=== PATIENT | female | born 1935 | race Caucasian/White ===

== ENCOUNTER 2017-12-29 15:41 | Inpatient (IN) | payer MEDICARE, OTHER ==
[~2017-12-29] VITALS: Ht 157.5 cm; Wt 105.5 kg
[2017-12-29] MEDS ORDERED: SODIUM CHLORID 0.9% 500 ML INJ 500 ML IV ONE ×2 (15:45→17:30)
[2017-12-29] MEDS ORDERED: SODIUM CHLORIDE 0.9% FLUSH 10 ML FLUSH IVF PRN (15:45)
[2017-12-29 15:47] VITALS: BP 154/71; PULSE 105; RESP 18; TEMP 100.1; O2SAT 98
--- NOTE | 2017-12-29 15:52 | PD ---
HPI Chief Complaint: Syncope Time Seen by Provider: 15:44 Travel History International Travel<30 days: No Contact w/Intl Traveler<30days: No Traveled to known affect area: No History of Present Illness HPI The patient is a 82-year-old female who presents to the emergency department via EMS after 2 syncopal episodes earlier today. The patient apparently had a colonoscopy performed this morning and while she was leaving the colonoscopy center she apparently had a syncopal episode. Per EMS there was no evidence of trauma that time and the family took the patient to her next appointment. The patient was going to see the eye physician when she got out of the car and felt lightheaded. The patient apparently sat down and then passed out for several seconds according to family. EMS states when they arrived fire rescue noted the patient's initial blood pressure was a systolic in the 80s palpable, however, when they placed the patient in the back of the ambulance her blood pressure had a systolic greater than 110. She was noted to be mildly tachycardic with a heart rate between the 90s and 110. They also noted the patient's EKG revealed PACs at that time but no other evidence of arrhythmia. The patient's blood sugar upon arrival was 114. The patient is a somewhat limited historian but denies any headache, neck pain, chest pain, shortness breath, nausea, vomiting, or abdominal pain. Symptoms are moderate. PFSH Past Medical History Narrative Medical Diabetes, hypertension, hyperlipidemia Past Surgical History Narrative Surgical Hysterectomy, multiple eye surgeries Social History Tobacco Use: No Allergies-Medications (Allergen,Severity, Reaction): Coded Allergies: Penicillins (Verified Allergy, Intermediate, 12/29/17) Reported Meds & Prescriptions Reported Meds & Active Scripts Active Reported Victoza Inj (Liraglutide Inj) 18 Mg/3 Ml Pen 0.6 Mg SQ DAILY Levemir Inj (Insulin Detemir) 1,000 unit/ 10 ML Vial 26 Units SQ HS Do not mix with any other Insulin. Levemir Inj (Insulin Detemir) 1,000 unit/ 10 ML Vial 30 Units SQ DAILY Do not mix with any other Insulin. Lisinopril 40 Mg Tab 40 Mg PO DAILY Atorvastatin (Atorvastatin Calcium) 20 Mg Tab 20 Mg PO HS Travatan Z Opth Drops (Travoprost) 0.004 % Soln 1 Drop EACH EYE HS Aricept (Donepezil) 23 Mg Tab 10 Mg PO HS Do not split, crushed or chewed. Namenda Xr (Memantine) 28 Mg Caper 28 Mg PO DAILY Brimonidine Opth Drops (Brimonidine Tartrate) 0.2% Soln 1 Drop EACH EYE TID Levothyroxine (Levothyroxine Sodium) 25 Mcg Tab 25 Mcg PO DAILY Review of Systems ROS Limitations: Poor Historian Except as stated in HPI: all other systems reviewed are Neg HENT: No: Headaches, Neck Pain Cardiovascular: Positive: Tachycardia (Heart rate between 90 and 110 per EMS), Syncope, No: Chest Pain or Discomfort, Diaphoresis Respiratory: No: Shortness of Breath Gastrointestinal: No: Nausea, Vomiting, Abdominal Pain Musculoskeletal: No: Weakness Neurologic: Positive: Syncope, No: Change in Mentation, Paresthesia, Sensory Disturbance Physical Exam Narrative GENERAL: Awake, alert, very pleasant 82-year-old female who appears her stated age and is in no acute respiratory distress. SKIN: Focused skin assessment warm/dry. HEAD: Atraumatic. Normocephalic. Thinning hair on the scalp noted. EYES: No injection or drainage. Cataracts bilaterally. ENT: No nasal bleeding or discharge. Slightly dry mucous membranes. NECK: Trachea midline. No JVD. No tenderness of the cervical vertebrae. CARDIOVASCULAR: Regular, tachycardic with a heart rate of 105. RESPIRATORY: No accessory muscle use. Clear to auscultation. Breath sounds equal bilaterally. GASTROINTESTINAL: Abdomen soft, non-tender, nondistended. No rebound tenderness. MUSCULOSKELETAL: No obvious deformities. No clubbing. No cyanosis. No edema. Well-healed scar medial aspect right ankle. Moves all 4 extremities without difficulty. NEUROLOGICAL: Awake and alert. No obvious cranial nerve deficits. Motor grossly within normal limits. Normal speech. 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 Back: No tenderness over the thoracic or lumbar vertebrae. PSYCHIATRIC: Appropriate mood and affect; insight and judgment normal. Data Data Last Documented VS Vital Signs Date Time Temp Pulse Resp B/P (MAP) Pulse Ox O2 Delivery O2 Flow Rate FiO2 12/29/17 17:22 98.4 12/29/17 16:31 91 18 93 18 100 18 12/29/17 15:47 98 Orders Orders Electrocardiogram (12/29/17 15:45) Complete Blood Count With Diff (12/29/17 15:45) Comprehensive Metabolic Panel (12/29/17 15:45) Magnesium (Mg) (12/29/17 15:45) Ckmb (Isoenzyme) Profile (12/29/17 15:45) Troponin I (12/29/17 15:45) Urinalysis - C+S If Indicated (12/29/17 15:45) Ecg Monitoring (12/29/17 15:45) Iv Access Insert/Monitor (12/29/17 15:45) Oximetry (12/29/17 15:45) Sodium Chloride 0.9% Flush (Ns Flush) (12/29/17 15:45) Orthostatic Vital Signs (12/29/17 15:45) Sodium Chlorid 0.9% 500 Ml Inj (Ns 500 M (12/29/17 15:45) Chest, Single Ap (12/29/17 ) Urine Culture (12/29/17 16:50) Ciprofloxacin 400 Mg Premix (Cipro 400 M (12/29/17 17:15) Sodium Chlorid 0.9% 500 Ml Inj (Ns 500 M (12/29/17 17:30) CKMB (12/29/17 16:30) CKMB% (12/29/17 16:30) Admit Order (Ed Use Only) (12/29/17 17:29) Labs Laboratory Tests Test 12/29/17 16:30 12/29/17 16:50 White Blood Count 17.8 TH/MM3 Red Blood Count 3.41 MIL/MM3 Hemoglobin 10.5 GM/DL Hematocrit 31.7 % Mean Corpuscular Volume 93.1 FL Mean Corpuscular Hemoglobin 30.9 PG Mean Corpuscular Hemoglobin Concent 33.2 % Red Cell Distribution Width 14.5 % Platelet Count 311 TH/MM3 Mean Platelet Volume 8.8 FL Neutrophils (%) (Auto) 85.2 % Lymphocytes (%) (Auto) 9.9 % Monocytes (%) (Auto) 2.7 % Eosinophils (%) (Auto) 0.2 % Basophils (%) (Auto) 2.0 % Neutrophils # (Auto) 15.1 TH/MM3 Lymphocytes # (Auto) 1.8 TH/MM3 Monocytes # (Auto) 0.5 TH/MM3 Eosinophils # (Auto) 0.0 TH/MM3 Basophils # (Auto) 0.4 TH/MM3 CBC Comment DIFF FINAL Differential Comment Blood Urea Nitrogen 29 MG/DL Creatinine 1.70 MG/DL Random Glucose 190 MG/DL Total Protein 7.8 GM/DL Albumin 2.3 GM/DL Calcium Level 8.9 MG/DL Magnesium Level 1.5 MG/DL Alkaline Phosphatase 84 U/L Aspartate Amino Transf (AST/SGOT) 24 U/L Alanine Aminotransferase (ALT/SGPT) 20 U/L Total Bilirubin 0.5 MG/DL Sodium Level 139 MEQ/L Potassium Level 4.4 MEQ/L Chloride Level 102 MEQ/L Carbon Dioxide Level 25.4 MEQ/L Anion Gap 12 MEQ/L Estimat Glomerular Filtration Rate 29 ML/MIN Total Creatine Kinase 125 U/L Troponin I LESS THAN 0.02 NG/ML Urine Color BROWN Urine Turbidity CLOUDY Urine pH 7.0 Urine Specific [place] 1.025 Urine Protein 100 mg/dL Urine Glucose (UA) NEG mg/dL Urine Ketones NEG mg/dL Urine Occult Blood LARGE Urine Nitrite NEG Urine Bilirubin NEG Urine Urobilinogen 0.2 MG/DL Urine Leukocyte Esterase MOD Urine RBC 100-200 /hpf Urine WBC 100-200 /hpf Urine Bacteria MANY /hpf Microscopic Urinalysis Comment CULTURE INDICATED MDM Medical Decision Making Medical Screen Exam Complete: Yes Emergency Medical Condition: Yes Medical Record Reviewed: Yes Interpretation(s) EKG reveals normal sinus rhythm with a rate of 97. Nonspecific T-wave changes. Last Impressions Chest X-Ray 12/29/17 0000 Signed Impressions: CONCLUSION: No acute cardiothoracic process. Laboratory Tests Test 12/29/17 16:30 12/29/17 16:50 White Blood Count 17.8 TH/MM3 Red Blood Count 3.41 MIL/MM3 Hemoglobin 10.5 GM/DL Hematocrit 31.7 % Mean Corpuscular Volume 93.1 FL Mean Corpuscular Hemoglobin 30.9 PG Mean Corpuscular Hemoglobin Concent 33.2 % Red Cell Distribution Width 14.5 % Platelet Count 311 TH/MM3 Mean Platelet Volume 8.8 FL Neutrophils (%) (Auto) 85.2 % Lymphocytes (%) (Auto) 9.9 % Monocytes (%) (Auto) 2.7 % Eosinophils (%) (Auto) 0.2 % Basophils (%) (Auto) 2.0 % Neutrophils # (Auto) 15.1 TH/MM3 Lymphocytes # (Auto) 1.8 TH/MM3 Monocytes # (Auto) 0.5 TH/MM3 Eosinophils # (Auto) 0.0 TH/MM3 Basophils # (Auto) 0.4 TH/MM3 CBC Comment DIFF FINAL Differential Comment Blood Urea Nitrogen 29 MG/DL Creatinine 1.70 MG/DL Random Glucose 190 MG/DL Total Protein 7.8 GM/DL Albumin 2.3 GM/DL Calcium Level 8.9 MG/DL Magnesium Level 1.5 MG/DL Alkaline Phosphatase 84 U/L Aspartate Amino Transf (AST/SGOT) 24 U/L Alanine Aminotransferase (ALT/SGPT) 20 U/L Total Bilirubin 0.5 MG/DL Sodium Level 139 MEQ/L Potassium Level 4.4 MEQ/L Chloride Level 102 MEQ/L Carbon Dioxide Level 25.4 MEQ/L Anion Gap 12 MEQ/L Estimat Glomerular Filtration Rate 29 ML/MIN Total Creatine Kinase 125 U/L Troponin I LESS THAN 0.02 NG/ML Urine Color BROWN Urine Turbidity CLOUDY Urine pH 7.0 Urine Specific [place] 1.025 Urine Protein 100 mg/dL Urine Glucose (UA) NEG mg/dL Urine Ketones NEG mg/dL Urine Occult Blood LARGE Urine Nitrite NEG Urine Bilirubin NEG Urine Urobilinogen 0.2 MG/DL Urine Leukocyte Esterase MOD Urine RBC 100-200 /hpf Urine WBC 100-200 /hpf Urine Bacteria MANY /hpf Microscopic Urinalysis Comment CULTURE INDICATED Differential Diagnosis Differential diagnosis includes orthostatic hypotension, dehydration, arrhythmia , aortic stenosis, electrolyte abnormality, cardiogenic syncope, neurogenic syncope, deconditioning. Narrative Course IV was established, labs are drawn and sent, and the patient was placed on cardiac telemetry monitoring and continuous pulse oximetry monitoring. EKG was ordered and interpreted. Orthostatic vital signs were obtained. The patient was administered 500 cc of normal saline. The patient's UA is positive for UTI , temperature was 100.1, patient was treated with Cipro as she has an allergy to penicillins. Patient's BUN was elevated at 29, white count was elevated at 17.3. Patient most likely has dehydration with secondary UTI and secondary syncope, may benefit from telemetry monitoring and/or echocardiogram. The on- call medical service was paged for 23 hour observation. I discussed the findings with the family and patient at bedside. Orthostatics were positive, patient's systolic pressure dropped 65 points from supine to standing with symptoms. The patient was administered a second IV fluid bolus. BUN and creatinine are slightly elevated, I do not have a baseline with no previous visits. Patient may have underlying CKD versus dehydration. Sepsis Criteria SIRS Criteria (2 or more): Heart rate over 90, WBC > 23483, < 4000 or > 10% bands Sepsis Criteria (SIRS+source): Infect source susp/known Criteria Outcome: Meets sepsis criteria Physician Communication [facility]. I discussed the patient with Dr. Chowdhury who agrees with 23 hour observation. Diagnosis Primary Impression: Syncope Qualified Codes: R55 - Syncope and collapse Additional Impression: UTI (urinary tract infection) Qualified Codes: N30.01 - Acute cystitis with hematuria Condition: Stable Gael Dubois MD Dec 29, 2017 15:52
[2017-12-29] MEDS ORDERED: LEVO25TA4 PO (16:08)
[2017-12-29] MEDS ORDERED: MEMA28CA PO (16:08)
[2017-12-29] MEDS ORDERED: VICT18IN SQ (16:08)
[2017-12-29] MEDS ORDERED: ATOR20TA15 PO (16:08)
[2017-12-29] MEDS ORDERED: LEVEMIR SQ ×2 (16:08)
[2017-12-29] MEDS ORDERED: ARIC23TA PO (16:08)
[2017-12-29] MEDS ORDERED: BRIM0.2S4 EACH EYE (16:08)
[2017-12-29] MEDS ORDERED: LISI40TA PO (16:08)
[2017-12-29] MEDS ORDERED: TRAV0.00 EACH EYE (16:08)
[2017-12-29 16:31] VITALS: BP_SYST 130; BP_SYST 163; BP_SYST 165; BP_DIAS 59; BP_DIAS 65; BP_DIAS 69; RESP 18
[2017-12-29 16:42] LABS: AUTOMATED NEUTROPHIL # 15.1 TH/MM3 (1.8-7.7); BASOPHIL # 0.4 TH/MM3 (0-0.2); EOSINOPHIL % 0.2 % (0.0-4.0); HEMATOCRIT 31.7 % (35.0-46.0); HEMOGLOBIN 10.5 GM/DL (11.6-15.3); LYMPH % 9.9 % (9.0-44.0); LYMPHOCYTE # 1.8 TH/MM3 (1.0-4.8); MEAN CELL VOLUME 93.1 FL (80.0-100.0); MEAN CORPUSCULAR HEMOGLOBIN 30.9 PG (27.0-34.0); MEAN CORPUSCULAR HGB CONC 33.2 % (32.0-36.0); MEAN PLATELET VOLUME 8.8 FL (7.0-11.0); MONO % 2.7 % (0.0-8.0); MONOCYTE # 0.5 TH/MM3 (0-0.9); NEUT % 85.2 % (16.0-70.0); PLATELET COUNT 311 TH/MM3 (150-450); RED BLOOD COUNT 3.41 MIL/MM3 (4.00-5.30); RED CELL DISTRIBUTION WIDTH 14.5 % (11.6-17.2); WHITE BLOOD COUNT 17.8 TH/MM3 (4.0-11.0)
[2017-12-29 17:00] LABS: BILIRUBIN, URINE NEG (NEG); BLOOD, URINE LARGE (NEG); GLUCOSE,URINE NEG (NEG); KETONE, URINE NEG (NEG); NITRITE,URINE NEG (NEG); URINE LEUKOCYTE ESTERASE MOD (NEG)
[2017-12-29 17:01] LABS: URINE COLOR BROWN (YELLW/STRAW)
[2017-12-29 17:08] LABS: BACTERIA, URINE MANY /hpf; RBC, URINE 100-200 /hpf (0-3); WBC, URINE 100-200 /hpf (0-5)
[2017-12-29 17:09] LABS: CHLORIDE 102 MEQ/L (98-107); SODIUM (NA) 139 MEQ/L (136-145)
[2017-12-29 17:12] LABS: ALBUMIN 2.3 GM/DL (3.4-5.0); BICARBONATE 25.4 MEQ/L (21.0-32.0); CALCIUM 8.9 MG/DL (8.5-10.1)
[2017-12-29 17:13] LABS: BLOOD UREA NITROGEN 29 MG/DL (7-18); GLUCOSE,RANDOM 190 MG/DL (74-106); MAGNESIUM 1.5 MG/DL (1.5-2.5)
[2017-12-29] MEDS ORDERED: CIPROFLOXACIN 400 MG PREMIX 200 ML IV ONE (17:15)
[2017-12-29 17:16] LABS: ALT (GPT) 20 U/L (10-53); AST (GOT) 24 U/L (15-37); GLOMERULAR FILTRATION RATE 29 ML/MIN (>89)
[2017-12-29 17:17] LABS: TOTAL BILIRUBIN ADULT 0.5 MG/DL (0.2-1.0); TOTAL PROTEIN 7.8 GM/DL (6.4-8.2)
[2017-12-29 17:19] LABS: ALKALINE PHOSPHATASE 84 U/L (45-117)
--- NOTE | 2017-12-29 17:20 | RADRPT ---
EXAM DATE: 12/29/2017 5:15 PM EDT AGE/SEX: 82 years / Female INDICATIONS: Leukocytosis with fever starting today CLINICAL DATA: This is the patient's initial encounter. Patient reports that signs and symptoms have been present for 1 day and indicates a pain score of 0/10. MEDICAL/SURGICAL HISTORY: Hypercholesterolemia. Hypertension. None. COMPARISON: No prior exams available for comparison. FINDINGS: A single AP view of the chest demonstrates the lungs to be symmetrically aerated without evidence of mass, infiltrate or effusion. The cardiomediastinal contours are unremarkable. Osseous structures a re intact. CONCLUSION: No acute cardiothoracic process. Electronically signed by: Ryan Barrera MD 12/29/2017 5:19 PM EDT
[2017-12-29 17:21] LABS: TROPONIN I LESS THAN 0.02 NG/ML (0.02-0.05)
[2017-12-29 17:22] VITALS: TEMP 98.4
[2017-12-29] MEDS ORDERED: SENNOSIDES 8.6 MG TAB PO PRN (17:45)
[2017-12-29] MEDS ORDERED: MAGNESIUM HYDROXIDE SUSP 30 ML CUP PO PRN (17:45)
[2017-12-29] MEDS ORDERED: NALOXONE HCL 0.4 MG/ML AMP IV PUSH PRN (17:45)
[2017-12-29] MEDS ORDERED: SODIUM CHLORIDE 0.9% FLUSH 10 ML FLUSH IV FLUSH PRN (17:45)
[2017-12-29] MEDS ORDERED: LACTULOSE SYRUP 20 GM/30 ML CUP PO PRN (17:45)
[2017-12-29] MEDS ORDERED: BISACODYL 10 MG SUPP RECTAL PRN (17:45)
[2017-12-29] MEDS: BRIMONIDINE TARTRATE 0.2% OPHT SOLN 5 ML BTL EACH EYE SCH (18:00)
[2017-12-29] MEDS ORDERED: GLUCAGON 1 MG/ML VIAL OTHER PRN (18:15)
[2017-12-29] MEDS ORDERED: DEXTROSE 50% IN WATER 50 ML VIAL(D50) IV PUSH PRN (18:15)
[2017-12-29] MEDS: HEPARIN SODIUM - SQ 10,000 UNITS/ML VIAL SQ SCH (18:16)
[2017-12-29] MEDS: SODIUM CHLOR 0.9% 1000 ML INJ 1,000 ML IV SCH (18:16)
[2017-12-29 20:16] VITALS: BP 162/81; PULSE 88; RESP 20; TEMP 98.4; O2SAT 95
[2017-12-29 20:27] VITALS: BP 156/71; PULSE 92; RESP 18; O2SAT 98
[2017-12-29] MEDS: LATANOPROST 0.005% OPHT SOLN 2.5 ML BTL EACH EYE SCH (21:00)
[2017-12-29] MEDS: ATORVASTATIN 20 MG TAB PO SCH (21:45)
[2017-12-29] MEDS: SODIUM CHLORIDE 0.9% FLUSH 10 ML FLUSH IV FLUSH SCH (21:46)
[2017-12-29] MEDS: INSULIN DETEMIR 100 UNITS/ML VIAL SQ SCH (21:48)
[2017-12-29] MEDS: INSULIN ASPART SUPPLEMENTAL SCALE SQ SCH (21:49)
[2017-12-29 22:45] VITALS: O2SAT 96
[2017-12-30] VITALS (7 sets, daily range): BP systolic 67–184; BP diastolic 55–87; PULSE 85–113; RESP 16–20; TEMP 97.8–99.5; O2SAT 95–100
[2017-12-30] MEDS: SODIUM CHLOR 0.9% 1000 ML INJ 1,000 ML IV SCH ×2 (04:28→14:01)
[2017-12-30] MEDS: LEVOTHYROXINE SODIUM 25 MCG TAB PO SCH (06:03)
[2017-12-30] MEDS: HEPARIN SODIUM - SQ 10,000 UNITS/ML VIAL SQ SCH ×2 (06:07→17:30)
[2017-12-30 06:26] LABS: AUTOMATED NEUTROPHIL # 14.7 TH/MM3 (1.8-7.7); BASOPHIL # 0.1 TH/MM3 (0-0.2); BASOPHIL % 0.6 % (0.0-2.0); EOSINOPHIL # 0.1 TH/MM3 (0-0.4); EOSINOPHIL % 0.4 % (0.0-4.0); HEMOGLOBIN 9.9 GM/DL (11.6-15.3); LYMPH % 12.8 % (9.0-44.0); LYMPHOCYTE # 2.3 TH/MM3 (1.0-4.8); MEAN CELL VOLUME 94.1 FL (80.0-100.0); MEAN CORPUSCULAR HEMOGLOBIN 30.2 PG (27.0-34.0); MEAN PLATELET VOLUME 8.6 FL (7.0-11.0); MONO % 4.7 % (0.0-8.0); MONOCYTE # 0.9 TH/MM3 (0-0.9); NEUT % 81.5 % (16.0-70.0); PLATELET COUNT 272 TH/MM3 (150-450); RED BLOOD COUNT 3.29 MIL/MM3 (4.00-5.30); RED CELL DISTRIBUTION WIDTH 14.3 % (11.6-17.2); WHITE BLOOD COUNT 18.1 TH/MM3 (4.0-11.0)
[2017-12-30 06:48] LABS: BICARBONATE 24.1 MEQ/L (21.0-32.0); CALCIUM 8.4 MG/DL (8.5-10.1); CREATININE 1.2 MG/DL (0.50-1.00)
[2017-12-30] MEDS ORDERED: POTASSIUM CHLORIDE 20 MEQ CONTROLLED RELEASE TAB PO ONE (07:30)
[2017-12-30] MEDS ORDERED: INSULIN ASPART 1,000 UNITS/10 ML VIAL SQ SCH (08:00)
[2017-12-30] MEDS: INSULIN ASPART SUPPLEMENTAL SCALE SQ SCH ×4 (08:05→19:49)
[2017-12-30] MEDS: BRIMONIDINE TARTRATE 0.2% OPHT SOLN 5 ML BTL EACH EYE SCH ×3 (09:04→17:30)
[2017-12-30] MEDS: SODIUM CHLORIDE 0.9% FLUSH 10 ML FLUSH IV FLUSH SCH ×2 (09:04→19:50)
[2017-12-30] MEDS: MEMANTINE 28 MG PO SCH (09:10)
[2017-12-30] MEDS ORDERED: SODIUM CHLOR 0.9% 1000 ML INJ 1,000 ML IV ONE (11:45)
--- NOTE | 2017-12-30 12:05 | HHI.HP ---
[facility] Service [facility] Primary Care Physician Non-Staff Admission Diagnosis Syncope, orthostatic changes, UTI, dehydration Diagnoses: (1) Sepsis Diagnosis: Principal (2) Leucocytosis Diagnosis: Principal (3) Syncope Diagnosis: Principal (4) UTI (urinary tract infection) Diagnosis: Principal Chief Complaint: Patient passed out Travel History International Travel<30 Days: No Contact w/Intl Traveler <30 Da: No Traveled to Known Affected Are: No History of Present Illness 82-year-old female with known history of hypertension, hyperlipidemia, diabetes , chronic kidney disease stage III, dementia who presented to hospital because of syncopal episode. Patient does have dementia and information was taken from daughter at bedside. Apparently the patient has been plagued with lightheadedness, dizziness when standing for the last few months. The daughter indicates that has been progressively getting worse over the last month. Patient did undergo hers screening colonoscopy yesterday in which she did do the prep the night before. After the colonoscopy they went to see her announcer. When the patient went to get out of the car she got significantly lightheaded and the daughter was able to grab her mother's coat and she went backwards into the car without any injury. The daughter indicated that her mother's eyes rolled back into her head, there was no tonic-clonic movements or loss of bowel or bladder control. Daughter states that she was unconscious for at least 5 minutes. When she came to she did know that it was her daughter and great grandkids that were with her. Because of that reason they brought her to the emergency department for evaluation. Upon workup patient was found to have sepsis by criteria with tachycardia, leukocytosis, urinary tract infection. Patient was given fluids in emergency department and had orthostatic vitals performed which were significantly positive. Renal functions did indicate signs of volume depletion with worsening of her chronic kidney disease. Is recommended by the ER physician the patient be admitted for further evaluation and management. At the time evaluating the patient today she states that she is feeling much better. She still has lightheadedness and dizziness upon standing. Orthostatic vital signs still are significant positive. As previously stated the patient has had at least 2-3 months of worsening orthostasis, lightheadedness, dizziness upon standing. They deny any outpatient workup. They have not notified her primary medical doctor of these symptoms. Review of Systems Constitutional: COMPLAINS OF: Dizziness Cardiovascular: COMPLAINS OF: Syncope Except as stated in HPI: all other systems reviewed are Neg Past Family Social History Past Medical History Hypertension Hyperlipidemia Chronic kidney disease stage III Diabetes Dementia Past Surgical History Right ankle surgery Cataract surgery Hysterectomy Reported Medications Reported Meds & Active Scripts Active Reported Victoza Inj (Liraglutide Inj) 18 Mg/3 Ml Pen 0.6 Mg SQ DAILY Levemir Inj (Insulin Detemir) 1,000 unit/ 10 ML Vial 26 Units SQ HS Do not mix with any other Insulin. Levemir Inj (Insulin Detemir) 1,000 unit/ 10 ML Vial 30 Units SQ DAILY Do not mix with any other Insulin. Lisinopril 40 Mg Tab 40 Mg PO DAILY Atorvastatin (Atorvastatin Calcium) 20 Mg Tab 20 Mg PO HS Travatan Z Opth Drops (Travoprost) 0.004 % Soln 1 Drop EACH EYE HS Aricept (Donepezil) 23 Mg Tab 10 Mg PO HS Do not split, crushed or chewed. Namenda Xr (Memantine) 28 Mg Caper 28 Mg PO DAILY Brimonidine Opth Drops (Brimonidine Tartrate) 0.2% Soln 1 Drop EACH EYE TID Levothyroxine (Levothyroxine Sodium) 25 Mcg Tab 25 Mcg PO DAILY Allergies: Coded Allergies: Penicillins (Verified Allergy, Intermediate, 12/29/17) Family History Family history is reviewed and mother with possible pancreatic cancer Social History Patient did not use any tobacco, alcohol or illicit drugs Physical Exam Vital Signs Vital Signs Date Time Temp Pulse Resp B/P (MAP) Pulse Ox O2 Delivery O2 Flow Rate FiO2 12/30/17 09:11 110/63 (79) 123/69 (87) 67/55 (59) 12/30/17 08:00 98.6 113 18 140/78 (98) 96 12/30/17 00:00 98.0 89 20 165/84 (111) 100 12/29/17 22:45 96 21 12/29/17 20:28 92 18 98 12/29/17 20:27 92 18 156/71 (99) 98 Room Air 12/29/17 20:16 98.4 88 20 162/81 (108) 95 12/29/17 17:22 98.4 12/29/17 16:31 91 18 165/65 (98) 93 18 163/69 (100) 100 18 130/59 (82) 12/29/17 15:47 100.1 105 18 154/71 (98) 98 Physical Exam GENERAL: Well-developed, well-nourished, in no acute distress. alert and orientated HEENT: Head is normocephalic without any lesions or masses noted. Facial features are symmetric. Eyes: Pupils equal round reactive to light. Extraocular muscles are intact. Conjunctivae were clear. Oropharyngeal: Pharynx without any erythema edema. Tongue is midline without deviation. Buccal mucosa is moist without any masses or lesions NECK: Supple without any masses. Trachea midline no deviation. No JVD, no bruits are appreciated CARDIAC: Regular rhythm, regular rate. S1/S2 are heard. 2/6 ejection murmur, no gallops or rubs. LUNGS: Clear to auscultation bilaterally. No wheeze, rhonchi or rales. No use of accessory muscles on inspiration or expiration. ABDOMEN: Soft, nontender. Nondistended. Bowel sounds heard in all 4 quadrants. No organomegaly or masses. Negative rebound, negative guarding EXTREMITIES: No edema, pulses are equal bilaterally. No cyanosis or clubbing NEUROLOGY: Mood and affect appear appropriate. Cranial nerves II through XII grossly intact. Muscle strength 5/5 in upper and lower extremities bilaterally. Deep tendon reflexes are 2+ in upper and lower extremities bilaterally. Laboratory Laboratory Tests Test 12/29/17 16:30 12/29/17 16:50 12/30/17 06:10 White Blood Count 17.8 18.1 Red Blood Count 3.41 3.29 Hemoglobin 10.5 9.9 Hematocrit 31.7 31.0 Mean Corpuscular Volume 93.1 94.1 Mean Corpuscular Hemoglobin 30.9 30.2 Mean Corpuscular Hemoglobin Concent 33.2 32.0 Red Cell Distribution Width 14.5 14.3 Platelet Count 311 272 Mean Platelet Volume 8.8 8.6 Neutrophils (%) (Auto) 85.2 81.5 Lymphocytes (%) (Auto) 9.9 12.8 Monocytes (%) (Auto) 2.7 4.7 Eosinophils (%) (Auto) 0.2 0.4 Basophils (%) (Auto) 2.0 0.6 Neutrophils # (Auto) 15.1 14.7 Lymphocytes # (Auto) 1.8 2.3 Monocytes # (Auto) 0.5 0.9 Eosinophils # (Auto) 0.0 0.1 Basophils # (Auto) 0.4 0.1 CBC Comment DIFF FINAL AUTO DIFF Differential Comment AUTO DIFF CONFIRMED Blood Urea Nitrogen 29 22 Creatinine 1.70 1.20 Random Glucose 190 51 Total Protein 7.8 Albumin 2.3 Calcium Level 8.9 8.4 Magnesium Level 1.5 Alkaline Phosphatase 84 Aspartate Amino Transf (AST/SGOT) 24 Alanine Aminotransferase (ALT/SGPT) 20 Total Bilirubin 0.5 Sodium Level 139 144 Potassium Level 4.4 3.1 Chloride Level 102 109 Carbon Dioxide Level 25.4 24.1 Anion Gap 12 11 Estimat Glomerular Filtration Rate 29 43 Total Creatine Kinase 125 Creatine Kinase MB 0.9 Troponin I LESS THAN 0.02 Urine Color BROWN Urine Turbidity CLOUDY Urine pH 7.0 Urine Specific [place] 1.025 Urine Protein 100 Urine Glucose (UA) NEG Urine Ketones NEG Urine Occult Blood LARGE Urine Nitrite NEG Urine Bilirubin NEG Urine Urobilinogen 0.2 Urine Leukocyte Esterase MOD Urine RBC 100-200 Urine WBC 100-200 Urine Bacteria MANY Microscopic Urinalysis Comment CULTURE INDICATED Platelet Estimate NORMAL Platelet Morphology Comment NORMAL Date/Time Source Procedure Growth Status 12/29/17 16:50 Urine Clean Catch Urine Culture Pending Received Result Diagram: 12/30/17 0610 12/30/17 0610 Imaging Last Impressions Chest X-Ray 12/29/17 0000 Signed Impressions: CONCLUSION: No acute cardiothoracic process. Caprini VTE Risk Assessment Caprini VTE Risk Assessment: Mod/High Risk (score >= 2) Caprini Risk Assessment Model Point Value = 1 Point Value = 2 Point Value = 3 Point Value = 5 Age 41-60 Minor surgery BMI > 25 kg/m2 Swollen legs Varicose veins or History of unexplained or recurrent spontaneous Oral contraceptives or hormone replacement Sepsis (< 1 month) Serious lung disease, including pneumonia (< 1 month) Abnormal pulmonary function Acute myocardial infarction Congestive heart failure (< 1 month) History of inflammatory bowel disease Medical patient at bed rest Age 61-74 Arthroscopic surgery Major open surgery (> 45 min) Laparoscopic surgery (> 45 min) Malignancy Confined to bed (> 72 hours) Immobilizing plaster cast Central venous access Age >= 75 History of VTE Family history of VTE Factor V Leiden Prothrombin [id number] Lupus anticoagulant Anticardiolipin antibodies Elevated serum homocysteine Heparin-induced thrombocytopenia Other congenital or acquired thrombophilia Stroke (< 1 month) Elective arthroplasty Hip, pelvis, or leg fracture Acute spinal cord injury (< 1 month) Prophylaxis Regimen Total Risk Factor Score Risk Level Prophylaxis Regimen 0-1 Low Early ambulation 2 Moderate Order ONE of the following: *Sequential Compression Device (SCD) *Heparin 5000 units SQ BID 3-4 Higher Order ONE of the following medications: *Heparin 5000 units SQ TID *Enoxaparin/Lovenox 40 mg SQ daily (WT < 150 kg, CrCl > 30 mL/min) *Enoxaparin/Lovenox 30 mg SQ daily (WT < 150 kg, CrCl > 10-29 mL/min) *Enoxaparin/Lovenox 30 mg SQ BID (WT < 150 kg, CrCl > 30 mL/min) AND/OR *Sequential Compression Device (SCD) 5 or more Highest Order ONE of the following medications: *Heparin 5000 units SQ TID (Preferred with Epidurals) *Enoxaparin/Lovenox 40 mg SQ daily (WT < 150 kg, CrCl > 30 mL/min) *Enoxaparin/Lovenox 30 mg SQ daily (WT < 150 kg, CrCl > 10-29 mL/min) *Enoxaparin/Lovenox 30 mg SQ BID (WT < 150 kg, CrCl > 30 mL/min) AND *Sequential Compression Device (SCD) Assessment and Plan Assessment and Plan Sepsis -Patient met criteria with leukocytosis, tachycardia, urinary tract infection -Urine culture is pending -Obtain blood cultures -Continue to monitor CBC -Chest x-ray did not indicate any acute process -Continue patient on Cipro 250 mg twice daily Syncopal episode with orthostasis -Multifactorial with a lasting for over the last few months. Could have been antagonized by volume depletion from undergoing prep for colonoscopy. Could be related to medications, diabetes -Orthostatic vitals continue to remain positive -Patient has received at least 3 L of fluid thus far -We will obtain CT of the brain, carotid ultrasound, TSH, cortisol level -We will place LUCÍA hose and continue orthostatic vitals Acute renal failure superimposed on chronic kidney disease stage III -Likely secondary to volume depletion from colonoscopy prep -Continue monitor renal function -Avoid nephrotoxins Hypokalemia -Continue monitoring place as needed Diabetes -Diabetic diet -Accu-Cheks with sliding scale insulin DVT prevention -Subcutaneous heparin Physician Certification 2 Midnight Certification Type: Admission for Inpatient Services Order for Inpatient Services The services are ordered in accordance with Medicare regulations or non- Medicare payer requirements, as applicable. In the case of services not specified as inpatient-only, they are appropriately provided as inpatient services in accordance with the 2-midnight benchmark. Estimated LOS (days): 2 days is the estimated time the patient will need to remain in the hospital, assuming treatment plan goals are met and no additional complications. Post-Hospital Plan: Not yet determined Problem Qualifiers (1) Syncope: Qualified Codes: R55 - Syncope and collapse (2) UTI (urinary tract infection): Qualified Codes: N30.01 - Acute cystitis with hematuria Edmar Teran Dec 30, 2017 12:05
[2017-12-30] MEDS: CIPROFLOXACIN 250 MG TAB PO SCH ×2 (12:07→19:49)
[2017-12-30] MEDS: ACETAMINOPHEN 325 MG TAB PO PRN (12:29)
--- NOTE | 2017-12-30 13:15 | RADRPT ---
EXAM DATE: 12/30/2017 1:10 PM EDT AGE/SEX: 82 years / Female INDICATIONS: Syncope. CLINICAL DATA: This is the patient's initial encounter. Patient reports that signs and symptoms have been present for 2 days and indicates a pain score of 0/10. MEDICAL/SURGICAL HISTORY: Diabetes. Hypertension. Dementia. Hysterectomy. RADIATION DOSE: 55.54 CTDI (mGy) COMPARISON: No prior exams available for comparison. TECHNIQUE: CT of the head without contrast. Using automated exposure control and adjustment of the mA and/or kV according to patient size, radiation dose was kept as low as reasonably achievable to ob tain optimal diagnostic quality images. DICOM format image data is available electronically for revi ew and comparison. FINDINGS: Cerebrum: There is mild generalized atrophy and ventricles are normal given the degree of atrophy. M ild periventricular white matter change is present. There is basal ganglia calcification bilaterally. No midline shift, mass lesion, hemorrhage or acute infarction. No extraaxial fluid collections are seen. There is dense calcification of the anterior falx. Posterior Fossa: The cerebellum and brainstem demonstrate no acute abnormality. The 4th ventricle is midline. The cerebellopontine angle is within normal limits. Extracranial: The visualized sinuses are clear. Skull: The calvaria is intact. No skull fracture. CONCLUSION: 1. No acute intracranial abnormality is identified. 2. Chronic findings include generalized atrophy and periventricular white matter change characterist ic of chronic microvascular ischemia. Electronically signed by: Ryan Donis MD 12/30/2017 1:14 PM EDT
--- NOTE | 2017-12-30 15:16 | HHI.FF ---
Face to Face Verification Diagnosis: (1) Sepsis (2) Leucocytosis (3) UTI (urinary tract infection) (4) Syncope Physical Therapy Order: Evaluate and Treat, Improve ambulation, Strength and gait training Home Health Nursing Order: Medical education Signs/symptoms of disease process Nursing assessment with vital signs I have seen patient Susan Taylor on 12/30/17. My clinical findings support the need for the requested home health care services because: Deconditioned w/ increased weakness Limited ability to care for self I certify that my clinical findings support that this patient is homebound because: Unsteady gait/balance Unsafe to leave home unassisted Edmar Teran Dec 30, 2017 15:16
--- NOTE | 2017-12-30 15:17 | HHI.DCPOC ---
Discharge Care Plan Diagnosis: (1) Sepsis (2) Syncope (3) Leucocytosis (4) UTI (urinary tract infection) Goals to Promote Your Health * To prevent worsening of your condition and complications * To maintain your health at the optimal level Directions to Meet Your Goals Take your medications as prescribed Follow your dietary instruction Follow activity as directed Keep your appointments as scheduled Take your immunizations and boosters as scheduled If your symptoms worsen call your PCP, if no PCP go to Urgent Care Center or Emergency Room Smoking is Dangerous to Your Health. Avoid second hand smoke Call the 24-hour hour crisis hotline for domestic abuse at Edmar Teran Dec 30, 2017 15:17
--- NOTE | 2017-12-30 17:12 | RADRPT ---
EXAM DATE: 12/30/2017 2:08 PM EDT AGE/SEX: 82 years / Female INDICATIONS: Two episodes of syncope. CLINICAL DATA: This is the patient's initial encounter. Patient reports that signs and symptoms have been present for 2 days and indicates a pain score of 0/10. MEDICAL/SURGICAL HISTORY: Hypercholesterolemia. Diabetes. Dementia. Hysterectomy. Right ankle surgery/pins and screws. Multiple eye surgeries. COMPARISON: No prior exams available for comparison. VELOCITY PARAMETERS: ICA/CCA Ratio: Right 1.1 , Left 0.83 ICA: Right 96 cm/sec, Left 82 cm/sec CCA: Right 90 cm/sec, Left 98 cm/sec ECA: Right 85 cm/sec, Left 88 cm/sec Vertebral: Right 63 cm/sec antegrade, Left 47 cm/sec antegrade FINDINGS: Right Carotid: Minimal plaque in the bulb.The waveforms are within normal limits. Left Carotid: High bifurcation. The waveforms are within normal limits. Other: None. CONCLUSION: 1. Right Internal Carotid Artery: Findings indicate <50% stenosis. 2. Left Internal Carotid Artery: No significant stenosis or atherosclerotic plaque is visualized. Electronically signed by: Mainor Cutler MD 12/30/2017 5:10 PM EDT
--- NOTE | 2017-12-30 17:44 | EKG ---
Date Performed: 12/29/2017 Time Performed: 15:50:49 PTAGE: 82 years EKG: Sinus rhythm NONSPECIFIC T-WAVE ABNORMALITY BORDERLINE ECG NO PREVIOUS TRACING DOCTOR: Anamika Jung Interpretating Date/Time 12/30/2017 17:41:50
[2017-12-30] MEDS: INSULIN DETEMIR 100 UNITS/ML VIAL SQ SCH (19:48)
[2017-12-30] MEDS: ATORVASTATIN 20 MG TAB PO SCH (19:49)
[2017-12-30] MEDS: LATANOPROST 0.005% OPHT SOLN 2.5 ML BTL EACH EYE SCH (19:49)
[2017-12-31] VITALS: BP 180/88; PULSE 92; RESP 20; TEMP 98.2; O2SAT 98
[2017-12-31] MEDS: SODIUM CHLOR 0.9% 1000 ML INJ 1,000 ML IV SCH ×3 (00:12→21:10)
[2017-12-31] MEDS: LEVOTHYROXINE SODIUM 25 MCG TAB PO SCH (05:10)
[2017-12-31] MEDS: HEPARIN SODIUM - SQ 10,000 UNITS/ML VIAL SQ SCH ×2 (05:10→16:50)
[2017-12-31 06:02] LABS: BASOPHIL # 0.5 TH/MM3 (0-0.2); BASOPHIL % 2.5 % (0.0-2.0); EOSINOPHIL # 0.2 TH/MM3 (0-0.4); EOSINOPHIL % 0.9 % (0.0-4.0); HEMATOCRIT 30.1 % (35.0-46.0); HEMOGLOBIN 9.9 GM/DL (11.6-15.3); LYMPHOCYTE # 2.7 TH/MM3 (1.0-4.8); MEAN CELL VOLUME 91.6 FL (80.0-100.0); MEAN CORPUSCULAR HGB CONC 32.8 % (32.0-36.0); MEAN PLATELET VOLUME 9.2 FL (7.0-11.0); MONO % 3.5 % (0.0-8.0); MONOCYTE # 0.7 TH/MM3 (0-0.9); NEUT % 79.1 % (16.0-70.0); PLATELET COUNT 273 TH/MM3 (150-450); RED BLOOD COUNT 3.29 MIL/MM3 (4.00-5.30); RED CELL DISTRIBUTION WIDTH 14.9 % (11.6-17.2); WHITE BLOOD COUNT 19.1 TH/MM3 (4.0-11.0)
[2017-12-31 06:17] LABS: BICARBONATE 25.7 MEQ/L (21.0-32.0); CALCIUM 8.5 MG/DL (8.5-10.1); CREATININE 1.2 MG/DL (0.50-1.00); MAGNESIUM 1.1 MG/DL (1.5-2.5)
[2017-12-31 08:00] VITALS: BP_SYST 125; BP_SYST 144; BP_SYST 152; BP_DIAS 56; BP_DIAS 66; BP_DIAS 67; PULSE 98; RESP 17; TEMP 99.6; O2SAT 94
[2017-12-31] MEDS: INSULIN ASPART SUPPLEMENTAL SCALE SQ SCH ×4 (08:00→21:17)
[2017-12-31] MEDS: MEMANTINE 28 MG PO SCH (09:00)
[2017-12-31] MEDS: MAGNESIUM SULFATE 1 GM PREMIX 100 ML IV SCH ×2 (09:33→10:37)
[2017-12-31] MEDS: BRIMONIDINE TARTRATE 0.2% OPHT SOLN 5 ML BTL EACH EYE SCH ×3 (09:34→16:50)
[2017-12-31] MEDS: SODIUM CHLORIDE 0.9% FLUSH 10 ML FLUSH IV FLUSH SCH ×2 (09:35→19:29)
--- NOTE | 2017-12-31 10:37 | HHI.PR ---
Subjective Remarks Patient seen and examined today for follow-up on syncope, orthostasis, urinary tract infection. Patient lying in bed comfortable. Denies any new complaints. Very eager to go home. Objective Vitals Vital Signs Date Time Temp Pulse Resp B/P (MAP) Pulse Ox O2 Delivery O2 Flow Rate FiO2 12/31/17 08:00 99.6 98 17 152/67 (95) 94 144/66 (92) 125/56 (79) 12/31/17 00:00 98.2 92 20 180/88 (118) 98 12/30/17 20:00 97.8 92 20 176/85 (115) 99 12/30/17 20:00 99 21 12/30/17 18:25 97.9 85 16 179/76 (110) 95 12/30/17 14:05 159/84 (109) 149/87 (107) 134/70 (91) 12/30/17 12:00 99.5 96 20 184/84 (117) 95 I/O 12/30/17 12/30/17 12/30/17 12/31/17 12/31/17 12/31/17 07:00 15:00 23:00 07:00 15:00 23:00 Intake Total 1742 ml 0 ml Output Total 150 ml 350 ml 2200 ml Balance 1592 ml -350 ml -2200 ml Intake Oral 0 ml IV Total 1742 ml Output Urine Total 150 ml 350 ml 2200 ml # Voids 1 2 # Bowel Movements 0 Result Diagram: 12/31/17 0535 12/31/17 0535 Objective Remarks GENERAL: Well-developed, well-nourished, in no acute distress. alert and orientated HEENT: Head is normocephalic without any lesions or masses noted. Facial features are symmetric. Eyes: Extraocular muscles are intact. Conjunctivae were clear. NECK: Supple without any masses. Trachea midline no deviation. No JVD, CARDIAC: Regular rhythm, regular rate. S1/S2 are heard. 2/6 ejection murmur, no gallops or rubs. LUNGS: Clear to auscultation bilaterally. No wheeze, rhonchi or rales. No use of accessory muscles on inspiration or expiration. ABDOMEN: Soft, nontender. Nondistended. Bowel sounds heard in all 4 quadrants. No organomegaly or masses. Negative rebound, negative guarding EXTREMITIES: No edema, pulses are equal bilaterally. No cyanosis or clubbing NEUROLOGY: Mood and affect appear appropriate. Cranial nerves II through XII grossly intact. Moving all extremities, speech is clear Urinary Catheter: No Vascular Central Line Catheter: No A/P Assessment and Plan Sepsis -Patient continues to meet criteria with leukocytosis, tachycardia, urinary tract infection -Urine culture with Proteus, resistant to Bactrim, Cipro -Blood cultures are pending -Patient with persistent leukocytosis without any improvement, continue follow CBC -Chest x-ray did not indicate any acute process -Discontinue Cipro secondary to resistance -Start Azactam 1 g every 8 hours -Discussed with infectious disease for antibiotic recommendations, recommending giving trial of Rocephin to see if patient has any allergic reaction. The patient has reaction would consider desensitization therapy. Syncopal episode with orthostasis -Multifactorial with a lasting for over the last few months. Could have been antagonized by volume depletion from undergoing prep for colonoscopy. Could be related to medications, diabetes -Orthostatic vitals continue to remain positive -Patient has received at least 6 l of fluid thus far -CT of the brain was unremarkable for any acute event -Carotid ultrasound indicated right internal carotid with less than 50% stenosis , left internal carotid no significant stenosis -Continue LUCÍA hose and continue orthostatic vitals Acute renal failure superimposed on chronic kidney disease stage III -Likely secondary to volume depletion from colonoscopy prep -Continue monitor renal function -Avoid nephrotoxins Hypokalemia -Continue monitoring place as needed Hypertension -Resume home medications Diabetes -Diabetic diet -Accu-Cheks with sliding scale insulin DVT prevention -Subcutaneous heparin Edmar Teran Dec 31, 2017 10:37
[2017-12-31] MEDS: AZTREONAM INJ 1,000 MG in SODIUM CHLORIDE 0.9% INJ 100 ML IV SCH ×2 (11:51→21:10)
[2017-12-31] MEDS: LISINOPRIL 20 MG TAB PO SCH (11:52)
[2017-12-31 11:57] VITALS: BP 171/90
[2017-12-31 12:00] VITALS: PULSE 86; RESP 17; TEMP 98.4; O2SAT 97
[2017-12-31 14:17] LABS: FREE T3 1.94 PG/ML (2.18-3.98); FREE T4 1.19 NG/DL (0.76-1.46)
[2017-12-31 16:00] VITALS: BP 131/65; PULSE 89; RESP 18; TEMP 100.2; O2SAT 95
[2017-12-31 20:00] VITALS: BP 158/73; PULSE 96; RESP 18; TEMP 99.8; O2SAT 96
[2017-12-31] MEDS ORDERED: diphenhydrAMINE HCL 50 MG/ML VIAL IV PUSH PRN (20:00)
[2017-12-31] MEDS ORDERED: methylPREDNISolone SOD SUCC 125 MG/2 ML VIAL IV PUSH PRN (20:00)
[2017-12-31] MEDS ORDERED: cefTRIAXone INJ 1,000 MG in SODIUM CHLORIDE 0.9% INJ 100 ML IV ONE (21:00)
[2017-12-31] MEDS: LATANOPROST 0.005% OPHT SOLN 2.5 ML BTL EACH EYE SCH (21:11)
[2017-12-31] MEDS: ATORVASTATIN 20 MG TAB PO SCH (21:11)
[2017-12-31] MEDS: INSULIN DETEMIR 100 UNITS/ML VIAL SQ SCH (21:17)
[2018-01-01] VITALS: BP 166/90; PULSE 96; RESP 18; TEMP 99; O2SAT 98
[2018-01-01] MEDS: AZTREONAM INJ 1,000 MG in SODIUM CHLORIDE 0.9% INJ 100 ML IV SCH (04:29)
[2018-01-01] MEDS: LEVOTHYROXINE SODIUM 25 MCG TAB PO SCH (06:23)
[2018-01-01] MEDS: HEPARIN SODIUM - SQ 10,000 UNITS/ML VIAL SQ SCH ×2 (06:24→17:33)
[2018-01-01 07:07] LABS: AUTOMATED NEUTROPHIL # 13.5 TH/MM3 (1.8-7.7); BASOPHIL # 0.7 TH/MM3 (0-0.2); EOSINOPHIL # 0.1 TH/MM3 (0-0.4); EOSINOPHIL % 0.6 % (0.0-4.0); HEMATOCRIT 33.9 % (35.0-46.0); HEMOGLOBIN 10.9 GM/DL (11.6-15.3); LYMPH % 16.7 % (9.0-44.0); MEAN CELL VOLUME 93.2 FL (80.0-100.0); MEAN CORPUSCULAR HGB CONC 32.2 % (32.0-36.0); MONO % 4.4 % (0.0-8.0); MONOCYTE # 0.8 TH/MM3 (0-0.9); NEUT % 74.3 % (16.0-70.0); PLATELET COUNT 283 TH/MM3 (150-450); RED BLOOD COUNT 3.64 MIL/MM3 (4.00-5.30); RED CELL DISTRIBUTION WIDTH 14.2 % (11.6-17.2); WHITE BLOOD COUNT 18.1 TH/MM3 (4.0-11.0)
[2018-01-01 07:09] LABS: CALCIUM 8.4 MG/DL (8.5-10.1)
[2018-01-01 07:10] LABS: BICARBONATE 24.1 MEQ/L (21.0-32.0); MAGNESIUM 1.5 MG/DL (1.5-2.5)
[2018-01-01 07:13] LABS: CREATININE 1.2 MG/DL (0.50-1.00)
[2018-01-01 07:58] VITALS: BP 177/83; PULSE 97; RESP 20; TEMP 99.8; O2SAT 97
[2018-01-01] MEDS: INSULIN ASPART SUPPLEMENTAL SCALE SQ SCH ×4 (08:30→20:24)
[2018-01-01] MEDS: SODIUM CHLORIDE 0.9% FLUSH 10 ML FLUSH IV FLUSH SCH ×2 (09:00→20:26)
[2018-01-01] MEDS: MEMANTINE 28 MG PO SCH (09:00)
[2018-01-01] MEDS: LISINOPRIL 20 MG TAB PO SCH (09:58)
[2018-01-01] MEDS: amLODIPine BESYLATE 5 MG TAB PO SCH (09:58)
[2018-01-01] MEDS: SODIUM CHLOR 0.9% 1000 ML INJ 1,000 ML IV SCH ×2 (09:59→20:26)
[2018-01-01] MEDS: BRIMONIDINE TARTRATE 0.2% OPHT SOLN 5 ML BTL EACH EYE SCH ×3 (09:59→17:33)
--- NOTE | 2018-01-01 11:12 | HHI.PR ---
Subjective Remarks Patient seen and examined today. Patient denies any new complaints. Patient remains asymptomatic. Patient with mildly elevated blood pressure, he has had low-grade fever 100.2 Objective Vitals Vital Signs Date Time Temp Pulse Resp B/P (MAP) Pulse Ox O2 Delivery O2 Flow Rate FiO2 01/01/18 07:58 99.8 97 20 177/83 (114) 97 01/01/18 00:00 99.0 96 18 166/90 (115) 98 12/31/17 20:00 99.8 96 18 158/73 (101) 96 12/31/17 16:00 100.2 89 18 131/65 (87) 95 12/31/17 12:00 98.4 86 17 97 12/31/17 11:57 171/90 (117) I/O 12/31/17 12/31/17 12/31/17 01/01/18 01/01/18 01/01/18 07:00 15:00 23:00 07:00 15:00 23:00 Intake Total 0 ml 300 ml 1694 ml 1285 ml Output Total 2200 ml 2600 ml 1300 ml Balance -2200 ml 300 ml -906 ml -15 ml Intake Oral 0 ml 720 ml 120 ml IV Total 300 ml 974 ml 1165 ml Output Urine Total 2200 ml 2600 ml 1300 ml # Bowel Movements 0 Result Diagram: 01/01/1836 01/01/18 06 Objective Remarks GENERAL: Well-developed, well-nourished, in no acute distress. alert and orientated HEENT: Head is normocephalic without any lesions or masses noted. Facial features are symmetric. Eyes: Extraocular muscles are intact. Conjunctivae were clear. NECK: Supple without any masses. Trachea midline no deviation. No JVD, CARDIAC: Regular rhythm, regular rate. S1/S2 are heard. 2/6 ejection murmur, no gallops or rubs. LUNGS: Clear to auscultation bilaterally. No wheeze, rhonchi or rales. No use of accessory muscles on inspiration or expiration. ABDOMEN: Soft, nontender. Nondistended. Bowel sounds heard in all 4 quadrants. No organomegaly or masses. Negative rebound, negative guarding EXTREMITIES: No edema, pulses are equal bilaterally. No cyanosis or clubbing NEUROLOGY: Mood and affect appear appropriate. Cranial nerves II through XII grossly intact. Moving all extremities, speech is clear Urinary Catheter: No Vascular Central Line Catheter: No A/P Assessment and Plan Sepsis -Patient continues to meet criteria with leukocytosis, tachycardia, urinary tract infection -Urine culture with Proteus, resistant to Bactrim, Cipro -Blood cultures are negative for 2 days -Patient with persistent leukocytosis without any improvement, continue follow CBC -Chest x-ray did not indicate any acute process -Discontinue Azactam 1 g every 8 hours -Patient tolerated Rocephin well, start Rocephin 1 g IV daily -Continue monitor CBC, WC count does not start to improve may need infectious disease consult Syncopal episode with orthostasis -Multifactorial with a lasting for over the last few months. Could have been antagonized by volume depletion from undergoing prep for colonoscopy. Could be related to medications, diabetes -Orthostatic vitals continue to remain positive -Patient has received at least 7 l of fluid thus far -CT of the brain was unremarkable for any acute event -Carotid ultrasound indicated right internal carotid with less than 50% stenosis , left internal carotid no significant stenosis -Continue LUCÍA hose and continue orthostatic vitals Acute renal failure superimposed on chronic kidney disease stage III, stable -Likely secondary to volume depletion from colonoscopy prep -Continue monitor renal function -Avoid nephrotoxins Hypokalemia -Continue monitoring place as needed Hypertension -Resume home medications Diabetes -Diabetic diet -Accu-Cheks with sliding scale insulin DVT prevention -Subcutaneous heparin Discharge Planning Discharge planning once patient remains afebrile and leukocytosis improved Edmar Teran Jan 01, 2018 11:12
[2018-01-01 11:22] VITALS: BP 122/66; PULSE 94; RESP 20; TEMP 97.4; O2SAT 97
[2018-01-01 15:21] VITALS: BP 128/74; PULSE 76; RESP 20; TEMP 97.6; O2SAT 97
[2018-01-01 20:00] VITALS: BP_SYST 138; BP_SYST 147; BP_DIAS 61; BP_DIAS 67; PULSE 103; PULSE 104; RESP 18; TEMP 101.3; O2SAT 96; O2SAT 97
[2018-01-01] MEDS: INSULIN DETEMIR 100 UNITS/ML VIAL SQ SCH (20:22)
[2018-01-01] MEDS: ACETAMINOPHEN 325 MG TAB PO PRN (20:25)
[2018-01-01] MEDS: ATORVASTATIN 20 MG TAB PO SCH (20:26)
[2018-01-01] MEDS: LATANOPROST 0.005% OPHT SOLN 2.5 ML BTL EACH EYE SCH (20:26)
[2018-01-01] MEDS ORDERED: cefTRIAXone INJ 1,000 MG in SODIUM CHLORIDE 0.9% INJ 100 ML IV SCH (21:00)
[2018-01-02] VITALS: BP 105/53; PULSE 83; RESP 18; TEMP 99.1; O2SAT 96
[2018-01-02] MEDS: HEPARIN SODIUM - SQ 10,000 UNITS/ML VIAL SQ SCH ×2 (05:31→18:01)
[2018-01-02] MEDS: LEVOTHYROXINE SODIUM 25 MCG TAB PO SCH (05:31)
[2018-01-02 06:21] LABS: AUTOMATED NEUTROPHIL # 15.2 TH/MM3 (1.8-7.7); BASOPHIL # 0.1 TH/MM3 (0-0.2); BASOPHIL % 0.6 % (0.0-2.0); EOSINOPHIL # 0.1 TH/MM3 (0-0.4); EOSINOPHIL % 0.6 % (0.0-4.0); HEMATOCRIT 32.8 % (35.0-46.0); HEMOGLOBIN 10.8 GM/DL (11.6-15.3); LYMPHOCYTE # 3.1 TH/MM3 (1.0-4.8); MEAN CELL VOLUME 93.8 FL (80.0-100.0); MEAN CORPUSCULAR HEMOGLOBIN 30.9 PG (27.0-34.0); MEAN CORPUSCULAR HGB CONC 32.9 % (32.0-36.0); MEAN PLATELET VOLUME 8.2 FL (7.0-11.0); MONO % 4.1 % (0.0-8.0); MONOCYTE # 0.8 TH/MM3 (0-0.9); NEUT % 78.7 % (16.0-70.0); PLATELET COUNT 285 TH/MM3 (150-450); RED CELL DISTRIBUTION WIDTH 14.3 % (11.6-17.2); WHITE BLOOD COUNT 19.3 TH/MM3 (4.0-11.0)
[2018-01-02 07:31] VITALS: BP 145/65; PULSE 96; RESP 20; TEMP 99.7; O2SAT 96
--- NOTE | 2018-01-02 08:51 | RADRPT ---
EXAM DATE: 01/02/2018 8:43 AM EDT AGE/SEX: 82 years / Female INDICATIONS: Fever. CLINICAL DATA: This is the patient's initial encounter. Patient reports that signs and symptoms have been present for 1 day and indicates a pain score of 0/10. MEDICAL/SURGICAL HISTORY: Hypertension. Diabetes. Hysterectomy. Orthopedic surgery. RADIATION DOSE: 24.89 CTDI (mGy) COMPARISON: No prior exams available for comparison. TECHNIQUE: Multiple contiguous axial images were obtained through the abdomen. Images were obtained using multiple row detector helical technique. Using automated exposure control and adjustment of the mA and/or kV according to patient size, radiation dose was kept as low as reasonably achievable to o btain optimal diagnostic quality images. DICOM format image data is available electronically for rev iew and comparison. FINDINGS: Lower Lungs: Bibasilar densities. Liver: The liver has a homogeneous density without space-occupying lesion. There is no dilation of th e biliary tree. Spleen: Homogeneous density without enlargement. Pancreas: Unremarkable without mass or calcification. Kidneys: Normal in size and shape. No evidence of hydronephrosis. There is a mass along the left mid kidney measuring 4.4 x 5.3 x 4.3 cm. Lack of intravenous contrast limits evaluation there is also a 1.2 cm hyperdense lesion along the upper pole left kidney. Adrenal Glands: Unremarkable. Aorta: The aorta and proximal iliac vessels are grossly unremarkable without aneurysmal dilation. Bowel/Mesentery: Copious amount of stool the rectum. Circumferential wall thickening within the rectu m. Scattered diverticulosis. Abdominal Wall: Intact. Retroperitoneum: No evidence of adenopathy in the retrocrural, para-aortic, or deep pelvic regions. Bladder: Contours are smooth. Small bladder diverticulum. Reproductive Organs: No abnormal masses or calcifications seen. Inguinal: The inguinal region is unremarkable without evidence of adenopathy. Bony Structures: Diffuse degenerative changes. CONCLUSION: 1. Solid-appearing left renal mass not completely evaluated due to lack of intravenous contrast. Thi s is concerning for renal cell carcinoma. MRI recommended for further characterization. 2. Bibasilar densities likely atelectasis. 3. Circumferential wall thickening involving the rectum. Digital rectal exam and clinical correlatio n. Neoplastic etiology should be excluded. 4. Constipation and diverticulosis. 5. Small bladder diverticulum. Electronically signed by: Godfrey Pradhan MD 01/02/2018 8:50 AM EDT
[2018-01-02] MEDS: MEMANTINE 28 MG PO SCH (09:00)
[2018-01-02] MEDS: INSULIN ASPART SUPPLEMENTAL SCALE SQ SCH ×4 (09:15→20:47)
[2018-01-02] MEDS: SODIUM CHLORIDE 0.9% FLUSH 10 ML FLUSH IV FLUSH SCH ×2 (09:15→20:52)
[2018-01-02] MEDS: BRIMONIDINE TARTRATE 0.2% OPHT SOLN 5 ML BTL EACH EYE SCH ×3 (09:15→18:01)
[2018-01-02] MEDS: LISINOPRIL 20 MG TAB PO SCH (09:16)
[2018-01-02] MEDS: amLODIPine BESYLATE 5 MG TAB PO SCH (09:16)
--- NOTE | 2018-01-02 09:17 | RADRPT ---
EXAM DATE: 01/02/2018 9:11 AM EDT AGE/SEX: 82 years / Female INDICATIONS: Fever. CLINICAL DATA: This is the patient's initial encounter. Patient reports that signs and symptoms have been present for 1 day and indicates a pain score of 0/10. MEDICAL/SURGICAL HISTORY: Hypertension. Diabetes. Hysterectomy. Orthopedic surgery. COMPARISON: No prior exams available for comparison. FINDINGS: PA and lateral views of the chest demonstrate the bibasilar consolidation. Heart normal in size. The cardiomediastinal contours are unremarkable. Osseous structures are intact. Degenerative changes thor acic spine. CONCLUSION: Bibasilar densities likely pneumonia. Electronically signed by: Godfrey Pradhan MD 01/02/2018 9:16 AM EDT
[2018-01-02] MEDS: CEFEPIME INJ 2,000 MG in SODIUM CHLORIDE 0.9% INJ 100 ML IV SCH ×2 (11:17→22:56)
--- NOTE | 2018-01-02 11:18 | HHI.PR ---
Subjective Remarks Patient seen and examined today for follow-up on syncope, urinary tract infection. Patient resting comfortably. Denies any new complaints. Patient with intermittent fever, T-max 101.3 Objective Vitals Vital Signs Date Time Temp Pulse Resp B/P (MAP) Pulse Ox O2 Delivery O2 Flow Rate FiO2 01/02/18 07:31 99.7 96 20 145/65 (91) 96 01/02/18 00:00 99.1 83 18 105/53 (70) 96 01/01/18 20:00 103 18 147/67 (93) 97 01/01/18 20:00 101.3 104 18 138/61 (86) 96 01/01/18 15:21 97.6 76 20 128/74 (92) 97 01/01/18 11:22 97.4 94 20 122/66 (84) 97 I/O 01/01/18 01/01/18 01/01/18 01/02/18 01/02/18 01/02/18 07:00 15:00 23:00 07:00 15:00 23:00 Intake Total 1285 ml 1300 ml 2040 ml 485 ml Output Total 1300 ml 800 ml 800 ml Balance -15 ml 1300 ml 1240 ml -315 ml Intake Oral 120 ml 300 ml 1140 ml 0 ml IV Total 1165 ml 1000 ml 900 ml 485 ml Output Urine Total 1300 ml 800 ml 800 ml # Voids 1 Result Diagram: 01/02/18 0611 01/01/18 0636 Objective Remarks GENERAL: Well-developed, well-nourished, in no acute distress. alert and orientated HEENT: Head is normocephalic without any lesions or masses noted. Facial features are symmetric. Eyes: Extraocular muscles are intact. Conjunctivae were clear. NECK: Supple without any masses. Trachea midline no deviation. No JVD, CARDIAC: Regular rhythm, regular rate. S1/S2 are heard. 2/6 ejection murmur, no gallops or rubs. LUNGS: Clear to auscultation bilaterally. No wheeze, rhonchi or rales. No use of accessory muscles on inspiration or expiration. ABDOMEN: Soft, nontender. Nondistended. Bowel sounds heard in all 4 quadrants. No organomegaly or masses. Negative rebound, negative guarding EXTREMITIES: No edema, pulses are equal bilaterally. No cyanosis or clubbing NEUROLOGY: Mood and affect appear appropriate. Cranial nerves II through XII grossly intact. Moving all extremities, speech is clear Urinary Catheter: No Vascular Central Line Catheter: No A/P Assessment and Plan Sepsis -Patient continues to meet criteria with leukocytosis, tachycardia, urinary tract infection, fever -Urine culture with Proteus, resistant to Bactrim, Cipro -Blood cultures are negative for 3 days -Patient with persistent leukocytosis without any improvement, despite antibiotic treatment continue follow CBC -Chest x-ray did not indicate any acute process -Discontinue Rocephin -Consulted infectious disease, I spoke with Dr. Kimball, who recommended changing antibiotics to cefepime, Flagyl -Repeat urinalysis, obtain chest x-ray, CT of the abdomen and pelvis -Chest x-ray showed bibasilar densities likely pneumonia, however CT of the abdomen indicated bibasilar density representing atelectasis Abnormal CT of the abdomen with left renal mass, circumferential wall thickening of the rectum -Patient just underwent colonoscopy by accounting reconciliation clerk in [place]. Family does not know the name. They indicate that she had a polyp removed. Will need to obtain the physician's name and contact him concerning the circumferential wall thickening of the rectum. Possibly a CT finding could be caused by local inflammation from recent procedures/polypectomy -Obtain tumor markers -Consult oncology for further recommendations. Will defer further imaging studies to oncology -Anticipate colorectal surgery consultation Syncopal episode with orthostasis -Multifactorial with a lasting for over the last few months. Could have been antagonized by volume depletion from undergoing prep for colonoscopy. Could be related to medications, diabetes -Orthostatic vitals continue to remain positive -Patient has received at least 7 l of fluid thus far -CT of the brain was unremarkable for any acute event -Carotid ultrasound indicated right internal carotid with less than 50% stenosis , left internal carotid no significant stenosis -Continue LUCÍA hose and continue orthostatic vitals Acute renal failure superimposed on chronic kidney disease stage III, stable -Likely secondary to volume depletion from colonoscopy prep -Continue monitor renal function -Avoid nephrotoxins Hypokalemia -Continue monitoring place as needed Hypertension -Resume home medications Diabetes -Diabetic diet -Accu-Cheks with sliding scale insulin DVT prevention -Subcutaneous heparin Edmar Teran Jan 02, 2018 11:18
[2018-01-02 11:41] VITALS: BP 143/66; PULSE 95; RESP 20; TEMP 98.8; O2SAT 95
[2018-01-02] MEDS: metroNIDAZOLE 500 MG INJ 100 ML IV SCH ×2 (12:14→20:50)
[2018-01-02 15:26] VITALS: BP 114/53; PULSE 94; RESP 20; TEMP 99.7; O2SAT 95
[2018-01-02 15:35] LABS: CARCINOEMBRYONIC ANTIGEN 1.9 NG/ML (0.2-5.0)
[2018-01-02 15:48] LABS: BILIRUBIN, URINE NEG (NEG); BLOOD, URINE LARGE (NEG); GLUCOSE,URINE 1000 OR GREATER mg/dL (NEG); KETONE, URINE TRACE mg/dL (NEG); NITRITE,URINE NEG (NEG); URINE COLOR YELLOW (YELLW/STRAW); URINE LEUKOCYTE ESTERASE MOD (NEG)
[2018-01-02 16:03] LABS: AMORPHOUS SEDIMENT, URINE FEW; BACTERIA, URINE FEW /hpf; SQUAMOUS EPITHELIAL CELL URINE 0-5 /hpf (0-5); WBC, URINE 100-200 /hpf (0-5)
[2018-01-02 16:04] LABS: WHITE BLOOD CELL CLUMPS MOD
[2018-01-02 16:11] LABS: CA 19-9 29.6 U/ML (0.0-35.0)
[2018-01-02 16:21] LABS: CA 15-3 21.2 U/ML (0.0-32.4)
[2018-01-02 20:00] VITALS: BP 102/54; PULSE 96; RESP 20; TEMP 98.9; O2SAT 96
[2018-01-02] MEDS: INSULIN DETEMIR 100 UNITS/ML VIAL SQ SCH (20:47)
[2018-01-02] MEDS: ATORVASTATIN 20 MG TAB PO SCH (20:51)
[2018-01-02] MEDS: LATANOPROST 0.005% OPHT SOLN 2.5 ML BTL EACH EYE SCH (20:52)
[2018-01-02] MEDS: SODIUM CHLOR 0.9% 1000 ML INJ 1,000 ML IV SCH (20:52)
[2018-01-03] VITALS: BP 111/56; PULSE 90; RESP 20; TEMP 98.8; O2SAT 96
[2018-01-03] MEDS: metroNIDAZOLE 500 MG INJ 100 ML IV SCH ×3 (03:42→21:25)
[2018-01-03] MEDS: LEVOTHYROXINE SODIUM 25 MCG TAB PO SCH (05:39)
[2018-01-03] MEDS: HEPARIN SODIUM - SQ 10,000 UNITS/ML VIAL SQ SCH ×2 (05:39→17:16)
[2018-01-03 06:27] LABS: AUTOMATED NEUTROPHIL # 12.1 TH/MM3 (1.8-7.7); BASOPHIL # 0.1 TH/MM3 (0-0.2); BASOPHIL % 0.5 % (0.0-2.0); EOSINOPHIL # 0.1 TH/MM3 (0-0.4); EOSINOPHIL % 0.9 % (0.0-4.0); HEMATOCRIT 27.8 % (35.0-46.0); HEMOGLOBIN 9.6 GM/DL (11.6-15.3); LYMPH % 17.1 % (9.0-44.0); LYMPHOCYTE # 2.7 TH/MM3 (1.0-4.8); MEAN CELL VOLUME 90.8 FL (80.0-100.0); MEAN CORPUSCULAR HEMOGLOBIN 31.3 PG (27.0-34.0); MEAN CORPUSCULAR HGB CONC 34.5 % (32.0-36.0); MEAN PLATELET VOLUME 9.6 FL (7.0-11.0); MONO % 5.6 % (0.0-8.0); MONOCYTE # 0.9 TH/MM3 (0-0.9); NEUT % 75.9 % (16.0-70.0); PLATELET COUNT 274 TH/MM3 (150-450); RED BLOOD COUNT 3.07 MIL/MM3 (4.00-5.30); RED CELL DISTRIBUTION WIDTH 14.8 % (11.6-17.2); WHITE BLOOD COUNT 15.9 TH/MM3 (4.0-11.0)
[2018-01-03 06:35] LABS: CALCIUM 8.6 MG/DL (8.5-10.1)
[2018-01-03 06:36] LABS: BICARBONATE 24.4 MEQ/L (21.0-32.0); MAGNESIUM 1.4 MG/DL (1.5-2.5)
[2018-01-03 06:49] LABS: CREATININE 1.5 MG/DL (0.50-1.00)
[2018-01-03 08:00] VITALS: BP 123/57; PULSE 95; RESP 20; TEMP 99.2; O2SAT 94
[2018-01-03] MEDS: amLODIPine BESYLATE 5 MG TAB PO SCH (09:00)
[2018-01-03] MEDS: BRIMONIDINE TARTRATE 0.2% OPHT SOLN 5 ML BTL EACH EYE SCH ×3 (09:00→17:17)
[2018-01-03] MEDS: LISINOPRIL 20 MG TAB PO SCH (09:00)
[2018-01-03] MEDS: SODIUM CHLORIDE 0.9% FLUSH 10 ML FLUSH IV FLUSH SCH ×2 (09:02→21:27)
[2018-01-03] MEDS: MEMANTINE 28 MG PO SCH (09:02)
--- NOTE | 2018-01-03 09:14 | HHI.PR ---
Subjective Remarks Patient seen and examined today for follow-up on orthostasis, urinary tract infection, leukocytosis. Patient is just as pleasant as always sitting in bed. Denies any new complaints. Discussed with daughter and patient at bedside. Vital signs are stable, patient with low-grade temperature. Objective Vitals Vital Signs Date Time Temp Pulse Resp B/P (MAP) Pulse Ox O2 Delivery O2 Flow Rate FiO2 01/03/18 00:00 98.8 90 20 111/56 (74) 96 01/02/18 20:00 98.9 96 20 102/54 (70) 96 01/02/18 15:26 99.7 94 20 114/53 (73) 95 01/02/18 11:41 98.8 95 20 143/66 (91) 95 I/O 01/02/18 01/02/18 01/02/18 01/03/18 01/03/18 01/03/18 07:00 15:00 23:00 07:00 15:00 23:00 Intake Total 485 ml 1340 ml 1114 ml Output Total 800 ml 800 ml 500 ml Balance -315 ml 540 ml 614 ml Intake Oral 0 ml 1240 ml 200 ml IV Total 485 ml 100 ml 914 ml Output Urine Total 800 ml 800 ml 500 ml # Bowel Movements 0 Result Diagram: 01/03/18 0550 01/03/18 0550 Objective Remarks GENERAL: Well-developed, well-nourished, in no acute distress. alert and orientated HEENT: Head is normocephalic without any lesions or masses noted. Facial features are symmetric. Eyes: Extraocular muscles are intact. Conjunctivae were clear. NECK: Supple without any masses. Trachea midline no deviation. No JVD, CARDIAC: Regular rhythm, regular rate. S1/S2 are heard. 2/6 ejection murmur, no gallops or rubs. LUNGS: Clear to auscultation bilaterally. No wheeze, rhonchi or rales. No use of accessory muscles on inspiration or expiration. ABDOMEN: Soft, nontender. Nondistended. Bowel sounds heard in all 4 quadrants. No organomegaly or masses. Negative rebound, negative guarding EXTREMITIES: No edema, pulses are equal bilaterally. No cyanosis or clubbing NEUROLOGY: Mood and affect appear appropriate. Cranial nerves II through XII grossly intact. Moving all extremities, speech is clear Urinary Catheter: No Vascular Central Line Catheter: No A/P Assessment and Plan Sepsis -Patient continues to meet criteria with leukocytosis, tachycardia, urinary tract infection, fever -Urine culture with Proteus, resistant to Bactrim, Cipro -Blood cultures are negative for 3 days -Patient with persistent leukocytosis without any improvement, despite antibiotic treatment continue follow CBC -Chest x-ray did not indicate any acute process -Consulted infectious disease, I spoke with Dr. Kimball, who recommended changing antibiotics to cefepime, Flagyl -Chest x-ray showed bibasilar densities likely pneumonia, however CT of the abdomen indicated bibasilar density representing atelectasis -Repeat urinalysis still indicating significant infection await repeat culture Abnormal CT of the abdomen with left renal mass, circumferential wall thickening of the rectum -Patient just underwent colonoscopy by plater printed circuit board panels in [place]. Family does not know the name. They indicate that she had a polyp removed. Will need to obtain the physician's name and contact him concerning the circumferential wall thickening of the rectum. Possibly a CT finding could be caused by local inflammation from recent procedures/polypectomy -Tumor markers are unremarkable at this time. -Consult oncology for further recommendations. Will defer further imaging studies to oncology -Patient just had a colonoscopy done the day of admission by Dr. Ellis, in [place] Syncopal episode with orthostasis -Multifactorial with a lasting for over the last few months. Could have been antagonized by volume depletion from undergoing prep for colonoscopy. Could be related to medications, diabetes -Orthostatic vitals continue to remain positive -Patient has received at least 9 l of fluid thus far -CT of the brain was unremarkable for any acute event -Carotid ultrasound indicated right internal carotid with less than 50% stenosis , left internal carotid no significant stenosis -Continue LUCÍA hose and continue orthostatic vitals Acute renal failure superimposed on chronic kidney disease stage III, -Likely secondary to volume depletion from colonoscopy prep -Continue monitor renal function -Avoid nephrotoxins Hypokalemia, hypomagnesemia -Continue monitoring place as needed Hypertension -Resume home medications Diabetes -Diabetic diet -Accu-Cheks with sliding scale insulin DVT prevention -Subcutaneous heparin Edmar Teran Jan 03, 2018 09:14
[2018-01-03] MEDS: INSULIN ASPART SUPPLEMENTAL SCALE SQ SCH ×4 (09:33→21:31)
[2018-01-03 11:50] VITALS: BP 112/53; PULSE 93; RESP 20; TEMP 99.5; O2SAT 97
--- NOTE | 2018-01-03 12:55 | PD.ID.CON ---
History of Present Illness Service Infectious disease Consult Requested By Ryan WARREN Reason for Consult Evaluation and management of persistent leukocytosis in a patient with UTI possible proctitis Primary Care Physician Non-Staff Diagnoses: History of Present Illness is a 82 y/o CM with PMHx of Dementia, CKD stage III, HTN, Hyperlipidemia, DM who presented to the hospital because of syncopal episode. Patients daughter is at the bedside and provided some history. Patients daughter reports the syncope has been going on for several months prior to admission and have progressively gotten worse over the last month. Patient had screening colonoscopy a day prior to admission and it involved a prep that was exhausting for the patient. After colonoscopy patient went to see her grain handler for some retinal issues. When the patient tried to get out of the car she felt light headed but did not sustain injuries as daughter was close by and held her. The daughter indicated that her mother's eyes rolled back into her head, there was no tonic-clonic movements or loss of bowel or bladder control. Daughter states that she was "not herself" for at least 5 minutes. She regained consciousness but was not totally back to normal. Due to the above incidents patient was brought into the ED. Upon workup patient was found to have sepsis by criteria with tachycardia, leukocytosis, urinary tract infection. Patient was given fluids in emergency department and had orthostatic vitals performed which were significant. Renal functions did indicate signs of volume depletion with worsening of her chronic kidney disease. Despite Ceftriaxone patient continued to have leucocytosis and ID was consulted aubrey given her abnormal CT with rectal findings. Review of Systems ROS Limitations: Poor Historian Past Family Social History Allergies: Coded Allergies: Penicillins (Verified Allergy, Intermediate, 12/29/17) Past Medical History Hypertension Hyperlipidemia Chronic kidney disease stage III Diabetes Dementia Past Surgical History Right ankle surgery Cataract surgery Hysterectomy Reported Medications Reported Meds & Active Scripts Active Reported Victoza Inj (Liraglutide Inj) 18 Mg/3 Ml Pen 0.6 Mg SQ DAILY Levemir Inj (Insulin Detemir) 1,000 unit/ 10 ML Vial 26 Units SQ HS Do not mix with any other Insulin. Levemir Inj (Insulin Detemir) 1,000 unit/ 10 ML Vial 30 Units SQ DAILY Do not mix with any other Insulin. Lisinopril 40 Mg Tab 40 Mg PO DAILY Atorvastatin (Atorvastatin Calcium) 20 Mg Tab 20 Mg PO HS Travatan Z Opth Drops (Travoprost) 0.004 % Soln 1 Drop EACH EYE HS Aricept (Donepezil) 23 Mg Tab 10 Mg PO HS Do not split, crushed or chewed. Namenda Xr (Memantine) 28 Mg Caper 28 Mg PO DAILY Brimonidine Opth Drops (Brimonidine Tartrate) 0.2% Soln 1 Drop EACH EYE TID Levothyroxine (Levothyroxine Sodium) 25 Mcg Tab 25 Mcg PO DAILY Active Ordered Medications Current Medications Medications (Trade) Dose Ordered Sig/Marianne Route Start Time Stop Time Status Last Admin (Lipitor) 20 mg HS PO 12/29/17 21:00 01/02/18 20:51 (Alphagan 0.2% Opth Soln) 1 drop TID EACH EYE 12/29/17 18:00 01/03/18 12:36 (Synthroid) 25 mcg DAILY@0600 PO 12/30/17 06:00 01/03/18 05:39 Patient Own Medication PT OWN MED: Memant... DAILY PO 12/30/17 09:00 (Xalatan 0.005% Opth Soln) 1 drop HS EACH EYE 12/29/17 21:00 01/02/18 20:52 Sodium Chloride 1,000 ml @ 42 mls/hr [id number] IV 12/29/17 18:00 01/02/18 20:52 (NS Flush) 2 ml UNSCH PRN IV FLUSH 12/29/17 17:45 01/03/18 03:42 (NS Flush) 2 ml BID IV FLUSH 12/29/17 21:00 01/02/18 20:52 (Tylenol) 650 mg Q4H PRN PO 12/29/17 17:45 01/01/18 20:25 (Heparin Inj) 5,000 units Q12H SQ 12/29/17 18:00 01/03/18 05:39 (Narcan Inj) 0.4 mg UNSCH PRN IV PUSH 12/29/17 17:45 (Milk Of Magnesia Liq) 30 ml Q12H PRN PO 12/29/17 17:45 (Senokot) 17.2 mg Q12H PRN PO 12/29/17 17:45 01/01/18 06:24 (Dulcolax Supp) 10 mg DAILY PRN RECTAL 12/29/17 17:45 (Lactulose Liq) 30 ml DAILY PRN PO 12/29/17 17:45 (Levemir Inj) 10 units HS SQ 12/29/17 21:00 01/02/18 20:47 (D50w (Vial) Inj) 50 ml UNSCH PRN IV PUSH 12/29/17 18:15 (Glucagon Inj) 1 mg UNSCH PRN OTHER 12/29/17 18:15 (NovoLOG SUPPLEMENTAL SCALE) 1 ACHS SLIDING SCALE SQ 12/29/17 21:00 01/03/18 12:33 (Prinivil) 40 mg DAILY PO 12/31/17 10:45 01/03/18 09:00 (Benadryl Inj) 25 mg Q6H PRN IV PUSH 12/31/17 20:00 (Norvasc) 5 mg DAILY PO 01/01/18 09:00 01/03/18 09:00 Metronidazole 100 ml @ 100 mls/hr Q8H IV 01/02/18 12:00 01/03/18 12:34 Cefepime HCl 1000 mg/Sodium Chloride 100 ml @ 200 mls/hr Q24H IV 01/03/18 23:00 Family History Family history is reviewed and mother with possible pancreatic cancer. Social History Patient did not use any tobacco, alcohol or illicit drugs. Physical Exam Vital Signs Vital Signs Date Time Temp Pulse Resp B/P (MAP) Pulse Ox O2 Delivery O2 Flow Rate FiO2 01/03/18 00:00 98.8 90 20 111/56 (74) 96 01/02/18 20:00 98.9 96 20 102/54 (70) 96 01/02/18 15:26 99.7 94 20 114/53 (73) 95 Physical Exam GENERAL: Obese, well-developed patient, in no apparent distress. SKIN: No rashes, ecchymoses or lesions. Cool and dry. HEAD: Atraumatic. Normocephalic. No temporal or scalp tenderness. EYES: Pupils equal round and reactive. Extraocular motions intact. No scleral icterus. No injection or drainage. ENT: Nose without bleeding, purulent drainage or septal hematoma. Throat without erythema, tonsillar hypertrophy or exudate. Uvula midline. Airway patent. NECK: Trachea midline. Supple, nontender, no meningeal signs. CARDIOVASCULAR: HS audible. RESPIRATORY: Clear to auscultation. Breath sounds equal bilaterally. No wheezes , rales, or rhonchi. GASTROINTESTINAL: Abdomen soft, non-tender, nondistended. Obese. MUSCULOSKELETAL: Extremities without clubbing, cyanosis, or edema. NEUROLOGICAL: Awake and alert. No obvious focal deficit. Rectal exam deferred. Psych cooperative IV line sites with no e.o infection. Laboratory Laboratory Tests Test 01/02/18 15:30 01/03/18 05:50 Urine Collection Type CLEAN CATCH Urine Color YELLOW Urine Turbidity CLOUDY Urine pH 6.0 Urine Specific [place] 1.015 Urine Protein 30 Urine Glucose (UA) 1000 OR GREATER Urine Ketones TRACE Urine Occult Blood LARGE Urine Nitrite NEG Urine Bilirubin NEG Urine Urobilinogen 0.2 Urine Leukocyte Esterase MOD Urine RBC 50-99 Urine WBC 100-200 Urine WBC Clumps MOD Urine Squamous Epithelial Cells 0-5 Urine Amorphous Sediment FEW Urine Bacteria FEW Microscopic Urinalysis Comment CULTURE INDICATED Urine Collection Time 1530 White Blood Count 15.9 Red Blood Count 3.07 Hemoglobin 9.6 Hematocrit 27.8 Mean Corpuscular Volume 90.8 Mean Corpuscular Hemoglobin 31.3 Mean Corpuscular Hemoglobin Concent 34.5 Red Cell Distribution Width 14.8 Platelet Count 274 Mean Platelet Volume 9.6 Neutrophils (%) (Auto) 75.9 Lymphocytes (%) (Auto) 17.1 Monocytes (%) (Auto) 5.6 Eosinophils (%) (Auto) 0.9 Basophils (%) (Auto) 0.5 Neutrophils # (Auto) 12.1 Lymphocytes # (Auto) 2.7 Monocytes # (Auto) 0.9 Eosinophils # (Auto) 0.1 Basophils # (Auto) 0.1 CBC Comment DIFF FINAL Differential Comment Blood Urea Nitrogen 29 Creatinine 1.50 Random Glucose 210 Calcium Level 8.6 Magnesium Level 1.4 Sodium Level 139 Potassium Level 4.1 Chloride Level 105 Carbon Dioxide Level 24.4 Anion Gap 10 Estimat Glomerular Filtration Rate 33 Date/Time Source Procedure Growth Status 12/30/17 15:55 Blood Peripheral Aerobic Blood Culture - Preliminary NO GROWTH IN 4 DAYS Resulted 12/30/17 15:55 Blood Peripheral Anaerobic Blood Culture - Preliminary NO GROWTH IN 4 DAYS Resulted 01/02/18 11:15 Nasal Aspirate Influenza Types A,B Antigen (DENISE) - Final NEGATIVE FOR FLU A AND B ANTIGEN.... Complete 01/02/18 15:30 Urine Clean Catch Urine Culture Pending Received Result Diagram: 01/03/18 0550 01/03/18 0550 Imaging Last Impressions Chest X-Ray 01/02/18 0000 Signed Impressions: CONCLUSION: Bibasilar densities likely pneumonia. Abdomen/Pelvis CT 01/02/18 0000 Signed Impressions: CONCLUSION: 1. Solid-appearing left renal mass not completely evaluated due to lack of int ravenous contrast. This is concerning for renal cell carcinoma. MRI recommended for further characterization. 2. Bibasilar densities likely atelectasis. 3. Circumferential wall thickening involving the rectum. Digital rectal exam a nd clinical correlation. Neoplastic etiology should be excluded. 4. Constipation and diverticulosis. 5. Small bladder diverticulum. Head CT 12/30/17 0000 Signed Impressions: CONCLUSION: 1. No acute intracranial abnormality is identified. 2. Chronic findings include generalized atrophy and periventricular white quoc er change characteristic of chronic microvascular ischemia. Carotid Artery Ultrasound 12/30/17 Signed Impressions: CONCLUSION: 1. Right Internal Carotid Artery: Findings indicate <50% stenosis. 2. Left Internal Carotid Artery: No significant stenosis or atherosclerotic pl aque is visualized. Assessment and Plan Assessment and Plan Possible sepsis on admission. Hypotension on admission, leucopenia. Proctitis possible. h/o constipation. Persistent leucocytosis Penicillin allergy Recs: Continue cefepime IV Continue Flagyl Colorectal surgery consult: patient deferred exam to CR Surgery to avoid rectal exam twice. Case dw she agrees the syncope is long standing and has possibly other underlying case (CAD, Carotid stenosis, , Autonomic etc): Cardiology consulted. Renal mass appears like an incidental finding. Workup being pursued. consulted. Rectal inflammation/Proctitis,colitis does not appear to be CR cancer but GI reports needs to be obtained and CR surgery opinion. In my opinion based on current available information the leucocytosis, h/o constipation, recent colonoscopy could be reasons for mucosal inflammation in the rectal area. Patient denies any rectal symptoms other than occ pain when defecating and hemorrhoids. Follow cultures Follow clinically. 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 Coretta Kimball MD Jan 03, 2018 12:55
[2018-01-03] MEDS: ACETAMINOPHEN 325 MG TAB PO PRN ×2 (15:31→23:26)
[2018-01-03 15:56] VITALS: BP 133/59; PULSE 97; RESP 20; TEMP 100.7; O2SAT 97
[2018-01-03 18:30] VITALS: TEMP 98.9
[2018-01-03 20:17] VITALS: BP 103/48; PULSE 86; RESP 19; TEMP 99.7; O2SAT 98
--- NOTE | 2018-01-03 21:23 | MB ---
cc: Nichelle Hunter MD, Matthew J PA DATE: 01/03/2018 REFERRING PHYSICIAN: Edmar Teran CHIEF COMPLAINT: Edmar Teran requests a consultation for Ms. Taylor regarding syncope associated with a solid left renal mass. HISTORY OF PRESENT ILLNESS: Ms. Taylor is an 82-year-old woman with a history of dementia, diabetes, hypertension, hyperlipidemia. She gets around with a walker. She is unable to give a lot of history as she does not recall the events leading up to her admission. 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 She does not remember passing out. Her history is supplemented by daughter who is at bedside. Apparently, Ms. Taylor has had a syncopal episode prior to the 2 that brought her into the hospital. She was witnessed by family members. She was safely maneuvered to lie down and eventually she recovered. She had no loss of bowel or bladder function. Her dementia has been chronic and her decline continues. She is unable to give much history. Her appetite is good. She has refused mammograms in the past. She was scheduled for a screening colonoscopy, which she had precipitating the syncopal event. Apparently, the colonoscopy was for screening rather than a diagnostic process. Daughter is not aware of how long she has had anemia. She has had no urinary symptoms or overt hematuria or bright red blood per rectum. The colonoscopy apparently was negative. No rectal mass was identified by verbal report from the family. The actual report from the machine design engineer is not available during the consultation. The photos from the colonoscopy shows a polyp, internal hemorrhoids and diverticular disease. PAST MEDICAL HISTORY: Recurrent syncopal episode, diabetes, hypertension, hyperlipidemia, anemia, left renal mass. She was admitted after 2 syncopal episodes, brought in by EMS. Evaluation for fever during emergency room stay included a CT scan of the abdomen that showed a solid-appearing left renal mass, not completely evaluated due to lack of contrast. She has bibasilar densities like atelectasis. There is circumferential wall thickening involving the rectum. There is constipation, diverticulosis and small bladder diverticulum. Because of the renal mass, hematology/oncology is consulted. PAST MEDICAL HISTORY: Dementia, diabetes, hypertension, hyperlipidemia, syncopal episodes, anemia, left renal mass, colonic polyps, diverticular disease. PAST SURGICAL HISTORY: Hysterectomy, multiple eye surgeries, colonoscopy. SOCIAL HISTORY: Denies any tobacco, alcohol or illicit drug use. ALLERGIES: PENICILLIN. FAMILY HISTORY: Significant of coronary artery disease and arrhythmia. A younger sister apparently is having a defibrillator placed. Mother at age 77 of coronary artery disease. She had a history of gastric cancer. ALLERGIES: PENICILLIN. CURRENT MEDICATIONS: Cefepime, metronidazole, Lodipine, lisinopril, Synthroid, Lipitor, Xalatan, Levemir, NovoLog. PHYSICAL EXAMINATION: VITAL SIGNS: T-max 100.7, heart rate 97, respiratory rate 20, blood pressure 133/59, saturation 97%. GENERAL: Ms. Taylor is a well-developed, heavy set, elderly woman who is sleepy, but arousable. HEENT: Her pupils are round, reactive to light and accommodation. Oropharynx is clear. NECK: Supple, with no adenopathy. No axillary adenopathy. LUNGS: Clear anteriorly. CARDIOVASCULAR: Reveals mild tachycardia. ABDOMEN: Large and benign. EXTREMITIES: No edema. BREASTS: No supraclavicular, infraclavicular or axillary adenopathy. No breast masses noted on both sides. LABORATORY DATA: Hemoglobin 9.6, white blood cell count 15.9. Chemistry: BUN of 29, creatinine 1.5. IMPRESSION AND PLAN: Ms. Taylor is an 82-year-old woman with multiple medical problems including dementia, diabetes, hypertension, hypercholesterolemia, hypothyroidism, chronic anemia, presenting with syncopal episode. She is found to have rectal fullness, but had a recent colonoscopy. It shows no mass. She has a left renal mass for which hematology/oncology is consulted. I discussed with Ms. Taylor and her daughter present at the consultation concern for the syncopal episode. I will consult Cardiology to assist in management and workup of syncope. In the meantime, she has had no syncopal episode during the hospitalization. Infectious diseases has been consulted for the fevers. Proctitis is considered in the differential. The biopsy and colonoscopy report will be requested to [facility]. I recommend no specific therapy for the kidney cancer at this point. On discussion with the patient and daughter, they are less inclined to proceed with surgical workup. With surgical option given, her dementia and multiple medical problems, I would agree to this. We discussed the option of a biopsy and ablation at the same time. This is more up to their liking. We discussed the rationale for palliative therapy given her comorbidities. We will consult with urology to see if she is a candidate or if suspect it may be at significantly increased risk for definitive surgery for the suspected urologic cancer. CT scan of the chest will be performed to rule out site of metastatic disease. MRI of the kidney will be requested without contrast in light of her renal insufficiency to delineate and evaluate the mass further. Pending workup described above, we will recommend a referral to interventional radiology for biopsy and definitive local therapy for kidney cancer in a frail, elderly patient. MD LINETTE Wei/FENG , 06:41 PM , 09:23 PM
[2018-01-03] MEDS: INSULIN DETEMIR 100 UNITS/ML VIAL SQ SCH (21:28)
[2018-01-03] MEDS: ATORVASTATIN 20 MG TAB PO SCH (21:33)
[2018-01-03] MEDS: LATANOPROST 0.005% OPHT SOLN 2.5 ML BTL EACH EYE SCH (21:33)
[2018-01-03] MEDS: SODIUM CHLOR 0.9% 1000 ML INJ 1,000 ML IV SCH (21:35)
[2018-01-03] MEDS: CEFEPIME INJ 1,000 MG in SODIUM CHLORIDE 0.9% INJ 100 ML IV SCH (23:10)
[2018-01-04] VITALS (8 sets, daily range): BP systolic 102–145; BP diastolic 51–76; PULSE 79–98; RESP 17–20; TEMP 97.6–100.4; O2SAT 93–98
[2018-01-04] MEDS: metroNIDAZOLE 500 MG INJ 100 ML IV SCH ×2 (04:06→12:48)
[2018-01-04 06:19] LABS: CHLORIDE 108 MEQ/L (98-107); SODIUM (NA) 141 MEQ/L (136-145)
[2018-01-04] MEDS: HEPARIN SODIUM - SQ 10,000 UNITS/ML VIAL SQ SCH ×2 (06:20→17:14)
[2018-01-04] MEDS: LEVOTHYROXINE SODIUM 25 MCG TAB PO SCH (06:20)
[2018-01-04 06:24] LABS: BICARBONATE 22.8 MEQ/L (21.0-32.0); BLOOD UREA NITROGEN 27 MG/DL (7-18); GLUCOSE,RANDOM 234 MG/DL (74-106)
[2018-01-04 06:28] LABS: GLOMERULAR FILTRATION RATE 36 ML/MIN (>89)
--- NOTE | 2018-01-04 08:25 | HHI.PR ---
Subjective Remarks Follow-up orthostasis, UTI and leukocytosis. Patient seen and examined, sitting up in bed pleasant in no apparent distress. Denies any new acute complaints. No acute events overnight. Vital signs are stable. TMAX 100.4 temp overnight. Eating well with no nausea, vomiting or abdominal pain. Cardiology in to see patient, awaiting ECHO. Continue cardiac telemetry. Does admit to positive BM. No complaints of pain in rectal area or with defecation. Awaiting urology consult. Objective Vitals Vital Signs Date Time Temp Pulse Resp B/P (MAP) Pulse Ox O2 Delivery O2 Flow Rate FiO2 01/04/18 04:33 98.8 80 18 113/53 (73) 98 01/04/18 00:07 100.4 95 19 132/60 (84) 94 01/03/18 20:17 99.7 86 19 103/48 (66) 98 01/03/18 18:30 98.9 01/03/18 15:56 100.7 97 20 133/59 (83) 97 01/03/18 11:50 99.5 93 20 112/53 (72) 97 I/O 01/03/18 01/03/18 01/03/18 01/04/18 01/04/18 01/04/18 07:00 15:00 23:00 07:00 15:00 23:00 Intake Total 1114 ml 220 ml 777 ml Output Total 500 ml 500 ml 600 ml Balance 614 ml -280 ml 177 ml Intake Oral 200 ml 120 ml IV Total 914 ml 100 ml 777 ml Output Urine Total 500 ml 500 ml 600 ml # Voids 2 # Bowel Movements 0 0 1 Result Diagram: 01/03/18 0550 01/04/18 0535 Imaging Last Impressions Chest CT 01/04/18 0000 Signed Impressions: CONCLUSION: 1. Very trace bilateral pleural effusions with minimal groundglass opacities a t the lung bases likely reflecting atelectasis. 2. 4 mm nodule in the left lower lobe superior segment. Generally, sub-6 mm no dules do not require follow-up per 2017 Fleischner criteria. If patient's left renal mass is determined to be malignant, consider follow-up examination in 3 [facility]. 3. Otherwise, no significant focal pleural or parenchymal abnormality to expla in patient's fever. 4. Coronary artery calcifications. Chest X-Ray 01/02/18 Signed Impressions: CONCLUSION: Bibasilar densities likely pneumonia. Abdomen/Pelvis CT 01/02/18 Signed Impressions: CONCLUSION: 1. Solid-appearing left renal mass not completely evaluated due to lack of int ravenous contrast. This is concerning for renal cell carcinoma. MRI recommended for further characterization. 2. Bibasilar densities likely atelectasis. 3. Circumferential wall thickening involving the rectum. Digital rectal exam a nd clinical correlation. Neoplastic etiology should be excluded. 4. Constipation and diverticulosis. 5. Small bladder diverticulum. Head CT 12/30/17 Signed Impressions: CONCLUSION: 1. No acute intracranial abnormality is identified. 2. Chronic findings include generalized atrophy and periventricular white quoc er change characteristic of chronic microvascular ischemia. Carotid Artery Ultrasound 12/30/17 Signed Impressions: CONCLUSION: 1. Right Internal Carotid Artery: Findings indicate <50% stenosis. 2. Left Internal Carotid Artery: No significant stenosis or atherosclerotic pl aque is visualized. Objective Remarks GENERAL: Well-developed, well-nourished, in no acute distress. alert and orientated. Pleasantly confused to time. HEENT: Head is normocephalic without any lesions or masses noted. Facial features are symmetric. Eyes: Extraocular muscles are intact. Conjunctivae were clear. NECK: Supple without any masses. Trachea midline no deviation. No JVD, CARDIAC: Regular rhythm, regular rate. S1/S2 are heard. 2/6 ejection murmur, no gallops or rubs. LUNGS: Clear to auscultation bilaterally. No wheeze, rhonchi or rales. No use of accessory muscles on inspiration or expiration. ABDOMEN: Soft, nontender. Nondistended. Bowel sounds heard in all 4 quadrants. No organomegaly or masses. Negative rebound, negative guarding EXTREMITIES: No edema, pulses are equal bilaterally. No cyanosis or clubbing NEUROLOGY: Mood and affect appear appropriate. Cranial nerves II through XII grossly intact. Moving all extremities, speech is clear A/P Problem List: (1) Sepsis ICD Code: A41.9 - Sepsis, unspecified organism (2) Leucocytosis ICD Code: D72.829 - Elevated white blood cell count, unspecified (3) Syncope ICD Code: R55 - Syncope and collapse Status: Acute (4) UTI (urinary tract infection) ICD Code: N39.0 - Urinary tract infection, site not specified Status: Acute Assessment and Plan Sepsis -Patient continues to meet criteria with leukocytosis, tachycardia, urinary tract infection, fever -Urine culture with Proteus, resistant to Bactrim, Cipro -Blood cultures are negative for 3 days -Patient with persistent leukocytosis without any improvement, despite antibiotic treatment continue follow CBC -Chest x-ray did not indicate any acute process. -Consulted infectious disease, Dr. Kimball recommended changing antibiotics to cefepime, Flagyl -Chest x-ray showed bibasilar densities likely pneumonia, however CT of the abdomen indicated bibasilar density representing atelectasis -Repeat urinalysis still indicating significant infection, although urine culture negative x 2 days. -Chest CT this am showing very trace bilateral pleural effusions with minimal groundglass opacities likely atelectasis. 4 mm nodule in left lower lobe, recommend f/u scan in [address] of the abdomen with left renal mass, circumferential wall thickening of the rectum -Patient just underwent colonoscopy by roof bolter operator in [place]. Family does not know the name. They indicate that she had a polyp removed. Will need to obtain the physician's name and contact him concerning the circumferential wall thickening of the rectum. Possibly a CT finding could be caused by local inflammation from recent procedures/polypectomy -Tumor markers are unremarkable at this time. -Consulted oncology, appreciate input and recommendations. Awaiting urology input. Will likely undergo a biopsy with IR pending workup. -Patient just had a colonoscopy done the day of admission by Dr. Ellis, in [place] -MRI of the abdomen pending for today. Follow. Syncopal episode with orthostasis -Multifactorial with a lasting for over the last few months. Could have been antagonized by volume depletion from undergoing prep for colonoscopy. Could be related to medications, diabetes -Orthostatic vitals continue to remain positive -Patient has received at least 9 L of fluid thus far -CT of the brain was unremarkable for any acute event -Carotid ultrasound indicated right internal carotid with less than 50% stenosis , left internal carotid no significant stenosis -Continue LUCÍA hose and continue orthostatic vitals -Cardiology consulted, apprecite input and recommendations. Will obtain ECHO. Continue cardiac telemetry. Recs to continue PT. Acute renal failure superimposed on chronic kidney disease stage III -Likely secondary to volume depletion from colonoscopy prep -Continue monitor renal function -Avoid nephrotoxins Hypokalemia, hypomagnesemia -Continue monitoring place as needed Hypertension -Resume home medications Diabetes -Diabetic diet -Accu-Cheks with sliding scale insulin DVT prevention -Subcutaneous heparin Problem Qualifiers (1) Syncope: Qualified Codes: R55 - Syncope and collapse (2) UTI (urinary tract infection): Qualified Codes: N30.01 - Acute cystitis with hematuria Evelia Amaro Jan 04, 2018 08:25
[2018-01-04] MEDS: amLODIPine BESYLATE 5 MG TAB PO SCH (08:45)
[2018-01-04] MEDS: LISINOPRIL 20 MG TAB PO SCH (08:45)
[2018-01-04] MEDS: SODIUM CHLORIDE 0.9% FLUSH 10 ML FLUSH IV FLUSH SCH ×2 (08:46→20:30)
[2018-01-04] MEDS: MEMANTINE 28 MG PO SCH (08:46)
[2018-01-04] MEDS: BRIMONIDINE TARTRATE 0.2% OPHT SOLN 5 ML BTL EACH EYE SCH ×3 (08:48→17:14)
[2018-01-04] MEDS: INSULIN ASPART SUPPLEMENTAL SCALE SQ SCH ×4 (08:48→20:46)
--- NOTE | 2018-01-04 09:22 | RADRPT ---
EXAM DATE: 01/04/2018 9:12 AM EDT AGE/SEX: 82 years / Female INDICATIONS: Fever. No other complaints. CLINICAL DATA: This is the patient's subsequent encounter. Patient reports that signs and symptoms h ave been present for 3 days and indicates a pain score of 0/10. MEDICAL/SURGICAL HISTORY: . Hypertension. Diabetes. . Hysterectomy. Orthopedic surgery. RADIATION DOSE: 24.56 CTDI (mGy) COMPARISON: [facility], CT ABDOMEN & PELVIS W/O CONTRAST, 01/02/2018. . TECHNIQUE: Multiple contiguous axial images were obtained through the chest without contrast. Image s were obtained in suspended respiration using multiple row detector helical technique. Using automa pau exposure control and adjustment of the mA and/or kV according to patient size, radiation dose was kept as low as reasonably achievable to obtain optimal diagnostic quality images. DICOM format imag e data is available electronically for review and comparison. FINDINGS: Lung: Minimal groundglass opacities at the lung bases. Minimal interstitial thickening in the lower lobes. There is a 4 mm nodule in the left lower lobe. Pleura: Very trace bilateral pleural effusions, right greater than left. Mediastinum: Coronary artery calcifications. Heart is otherwise unremarkable without significant per icardial effusion. Subcentimeter mediastinal nodes do not meet CT size criteria. Osseous Structures: Multilevel degenerative spondylosis of the thoracic spine. No definite focal lyti c or blastic bony lesions. Soft Tissues: Soft tissues are unremarkable. No significant axillary adenopathy. Other: Visulaized upper abdomen is unremarkable. CONCLUSION: 1. Very trace bilateral pleural effusions with minimal groundglass opacities at the lung bases likel y reflecting atelectasis. 2. 4 mm nodule in the left lower lobe superior segment. Generally, sub-6 mm nodules do not require f ollow-up per 2017 Fleischner criteria. If patient's left renal mass is determined to be malignant, co nsider follow-up examination in 3 months. 3. Otherwise, no significant focal pleural or parenchymal abnormality to explain patient's fever. 4. Coronary artery calcifications. Electronically signed by: Mainor Cutler MD 01/04/2018 9:21 AM EDT
--- NOTE | 2018-01-04 09:26 | MB ---
cc: Abdirahman Wolfe MD DATE: 01/04/2018 HISTORY OF PRESENT ILLNESS: Ms. Taylor is an 82-year-old black female, who presented after 2 syncopal episodes after she had a colonoscopy on the same day in the morning. She was going to see her eye physician. She got lightheaded, sat down and passed out for several seconds. Her blood pressure was in the 80s by EMS and she had mild tachycardia. EKG showed sinus rhythm and PACs. She has not had any chest pain. She denies any shortness of breath. She does not remember the circumstances of her syncope, which happened on 12/29/2017. The patient has been diagnosed with left renal mass. She has not had any recurrent syncope in the hospital. She is currently comfortable. PAST MEDICAL HISTORY: Positive for diabetes mellitus, hypertension, dyslipidemia, anemia, left renal mass, dementia, colonic polyps, diverticulosis, history of hysterectomy, eye surgeries, colonoscopy. MEDICATIONS: Include: 1. Cefepime. 2. Metronidazole. 3. Amlodipine. 4. Benadryl p.r.n. 5. Lisinopril. 6. Levothyroxine. 7. Atorvastatin. 8. Latanoprost eyedrops. 9. Insulin. 10. Alphagan eyedrops. 11. Heparin subcutaneous. ALLERGIES: PENICILLIN. SOCIAL HISTORY: She does not smoke. She does not drink alcohol. FAMILY HISTORY: Positive for heart disease. REVIEW OF SYSTEMS: Otherwise negative. PHYSICAL EXAMINATION: VITAL SIGNS: Blood pressure 125/56, pulse 87 and regular. HEENT: Negative. NECK: 2+ carotid upstrokes, no bruits. LUNGS: Clear. HEART: Regular with no murmur or gallop. ABDOMEN: Soft. No bruits. EXTREMITIES: Without edema. 2+ distal pulses. NEUROLOGIC: Grossly nonfocal. LABORATORY DATA: EKG was reviewed and showed a normal sinus rhythm with normal axis and intervals, nonspecific T-wave changes. Hemoglobin 9.6. Potassium 4.3, creatinine 1.4. Troponin less than 0.02. DIAGNOSES: 1. Syncope. 2. Left renal mass. 3. Diabetes mellitus. 4. Hypertension. 5. Dyslipidemia. 6. Dementia. PLAN: Ms. Taylor will be monitored on telemetry to evaluate for arrhythmias. We will obtain echocardiogram to evaluate her left ventricular function. She has not had any recurrent syncope during her hospitalization. I recommend to increase her activity. I recommend physical therapy. At this time, she is being evaluated by oncology for her left renal mass. Given her comorbidities, palliative therapy is being considered. Abdirahman Wolfe MD OQ/TL , 09:02 AM , 09:24 AM VERONICA
[2018-01-04 09:36] LABS: AUTOMATED NEUTROPHIL # 14.4 TH/MM3 (1.8-7.7); BASOPHIL % 0.1 % (0.0-2.0); EOSINOPHIL # 0.2 TH/MM3 (0-0.4); EOSINOPHIL % 0.9 % (0.0-4.0); HEMATOCRIT 28.9 % (35.0-46.0); HEMOGLOBIN 9.7 GM/DL (11.6-15.3); LYMPH % 12.6 % (9.0-44.0); LYMPHOCYTE # 2.3 TH/MM3 (1.0-4.8); MEAN CELL VOLUME 91.8 FL (80.0-100.0); MEAN CORPUSCULAR HEMOGLOBIN 30.6 PG (27.0-34.0); MEAN CORPUSCULAR HGB CONC 33.4 % (32.0-36.0); MEAN PLATELET VOLUME 8.5 FL (7.0-11.0); MONO % 5.7 % (0.0-8.0); NEUT % 80.7 % (16.0-70.0); PLATELET COUNT 357 TH/MM3 (150-450); RED BLOOD COUNT 3.15 MIL/MM3 (4.00-5.30); RED CELL DISTRIBUTION WIDTH 14.1 % (11.6-17.2); WHITE BLOOD COUNT 17.9 TH/MM3 (4.0-11.0)
[2018-01-04 11:49] LABS: RETIC # 48.8 MIL/L (20.0-150.0); RETIC % 1.5 % (0.4-3.0)
[2018-01-04 12:00] LABS: % SATURATION IRON PROFILE 21.6 % (20-50); IRON (FE) 26 MCG/DL (50-170); TOTAL IRON BINDING CAPACITY 120 MCG/DL (250-450)
[2018-01-04 12:15] LABS: FERRITIN 2523 NG/ML (8-252)
--- NOTE | 2018-01-04 14:10 | HHI.IDPN ---
Subjective Subjective Remarks is a 82 y/o CM with PMHx of Dementia, CKD stage III, HTN, Hyperlipidemia, DM who presented to the hospital because of syncopal episode. Patients daughter is at the bedside and provided some history. Patients daughter reports the syncope has been going on for several months prior to admission and have progressively gotten worse over the last month. Patient had screening colonoscopy a day prior to admission and it involved a prep that was exhausting for the patient. After colonoscopy patient went to see her buffer copper for some retinal issues. When the patient tried to get out of the car she felt light headed but did not sustain injuries as daughter was close by and held her. The daughter indicated that her mother's eyes rolled back into her head, there was no tonic-clonic movements or loss of bowel or bladder control. Daughter states that she was "not herself" for at least 5 minutes. She regained consciousness but was not totally back to normal. Due to the above incidents patient was brought into the ED. Upon workup patient was found to have sepsis by criteria with tachycardia, leukocytosis, urinary tract infection. Patient was given fluids in emergency department and had orthostatic vitals performed which were significant. Renal functions did indicate signs of volume depletion with worsening of her chronic kidney disease. Despite Ceftriaxone patient continued to have leucocytosis and ID was consulted aubrey given her abnormal CT with rectal findings. Notes reviewed Low grade temps Daughter at bedside, patient with known dementia Radiology studies reviewed UC with Proteus BC negative Repeat UC negative, though UA still with significant pyuria Creatinine elevated, but decreasing Oncology notes reviewed WBC elevated Antibiotics Cefepime Current Medications Medications (Trade) Dose Ordered Sig/Marianne Route Start Time Stop Time Status Last Admin (Lipitor) 20 mg HS PO 12/29/17 21:00 01/03/18 21:33 (Alphagan 0.2% Opth Soln) 1 drop TID EACH EYE 12/29/17 18:00 01/04/18 12:49 (Synthroid) 25 mcg DAILY@0600 PO 12/30/17 06:00 01/04/18 06:20 Patient Own Medication PT OWN MED: Memant... DAILY PO 12/30/17 09:00 (Xalatan 0.005% Opth Soln) 1 drop HS EACH EYE 12/29/17 21:00 01/03/18 21:33 Sodium Chloride 1,000 ml @ 42 mls/hr [id number] IV 12/29/17 18:00 01/03/18 21:35 (NS Flush) 2 ml UNSCH PRN IV FLUSH 12/29/17 17:45 01/03/18 03:42 (NS Flush) 2 ml BID IV FLUSH 12/29/17 21:00 01/03/18 21:27 (Tylenol) 650 mg Q4H PRN PO 12/29/17 17:45 01/03/18 23:26 (Heparin Inj) 5,000 units Q12H SQ 12/29/17 18:00 01/04/18 06:20 (Narcan Inj) 0.4 mg UNSCH PRN IV PUSH 12/29/17 17:45 (Milk Of Magnesia Liq) 30 ml Q12H PRN PO 12/29/17 17:45 (Senokot) 17.2 mg Q12H PRN PO 12/29/17 17:45 01/01/18 06:24 (Dulcolax Supp) 10 mg DAILY PRN RECTAL 12/29/17 17:45 (Lactulose Liq) 30 ml DAILY PRN PO 12/29/17 17:45 (Levemir Inj) 10 units HS SQ 12/29/17 21:00 01/03/18 21:28 (D50w (Vial) Inj) 50 ml UNSCH PRN IV PUSH 12/29/17 18:15 (Glucagon Inj) 1 mg UNSCH PRN OTHER 12/29/17 18:15 (NovoLOG SUPPLEMENTAL SCALE) 1 ACHS SLIDING SCALE SQ 12/29/17 21:00 01/04/18 12:49 (Prinivil) 40 mg DAILY PO 12/31/17 10:45 01/04/18 08:45 (Benadryl Inj) 25 mg Q6H PRN IV PUSH 12/31/17 20:00 (Norvasc) 5 mg DAILY PO 01/01/18 09:00 01/04/18 08:45 Metronidazole 100 ml @ 100 mls/hr Q8H IV 01/02/18 12:00 01/04/18 12:48 Cefepime HCl 1000 mg/Sodium Chloride 100 ml @ 200 mls/hr Q24H IV 01/03/18 23:00 01/03/18 23:10 Lines PIV no evidence of infection Past Medical History Hypertension Hyperlipidemia Chronic kidney disease stage III Diabetes Dementia Past Surgical History Right ankle surgery Cataract surgery Hysterectomy Allergies: Coded Allergies: Penicillins (Verified Allergy, Intermediate, 12/29/17) Objective . Vital Signs Date Time Temp Pulse Resp B/P (MAP) Pulse Ox O2 Delivery O2 Flow Rate FiO2 01/04/18 13:15 127/59 (81) 129/60 (83) 125/58 (80) 01/04/18 13:11 98.9 98 20 127/59 (81) 94 01/04/18 11:49 85 01/04/18 08:43 98.6 87 17 125/56 (79) 93 01/04/18 04:33 98.8 80 18 113/53 (73) 98 01/04/18 00:07 100.4 95 19 132/60 (84) 94 01/03/18 20:17 99.7 86 19 103/48 (66) 98 01/03/18 18:30 98.9 01/03/18 15:56 100.7 97 20 133/59 (83) 97 . Laboratory Tests Test 01/03/18 05:50 01/04/18 09:25 White Blood Count 15.9 TH/MM3 17.9 TH/MM3 Red Blood Count 3.07 MIL/MM3 3.15 MIL/MM3 Hemoglobin 9.6 GM/DL 9.7 GM/DL Hematocrit 27.8 % 28.9 % Mean Corpuscular Volume 90.8 FL 91.8 FL Mean Corpuscular Hemoglobin 31.3 PG 30.6 PG Mean Corpuscular Hemoglobin Concent 34.5 % 33.4 % Red Cell Distribution Width 14.8 % 14.1 % Platelet Count 274 TH/MM3 357 TH/MM3 Mean Platelet Volume 9.6 FL 8.5 FL Neutrophils (%) (Auto) 75.9 % 80.7 % Lymphocytes (%) (Auto) 17.1 % 12.6 % Monocytes (%) (Auto) 5.6 % 5.7 % Eosinophils (%) (Auto) 0.9 % 0.9 % Basophils (%) (Auto) 0.5 % 0.1 % Neutrophils # (Auto) 12.1 TH/MM3 14.4 TH/MM3 Lymphocytes # (Auto) 2.7 TH/MM3 2.3 TH/MM3 Monocytes # (Auto) 0.9 TH/MM3 1.0 TH/MM3 Eosinophils # (Auto) 0.1 TH/MM3 0.2 TH/MM3 Basophils # (Auto) 0.1 TH/MM3 0.0 TH/MM3 CBC Comment DIFF FINAL DIFF FINAL Differential Comment Reticulocyte Count 1.5 % Absolute Reticulocyte Count 48.8 MIL/L Laboratory Tests Test 01/03/18 05:50 01/04/18 05:35 Blood Urea Nitrogen 29 MG/DL 27 MG/DL Creatinine 1.50 MG/DL 1.40 MG/DL Random Glucose 210 MG/DL 234 MG/DL Calcium Level 8.6 MG/DL 9.0 MG/DL Magnesium Level 1.4 MG/DL Sodium Level 139 MEQ/L 141 MEQ/L Potassium Level 4.1 MEQ/L 4.3 MEQ/L Chloride Level 105 MEQ/L 108 MEQ/L Carbon Dioxide Level 24.4 MEQ/L 22.8 MEQ/L Anion Gap 10 MEQ/L 10 MEQ/L Estimat Glomerular Filtration Rate 33 ML/MIN 36 ML/MIN Lactate Dehydrogenase 243 U/L Iron Level 26 MCG/DL Total Iron Binding Capacity 120 MCG/DL Percent Iron Saturation 21.6 % Ferritin 2523 NG/ML Microbiology Date/Time Source Procedure Growth Status 01/02/18 11:15 Nasal Aspirate Influenza Types A,B Antigen (DENISE) - Final NEGATIVE FOR FLU A AND B ANTIGEN.... Complete 01/02/18 15:30 Urine Clean Catch Urine Culture - Final NO GROWTH IN 48 HOURS. Complete Imaging Last Impressions Chest CT 01/04/18 0000 Signed Impressions: CONCLUSION: 1. Very trace bilateral pleural effusions with minimal groundglass opacities a t the lung bases likely reflecting atelectasis. 2. 4 mm nodule in the left lower lobe superior segment. Generally, sub-6 mm no dules do not require follow-up per 2017 Fleischner criteria. If patient's left renal mass is determined to be malignant, consider follow-up examination in [address] [place]. 3. Otherwise, no significant focal pleural or parenchymal abnormality to expla in patient's fever. 4. Coronary artery calcifications. Chest X-Ray 01/02/18 0000 Signed Impressions: CONCLUSION: Bibasilar densities likely pneumonia. Abdomen/Pelvis CT 01/02/18 0000 Signed Impressions: CONCLUSION: 1. Solid-appearing left renal mass not completely evaluated due to lack of int ravenous contrast. This is concerning for renal cell carcinoma. MRI recommended for further characterization. 2. Bibasilar densities likely atelectasis. 3. Circumferential wall thickening involving the rectum. Digital rectal exam a nd clinical correlation. Neoplastic etiology should be excluded. 4. Constipation and diverticulosis. 5. Small bladder diverticulum. Head CT 12/30/17 Signed Impressions: CONCLUSION: 1. No acute intracranial abnormality is identified. 2. Chronic findings include generalized atrophy and periventricular white quoc er change characteristic of chronic microvascular ischemia. Carotid Artery Ultrasound 12/30/17 Signed Impressions: CONCLUSION: 1. Right Internal Carotid Artery: Findings indicate <50% stenosis. 2. Left Internal Carotid Artery: No significant stenosis or atherosclerotic pl aque is visualized. Physical Exam GENERAL: Obese, well-developed patient, in no apparent distress. Up in the chair SKIN: No rashes, ecchymoses or lesions. Cool and dry. HEAD: Atraumatic. Normocephalic. No temporal or scalp tenderness. EYES: Pupils equal round and reactive. Extraocular motions intact. No scleral icterus. No injection or drainage. ENT: Nose without bleeding, purulent drainage or septal hematoma. Throat without erythema, tonsillar hypertrophy or exudate. NECK: Trachea midline. Supple, nontender, no meningeal signs. CARDIOVASCULAR: HS audible. RESPIRATORY: Clear to auscultation. Breath sounds equal bilaterally. No wheezes , rales, or rhonchi. GASTROINTESTINAL: Abdomen soft, non-tender, nondistended. Obese. MUSCULOSKELETAL: Extremities without clubbing, cyanosis, or edema. NEUROLOGICAL: Awake and alert. No obvious focal deficit. Psych cooperative IV line sites with no e.o infection. Assessment & Plan Remarks Possible sepsis on admission. UTI, Proteus Hypotension on admission Proctitis possible. h/o constipation. Persistent leucocytosis Penicillin allergy Recs: Continue cefepime IV Continue Flagyl, change to po Awaiting urology evaluation Follow temps Monitor progress Spoke with daughter Ivelisse Santos MD Jan 04, 2018 14:10
--- NOTE | 2018-01-04 15:14 | PD.ONC.PN ---
Subjective Subjective Remarks History supplemented by daughter. Pt moving about, had a big BM Appreciate cardiology consult. Objective Data Date Time Temp Pulse Resp B/P (MAP) Pulse Ox O2 Delivery O2 Flow Rate FiO2 01/04/18 13:15 127/59 (81) 129/60 (83) 125/58 (80) 01/04/18 13:11 98.9 98 20 127/59 (81) 94 01/04/18 11:49 85 01/04/18 08:43 98.6 87 17 125/56 (79) 93 01/04/18 04:33 98.8 80 18 113/53 (73) 98 01/04/18 00:07 100.4 95 19 132/60 (84) 94 01/03/18 20:17 99.7 86 19 103/48 (66) 98 01/03/18 18:30 98.9 01/03/18 15:56 100.7 97 20 133/59 (83) 97 01/04/18 01/04/18 01/04/18 07:00 15:00 23:00 Intake Total 777 ml Output Total 600 ml Balance 177 ml Result Diagram: 01/04/18 0925 01/04/18 0535 Laboratory Results Laboratory Tests Test 01/04/18 05:35 01/04/18 09:25 Blood Urea Nitrogen 27 MG/DL Creatinine 1.40 MG/DL Random Glucose 234 MG/DL Calcium Level 9.0 MG/DL Lactate Dehydrogenase 243 U/L Sodium Level 141 MEQ/L Potassium Level 4.3 MEQ/L Chloride Level 108 MEQ/L Carbon Dioxide Level 22.8 MEQ/L Anion Gap 10 MEQ/L Estimat Glomerular Filtration Rate 36 ML/MIN Iron Level 26 MCG/DL Total Iron Binding Capacity 120 MCG/DL Percent Iron Saturation 21.6 % Ferritin 2523 NG/ML White Blood Count 17.9 TH/MM3 Red Blood Count 3.15 MIL/MM3 Hemoglobin 9.7 GM/DL Hematocrit 28.9 % Mean Corpuscular Volume 91.8 FL Mean Corpuscular Hemoglobin 30.6 PG Mean Corpuscular Hemoglobin Concent 33.4 % Red Cell Distribution Width 14.1 % Platelet Count 357 TH/MM3 Mean Platelet Volume 8.5 FL Neutrophils (%) (Auto) 80.7 % Lymphocytes (%) (Auto) 12.6 % Monocytes (%) (Auto) 5.7 % Eosinophils (%) (Auto) 0.9 % Basophils (%) (Auto) 0.1 % Neutrophils # (Auto) 14.4 TH/MM3 Lymphocytes # (Auto) 2.3 TH/MM3 Monocytes # (Auto) 1.0 TH/MM3 Eosinophils # (Auto) 0.2 TH/MM3 Basophils # (Auto) 0.0 TH/MM3 CBC Comment DIFF FINAL Differential Comment Reticulocyte Count 1.5 % Absolute Reticulocyte Count 48.8 MIL/L Culture Results Microbiology Date/Time Source Procedure Growth Status 01/02/18 11:15 Nasal Aspirate Influenza Types A,B Antigen (DENISE) - Final NEGATIVE FOR FLU A AND B ANTIGEN.... Complete 01/02/18 15:30 Urine Clean Catch Urine Culture - Final NO GROWTH IN 48 HOURS. Complete Imaging Studies Last [address] 01/04/18 0000 Signed Impressions: CONCLUSION: 1. Very trace bilateral pleural effusions with minimal groundglass opacities a t the lung bases likely reflecting atelectasis. 2. 4 mm nodule in the left lower lobe superior segment. Generally, sub-6 mm no dules do not require follow-up per 2017 Fleischner criteria. If patient's left renal mass is determined to be malignant, consider follow-up examination in [address] [facility]. 3. Otherwise, no significant focal pleural or parenchymal abnormality to expla in patient's fever. 4. Coronary artery calcifications. Administered Medications Medications (Trade) Dose Ordered Sig/Marianne Route PRN Reason Start Time Stop Time Status Last Admin Dose Admin Atorvastatin Calcium (Lipitor) 20 mg HS PO 12/29/17 21:00 01/03/18 21:33 Brimonidine Tartrate (Alphagan 0.2% Opth Soln) 1 drop TID EACH EYE 12/29/17 18:00 01/04/18 12:49 Levothyroxine Sodium (Synthroid) 25 mcg DAILY@0600 PO 12/30/17 06:00 01/04/18 06:20 Latanoprost (Xalatan 0.005% Opth Soln) 1 drop HS EACH EYE 12/29/17 21:00 01/03/18 21:33 Sodium Chloride 1,000 ml @ 42 mls/hr [id number] IV 12/29/17 18:00 01/03/18 21:35 Sodium Chloride (NS Flush) 2 ml UNSCH PRN IV FLUSH FLUSH AFTER USING IV ACCESS 12/29/17 17:45 01/03/18 03:42 Sodium Chloride (NS Flush) 2 ml BID IV FLUSH 12/29/17 21:00 01/03/18 21:27 Acetaminophen (Tylenol) 650 mg Q4H PRN PO Fever, headache, pain 1-4 12/29/17 17:45 01/03/18 23:26 Heparin Sodium (Porcine) (Heparin Inj) 5,000 units Q12H SQ 12/29/17 18:00 01/04/18 06:20 Sennosides (Senokot) 17.2 mg Q12H PRN PO Moderate constipation 12/29/17 17:45 01/01/18 06:24 Insulin Detemir (Levemir Inj) 10 units HS SQ 12/29/17 21:00 01/03/18 21:28 Insulin Aspart (NovoLOG SUPPLEMENTAL SCALE) 1 ACHS SLIDING SCALE SQ 12/29/17 21:00 01/04/18 12:49 Lisinopril (Prinivil) 40 mg DAILY PO 12/31/17 10:45 01/04/18 08:45 Amlodipine Besylate (Norvasc) 5 mg DAILY PO 01/01/18 09:00 01/04/18 08:45 Cefepime HCl 1000 mg/Sodium Chloride 100 ml @ 200 mls/hr Q24H IV 01/03/18 23:00 01/03/18 23:10 Objective Remarks GENERAL: Elderly obese woman, well-developed patient. SKIN: Warm and dry. HEAD: Normocephalic. EYES: No scleral icterus. No injection or drainage. NECK: Supple, trachea midline. No JVD or lymphadenopathy. LYMPHATIC: No adenopathy. CARDIOVASCULAR: Regular rate and rhythm without murmurs. RESPIRATORY: Breath sounds equal bilaterally. No accessory muscle use. GASTROINTESTINAL: Abdomen large, nondistended. EXTREMITIES: No cyanosis, or edema. MUSCULOSKELETAL: Adequate muscle tone. PSYCHIATRIC: Smiling. Assessment/Plan Problem List: (1) Left renal mass ICD Codes: N28.89 - Other specified disorders of kidney and ureter Plan: L renal mass incidentally found for evaluation of fever. Denies pain, no hematuria. Pt and family desirous of palliative maneuver do not want surgery. Discussed with IR for bx and radiofrequency ablation (too big for cryoablation) , need MRI to confirm solid mass. Discussed with ID plan for tx presumed colitis/infection, culture pending. Assessment 82 y/o woman with dementia and history of syncopal episode, admitted with fever and noted to have L renal mass. Plan 1. Pending MRI 2. Cardiology evaluation on going 3. OK to be DC from heme/onc standpoint to follow up ablation as out pt 4. Treatment for fever continue. Nichelle Hunter MD Jan 04, 2018 15:14
[2018-01-04] MEDS: INSULIN ASPART 1,000 UNITS/10 ML VIAL SQ SCH (17:13)
--- NOTE | 2018-01-04 17:26 | RADRPT ---
EXAM DATE: 01/04/2018 5:20 PM EDT AGE/SEX: 82 years / Female INDICATIONS: . Renal cell ca. CLINICAL DATA: This is the patient's initial encounter. Patient reports that signs and symptoms have been present for 4 - 6 days and indicates a pain score of 4/10. MEDICAL/SURGICAL HISTORY: Diabetes mellitus type II. Hypertension. section. COMPARISON: [facility], CT ABDOMEN & PELVIS W/O CONTRAST, 01/02/2018. . TECHNIQUE: Multiplanar, multisequence images of the abdomen was performed without contrast. FINDINGS: Examination quality is degraded by motion artifact. There is a mildly T2 hypointense area in the left mid kidney measuring approximately 4.8 x 4.0 cm. Is not well evaluated without intravenous contrast. There is a 1.7 cm T2 hyperintense lesion at the lower pole of the left kidney and there are smaller T2 hyperintense kidney lesions bilaterally. No hydronephrosis is present. Liver demonstrates no acute finding. Gallbladder is filled with stones. There is no bile duct dilatat ion. Spleen and pancreas demonstrate no definite abnormality. There is levoscoliosis the lumbar spine with degenerative change. CONCLUSION: 1. Examination quality is significantly degraded by motion artifact. The left renal abnormality desc ribed on recent CT appears not well evaluated given the motion artifact and lack of intravenous contr ast administration. However, it does appear different in signal than the renal parenchyma on T2-weigh pau imaging and measures approximately 4.8 x 4.0 cm. This area is suspicious for a mass but I cannot confidently diagnose it as a definite renal neoplasm. If the patient is unable to obtain intravenous contrast, could consider percutaneous biopsy depending on the clinical setting. 2. Cholelithiasis. The gallbladder is completely filled with stones. Electronically signed by: Ryan Donis MD 01/04/2018 5:25 PM EDT
--- NOTE | 2018-01-04 18:54 | ECHRPT ---
Indication: SYNCOPE CONCLUSIONS The left ventricular systolic function is normal with an estimated ejection fraction in the range of 55-60%. Normal left ventricular size. Wall thickness is normal. No regional wall motion abnormalities are present. Aortic valve sclerosis is present. BP: / HR: Rhythm: Sinus MEASUREMENTS (Male / Female) Normal Values Technical Quality:Good 2D ECHO LV Diastolic Diameter PLAX 4.3 cm 4.2 - 5.9 / 3.9 - 5.3 cm LV Systolic Diameter PLAX 3.2 cm IVS Diastolic Thickness 1.0 cm 0.6 - 1.0 / 0.6 - 0.9 cm LVPW Diastolic Thickness 1.0 cm 0.6 - 1.0 / 0.6 - 0.9 cm LV Relative Wall Thickness 0.5 RV Internal Dim ED PLAX 2.3 cm LVOT Diameter 1.9 cm LA Systolic Diameter LX 3.0 cm 3.0 - 4.0 / 2.7 - 3.8 cm LV Ejection Fraction MOD 4C 50.6 % LV Ejection Fraction 4C AL 51.9 % M-MODE Aortic Root Diameter MM 1.9 cm LA Systolic Diameter MM 3.9 cm LA Ao Ratio MM 2.1 AV Cusp Separation MM 1.7 cm DOPPLER AV Peak Velocity 178.0 cm/s AV Peak Gradient 12.7 mmHg LVOT Peak Velocity 120.0 cm/s LVOT Peak Gradient 5.8 mmHg AV Area Cont Eq pk 1.9 cm MV Area PHT 7.1 cm Mitral E Point Velocity 99.2 cm/s Mitral A Point Velocity 126.0 cm/s Mitral E to A Ratio 0.8 LV E' Lateral Velocity 6.8 cm/s Mitral E to LV E' Lateral Ratio 14.5 LV E' Septal Velocity 6.6 cm/s Mitral E to LV E' Septal Ratio 15.0 PV Peak Velocity 97.7 cm/s PV Peak Gradient 3.8 mmHg FINDINGS LEFT VENTRICLE The left ventricular systolic function is normal with an estimated ejection fraction in the range of 55-60%. Normal left ventricular size. Wall thickness is normal. No regional wall motion abnormalities are present. RIGHT VENTRICLE Normal right ventricular size and systolic function. LEFT ATRIUM The left atrial size is normal. RIGHT ATRIUM The right atrial size is normal. ATRIAL SEPTUM Normal atrial septal thickness without atrial level shunting by limited color doppler interrogation. AORTA The aortic root and proximal ascending aorta are normal in size on limited imaging. MITRAL VALVE Structurally normal mitral valve. No mitral valve stenosis or regurgitation. AORTIC VALVE Trileaflet aortic valve. No aortic valve stenosis or regurgitation. Aortic valve sclerosis is present. TRICUSPID VALVE Structurally normal tricuspid valve. No tricuspid valve stenosis or regurgitation. PULMONARY VALVE The pulmonary valve is not well visualized. VESSELS The inferior vena cava is normal in size. PERICARDIUM No pericardial effusion. Abdirahman Wolfe MD, FACC (Electronically Signed) Final Date:04 January 2018 18:53
[2018-01-04] MEDS: metroNIDAZOLE 500 MG TAB PO SCH (20:29)
[2018-01-04] MEDS: MEMANTINE HCL 10 MG TAB PO SCH (20:30)
[2018-01-04] MEDS: LATANOPROST 0.005% OPHT SOLN 2.5 ML BTL EACH EYE SCH (20:30)
[2018-01-04] MEDS: ATORVASTATIN 20 MG TAB PO SCH (20:30)
[2018-01-04] MEDS: SODIUM CHLOR 0.9% 1000 ML INJ 1,000 ML IV SCH (20:31)
[2018-01-04] MEDS: INSULIN DETEMIR 100 UNITS/ML VIAL SQ SCH (20:46)
[2018-01-05] VITALS: BP 124/63; PULSE 90; RESP 21; TEMP 98.3; O2SAT 97
[2018-01-05] MEDS: CEFEPIME INJ 1,000 MG in SODIUM CHLORIDE 0.9% INJ 100 ML IV SCH (00:58)
[2018-01-05 04:00] VITALS: BP 136/62; PULSE 85; RESP 19; TEMP 98.6; O2SAT 99
[2018-01-05] MEDS: LEVOTHYROXINE SODIUM 25 MCG TAB PO SCH (05:22)
[2018-01-05] MEDS: HEPARIN SODIUM - SQ 10,000 UNITS/ML VIAL SQ SCH (05:22)
[2018-01-05] MEDS: metroNIDAZOLE 500 MG TAB PO SCH ×2 (05:22→12:40)
[2018-01-05 07:05] VITALS: PULSE 86
--- NOTE | 2018-01-05 07:45 | HHI.PR ---
Objective Vitals Vital Signs Date Time Temp Pulse Resp B/P (MAP) Pulse Ox O2 Delivery O2 Flow Rate FiO2 01/05/18 04:00 98.6 85 19 136/62 (86) 99 01/05/18 00:00 98.3 90 21 124/63 (83) 97 01/04/18 20:00 97.6 79 19 145/76 (99) 95 01/04/18 20:00 85 01/04/18 19:02 99.6 90 18 102/51 (68) 98 01/04/18 13:15 127/59 (81) 129/60 (83) 125/58 (80) 01/04/18 13:11 98.9 98 20 127/59 (81) 94 01/04/18 11:49 85 01/04/18 08:43 98.6 87 17 125/56 (79) 93 I/O 01/04/18 01/04/18 01/04/18 01/05/18 01/05/18 01/05/18 07:00 15:00 23:00 07:00 15:00 23:00 Intake Total 777 ml 920 ml 760 ml Output Total 600 ml 1200 ml 1000 ml Balance 177 ml -280 ml -240 ml Intake Oral 920 ml 240 ml IV Total 777 ml 520 ml Output Urine Total 600 ml 1200 ml 1000 ml # Bowel Movements 1 Result Diagram: 01/04/18 0925 01/04/18 0535 Objective Remarks GENERAL: Well-developed, well-nourished, in no acute distress. alert and orientated. Pleasantly confused to time. HEENT: Head is normocephalic without any lesions or masses noted. Facial features are symmetric. Eyes: Extraocular muscles are intact. Conjunctivae were clear. NECK: Supple without any masses. Trachea midline no deviation. No JVD, CARDIAC: Regular rhythm, regular rate. S1/S2 are heard. 2/6 ejection murmur, no gallops or rubs. LUNGS: Clear to auscultation bilaterally. No wheeze, rhonchi or rales. No use of accessory muscles on inspiration or expiration. ABDOMEN: Soft, nontender. Nondistended. Bowel sounds heard in all 4 quadrants. No organomegaly or masses. Negative rebound, negative guarding EXTREMITIES: No edema, pulses are equal bilaterally. No cyanosis or clubbing NEUROLOGY: Mood and affect appear appropriate. Cranial nerves II through XII grossly intact. Moving all extremities, speech is clear A/P Problem List: (1) Sepsis ICD Code: A41.9 - Sepsis, unspecified organism (2) Leucocytosis ICD Code: D72.829 - Elevated white blood cell count, unspecified (3) Syncope ICD Code: R55 - Syncope and collapse Status: Acute (4) UTI (urinary tract infection) ICD Code: N39.0 - Urinary tract infection, site not specified Status: Acute Assessment and Plan Sepsis -Patient continues to meet criteria with leukocytosis, tachycardia, urinary tract infection, fever -Urine culture with Proteus, resistant to Bactrim, Cipro -Blood cultures are negative for 3 days -Patient with persistent leukocytosis without any improvement, despite antibiotic treatment continue follow CBC -Chest x-ray did not indicate any acute process. -Consulted infectious disease, Dr. Kimball recommended changing antibiotics to cefepime, Flagyl -Chest x-ray showed bibasilar densities likely pneumonia, however CT of the abdomen indicated bibasilar density representing atelectasis -Repeat urinalysis still indicating significant infection, although urine culture negative x 2 days. -Chest CT this am showing very trace bilateral pleural effusions with minimal groundglass opacities likely atelectasis. 4 mm nodule in left lower lobe, recommend f/u scan in [address] of the abdomen with left renal mass, circumferential wall thickening of the rectum -Patient just underwent colonoscopy by air conditioning unit tester in [place]. Family does not know the name. They indicate that she had a polyp removed. Will need to obtain the physician's name and contact him concerning the circumferential wall thickening of the rectum. Possibly a CT finding could be caused by local inflammation from recent procedures/polypectomy -Tumor markers are unremarkable at this time. -Consulted oncology, appreciate input and recommendations. Awaiting urology input. Will likely undergo a biopsy with IR pending workup. -Patient just had a colonoscopy done the day of admission by Dr. Ellis, in [place] -MRI of the abdomen pending for today. Follow. Syncopal episode with orthostasis -Multifactorial with a lasting for over the last few months. Could have been antagonized by volume depletion from undergoing prep for colonoscopy. Could be related to medications, diabetes -Orthostatic vitals continue to remain positive -Patient has received at least 9 L of fluid thus far -CT of the brain was unremarkable for any acute event -Carotid ultrasound indicated right internal carotid with less than 50% stenosis , left internal carotid no significant stenosis -Continue LUCÍA hose and continue orthostatic vitals -Cardiology consulted, apprecite input and recommendations. Will obtain ECHO. Continue cardiac telemetry. Recs to continue PT. Acute renal failure superimposed on chronic kidney disease stage III -Likely secondary to volume depletion from colonoscopy prep -Continue monitor renal function -Avoid nephrotoxins Hypokalemia, hypomagnesemia -Continue monitoring place as needed Hypertension -Resume home medications Diabetes -Diabetic diet -Accu-Cheks with sliding scale insulin DVT prevention -Subcutaneous heparin Problem Qualifiers (1) Syncope: Qualified Codes: R55 - Syncope and collapse (2) UTI (urinary tract infection): Qualified Codes: N30.01 - Acute cystitis with hematuria Evelia Amaro Jan 05, 2018 07:45
[2018-01-05 07:50] VITALS: BP 130/62; PULSE 93; RESP 20; TEMP 98.8; O2SAT 95
[2018-01-05] MEDS: BRIMONIDINE TARTRATE 0.2% OPHT SOLN 5 ML BTL EACH EYE SCH ×2 (08:27→12:40)
[2018-01-05] MEDS: amLODIPine BESYLATE 5 MG TAB PO SCH (08:28)
[2018-01-05] MEDS: MEMANTINE HCL 10 MG TAB PO SCH (08:28)
[2018-01-05] MEDS: LISINOPRIL 20 MG TAB PO SCH (08:28)
[2018-01-05] MEDS: SODIUM CHLORIDE 0.9% FLUSH 10 ML FLUSH IV FLUSH SCH (08:28)
[2018-01-05] MEDS: INSULIN ASPART 1,000 UNITS/10 ML VIAL SQ SCH ×2 (08:29→12:42)
[2018-01-05] MEDS: INSULIN ASPART SUPPLEMENTAL SCALE SQ SCH ×2 (08:29→12:40)
--- NOTE | 2018-01-05 09:07 | HHI.IDPN ---
Subjective Subjective Remarks is a 82 y/o CM with PMHx of Dementia, CKD stage III, HTN, Hyperlipidemia, DM who presented to the hospital because of syncopal episode. Patients daughter is at the bedside and provided some history. Patients daughter reports the syncope has been going on for several months prior to admission and have progressively gotten worse over the last month. Patient had screening colonoscopy a day prior to admission and it involved a prep that was exhausting for the patient. After colonoscopy patient went to see her media planner / buyer for some retinal issues. When the patient tried to get out of the car she felt light headed but did not sustain injuries as daughter was close by and held her. The daughter indicated that her mother's eyes rolled back into her head, there was no tonic-clonic movements or loss of bowel or bladder control. Daughter states that she was "not herself" for at least 5 minutes. She regained consciousness but was not totally back to normal. Due to the above incidents patient was brought into the ED. Upon workup patient was found to have sepsis by criteria with tachycardia, leukocytosis, urinary tract infection. Patient was given fluids in emergency department and had orthostatic vitals performed which were significant. Renal functions did indicate signs of volume depletion with worsening of her chronic kidney disease. Despite Ceftriaxone patient continued to have leucocytosis and ID was consulted aubrey given her abnormal CT with rectal findings. Notes reviewed Temps better Awakens easily Patient with dementia Does not complain much Repeat UC negative First UC with Proteus BC negative Repeat UC negative, though UA still with significant pyuria Creatinine elevated, but decreasing Oncology notes reviewed WBC elevated Antibiotics Cefepime Current Medications Medications (Trade) Dose Ordered Sig/Marianne Route Start Time Stop Time Status Last Admin (Lipitor) 20 mg HS PO 12/29/17 21:00 01/04/18 20:30 (Alphagan 0.2% Opth Soln) 1 drop TID EACH EYE 12/29/17 18:00 01/05/18 08:27 (Synthroid) 25 mcg DAILY@0600 PO 12/30/17 06:00 01/05/18 05:22 (Xalatan 0.005% Opth Soln) 1 drop HS EACH EYE 12/29/17 21:00 01/04/18 20:30 Sodium Chloride 1,000 ml @ 42 mls/hr [id number] IV 12/29/17 18:00 01/04/18 20:31 (NS Flush) 2 ml UNSCH PRN IV FLUSH 12/29/17 17:45 01/03/18 03:42 (NS Flush) 2 ml BID IV FLUSH 12/29/17 21:00 01/04/18 20:30 (Tylenol) 650 mg Q4H PRN PO 12/29/17 17:45 01/03/18 23:26 (Heparin Inj) 5,000 units Q12H SQ 12/29/17 18:00 01/05/18 05:22 (Narcan Inj) 0.4 mg UNSCH PRN IV PUSH 12/29/17 17:45 (Milk Of Magnesia Liq) 30 ml Q12H PRN PO 12/29/17 17:45 (Senokot) 17.2 mg Q12H PRN PO 12/29/17 17:45 01/01/18 06:24 (Dulcolax Supp) 10 mg DAILY PRN RECTAL 12/29/17 17:45 (Lactulose Liq) 30 ml DAILY PRN PO 12/29/17 17:45 (Levemir Inj) 10 units HS SQ 12/29/17 21:00 01/04/18 20:46 (D50w (Vial) Inj) 50 ml UNSCH PRN IV PUSH 12/29/17 18:15 (Glucagon Inj) 1 mg UNSCH PRN OTHER 12/29/17 18:15 (NovoLOG SUPPLEMENTAL SCALE) 1 ACHS SLIDING SCALE SQ 12/29/17 21:00 01/05/18 08:29 (Prinivil) 40 mg DAILY PO 12/31/17 10:45 01/05/18 08:28 (Benadryl Inj) 25 mg Q6H PRN IV PUSH 12/31/17 20:00 (Norvasc) 5 mg DAILY PO 01/01/18 09:00 01/05/18 08:28 Cefepime HCl 1000 mg/Sodium Chloride 100 ml @ 200 mls/hr Q24H IV 01/03/18 23:00 01/05/18 00:58 (Flagyl) 500 mg Q8HR PO 01/04/18 22:00 01/05/18 05:22 (NovoLOG INJ) 9 units TIDPC SQ 01/04/18 18:30 01/05/18 08:29 (Namenda) 10 mg BID PO 01/04/18 21:00 01/05/18 08:28 Lines PIV no evidence of infection Past Medical History Hypertension Hyperlipidemia Chronic kidney disease stage III Diabetes Dementia Past Surgical History Right ankle surgery Cataract surgery Hysterectomy Allergies: Coded Allergies: Penicillins (Verified Allergy, Intermediate, 12/29/17) Objective . Vital Signs Date Time Temp Pulse Resp B/P (MAP) Pulse Ox O2 Delivery O2 Flow Rate FiO2 01/05/18 04:00 98.6 85 19 136/62 (86) 99 01/05/18 00:00 98.3 90 21 124/63 (83) 97 01/04/18 20:00 97.6 79 19 145/76 (99) 95 01/04/18 20:00 85 01/04/18 19:02 99.6 90 18 102/51 (68) 98 01/04/18 13:15 127/59 (81) 129/60 (83) 125/58 (80) 01/04/18 13:11 98.9 98 20 127/59 (81) 94 01/04/18 11:49 85 . Laboratory Tests Test 01/04/18 09:25 White Blood Count 17.9 TH/MM3 Red Blood Count 3.15 MIL/MM3 Hemoglobin 9.7 GM/DL Hematocrit 28.9 % Mean Corpuscular Volume 91.8 FL Mean Corpuscular Hemoglobin 30.6 PG Mean Corpuscular Hemoglobin Concent 33.4 % Red Cell Distribution Width 14.1 % Platelet Count 357 TH/MM3 Mean Platelet Volume 8.5 FL Neutrophils (%) (Auto) 80.7 % Lymphocytes (%) (Auto) 12.6 % Monocytes (%) (Auto) 5.7 % Eosinophils (%) (Auto) 0.9 % Basophils (%) (Auto) 0.1 % Neutrophils # (Auto) 14.4 TH/MM3 Lymphocytes # (Auto) 2.3 TH/MM3 Monocytes # (Auto) 1.0 TH/MM3 Eosinophils # (Auto) 0.2 TH/MM3 Basophils # (Auto) 0.0 TH/MM3 CBC Comment DIFF FINAL Differential Comment Reticulocyte Count 1.5 % Absolute Reticulocyte Count 48.8 MIL/L Laboratory Tests Test 01/04/18 05:35 Blood Urea Nitrogen 27 MG/DL Creatinine 1.40 MG/DL Random Glucose 234 MG/DL Calcium Level 9.0 MG/DL Lactate Dehydrogenase 243 U/L Sodium Level 141 MEQ/L Potassium Level 4.3 MEQ/L Chloride Level 108 MEQ/L Carbon Dioxide Level 22.8 MEQ/L Anion Gap 10 MEQ/L Estimat Glomerular Filtration Rate 36 ML/MIN Iron Level 26 MCG/DL Total Iron Binding Capacity 120 MCG/DL Percent Iron Saturation 21.6 % Ferritin 2523 NG/ML Microbiology Date/Time Source Procedure Growth Status 01/02/18 11:15 Nasal Aspirate Influenza Types A,B Antigen (DENISE) - Final NEGATIVE FOR FLU A AND B ANTIGEN.... Complete 01/02/18 15:30 Urine Clean Catch Urine Culture - Final NO GROWTH IN 48 HOURS. Complete Imaging Last Impressions Chest CT 01/04/18 0000 Signed Impressions: CONCLUSION: 1. Very trace bilateral pleural effusions with minimal groundglass opacities a t the lung bases likely reflecting atelectasis. 2. 4 mm nodule in the left lower lobe superior segment. Generally, sub-6 mm no dules do not require follow-up per 2017 Fleischner criteria. If patient's left renal mass is determined to be malignant, consider follow-up examination in 3 [facility]. 3. Otherwise, no significant focal pleural or parenchymal abnormality to expla in patient's fever. 4. Coronary artery calcifications. Chest X-Ray 01/02/18 0000 Signed Impressions: CONCLUSION: Bibasilar densities likely pneumonia. Abdomen/Pelvis CT 01/02/18 0000 Signed Impressions: CONCLUSION: 1. Solid-appearing left renal mass not completely evaluated due to lack of int ravenous contrast. This is concerning for renal cell carcinoma. MRI recommended for further characterization. 2. Bibasilar densities likely atelectasis. 3. Circumferential wall thickening involving the rectum. Digital rectal exam a nd clinical correlation. Neoplastic etiology should be excluded. 4. Constipation and diverticulosis. 5. Small bladder diverticulum. Head CT 12/30/17 0000 Signed Impressions: CONCLUSION: 1. No acute intracranial abnormality is identified. 2. Chronic findings include generalized atrophy and periventricular white qu[place] er change characteristic of chronic microvascular ischemia. Carotid Artery Ultrasound 12/30/17 0000 Signed Impressions: CONCLUSION: 1. Right Internal Carotid Artery: Findings indicate <50% stenosis. 2. Left Internal Carotid Artery: No significant stenosis or atherosclerotic pl aque is visualized. Physical Exam GENERAL: Obese, well-developed patient, in no apparent distress. Awakens easily. SKIN: No rashes, ecchymoses or lesions. Cool and dry. HEAD: Atraumatic. Normocephalic. No temporal or scalp tenderness. EYES: Pupils equal round and reactive. Extraocular motions intact. No scleral icterus. No injection or drainage. ENT: Nose without bleeding, purulent drainage or septal hematoma. Throat without erythema, tonsillar hypertrophy or exudate. NECK: Trachea midline. Supple, nontender, no meningeal signs. CARDIOVASCULAR: HS audible. RESPIRATORY: Clear to auscultation. Breath sounds equal bilaterally. No wheezes , rales, or rhonchi. GASTROINTESTINAL: Abdomen soft, non-tender, nondistended. Obese. MUSCULOSKELETAL: Extremities without clubbing, cyanosis, or edema. NEUROLOGICAL: Awakens easily. Psych cooperative IV line sites with no e.o infection. Assessment & Plan Remarks Possible sepsis on admission. UTI, Proteus Hypotension on admission, better Proctitis possible. h/o constipation. Persistent leucocytosis Penicillin allergy Recs: Continue cefepime IV Continue Flagyl, change to po Awaiting urology evaluation - still pending Follow temps Monitor progress Ivelisse Santos MD Jan 05, 2018 09:07
[2018-01-05 11:50] VITALS: BP 152/66; PULSE 85; RESP 20; TEMP 97.3; O2SAT 95
[2018-01-05] MEDS ORDERED: NOVOLOGP2 SQ (12:43)
[2018-01-05] MEDS ORDERED: AMLO5 PO (12:43)
[2018-01-05] MEDS ORDERED: NOVOLOGSS SQ (12:43)
[2018-01-05] MEDS ORDERED: SENN187 PO (12:43)
[2018-01-05] MEDS ORDERED: LEVEMIR SQ (12:43)
[2018-01-05] MEDS ORDERED: METR-1 PO (13:02)
[2018-01-05] MEDS ORDERED: CEFU1TAB18 PO (13:02)
[2018-01-05] MEDS ORDERED: GETGO ROLLING W1 MI1 (13:04)
--- NOTE | 2018-01-05 13:07 | HHI.DS ---
Discharge Summary Admission Date Dec 29, 2017 at 17:34 Discharge Date: Jan 05, 2018 Admitting Diagnosis Syncope, orthostatic changes, UTI, dehydration (1) Sepsis ICD Code: A41.9 - Sepsis, unspecified organism (2) Leucocytosis ICD Code: D72.829 - Elevated white blood cell count, unspecified (3) Syncope ICD Code: R55 - Syncope and collapse Status: Acute (4) UTI (urinary tract infection) ICD Code: N39.0 - Urinary tract infection, site not specified Status: Acute Procedures See below. Brief History - From Admission 82-year-old female with known history of hypertension, hyperlipidemia, diabetes , chronic kidney disease stage III, dementia who presented to hospital because of syncopal episode. Patient does have dementia and information was taken from daughter at bedside. Apparently the patient has been plagued with lightheadedness, dizziness when standing for the last few months. The daughter indicates that has been progressively getting worse over the last month. Patient did undergo hers screening colonoscopy yesterday in which she did do the prep the night before. 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 When the patient went to get out of the car she got significantly lightheaded and the daughter was able to grab her mother's coat and she went backwards into the car without any injury. The daughter indicated that her mother's eyes rolled back into her head, there was no tonic-clonic movements or loss of bowel or bladder control. Daughter states that she was unconscious for at least 5 minutes. When she came to she did know that it was her daughter and great grandkids that were with her. Because of that reason they brought her to the emergency department for evaluation. Upon workup patient was found to have sepsis by criteria with tachycardia, leukocytosis, urinary tract infection. Patient was given fluids in emergency department and had orthostatic vitals performed which were significantly positive. Renal functions did indicate signs of volume depletion with worsening of her chronic kidney disease. Is recommended by the ER physician the patient be admitted for further evaluation and management. At the time evaluating the patient today she states that she is feeling much better. She still has lightheadedness and dizziness upon standing. Orthostatic vital signs still are significant positive. As previously stated the patient has had at least 2-3 months of worsening orthostasis, lightheadedness, dizziness upon standing. They deny any outpatient workup. They have not notified her primary medical doctor of these symptoms. CBC/BMP: 01/04/18 0925 01/04/18 0535 Significant Findings Laboratory Tests Test 01/02/18 15:30 01/03/18 05:50 01/04/18 05:35 01/04/18 09:25 Urine Turbidity CLOUDY (CLEAR) Urine Protein 30 mg/dL (NEG-TRACE) Urine Glucose (UA) 1000 OR GREATER mg/dL Urine Ketones TRACE mg/dL (NEG) Urine Occult Blood LARGE (NEG) Urine Leukocyte Esterase MOD (NEG) Urine RBC 50-99 /hpf (0-3) Urine WBC 100-200 /hpf (0-5) Urine WBC Clumps MOD (NONE) Urine Bacteria FEW /hpf (NONE) White Blood Count 15.9 TH/MM3 (4.0-11.0) 17.9 TH/MM3 (4.0-11.0) Red Blood Count 3.07 MIL/MM3 (4.00-5.30) 3.15 MIL/MM3 (4.00-5.30) Hemoglobin 9.6 GM/DL (11.6-15.3) 9.7 GM/DL (11.6-15.3) Hematocrit 27.8 % (35.0-46.0) 28.9 % (35.0-46.0) Neutrophils (%) (Auto) 75.9 % (16.0-70.0) 80.7 % (16.0-70.0) Neutrophils # (Auto) 12.1 TH/MM3 (1.8-7.7) 14.4 TH/MM3 (1.8-7.7) Blood Urea Nitrogen 29 MG/DL (7-18) 27 MG/DL (7-18) Creatinine 1.50 MG/DL (0.50-1.00) 1.40 MG/DL (0.50-1.00) Random Glucose 210 MG/DL (74-106) 234 MG/DL (74-106) Magnesium Level 1.4 MG/DL (1.5-2.5) Estimat Glomerular Filtration Rate 33 ML/MIN (>89) 36 ML/MIN (>89) Chloride Level 108 MEQ/L (98-107) Iron Level 26 MCG/DL (50-170) Total Iron Binding Capacity 120 MCG/DL (250-450) Ferritin 2523 NG/ML (8-252) Monocytes # (Auto) 1.0 TH/MM3 (0-0.9) Imaging Last Impressions Chest CT 01/04/18 Signed Impressions: CONCLUSION: 1. Very trace bilateral pleural effusions with minimal groundglass opacities a t the lung bases likely reflecting atelectasis. 2. 4 mm nodule in the left lower lobe superior segment. Generally, sub-6 mm no dules do not require follow-up per 2017 Fleischner criteria. If patient's left renal mass is determined to be malignant, consider follow-up examination in 3 [facility]. 3. Otherwise, no significant focal pleural or parenchymal abnormality to expla in patient's fever. 4. Coronary artery calcifications. Abdomen MRI 01/04/18 Signed Impressions: CONCLUSION: 1. Examination quality is significantly degraded by motion artifact. The left renal abnormality described on recent CT appears not well evaluated given the m otion artifact and lack of intravenous contrast administration. However, it wong s appear different in signal than the renal parenchyma on T2-weighted imaging a nd measures approximately 4.8 x 4.0 cm. This area is suspicious for a mass but I cannot confidently diagnose it as a definite renal neoplasm. If the patient i s unable to obtain intravenous contrast, could consider percutaneous biopsy dep ending on the clinical setting. 2. Cholelithiasis. The gallbladder is completely filled with stones. Chest X-Ray 01/02/18 Signed Impressions: CONCLUSION: Bibasilar densities likely pneumonia. Abdomen/Pelvis CT 01/02/18 Signed Impressions: CONCLUSION: 1. Solid-appearing left renal mass not completely evaluated due to lack of int ravenous contrast. This is concerning for renal cell carcinoma. MRI recommended for further characterization. 2. Bibasilar densities likely atelectasis. 3. Circumferential wall thickening involving the rectum. Digital rectal exam a nd clinical correlation. Neoplastic etiology should be excluded. 4. Constipation and diverticulosis. 5. Small bladder diverticulum. Head CT 12/30/17 Signed Impressions: CONCLUSION: 1. No acute intracranial abnormality is identified. 2. Chronic findings include generalized atrophy and periventricular white quoc er change characteristic of chronic microvascular ischemia. Carotid Artery Ultrasound 12/30/17 0000 Signed Impressions: CONCLUSION: 1. Right Internal Carotid Artery: Findings indicate <50% stenosis. 2. Left Internal Carotid Artery: No significant stenosis or atherosclerotic pl aque is visualized. PE at Discharge GENERAL: Well-developed, well-nourished, in no acute distress. alert and orientated. Pleasantly confused to time. HEENT: Head is normocephalic without any lesions or masses noted. Facial features are symmetric. Eyes: Extraocular muscles are intact. Conjunctivae were clear. NECK: Supple without any masses. Trachea midline no deviation. No JVD, CARDIAC: Regular rhythm, regular rate. S1/S2 are heard. 2/6 ejection murmur, no gallops or rubs. LUNGS: Clear to auscultation bilaterally. No wheeze, rhonchi or rales. No use of accessory muscles on inspiration or expiration. ABDOMEN: Soft, nontender. Nondistended. Bowel sounds heard in all 4 quadrants. No organomegaly or masses. Negative rebound, negative guarding EXTREMITIES: No edema, pulses are equal bilaterally. No cyanosis or clubbing NEUROLOGY: Mood and affect appear appropriate. Cranial nerves II through XII grossly intact. Moving all extremities, speech is clear Pt update on day of discharge Patient seen and examined today. Doing much improved. States she feels a lot better. Tolerating PO intake. Denies any chest pain, shortness of breath, abd pain, n/v/d or dysuria. Spoke to urology who will see her outpatient. Spoke to daughter at length regarding specialists input and recommendations for follow up. All questions answered. Will arrange for medical transport home. Walker will be delivered to patient tomorrow. Hospital Course 82-year-old female with known history of hypertension, hyperlipidemia, diabetes , chronic kidney disease stage III, dementia who presented to hospital because of syncopal episode. Patient presented with sepsis. Met criteria with leukocytosis, tachycardia, urinary tract infection, fever. Urine culture with Proteus, resistant to Bactrim, Cipro. Blood cultures are negative to date. Patient with persistent leukocytosis without any improvement, despite antibiotic treatment infectious disease followed throughout hospitalization. Will follow up outpatient. Chest x-ray did not indicate any acute process. Patient placed on cefepime and Flagyl during hospitalization. Chest x-ray showed bibasilar densities likely pneumonia, however CT of the abdomen indicated bibasilar density representing atelectasis. Repeat urinalysis still indicating significant infection, although urine culture negative to date. Chest CT this am showing very trace bilateral pleural effusions with minimal groundglass opacities likely atelectasis. 4 mm nodule in left lower lobe, recommend f/u scan in [address] of the abdomen with left renal mass , circumferential wall thickening of the rectum. Patient just underwent colonoscopy by [employer] in Dr. Ellis in [place]. They indicate that she had a polyp removed. Tumor markers are unremarkable at this mika will follow up outpatient as well as urology will follow patient outpatient. MRI of the abdomen showing renal parenchymal mass. Urology updated. Also cholelithiasis. Patient also presented with syncopal episode with orthostasis. Patient did not have continued syncope during hospitalization. This could be multifactorial with a lasting for over the last few months. Could have been antagonized by volume depletion from undergoing prep for colonoscopy. Could be related to medications, diabetes. Patient was hydrated with IV fluid. CT of the brain was unremarkable for any acute event Carotid ultrasound indicated right internal carotid with less than 50% stenosis , left internal carotid no significant stenosis. Patient continued with LUCÍA tim. Cardiology consulted, signed off. Echocardiogram ordered, adequate EF. No arrhythmias on telemetry. Physical therapy followed patient during hospitalization, recommendations for home health care and rehab. Patient also presented with acute renal failure superimposed on chronic kidney disease stage III likely secondary to volume depletion from colonoscopy prep. BMP improving 1.4 on discharge. Will have patient follow-up with PCP. Patient with hypokalemia and hypomagnesia status post supplementation. History of hypertension, and diabetes, diabetic medications have been adjusted. See discharge orders. Pt Condition on Discharge: Stable Discharge Disposition: Disch w/ Home Health Serv Discharge Time: > 30 minutes Discharge Instructions DIET: Follow Instructions for: Diabetic Diet Speech Therapy-Diet Recommends: Regular Activities you can perform: Regular-No Restrictions Follow up Referrals: Oncology/Hematology - 1 Week with Nichelle Hunter MD PCP Follow-up - 1 Week Urology - 1 Week with Carlito Cano MD New Medications: Cefuroxime (Ceftin) 250 Mg Tab 500 MG PO BID for uti for 14 Days, #56 TAB Walker Rolling/GetGo (Walker Rolling/GetGo) 1 Mis Mis EA .XX DIRECTED, #1 Amlodipine (Norvasc) 5 Mg Tab 5 MG PO DAILY for hypertension for 30 Days, #30 TAB Insulin Aspart Inj (Novolog Inj) 1,000 Unit/10 Ml Vial 9 UNITS SQ TIDPC for diabetes for 30 Days, #1 VIAL Insulin Aspart Inj (Novolog Inj) 100 Unit/Ml Inj 1 UNITS SQ ACHS SLIDING SCALE for diabetes for 30 Days, #1 VIAL 1 Refill Insulin Detemir Inj (Levemir Inj) 1,000 unit/ 10 ML Vial 10 UNITS SQ HS for diabetes for 30 Days, #1 VIAL Do not mix with any other Insulin. Metronidazole (Flagyl) 500 Mg Tab 500 MG PO Q8HR for infection for 14 Days, #42 TAB Sennosides (Senna-Lax) 8.6 Mg Tab 17.2 MG PO Q12H PRN for Moderate constipation for 15 Days, #60 TAB Continued Medications: Atorvastatin (Atorvastatin) 20 Mg Tab 20 MG PO HS for Cholesterol Management, #30 TAB 0 Refills Brimonidine Opth Drops (Brimonidine Opth Drops) 0.2% Soln 1 DROP EACH EYE TID for Intraocular pressure, #1 BOTTLE 0 Refills Donepezil (Aricept) 23 Mg Tab 10 MG PO HS, TAB Do not split, crushed or chewed. Levothyroxine (Levothyroxine) 25 Mcg Tab 25 MCG PO DAILY for Thyroid, #30 TAB 0 Refills Liraglutide Inj (Victoza Inj) 18 Mg/3 Ml Pen 0.6 MG SQ DAILY, #1 PEN 0 Refills Lisinopril (Lisinopril) 40 Mg Tab 40 MG PO DAILY for Blood Pressure Management, #30 TAB 0 Refills Memantine Er (Namenda Xr) 28 Mg Caper 28 MG PO DAILY for Alzheimer Disease, #30 CAP 0 Refills Travoprost Opth Drops (Travatan Z Opth Drops) 0.004 % Soln 1 DROP EACH EYE HS for Glaucoma, #1 BOTTLE 0 Refills Discontinued Medications: Insulin Detemir Inj (Levemir Inj) 1,000 unit/ 10 ML Vial 30 UNITS SQ DAILY for Blood Sugar Management, VIAL 0 Refills Do not mix with any other Insulin. Insulin Detemir Inj (Levemir Inj) 1,000 unit/ 10 ML Vial 26 UNITS SQ HS for Blood Sugar Management, VIAL 0 Refills Do not mix with any other Insulin. Evelia Amaro Jan 05, 2018 13:07
[2018-01-05 15:00] VITALS: BP 141/67; PULSE 84; RESP 20; TEMP 97; O2SAT 96
--- NOTE | 2018-01-05 15:25 | HHI.FF ---
Face to Face Verification Diagnosis: (1) UTI (urinary tract infection) (2) Sepsis (3) Leucocytosis (4) Left renal mass (5) Syncope Physical Therapy Order: Evaluate and Treat, Improve ambulation, Strength and gait training Home Health Nursing Order: Medical education Signs/symptoms of disease process Medication education-adverse effect Nursing assessment with vital signs I have seen patient Susan Taylor on 01/05/18. My clinical findings support the need for the requested home health care services because: Ltd mobility - disease progression Limited ability to care for self I certify that my clinical findings support that this patient is homebound because: Unsteady gait/balance Evelia Amaro Jan 05, 2018 15:25
--- NOTE | 2018-01-05 15:36 | HHI.PR ---
Subjective Patient symptoms today Left renal mass on imaging studies, approx 4cm in size. Will discuss in detail with patient and family regarding options, no immediate intervention indicated at this time. Objective Vital Signs Vital Signs Date Time Temp Pulse Resp B/P (MAP) Pulse Ox O2 Delivery O2 Flow Rate FiO2 01/05/18 11:50 97.3 85 20 152/66 (94) 95 01/05/18 07:50 98.8 93 20 130/62 (84) 95 01/05/18 07:05 86 01/05/18 04:00 98.6 85 19 136/62 (86) 99 01/05/18 00:00 98.3 90 21 124/63 (83) 97 01/04/18 20:00 97.6 79 19 145/76 (99) 95 01/04/18 20:00 85 01/04/18 19:02 99.6 90 18 102/51 (68) 98 Intake & Output 01/05/18 01/05/18 07:00 19:00 Intake Total 1680 ml Output Total 2200 ml Balance -520 ml Intake Oral 1160 ml IV Total 520 ml Output Urine Total 2200 ml Result Diagram: 01/04/18 0925 01/04/18 0535 Medications and IVs Current Medications Medications (Trade) Dose Ordered Sig/Marianne Route Start Time Stop Time Status Last Admin (Lipitor) 20 mg HS PO 12/29/17 21:00 01/04/18 20:30 (Alphagan 0.2% Opth Soln) 1 drop TID EACH EYE 12/29/17 18:00 01/05/18 12:40 (Synthroid) 25 mcg DAILY@0600 PO 12/30/17 06:00 01/05/18 05:22 (Xalatan 0.005% Opth Soln) 1 drop HS EACH EYE 12/29/17 21:00 01/04/18 20:30 Sodium Chloride 1,000 ml @ 42 mls/hr [id number] IV 12/29/17 18:00 01/04/18 20:31 (NS Flush) 2 ml UNSCH PRN IV FLUSH 12/29/17 17:45 01/03/18 03:42 (NS Flush) 2 ml BID IV FLUSH 12/29/17 21:00 01/04/18 20:30 (Tylenol) 650 mg Q4H PRN PO 12/29/17 17:45 01/03/18 23:26 (Heparin Inj) 5,000 units Q12H SQ 12/29/17 18:00 01/05/18 05:22 (Narcan Inj) 0.4 mg UNSCH PRN IV PUSH 12/29/17 17:45 (Milk Of Magnesia Liq) 30 ml Q12H PRN PO 12/29/17 17:45 (Senokot) 17.2 mg Q12H PRN PO 12/29/17 17:45 01/01/18 06:24 (Dulcolax Supp) 10 mg DAILY PRN RECTAL 12/29/17 17:45 (Lactulose Liq) 30 ml DAILY PRN PO 12/29/17 17:45 (Levemir Inj) 10 units HS SQ 12/29/17 21:00 01/04/18 20:46 (D50w (Vial) Inj) 50 ml UNSCH PRN IV PUSH 12/29/17 18:15 (Glucagon Inj) 1 mg UNSCH PRN OTHER 12/29/17 18:15 (NovoLOG SUPPLEMENTAL SCALE) 1 ACHS SLIDING SCALE SQ 12/29/17 21:00 01/05/18 12:40 (Prinivil) 40 mg DAILY PO 12/31/17 10:45 01/05/18 08:28 (Benadryl Inj) 25 mg Q6H PRN IV PUSH 12/31/17 20:00 (Norvasc) 5 mg DAILY PO 01/01/18 09:00 01/05/18 08:28 Cefepime HCl 1000 mg/Sodium Chloride 100 ml @ 200 mls/hr Q24H IV 01/03/18 23:00 01/05/18 00:58 (Flagyl) 500 mg Q8HR PO 01/04/18 22:00 01/05/18 12:40 (NovoLOG INJ) 9 units TIDPC SQ 01/04/18 18:30 01/05/18 12:42 (Namenda) 10 mg BID PO 01/04/18 21:00 01/05/18 08:28 Carlito Cano MD Jan 05, 2018 15:36
== END 2018-01-05 17:41 | disposition home health service (06) | DRG 872 ==
LOC: PHED 15:41 → PHEDA 17:30 → OBSVTOIN 17:34 → PH3A 20:16
PROVIDERS: ADMIT Hospitalist; ATTEND Hospitalist
DX: A41.4 Sepsis due to anaerobes (principal); N17.9 Acute kidney failure, unspecified; E11.22 Type 2 diabetes mellitus with diabetic chronic kidney disease; F03.90 Unspecified dementia, unspecified severity, without behavioral disturbance, psychotic disturbance, mood disturbance, and anxiety; Z68.41 Body mass index [BMI] 40.0-44.9, adult; N39.0 Urinary tract infection, site not specified; J98.11 Atelectasis; E86.0 Dehydration; R55 Syncope and collapse; I12.9 Hypertensive chronic kidney disease with stage 1 through stage 4 chronic kidney disease, or unspecified chronic kidney disease; N28.89 Other specified disorders of kidney and ureter; E78.5 Hyperlipidemia, unspecified; N18.3 Chronic kidney disease, stage 3 (moderate); E87.6 Hypokalemia; K62.89 Other specified diseases of anus and rectum; K64.8 Other hemorrhoids; K57.90 Diverticulosis of intestine, part unspecified, without perforation or abscess without bleeding; D63.1 Anemia in chronic kidney disease; N32.3 Diverticulum of bladder; K59.00 Constipation, unspecified; E66.9 Obesity, unspecified; E03.9 Hypothyroidism, unspecified; E78.00 Pure hypercholesterolemia, unspecified; E83.42 Hypomagnesemia; Z88.0 Allergy status to penicillin; Z79.4 Long term (current) use of insulin; Z82.49 Family history of ischemic heart disease and other diseases of the circulatory system
CPT/HCPCS: 70450; 71045; 71046; 71250; 74176; 74181; 76937; 80048; 80053; 81001; 82105; 82378; 82533; 82550; 82552; 82728; 82948; 83540; 83550; 83615; 83735; 84439; 84443; 84481; 84484; 85025; 85044; 86300; 86301; 86304; 86316; 87040; 87077; 87086; 87186; 87804; 93005; 93306; 93880; 96361; 96374; J0692; J0696; J0744; J1644; J1815; J3475; J7030; J7040

== ENCOUNTER 2018-02-19 09:40 | Inpatient (IN) ==
[2018-02-19] MEDS ORDERED: Sod Chloride 0.9% Inj 1,000 ML IV.SIG ONE ×2 (11:12→14:09)
[2018-02-19] MEDS ORDERED: Acetaminophen 325 MG Tablet PO ONE (11:12)
--- NOTE | 2018-02-19 11:34 | ED ---
HPI General Chief Complaint: Fever Stated Complaint: fever Time Seen by Provider: 02/19/18 10:54 Source: patient and family Mode of arrival: ambulatory Limitations: no limitations History of Present Illness HPI Narrative: 82-year-old female presents the ED for evaluation of fever. Onset this morning. The patient's daughter, who is her primary caregiver, is at bedside and helps to provide the history. She states that her mother's been complaining of being cold and has had a poor appetite for last few days. She states that she noted that her mom felt hot today and took her temp with a temperature of 100.4. The patient denies chest pain, cough, abdominal pain, nausea or vomiting, back pain. She states that she has 1 or 2 nonbloody, well formed bowel movements every day. The daughter states that the patient has a history of chronic UTI. She states that her mom has been having increased episodes of urination with small volumes of urine. She notes that the urine has a foul smell. She states that her mom was last treated for a UTI and then subsequently C. difficile with Cipro and Flagyl. Associated symptoms: denies other symptoms Exacerbating factors: nothing Related Data Home Medications Medication Instructions Recorded Confirmed amlodipine 5 mg PO DAILY 02/19/18 02/19/18 aspirin [Aspirin Childrens] 81 mg PO DAILY 02/19/18 02/19/18 atorvastatin 20 mg PO DAILY 02/19/18 02/19/18 cholecalciferol (vitamin D3) 400 unit PO DAILY 02/19/18 02/19/18 [Vitamin D3] donepezil 10 mg PO HS 02/19/18 02/19/18 gabapentin 100 mg PO TID 02/19/18 02/19/18 insulin detemir U-100 [Levemir 30 unit SUB-Q BID 02/19/18 02/19/18 FlexTouch U-100 Insuln] levothyroxine 25 mcg PO DAILY 02/19/18 02/19/18 liraglutide [Victoza 2-Giovanni] 0.6 mg SUB-Q DAILY 02/19/18 02/19/18 lisinopril 40 mg PO DAILY 02/19/18 02/19/18 memantine 21 mg PO DAILY 02/19/18 02/19/18 ondansetron 4 mg PO Q6-8H PRN 02/19/18 02/19/18 Allergies Allergy/AdvReac Type Severity Reaction Status Date / Time Penicillins Allergy Intermediate Swelling Verified 01/20/18 17:43 Review of Systems ROS: all other systems reviewed are negative [facility] Social History Social History Substance History: No History of Abuse Second Hand Smoke Exposure: No Smoking Status: Never smoker How Often Do You Have a Drink Containing Alcohol: Never Recent Travel in [facility] within the Last 8 Weeks: No Recent Out of Country Travel within the Last 8 Weeks: No Immunization History Tetanus Immunization: Unsure Hx Influenza Vaccine This Season: No Exam Narrative Exam Narrative: GENERAL: Pleasant, demented, obese -[place] female in no acute distress. SKIN: Focused skin assessment warm/dry. 1 cm area of skin breakdown on the left buttock without signs of infection. 1-2cm ulcer on the left heel, small amount of serosanguineous drainage. No cellulitic changes. HEAD: Atraumatic. Normocephalic. EYES: Pupils equal and round. No scleral icterus. No injection or drainage. ENT: No nasal bleeding or discharge. Mucous membranes pink and moist. NECK: Trachea midline. No JVD. CARDIOVASCULAR: Regular rate and rhythm. No murmur appreciated. RESPIRATORY: No accessory muscle use. Clear to auscultation. Breath sounds equal bilaterally. GASTROINTESTINAL: Abdomen soft, nondistended. Tender in the suprapubic region. Hepatic and splenic margins not palpable. No palpable masses. No CVA tenderness. MUSCULOSKELETAL: No obvious deformities. No clubbing. No cyanosis. No edema. NEUROLOGICAL: Awake and alert. No obvious cranial nerve deficits. Motor grossly within normal limits. Normal speech. PSYCHIATRIC: Appropriate mood and affect; oriented to self, place, situation. Procedures Hemaprompt Stool Procedural Steps Taken: specimen placed in appropriate test area and controls appropriately positive and negative Hemaprompt Stool Result: negative Course Initial Documented Vital Signs Temperature 99.8 F H 02/19/18 09:46 Pulse Rate 109 H 02/19/18 09:46 Respiratory Rate 18 02/19/18 09:46 Blood Pressure 94/55 L 02/19/18 09:46 Pulse Oximetry 89 L 02/19/18 09:46 Last Documented Vital Signs Temperature 98.8 F 02/19/18 12:44 Pulse Rate 85 02/19/18 10:33 Respiratory Rate 20 02/19/18 10:33 Blood Pressure 91/54 L 02/19/18 12:45 Pulse Oximetry 99 02/19/18 10:33 Medical Decision Making MDM Narrative Medical decision making narrative: 82-year-old female patients the ED for evaluation of fever. Daughter at bedside states the patient has a history of chronic UTIs. She notes that the patient's urine has had a foul smell and been hazy for the last few days. Vitals reviewed. On physical exam the patient has some suprapubic tenderness and bilateral lower extremity edema. IV was established. Patient was administered a liter of normal saline. UA with evidence of UTI. I reviewed the patient's record, last urine micro grew Proteus , susceptible to Rocephin. I reviewed the patient's record and she has received cephalosporins in the past despite her stated penicillin allergy. Discussed the patient with Dr. Pena he recommended a gram of Rocephin as well as Zosyn. This was administered. Patient's lab work reveals blood glucose in the 30s. She was administered D5, recheck blood glucose 115. There is an elevated leukocytosis, even above the patient's baseline and there is concern for sepsis. Plan to admit the patient. Family is agreeable. Dr. Allen spoke with Dr. derik mckenzie who agrees to accept the patient to the medicine service. Please see medicine notes for disposition. Differential Diagnosis Differential Diagnosis: UTI versus PNA versus metabolic derangement versus other Medical Records Medical records reviewed: Yes I reviewed the patient's medical records. Previous urine micro grew Proteus, susceptible to Rocephin. Lab Data Result diagrams: 02/19/18 09:54 02/19/18 09:54 Lab Results 02/19/18 02/19/18 02/19/18 Range/Units 09:54 09:54 10:20 WBC 26.6 H (4.0-11.0) th/mm3 RBC 2.70 L (4.00-5.30) mil/mm3 Hgb 7.8 L (11.6-15.3) gm/dL Hct 25.2 L (35.0-46.0) % MCV 93.1 (80.0-100.0) fL MCH 28.9 (27.0-34.0) pg MCHC 31.1 L (32.0-36.0) % RDW 16.9 (11.6-17.2) % Plt Count 362 (150-450) th/mm3 MPV 8.4 (7.0-11.0) fL Neut % (Auto) 90.1 H (16.0-70.0) % Lymph % (Auto) 5.8 L (9.0-44.0) % [place] % (Auto) 3.6 (0.0-8.0) % Eos % (Auto) 0.2 (0.0-4.0) % Baso % (Auto) 0.3 (0.0-2.0) % Neut # (Auto) 23.9 H (1.8-7.7) th/mm3 Lymph # (Auto) 1.5 (1.0-4.8) th/mm3 [place] # (Auto) 1.0 H (0.0-0.9) th/mm3 Eos # (Auto) 0.1 (0.0-0.4) th/mm3 Baso # (Auto) 0.1 (0.0-0.2) th/mm3 WBC Differential . Differential Comment Auto diff final Sodium 144 (136-145) meq/L Potassium 3.9 (3.5-5.1) meq/L Chloride 107 (98-107) meq/L Carbon Dioxide 27.8 (21.0-32.0) meq/L Anion Gap 9 (5-15) meq/L BUN 25 H (7-18) mg/dL Creatinine 1.97 H (0.50-1.00) mg/dL Estimated GFR 24 L (>89) mL/min POC Glucose (68-110) mg/dl Random Glucose 33 L* (74-106) mg/dL Lactic Acid (0.4-2.0) mmol/L Calcium 8.2 L (8.5-10.1) mg/dL Total Bilirubin 0.6 (0.2-1.0) mg/dL AST 26 (15-37) U/L ALT 14 (10-53) U/L Alkaline Phosphatase 122 H (45-117) U/L Total Protein 6.7 (6.4-8.2) g/dL Albumin 1.9 L (3.4-5.0) g/dL Urine Color Yellow (Yellw/Straw) Urine Clarity Turbid H (Clear) Urine pH 5.0 (5.0-8.5) Ur Specific [place] 1.012 (1.002-1.035) Urine Protein 100 H (Neg-Trace) mg/dL Urine Glucose (UA) Negative (Negative) mg/dL Urine Ketones Negative (Negative) mg/dL Urine Occult Blood Moderate H (Negative) Urine Nitrate Negative (Negative) Urine Bilirubin Negative (Negative) Urine Urobilinogen Less than 2 (Less than 2) mg/dL Ur Leukocyte Esterase Moderate H (Negative) Urine RBC 9 H (0-3) /hpf Urine WBC (0-5) /hpf Urine WBC Clumps Many H (None) Urine Bacteria Many H (None) /hpf Micro UA Comment Cath-culture ind Urine Culture Comments Cath-cult indicated 02/19/18 02/19/18 02/19/18 Range/Units 11:33 13:06 14:26 WBC (4.0-11.0) th/mm3 RBC (4.00-5.30) mil/mm3 Hgb (11.6-15.3) gm/dL Hct (35.0-46.0) % MCV (80.0-100.0) fL MCH (27.0-34.0) pg MCHC (32.0-36.0) % RDW (11.6-17.2) % Plt Count (150-450) th/mm3 MPV (7.0-11.0) fL Neut % (Auto) (16.0-70.0) % Lymph % (Auto) (9.0-44.0) % [place] % (Auto) (0.0-8.0) % Eos % (Auto) (0.0-4.0) % Baso % (Auto) (0.0-2.0) % Neut # (Auto) (1.8-7.7) th/mm3 Lymph # (Auto) (1.0-4.8) th/mm3 [place] # (Auto) (0.0-0.9) th/mm3 Eos # (Auto) (0.0-0.4) th/mm3 Baso # (Auto) (0.0-0.2) th/mm3 WBC Differential Differential Comment Sodium (136-145) meq/L Potassium (3.5-5.1) meq/L Chloride (98-107) meq/L Carbon Dioxide (21.0-32.0) meq/L Anion Gap (5-15) meq/L BUN (7-18) mg/dL Creatinine (0.50-1.00) mg/dL Estimated GFR (>89) mL/min POC Glucose 58 L 115 H (68-110) mg/dl Random Glucose (74-106) mg/dL Lactic Acid 1.2 (0.4-2.0) mmol/L Calcium (8.5-10.1) mg/dL Total Bilirubin (0.2-1.0) mg/dL AST (15-37) U/L ALT (10-53) U/L Alkaline Phosphatase (45-117) U/L Total Protein (6.4-8.2) g/dL Albumin (3.4-5.0) g/dL Urine Color (Yellw/Straw) Urine Clarity (Clear) Urine pH (5.0-8.5) Ur Specific Simon (1.002-1.035) Urine Protein (Neg-Trace) mg/dL Urine Glucose (UA) (Negative) mg/dL Urine Ketones (Negative) mg/dL Urine Occult Blood (Negative) Urine Nitrate (Negative) Urine Bilirubin (Negative) Urine Urobilinogen (Less than 2) mg/dL Ur Leukocyte Esterase (Negative) Urine RBC (0-3) /hpf Urine WBC (0-5) /hpf Urine WBC Clumps (None) Urine Bacteria (None) /hpf Micro UA Comment Urine Culture Comments Imaging Data Radiologist's impression: Chest X-Ray 02/19/18 11:12 CONCLUSION: Cardiomegaly with increase in pulmonary vascularity. Discharge Plan Discharge Disposition Patient Disposition: 30 Still Patient Discharge Details Diagnosis: Sepsis, Acute UTI Physicians Team ED Provider: Marquis Allen ED Midlevel Provider: Hollie Rose Primary Care Provider: UNKNOWN, Attending Provider: Alhaji Raman Discharge Interventions Interventions: Vital Signs Last Done: 02/19/18 10:33 Status ED Status: Admitted Patient
[2018-02-19 12:03] LABS: Bacteria,Urine Many /hpf; Bilirubin,Urine Negative (Negative); Clarity,Urine Turbid (Clear); Color,Urine Yellow (Yellw/Straw); Glucose,Urine (UA) Negative (Negative); Leukocyte Esterase,Urine Moderate (Negative); Nitrite,Urine Negative (Negative); Specific Gravity,Urine 1.012 (1.002-1.035)
--- NOTE | 2018-02-19 12:03 | XR ---
EXAM DATE: 02/19/2018 12:01 PM EDT AGE/SEX: 82 years / Female INDICATIONS: Fever CLINICAL DATA: This is the patient's initial encounter. Patient reports that signs and symptoms have been present for 1 day and indicates a pain score of 0/10. MEDICAL/SURGICAL HISTORY: . Diabetes. Hypertension. Dementia, renal mass on left side. Lower G I bleed. section. COMPARISON: [facility], CHEST PA & LAT, 01/02/2018. . FINDINGS: A single AP view of the chest demonstrates cardiomegaly. Increase in pulmonary vascularity. Lungs are otherwise clear. The cardiomediastinal contours are unremarkable. Osseous structures are intact. CONCLUSION: Cardiomegaly with increase in pulmonary vascularity. Electronically signed by: Godfrey Pradhan MD 02/19/2018 12:02 PM EDT
[2018-02-19 12:26] LABS: Baso # (Auto) 0.1 th/mm3 (0.0-0.2); Baso % (Auto) 0.3 % (0.0-2.0); Eos # (Auto) 0.1 th/mm3 (0.0-0.4); Eos % (Auto) 0.2 % (0.0-4.0); Hematocrit 25.2 % (35.0-46.0); Hemoglobin 7.8 gm/dL (11.6-15.3); Lymph # (Auto) 1.5 th/mm3 (1.0-4.8); Lymph % (Auto) 5.8 % (9.0-44.0); Mean Corpuscular HGB Conc 31.1 % (32.0-36.0); Mean Corpuscular Hemoglobin 28.9 pg (27.0-34.0); Mean Corpuscular Volume 93.1 fL (80.0-100.0); Mean Platelet Volume 8.4 fL (7.0-11.0); Mono % (Auto) 3.6 % (0.0-8.0); Neut # (Auto) 23.9 th/mm3 (1.8-7.7); Neut % (Auto) 90.1 % (16.0-70.0); Platelet Count 362 th/mm3 (150-450); Red Cell Distribution Width 16.9 % (11.6-17.2); White Blood Count 26.6 th/mm3 (4.0-11.0)
[2018-02-19 13:00] LABS: Alanine Aminotransferase 14 U/L (10-53); Albumin 1.9 g/dL (3.4-5.0); Alkaline Phosphatase 122 U/L (45-117); Anion Gap 9 meq/L (5-15); Aspartate Aminotransferase 26 U/L (15-37); Blood Urea Nitrogen 25 mg/dL (7-18); Calcium 8.2 mg/dL (8.5-10.1); Carbon Dioxide 27.8 meq/L (21.0-32.0); Chloride 107 meq/L (98-107); Glomerular Filtration Rate 24 mL/min (>89); Potassium 3.9 meq/L (3.5-5.1); Sodium 144 meq/L (136-145); Total Protein 6.7 g/dL (6.4-8.2)
[2018-02-19 13:05] LABS: Glucose,Random 33 mg/dL (74-106)
[2018-02-19] MEDS ORDERED: Dextrose 50% in Water 50 ML Vial IV.PUSH ONE (13:08)
[2018-02-19] MEDS ORDERED: Dextrose 50% in Water 50 ML Vial IV.PUSH PRN (15:36)
--- NOTE | 2018-02-19 15:45 | P.HPIM ---
History of Present Illness Primary Care Physician: UNKNOWN Chief Complaint: fever History of Present Illness: patient is a 82 y/o female with history of dementia, diabetes, hypothyroidism, hypertension, CKD, who was brought to ER with fever. patient is not a good historian and most of the information was obtained from the ER record. per the daughter she had a fever of 100.4 earlier and started to have urinary frequency although she denies any dysuria. reportedly she has a history of UTI in the past. she denies any chest pain, sob, abdominal pain, nausea or vomiting. Estimated Total Length of Stay (Days): 2 Plans for Post Hospital Care: Not yet determined Review of Systems All other systems reviewed negative except as stated in HPI [facility] - History History Provided By: Patient - Medical History Medical History: Medical History (Last Reviewed 02/19/18 @ 09:51 by Nini Teixeira) History of hysterectomy (Acute) Fracture, ankle (Acute) Hypothyroid (Acute) Dementia (Acute) Renal mass (Acute) Hypercholesteremia (Acute) Diabetes (Acute) Hypertension (Acute) - Surgical History Surgical History: Surgical History (Last Reviewed 02/19/18 @ 09:51 by Nini Teixeira) H/O section (Acute) - Tobacco History Second Hand Smoke Exposure: No Tobacco Use In Past 30 Days: No Smoking Status: Never smoker - Alcohol History How Often Do You Have a Drink Containing Alcohol: Never - Substance Use History Substance History: No History of Abuse - Travel History Recent Travel in the [place] Within the Last 8 Weeks: No Recent Travel Out of the Country Within the Last 8 Weeks: No - Immunization History Tetanus Immunization: Unsure Hx Influenza Vaccine This Season: No Medications and Allergies Active Medications: Active Medications Metronidazole/Sodium Chloride (Flagyl 500 Mg Inj) 100 mls @ 100 mls/hr IV.SIG ONCE ONE Stop: 02/19/18 15:36 Last Admin: 02/19/18 15:25 Dose: 100 mls/hr Sodium Chloride (Ns Flush) 2 ml IV.FLUSH PRN PRN PRN Reason: FLUSH AFTER USING IV ACCESS Last Admin: 02/19/18 15:25 Dose: 2 ml Allergies Allergy/AdvReac Type Severity Reaction Status Date / Time Penicillins Allergy Intermediate Swelling Verified 01/20/18 17:43 Home Medications Medication Instructions Recorded Confirmed Type amlodipine 5 mg PO DAILY 02/19/18 02/19/18 History aspirin [Aspirin Childrens] 81 mg PO DAILY 02/19/18 02/19/18 History atorvastatin 20 mg PO DAILY 02/19/18 02/19/18 History cholecalciferol (vitamin D3) 400 unit PO DAILY 02/19/18 02/19/18 History [Vitamin D3] donepezil 10 mg PO HS 02/19/18 02/19/18 History gabapentin 100 mg PO TID 02/19/18 02/19/18 History insulin detemir U-100 [Levemir 30 unit SUB-Q BID 02/19/18 02/19/18 History FlexTouch U-100 Insuln] levothyroxine 25 mcg PO DAILY 02/19/18 02/19/18 History liraglutide [Victoza 2-Giovanni] 0.6 mg SUB-Q DAILY 02/19/18 02/19/18 History lisinopril 40 mg PO DAILY 02/19/18 02/19/18 History memantine 21 mg PO DAILY 02/19/18 02/19/18 History ondansetron 4 mg PO Q6-8H PRN 02/19/18 02/19/18 History Exam Vital signs: Vital Signs 02/19/18 09:46 02/19/18 10:06 02/19/18 10:33 Temperature 99.8 F H Pulse Rate 109 H 85 Respiratory Rate 18 20 Blood Pressure 94/55 L 122/59 L Pulse Oximetry 89 L 99 99 02/19/18 12:44 02/19/18 12:45 Temperature 98.8 F Pulse Rate Respiratory Rate Blood Pressure 91/54 L Pulse Oximetry Intake & Output 02/18/18 02/19/18 02/19/18 18:59 06:59 18:59 Weight 99.79 kg - Constitutional no acute distress - Routine HEENT Exam Head: Present: normocephalic - Routine Neck Exam Present: supple, full ROM - Routine Respiratory Exam Present: CTA bilaterally - Routine Cardiovascular Exam Present: RRR - Routine Abdominal Exam Present: soft - Routine Extremities Exam Comments: no pedal edema. - Routine Neurological Exam Present: alert Results - Labs CBC & Chem 7: 02/19/18 09:54 02/19/18 09:54 Labs: Short CBC 02/19/18 Range/Units 09:54 WBC 26.6 H (4.0-11.0) th/mm3 Hgb 7.8 L (11.6-15.3) gm/dL Hct 25.2 L (35.0-46.0) % Plt Count 362 (150-450) th/mm3 BMP 02/19/18 09:54 Sodium 144 Potassium 3.9 Chloride 107 Carbon Dioxide 27.8 BUN 25 H Creatinine 1.97 H Calcium 8.2 L Liver Function 02/19/18 Range/Units 09:54 Total Bilirubin 0.6 (0.2-1.0) mg/dL AST 26 (15-37) U/L ALT 14 (10-53) U/L Alkaline Phosphatase 122 H (45-117) U/L Albumin 1.9 L (3.4-5.0) g/dL Urine 02/19/18 Range/Units 10:20 Urine Color Yellow (Yellw/Straw) Urine Clarity Turbid H (Clear) Urine pH 5.0 (5.0-8.5) Ur Specific [place] 1.012 (1.002-1.035) Urine Protein 100 H (Neg-Trace) mg/dL Urine Glucose (UA) Negative (Negative) mg/dL - Imaging Impressions Chest X-Ray 02/19/18 11:12 CONCLUSION: Cardiomegaly with increase in pulmonary vascularity. Caprini VTE Risk Assessment Caprini VTE Risk Assessment: Moderate/High Risk (score >= 2) VTE Pharmacological Exception Reason: High risk for bleeding Caprini Risk Assessment Model: Point Value = 1 Point Value = 2 Point Value = 3 Point Value = 5 Age 41-60 Minor surgery BMI > 25 kg/m2 Swollen legs Varicose veins or History of unexplained or recurrent spontaneous Oral contraceptives or hormone replacement Sepsis (< 1 month) Serious lung disease, including pneumonia (< 1 month) Abnormal pulmonary function Acute myocardial infarction Congestive heart failure (< 1 month) History of inflammatory bowel disease Medical patient at bed rest Age 61-74 Arthroscopic surgery Major open surgery (> 45 min) Laparoscopic surgery (> 45 min) Malignancy Confined to bed (> 72 hours) Immobilizing plaster cast Central venous access Age >= 75 History of VTE Family history of VTE Factor V Leiden Prothrombin [id number] Lupus anticoagulant Anticardiolipin antibodies Elevated serum homocysteine Heparin-induced thrombocytopenia Other congenital or acquired thrombophilia Stroke (< 1 month) Elective arthroplasty Hip, pelvis, or leg fracture Acute spinal cord injury (< 1 month) Prophylaxis Regimen: Total Risk Factor Score Risk Level Prophylaxis Regimen 0-1 Low Early ambulation 2 Moderate Order ONE of the following: *Sequential Compression Device (SCD) *Heparin 5000 units SQ BID 3-4 Higher Order ONE of the following medications: *Heparin 5000 units SQ TID *Enoxaparin/Lovenox 40 mg SQ daily (WT < 150 kg, CrCl > 30 mL/min) *Enoxaparin/Lovenox 30 mg SQ daily (WT < 150 kg, CrCl > 10-29 mL/min) *Enoxaparin/Lovenox 30 mg SQ BID (WT < 150 kg, CrCl > 30 mL/min) AND/OR *Sequential Compression Device (SCD) 5 or more Highest Order ONE of the following medications: *Heparin 5000 units SQ TID (Preferred with Epidurals) *Enoxaparin/Lovenox 40 mg SQ daily (WT < 150 kg, CrCl > 30 mL/min) *Enoxaparin/Lovenox 30 mg SQ daily (WT < 150 kg, CrCl > 10-29 mL/min) *Enoxaparin/Lovenox 30 mg SQ BID (WT < 150 kg, CrCl > 30 mL/min) AND *Sequential Compression Device (SCD) Assessment and Plan - Plan A/P - sepsis ( tachycardia, leukocytosis) due to UTI continue with IV antibiotics- follow the cultures and adjust the antibiotic regimen accordingly. -acute on chronic anemia- suspect due to chronic disease- negative occult blood in ER- H/H in am and transfuse as needed. -hypertension- now BP on low side- will hold BP meds- start on gentle IV hydration with close monitoring of BP. -CKD- will monitor. -renal mass- recently evaluated by IR for biopsy and ablation. -diabetes mellitus with hypoglycemic episode; blood sugar now has improved. hold home insulin regimen for now- accu-check with SSI -hypothyroidism/ dyslipidemia/ dementia; resume home meds. -DVT prophylaxis; SCD's -consult PT. Discussed Condition With: ER physician and the patient.
[2018-02-19] MEDS: Insulin NovoLOG Aspart Correctional Sugar Inj SQ SCH ×2 (17:13→21:05)
[2018-02-19] MEDS: Gabapentin 100 MG Capsule PO SCH (17:25)
[2018-02-19] MEDS ORDERED: Insulin Detemir Inj 1,000 UNIT/10 ML Vial SQ SCH (21:00)
[2018-02-19] MEDS ORDERED: Insulin Glargine Inj 1,000 UNITS/10 ML Vial SQ SCH (21:00)
[2018-02-19] MEDS: Sod Chloride 0.9% Inj 1,000 ML IV.CONT SCH (21:46)
[2018-02-20] MEDS ORDERED: Acetaminophen 325 MG Tablet PO PRN (00:53)
[2018-02-20] MEDS: Insulin NovoLOG Aspart Correctional Sugar Inj SQ SCH ×4 (07:43→22:07)
[2018-02-20] MEDS: Sod Chloride 0.9% Inj 1,000 ML IV.CONT SCH (07:44)
[2018-02-20] MEDS: Gabapentin 100 MG Capsule PO SCH ×3 (08:13→18:27)
[2018-02-20] MEDS ORDERED: MEMANTINE 21 MG PO SCH (09:00)
--- NOTE | 2018-02-20 11:40 | P.PNIM ---
Subjective Interval history: f/u; UTI in no acute distress. looks comfortable with no reported pain. Tmax 101. Physical Exam Vital signs: Vital Signs 02/19/18 12:44 02/19/18 12:45 02/19/18 17:39 Temperature 98.8 F 98.5 F Pulse Rate 95 H Respiratory Rate 18 Blood Pressure 91/54 L 107/69 Pulse Oximetry 95 02/19/18 20:00 02/20/18 00:00 02/20/18 01:30 Temperature 100.4 F H 101.0 F H Pulse Rate 113 H 106 H Respiratory Rate 18 18 17 Blood Pressure 112/52 L 147/62 H Pulse Oximetry 94 L 96 02/20/18 04:00 02/20/18 07:52 02/20/18 08:00 Temperature 99.6 F 98.5 F Pulse Rate 90 90 Respiratory Rate 18 18 14 Blood Pressure 115/54 L 133/55 L Pulse Oximetry 96 96 94 L 02/20/18 09:00 Temperature Pulse Rate 91 H Respiratory Rate Blood Pressure Pulse Oximetry Intake & Output 02/19/18 02/20/18 02/20/18 18:59 06:59 18:59 Output Total 350 / 350 Balance -350 / -350 Weight 99.79 kg 99.7 kg Output: Urine 350 / 350 Other: # Voids 2 Date of Last Bowel Movement 02/19/18 02/19/18 02/20/18 # Bowel Movements 1 - Constitutional no acute distress - Routine Respiratory Exam Present: CTA bilaterally - Routine Cardiovascular Exam Present: RRR - Routine Abdominal Exam Present: soft - Routine Extremities Exam Comments: mild bilateral pedal edema. - Routine Neurological Exam Present: alert - Urinary Catheter Management Straight Cath placed during this visit: yes Reason for continuing: Not indwelling catheter Insertion date: 02/19/18 Insertion time: 11:30 Results - Labs CBC & Chem 7: 02/19/18 09:54 02/19/18 09:54 Laboratory Results - last 24 hr 02/19/18 02/19/18 02/19/18 09:54 09:54 10:20 WBC 26.6 H RBC 2.70 L Hgb 7.8 L Hct 25.2 L MCV 93.1 MCH 28.9 MCHC 31.1 L RDW 16.9 Plt Count 362 MPV 8.4 Neut % (Auto) 90.1 H Lymph % (Auto) 5.8 L [place] % (Auto) 3.6 Eos % (Auto) 0.2 Baso % (Auto) 0.3 Neut # (Auto) 23.9 H Lymph # (Auto) 1.5 Sharkey # (Auto) 1.0 H Eos # (Auto) 0.1 Baso # (Auto) 0.1 WBC Differential . Differential Comment Auto diff final Sodium 144 Potassium 3.9 Chloride 107 Carbon Dioxide 27.8 Anion Gap 9 BUN 25 H Creatinine 1.97 H Estimated GFR 24 L POC Glucose Random Glucose 33 L* Lactic Acid Calcium 8.2 L Total Bilirubin 0.6 AST 26 ALT 14 Alkaline Phosphatase 122 H Total Protein 6.7 Albumin 1.9 L Urine Color Yellow Urine Clarity Turbid H Urine pH 5.0 Ur Specific [place] 1.012 Urine Protein 100 H Urine Glucose (UA) Negative Urine Ketones Negative Urine Occult Blood Moderate H Urine Nitrate Negative Urine Bilirubin Negative Urine Urobilinogen Less than 2 Ur Leukocyte Esterase Moderate H Urine RBC 9 H Urine WBC Urine WBC Clumps Many H Urine Bacteria Many H Micro UA Comment Cath-culture ind Urine Culture Comments Cath-cult indicated 02/19/18 02/19/18 02/19/18 11:33 13:06 14:26 WBC RBC Hgb Hct MCV MCH MCHC RDW Plt Count MPV Neut % (Auto) Lymph % (Auto) [place] % (Auto) Eos % (Auto) Baso % (Auto) Neut # (Auto) Lymph # (Auto) [place] # (Auto) Eos # (Auto) Baso # (Auto) WBC Differential Differential Comment Sodium Potassium Chloride Carbon Dioxide Anion Gap BUN Creatinine Estimated GFR POC Glucose 58 L 115 H Random Glucose Lactic Acid 1.2 Calcium Total Bilirubin AST ALT Alkaline Phosphatase Total Protein Albumin Urine Color Urine Clarity Urine pH Ur Specific [place] Urine Protein Urine Glucose (UA) Urine Ketones Urine Occult Blood Urine Nitrate Urine Bilirubin Urine Urobilinogen Ur Leukocyte Esterase Urine RBC Urine WBC Urine WBC Clumps Urine Bacteria Micro UA Comment Urine Culture Comments 02/19/18 02/19/18 02/20/18 17:02 20:04 07:42 WBC RBC Hgb Hct MCV MCH MCHC RDW Plt Count MPV Neut % (Auto) Lymph % (Auto) [place] % (Auto) Eos % (Auto) Baso % (Auto) Neut # (Auto) Lymph # (Auto) [place] # (Auto) Eos # (Auto) Baso # (Auto) WBC Differential Differential Comment Sodium Potassium Chloride Carbon Dioxide Anion Gap BUN Creatinine Estimated GFR POC Glucose 83 123 H 122 H Random Glucose Lactic Acid Calcium Total Bilirubin AST ALT Alkaline Phosphatase Total Protein Albumin Urine Color Urine Clarity Urine pH Ur Specific [place] Urine Protein Urine Glucose (UA) Urine Ketones Urine Occult Blood Urine Nitrate Urine Bilirubin Urine Urobilinogen Ur Leukocyte Esterase Urine RBC Urine WBC Urine WBC Clumps Urine Bacteria Micro UA Comment Urine Culture Comments 02/20/18 11:15 WBC RBC Hgb Hct MCV MCH MCHC RDW Plt Count MPV Neut % (Auto) Lymph % (Auto) [place] % (Auto) Eos % (Auto) Baso % (Auto) Neut # (Auto) Lymph # (Auto) [place] # (Auto) Eos # (Auto) Baso # (Auto) WBC Differential Differential Comment Sodium Potassium Chloride Carbon Dioxide Anion Gap BUN Creatinine Estimated GFR POC Glucose 167 H Random Glucose Lactic Acid Calcium Total Bilirubin AST ALT Alkaline Phosphatase Total Protein Albumin Urine Color Urine Clarity Urine pH Ur Specific [place] Urine Protein Urine Glucose (UA) Urine Ketones Urine Occult Blood Urine Nitrate Urine Bilirubin Urine Urobilinogen Ur Leukocyte Esterase Urine RBC Urine WBC Urine WBC Clumps Urine Bacteria Micro UA Comment Urine Culture Comments Microbiology 02/19/18 09:55 Blood - Peripheral Aerobic Blood Culture - Preliminary No growth in 1 day 02/19/18 09:55 Blood - Peripheral Anaerobic Blood Culture - Preliminary No growth in 1 day 02/19/18 10:15 Blood - Peripheral Aerobic Blood Culture - Preliminary No growth in 1 day 02/19/18 10:15 Blood - Peripheral Anaerobic Blood Culture - Preliminary No growth in 1 day - Imaging Impressions Chest X-Ray 02/19/18 11:12 CONCLUSION: Cardiomegaly with increase in pulmonary vascularity. Assessment and Plan - Plan A/P - sepsis ( tachycardia, leukocytosis) due to UTI continue with IV antibiotics- follow the cultures and adjust the antibiotic regimen accordingly. -acute on chronic anemia- suspect due to chronic disease- negative occult blood in ER- H/H today pending. -hypertension- now BP on low side- will hold BP meds- started on gentle IV hydration with close monitoring of BP. -CKD- will monitor. -renal mass- recently evaluated by IR for biopsy and ablation. -diabetes mellitus with hypoglycemic episode; blood sugar now has improved. hold home insulin regimen for now- accu-check with SSI -hypothyroidism/ dyslipidemia/ dementia; resumed home meds. -left foot wound; consulted wound care. -DVT prophylaxis; SCD's -consult PT. Discharge Planning: dc planning within the next 24-48 hrs if remains afebrile- pending the cultures and PT evaluation.
[2018-02-20 18:51] LABS: Baso # (Auto) 0.1 th/mm3 (0.0-0.2); Baso % (Auto) 0.3 % (0.0-2.0); Eos % (Auto) 0.1 % (0.0-4.0); Hematocrit 24.4 % (35.0-46.0); Hemoglobin 8.1 gm/dL (11.6-15.3); Lymph # (Auto) 1.8 th/mm3 (1.0-4.8); Mean Corpuscular HGB Conc 33.1 % (32.0-36.0); Mean Corpuscular Hemoglobin 30.2 pg (27.0-34.0); Mean Corpuscular Volume 91.3 fL (80.0-100.0); Mean Platelet Volume 9.3 fL (7.0-11.0); Neut # (Auto) 22.8 th/mm3 (1.8-7.7); Neut % (Auto) 88.6 % (16.0-70.0); Platelet Count 339 th/mm3 (150-450); Red Blood Count 2.67 mil/mm3 (4.00-5.30); Red Cell Distribution Width 16.7 % (11.6-17.2); White Blood Count 25.8 th/mm3 (4.0-11.0)
[2018-02-20 19:17] LABS: Calcium 7.8 mg/dL (8.5-10.1); Carbon Dioxide 22.4 meq/L (21.0-32.0); Potassium 3.5 meq/L (3.5-5.1)
[2018-02-21 07:50] LABS: Baso # (Auto) 0.1 th/mm3 (0.0-0.2); Baso % (Auto) 0.5 % (0.0-2.0); Eos # (Auto) 0.1 th/mm3 (0.0-0.4); Eos % (Auto) 0.4 % (0.0-4.0); Hemoglobin 7.2 gm/dL (11.6-15.3); Lymph # (Auto) 2.7 th/mm3 (1.0-4.8); Lymph % (Auto) 13.2 % (9.0-44.0); Mean Corpuscular HGB Conc 32.5 % (32.0-36.0); Mean Corpuscular Hemoglobin 29.4 pg (27.0-34.0); Mean Corpuscular Volume 90.4 fL (80.0-100.0); Mean Platelet Volume 8.6 fL (7.0-11.0); Mono % (Auto) 4.6 % (0.0-8.0); Neut # (Auto) 16.9 th/mm3 (1.8-7.7); Neut % (Auto) 81.3 % (16.0-70.0); Platelet Count 315 th/mm3 (150-450); Red Blood Count 2.43 mil/mm3 (4.00-5.30); Red Cell Distribution Width 16.4 % (11.6-17.2); White Blood Count 20.8 th/mm3 (4.0-11.0)
--- NOTE | 2018-02-21 08:18 | P.PN ---
Subjective Interval history: patient is a 82 y/o female with history of dementia, diabetes, hypothyroidism, hypertension, CKD, who was brought to ER with fever. patient is not a good historian and most of the information was obtained from the ER record. per the daughter she had a fever of 100.4 earlier and started to have urinary frequency although she denies any dysuria. reportedly she has a history of UTI in the past. she denies any chest pain, sob, abdominal pain, nausea or vomiting. 02/21 patient denies any BM since yesterday. She reports previous episode of C. difficile several months ago treated with Flagyl. Patient reports recurrent urinary tract infections states she was to have biopsy of mass on her kidney scheduled for tomorrow. She complains of bilateral knee pain worse on the left and instability in the right knee. She denies any fever or chills. She denies any chest pain or shortness of breath. She denies any nausea vomiting or abdominal pain. She denies any dysuria. She has been under the care of aircraft engine technician for left heel decubitus. Patient states she feels well today. Physical Exam Vital signs: Vital Signs 02/20/18 09:00 02/20/18 12:00 02/20/18 16:00 Temperature 98.6 F 99.1 F Pulse Rate 91 H 96 H 92 H Respiratory Rate 14 20 Blood Pressure 111/57 L 122/80 Pulse Oximetry 94 L 93 L 02/20/18 20:00 02/20/18 23:56 02/21/18 00:00 Temperature 99.3 F 98.7 F Pulse Rate 91 H 88 72 Respiratory Rate 18 18 Blood Pressure 99/58 L 137/64 Pulse Oximetry 97 95 02/21/18 05:46 Temperature Pulse Rate 89 Respiratory Rate Blood Pressure Pulse Oximetry Intake & Output 02/20/18 02/21/18 02/21/18 18:59 06:59 18:59 Intake Total 340 / 340 1200 / 1200 Balance 340 / 340 1200 / 1200 Intake: IV 100 / 100 1000 / 1000 Rocephin Inj 1,000 MG In NS Inj 100 / 100 100 ML @ 200 mls/hr IV.SIG Q24H JOHN Rx#:[id number] Oral 240 / 240 200 / 200 Other: # Voids 0 Date of Last Bowel Movement 02/20/18 # Bowel Movements 0 Narrative: GENERAL: WDWN obese female, INAD. Awake and alert. Daughters at the bedside. Appears comfortable. SKIN: Warm and dry. + Unstageable left heel ulcer HEAD: Atraumatic. Normocephalic. EYES: Pupils equal and round. No scleral icterus. No injection or drainage. ENT: No nasal bleeding or discharge. Mucous membranes pink and moist. NECK: Trachea midline. CARDIOVASCULAR: Regular rate and rhythm. RESPIRATORY: No accessory muscle use. Clear to auscultation. Breath sounds equal bilaterally. GASTROINTESTINAL: Abdomen soft, non-tender, nondistended. +BS. MUSCULOSKELETAL: Extremities without clubbing, cyanosis, or edema. No obvious deformities. +tenderness to palpation bilateral knees with decreased range of motion. NEUROLOGICAL: Awake and alert. CN II-XII grossly intact. Able to move all extremities continuously normal speech. PSYCHIATRIC: Appropriate mood and affect; insight and judgment normal. - Urinary Catheter Management Straight Cath placed during this visit: yes Reason for continuing: Not indwelling catheter Insertion date: 02/19/18 Insertion time: 11:30 Results - Labs CBC & Chem 7: 02/21/18 14:42 02/20/18 17:40 Laboratory Results - last 24 hr 02/19/18 02/20/18 02/20/18 10:20 06:55 11:15 WBC RBC Hgb Hct MCV MCH MCHC RDW Plt Count MPV Neut % (Auto) Lymph % (Auto) [place] % (Auto) Eos % (Auto) Baso % (Auto) Neut # (Auto) Lymph # (Auto) [place] # (Auto) Eos # (Auto) Baso # (Auto) WBC Differential Differential Comment Sodium Potassium Chloride Carbon Dioxide Anion Gap BUN Creatinine Estimated GFR POC Glucose 167 H Random Glucose Calcium Urine Color Yellow Urine Clarity Turbid H Urine pH 5.0 Ur Specific [place] 1.012 Urine Protein 100 H Urine Glucose (UA) Negative Urine Ketones Negative Urine Occult Blood Moderate H Urine Nitrate Negative Urine Bilirubin Negative Urine Urobilinogen Less than 2 Ur Leukocyte Esterase Moderate H Urine RBC 9 H Urine WBC Urine WBC Clumps Many H Urine Bacteria Many H Micro UA Comment Cath-culture ind Urine Culture Comments Cath-cult indicated Stl C.difficile Tox PCR Positive H St C. diff Tox Epid 027 Positive H 02/20/18 02/20/18 02/20/18 17:04 17:40 17:40 WBC 25.8 H RBC 2.67 L Hgb 8.1 L Hct 24.4 L MCV 91.3 MCH 30.2 MCHC 33.1 RDW 16.7 Plt Count 339 MPV 9.3 Neut % (Auto) 88.6 H Lymph % (Auto) 7.0 L [place] % (Auto) 4.0 Eos % (Auto) 0.1 Baso % (Auto) 0.3 Neut # (Auto) 22.8 H Lymph # (Auto) 1.8 [place] # (Auto) 1.0 H Eos # (Auto) 0.0 Baso # (Auto) 0.1 WBC Differential . Differential Comment Auto diff final Sodium 141 Potassium 3.5 Chloride 106 Carbon Dioxide 22.4 Anion Gap 13 BUN 25 H Creatinine 1.73 H Estimated GFR 28 L POC Glucose 275 H Random Glucose 250 H D Calcium 7.8 L Urine Color Urine Clarity Urine pH Ur Specific [place] Urine Protein Urine Glucose (UA) Urine Ketones Urine Occult Blood Urine Nitrate Urine Bilirubin Urine Urobilinogen Ur Leukocyte Esterase Urine RBC Urine WBC Urine WBC Clumps Urine Bacteria Micro UA Comment Urine Culture Comments Stl C.difficile Tox PCR St C. diff Tox Epid 027 02/20/18 02/21/18 21:54 07:10 WBC 20.8 H RBC 2.43 L Hgb 7.2 L Hct 22.0 L MCV 90.4 MCH 29.4 MCHC 32.5 RDW 16.4 Plt Count 315 MPV 8.6 Neut % (Auto) 81.3 H Lymph % (Auto) 13.2 [place] % (Auto) 4.6 Eos % (Auto) 0.4 Baso % (Auto) 0.5 Neut # (Auto) 16.9 H Lymph # (Auto) 2.7 [place] # (Auto) 1.0 H Eos # (Auto) 0.1 Baso # (Auto) 0.1 WBC Differential . Differential Comment Auto diff final Sodium Potassium Chloride Carbon Dioxide Anion Gap BUN Creatinine Estimated GFR POC Glucose 292 H Random Glucose Calcium Urine Color Urine Clarity Urine pH Ur Specific [place] Urine Protein Urine Glucose (UA) Urine Ketones Urine Occult Blood Urine Nitrate Urine Bilirubin Urine Urobilinogen Ur Leukocyte Esterase Urine RBC Urine WBC Urine WBC Clumps Urine Bacteria Micro UA Comment Urine Culture Comments Stl C.difficile Tox PCR St C. diff Tox Epid 027 Microbiology 02/19/18 10:20 Catheterized Urine Urine Culture - Preliminary gram negative rods 02/20/18 06:55 Stool Stool Occult Blood (DENISE) - Final Hemoccult negative 02/19/18 09:55 Blood - Peripheral Aerobic Blood Culture - Preliminary No growth in 1 day 02/19/18 09:55 Blood - Peripheral Anaerobic Blood Culture - Preliminary No growth in 1 day 02/19/18 10:15 Blood - Peripheral Aerobic Blood Culture - Preliminary No growth in 1 day 02/19/18 10:15 Blood - Peripheral Anaerobic Blood Culture - Preliminary No growth in 1 day Assessment and Plan - Plan A/P Sepsis ( tachycardia, leukocytosis) due to UTI and C diff related diarrhea C diff positive PCR and tox 027 Patient reports previous episode of C. difficile several months ago treated with Flagyl UCX + GNR -Continue on p.o. vancomycin -Continue on IV Ceftriaxone -monitor white count -Monitor stool -Follow-up on final urine culture results Symptomatic acute on chronic anemia- suspect due to chronic disease Stool negative occult blood Hemoglobin 7.2 -Transfuse one unit of PRBCS. Monitor H/H. -obtain iron studies -Consult Dr. Hunter who patient follows with as outpatient, appreciate assistance Hypertension, hypotensive, suspect 2/2 anemia -Continue to hold patient's home dose of Norvasc and Lisinopril -Clonidine prn with parameters -continue to monitor BP and adjust treatment CKD Renal mass- recently evaluated by IR for biopsy and ablation. -avoid nephrotoxic agents -monitor Diabetes mellitus with hypoglycemic episode; blood sugar now has improved. -Resume home insulin but at lower dose 10 units twice daily -continue accu-check with SSI Bilateral knee pain -xr bilateral knees -PT eval/tx Left ankle ulcer -wound care nurse consulted -xr left ankle Hypothyroidism/ dyslipidemia/ dementia; continue home meds. DVT prophylaxis; SCD's Discussed Condition With: patient, nursing staff, daughter, CM Discharge Planning: Not ready for discharge
[2018-02-21] MEDS: Insulin NovoLOG Aspart Correctional Sugar Inj SQ SCH ×4 (08:38→21:20)
[2018-02-21] MEDS: Gabapentin 100 MG Capsule PO SCH ×3 (08:39→18:04)
[2018-02-21] MEDS ORDERED: Sodium Chlor 0.9% Inj 250 ML IV.SIG SCH ×2 (09:00→21:00)
--- NOTE | 2018-02-21 14:19 | XR ---
EXAM DATE: 02/21/2018 1:58 PM EDT AGE/SEX: 82 years / Female INDICATIONS: Left knee pain, evaluate for osteomyelitis. CLINICAL DATA: This is the patient's initial encounter. Patient reports that signs and symptoms have been present for 3 days and indicates a pain score of 4/10. MEDICAL/SURGICAL HISTORY: Hypertension. Diabetes mellitus type II. Hysterectomy. sec tion. COMPARISON: No prior exams available for comparison. FINDINGS: Extensive degenerative changes are present with bone articulating with bone in the medial compartment . Moderate joint effusion is present. Extensive vascular calcifications are noted. Significant osteop hytes are present patellofemoral compartment. CONCLUSION: There is no evidence for osteomyelitis Extensive degenerative changes. Electronically signed by: Ilir Palaicos MD 02/21/2018 2:18 PM EDT
--- NOTE | 2018-02-21 14:29 | XR ---
EXAM DATE: 02/21/2018 1:56 PM EDT AGE/SEX: 82 years / Female INDICATIONS: Right knee pain, evaluate for osteomyelitis. CLINICAL DATA: This is the patient's initial encounter. Patient reports that signs and symptoms have been present for 3 days and indicates a pain score of 8/10. MEDICAL/SURGICAL HISTORY: Hypertension. Diabetes mellitus type I. Hysterectomy. sect ion. COMPARISON: No prior exams available for comparison. FINDINGS: Extensive degenerative changes are evident. Moderate vascular calcifications are noted. There is no b dandre destruction. CONCLUSION: Extensive degenerative changes. Electronically signed by: Ilir Palacios MD 02/21/2018 2:27 PM EDT
--- NOTE | 2018-02-21 14:32 | XR ---
EXAM DATE: 02/21/2018 2:00 PM EDT AGE/SEX: 82 years / Female INDICATIONS: Left ankle pain, evaluate for osteomyelitis. CLINICAL DATA: This is the patient's initial encounter. Patient reports that signs and symptoms have been present for 3 days and indicates a pain score of 4/10. MEDICAL/SURGICAL HISTORY: Hypertension. Diabetes mellitus type II. section. Hysterec floridalma. COMPARISON: No prior exams available for comparison. FINDINGS: Extensive vascular calcifications are noted. Mild degenerative changes are evident. Bones are osteope jaja. Fracture is not appreciated. CONCLUSION: Extensive vascular calcification otherwise negative Electronically signed by: Ilir Palacios MD 02/21/2018 2:31 PM EDT
[2018-02-21 15:47] LABS: Hematocrit 25.8 % (35.0-46.0); Hemoglobin 8.1 gm/dL (11.6-15.3)
[2018-02-21 16:47] LABS: % Iron Saturation 58.1 % (20-50)
--- NOTE | 2018-02-21 17:02 | P.PNWCN ---
Wound Care Nurse Consult Description: Received consult for wound management of L heel Communicated with: JOHANNA franklin and Chen WARREN for Hepas Recommendation: 1.Please cleanse L heel with normal saline only and pat dry. 2.Apply Santyl ointment gonzalo thickness and to wound bed. 3.Cover with optifoam basic secured with rolled gauze and tape. Change dressing daily. 4. Please order heel raiser boots and apply to patient 5. Please turn patient every 2 hours and PRN if for comfort and offloading of pressure from cheryl prominences. 6. Cleanse buttock with Remedy barrier wipes and pat dry. Apply Calazime skin protectant paste BID and PRN to buttock and leave open to air. 7. Use ultra sorb pad only for incontinence management. Do not use cotton pads. Wound/Pressure Injury - Wound Left Heel Wound Assessment: Ongoing Wound Type: Pressure Injury Is This a Chronic Wound: Yes Requested from Provider a Wound Care Consult: Yes Length: 3 (~3cm) Width: 1.5 (~1.5cm) Depth: 0 (soft, moist, brown eschar) Wound Bed Appearance: Necrotic Wound Bed Appearance: Wound bed to L heel presents with and island of ~60% brown, moist, eschar, ~40% pink tissue surrounds eschar. Surrounding Tissue Appearance: [place] Surrounding Tissue Temperature: Warm Drainage Description: Serosanguinous Drainage Amount: Scant Drainage Odor: No Odor Dressing Status: Changed Cleansing Solution: Saline Cover Dressing: optifoam gentle 6x6 dressing Wound Dressing Change Date: 02/21/18 Wound Margin Description: Wound margins are open and well defined. - Additional Information Patient seen on for evaluation of L heel wound management around 1700. Patient is laying in hospital bed with heels in contact with the mattress. Patient's daughter is at the bedside. Spoke with patient and daughter regarding history of the wound.Per Patient, she is seeing an outpatient regulatory affairs specialist, Doctor Lares in [place] for heel wound. Removed non skid socks from patient' s bilateral feet. R heel is noted with intact skin. Removed L heel foam dressing , rolled gauze and tape dressing to reveal wound. Wound measurements and descriptions noted above. Per patient's daughter, the Doctor ordered Medihoney for debridement. Informed patient's daughter and patient, that Medihoney is not available in the hospital. The hospital has Santyl, an FDA approved enzymatic debridement ointment. Patient and daughter agreed on Santyl for heel wound. Recommendations for dressing change are noted above. Heel wound was cleansed with normal saline and patted dry. Apply Optifoam gentle 6x6 dressing to heel wound. Patient was then turned to L side with the maximum assistance of JOHANNA franklin and short story writer. Patient is noted with denuded scar tissue to R buttock, that is opening and is moisture related due to loose stools, not pressure. Recommended skin protectant paste. Patient was cleansed of loose stool. Stool sample obtained. RN will apply Calazime skin protectant paste.FIELD INSTALLER and RN providing patient care upon leaving room.
[2018-02-21] MEDS: Insulin Detemir Inj 1,000 UNIT/10 ML Vial SQ SCH (22:41)
--- NOTE | 2018-02-21 23:18 | MB ---
cc: Nichelle Hunter MD, Shannon PA DATE: 02/21/2018 REFERRING PHYSICIAN: Dr. Chen Yan. CHIEF COMPLAINT: Dr. Yan requests a consultation for Ms. Taylor regarding symptomatic anemia. HISTORY OF PRESENT ILLNESS: Ms. Taylor is an 82-year-old woman, well known patient with a history of a syncopal episode and was admitted to [facility] on 12/29/2017. She is well known from our consultation then. Workup at that time, CT scan of the abdomen, showed a solid-appearing left renal mass. There was a question of a colon lesion, but she has had a recent colonoscopy by an outside physician. Additional studies included an MRI of the abdomen on 01/04/2018 that showed a renal mass of 4.8 x 4.0 cm, confident the diagnosis of renal neoplasm. She was pending palliative biopsy and ablation by interventional radiology. Ms. Taylor followed up in hematology clinic once since her discharge from the hospital. She developed complications of hematuria. She was seen in the emergency room for the hematuria. A vaginal evaluation was recommended to rule out vaginal bleeding as the etiology of the hematuria. CT scan of the abdomen and pelvis was repeated on 01/20/2018. The findings shows stable examination compared to prior studies. No renal stones were identified. There is an isodense fullness in the left mid kidney representing a mass. She has a small hiatal hernia and moderate atherosclerotic disease. She had a consultation with interventional radiology on 01/27/2018. A CT-guided biopsy, microwave ablation was recommended by Dr. Hayward. It does not appear that the patient has had her procedure. She presented to the emergency room on 02/09/2018 for medical clearance. She was in the outpatient treatment area with low blood pressure. She had decreased p.o. intake. She was given ondansetron and hydration. On 02/19/2018, she came in with fevers and concerns for a urinary tract infection. Review of urine culture from 02/19/2018 shows E. coli. Hemoccult was negative. Laboratory findings were positive for C. difficile on 02/20/2018. Hematology/oncology is consulted for the anemia. Her hemoglobin on 12/29 was 10.5. Her hemoglobin at the time of the consultation was 8.1. MCV is normal. Platelet count is normal. White blood cell count is elevated around 20,000, predominantly neutrophils, consistent with a leukemoid reaction. No history is obtained from the patient. She has dementia. She is pleasant. She has random thoughts. She is able to localize symptoms to her left ankle. She denies any acute pain. She asked me to turn off her TV so she could rest. Her daughter was contacted and a message was left. Much of the information was obtained from review of the electronic medical record and interview of the patient whose history is unreliable. 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 PAST SURGICAL HISTORY: Hysterectomy, multiple eye surgeries, colonoscopy. SOCIAL HISTORY: Denies any tobacco, alcohol or illicit drug use. ALLERGIES: PENICILLIN. CURRENT MEDICATIONS: Include: 1. Acetaminophen. 2. Atorvastatin. 3. Ceftriaxone. 4. Clonidine. 5. Collagenase. 6. Donepezil/Aricept 7. Lasix. 8. Gabapentin. 9. Glucagon. 10. Insulin. 11. Levothyroxine. 12. Vancomycin p.o. q.i.d. PHYSICAL EXAMINATION: VITAL SIGNS: Temperature 98.2, heart rate 91, respiratory rate 20, blood pressure 130/63, saturation 96%. GENERAL: Ms. Taylor is a well-developed, elderly woman, who looks thinner than previous exam. HEENT: Her pupils are round, reactive to light and accommodation. Oropharynx is dry. NECK: Supple. LUNGS: Clear anteriorly. CARDIOVASCULAR: Revealed small tachycardia. ABDOMEN: Large and benign. LOWER EXTREMITY: With osteoarthritic changes of the knees and ankles. The left ankle has a dressing. NEUROLOGIC: Nonfocal. She appears to move all 4 extremities. LABORATORY DATA: Hemoglobin 8.1, platelet count 315 from 7:00 a.m. FAMILY HISTORY: Sister had a defibrillator in place. Mother at age 77 with coronary artery disease. Mother had gastric cancer. ASSESSMENT AND PLAN: Ms. Taylor is an 82-year-old woman with dementia, diabetes, hypertension, hypercholesterolemia, hypothyroidism and chronic anemia. She was admitted to [facility] with syncopal episode and was found to have a left renal mass. Imaging study confirmed the presence of the renal mass, suspicious for renal cell cancer. She has had a radiographic consultation by Dr. Hayward of interventional radiology, who felt her to be a candidate for palliative biopsy and ablation. She has not had her procedure for the presumed renal cell cancer, a lot of complications of dehydration, hypertension, vaginal bleeding and most recently urinary tract infection. She is admitted to the hospital for a urinary tract infection and fever, complicated by Clostridium difficile. I plan to discuss with Ms. Taylor and her daughter coordinating her care. At the moment, she is acutely ill with infections, a urinary tract infection complicated by Clostridium difficile. She has a leukemoid reaction with leukocytosis secondary to the Clostridium difficile infection. I recommend continuing the antibiotic therapy and deferring her radiofrequency ablation given the acute process on hand. Hematology/oncology is consulted for the anemia. I suspect the anemia is due to multiple factors. She has had chronic anemia dating back to her initial presentation. She has known renal insufficiency, which contributes to the anemia. Unable to exclude other sources of iron or blood loss given her renal cell cancer. She has had various urinalysis that shows occult blood. Time in clinic, she had gross hematuria. Iron studies would be difficult to interpret in this setting. Given the palliative nature of her treatment, I recommend transfusing her for symptoms or hemoglobin less than 7.5. We will continue to monitor her CBC. Orders for transfusion will be coordinated if hemoglobin is less than 7.5. We will try to attempt again to talk to her daughter tomorrow. Defer any workup for underlying bone marrow disorder in light of our previous discussion of palliating symptoms. Understandably, Ms. Taylor has dementia and is not making a medical decision independent of her daughter. Her questions were answered to her satisfaction. MD LINETTE Wei/shad , 08:15 PM , 08:32 PM
[2018-02-22 07:47] LABS: Baso # (Auto) 0.1 th/mm3 (0.0-0.2); Baso % (Auto) 0.6 % (0.0-2.0); Eos # (Auto) 0.1 th/mm3 (0.0-0.4); Eos % (Auto) 0.5 % (0.0-4.0); Hematocrit 28.6 % (35.0-46.0); Hemoglobin 9.1 gm/dL (11.6-15.3); Lymph # (Auto) 2.1 th/mm3 (1.0-4.8); Lymph % (Auto) 11.8 % (9.0-44.0); Mean Corpuscular HGB Conc 31.8 % (32.0-36.0); Mean Corpuscular Hemoglobin 29.1 pg (27.0-34.0); Mean Corpuscular Volume 91.5 fL (80.0-100.0); Mean Platelet Volume 9.1 fL (7.0-11.0); Mono # (Auto) 1.1 th/mm3 (0.0-0.9); Neut # (Auto) 14.7 th/mm3 (1.8-7.7); Neut % (Auto) 81.1 % (16.0-70.0); Platelet Count 328 th/mm3 (150-450); Red Blood Count 3.13 mil/mm3 (4.00-5.30); Red Cell Distribution Width 15.8 % (11.6-17.2); White Blood Count 18.2 th/mm3 (4.0-11.0)
[2018-02-22] MEDS: Insulin Detemir Inj 1,000 UNIT/10 ML Vial SQ SCH ×2 (08:42→22:24)
[2018-02-22] MEDS: Collagenase Oint 30 GM Tube TOPICAL SCH (08:42)
[2018-02-22] MEDS: Insulin NovoLOG Aspart Correctional Sugar Inj SQ SCH ×4 (08:43→22:25)
[2018-02-22] MEDS: Gabapentin 100 MG Capsule PO SCH ×3 (08:43→17:13)
[2018-02-22 08:47] LABS: Calcium 7.7 mg/dL (8.5-10.1); Carbon Dioxide 26.3 meq/L (21.0-32.0)
[2018-02-22 08:55] LABS: Potassium 2.9 meq/L (3.5-5.1)
--- NOTE | 2018-02-22 09:51 | P.PNONC ---
Subjective Interval history: Afebrile Patient appears to have had 4 bowel movements overnight She remains pleasantly confused She denies any acute complaints Objective Vital Signs/Intake & Output: Vital Signs 02/21/18 15:26 02/21/18 15:36 02/21/18 15:40 Temperature 98.1 F 98.3 F 98.5 F Pulse Rate 97 H 88 86 Respiratory Rate 18 18 20 Blood Pressure 109/52 L 97/51 L 96/55 L Pulse Oximetry 97 94 L 93 L 02/21/18 15:59 02/21/18 16:28 02/21/18 20:00 Temperature 97.2 F L 98.2 F 98.4 F Pulse Rate 91 H 91 H 89 Respiratory Rate 20 20 18 Blood Pressure 165/92 H 130/63 116/62 Pulse Oximetry 97 96 96 02/22/18 00:00 02/22/18 04:00 02/22/18 08:00 Temperature 99.1 F 99.5 F 98.5 F Pulse Rate 89 90 88 Respiratory Rate 18 18 18 Blood Pressure 113/63 120/66 136/68 Pulse Oximetry 97 96 96 Intake & Output 02/21/18 02/22/18 02/22/18 18:59 06:59 18:59 Intake Total 100 / 100 Output Total 700 / 700 Balance -600 / -600 Intake: IV 100 / 100 Rocephin Inj 1,000 MG In NS Inj 100 / 100 100 ML @ 200 mls/hr IV.SIG Q24H JOHN Rx#:[id number] Intake (Blood Product) Amt 0 / 0 Rbc As-3 Leukoreduced Unit 0 / 0 [id number] Output: Urine 700 / 700 Other: # Incontinent Voids 3 Date of Last Bowel Movement 02/21/18 02/21/18 # Bowel Movements 4 Result Diagrams: 02/22/18 05:43 02/22/18 05:43 Laboratory Results: Laboratory Results - last 24 hr 02/21/18 02/21/18 02/21/18 11:40 12:07 12:33 WBC RBC Hgb Hct MCV MCH MCHC RDW Plt Count MPV Neut % (Auto) Lymph % (Auto) [place] % (Auto) Eos % (Auto) Baso % (Auto) Neut # (Auto) Lymph # (Auto) [place] # (Auto) Eos # (Auto) Baso # (Auto) WBC Differential Differential Comment Sodium Potassium Chloride Carbon Dioxide Anion Gap BUN Creatinine Estimated GFR POC Glucose 227 H Random Glucose Calcium Iron TIBC % Saturation Ferritin Vitamin B12 Blood Type O Positive Cancelled Blood Type Recheck Cancelled Antibody Screen Negative Cancelled MTS Gel Crossmatch See Detail 02/21/18 02/21/18 02/21/18 14:42 14:42 16:45 WBC RBC Hgb 8.1 L Hct 25.8 L MCV MCH MCHC RDW Plt Count MPV Neut % (Auto) Lymph % (Auto) [place] % (Auto) Eos % (Auto) Baso % (Auto) Neut # (Auto) Lymph # (Auto) [place] # (Auto) Eos # (Auto) Baso # (Auto) WBC Differential Differential Comment Sodium Potassium Chloride Carbon Dioxide Anion Gap BUN Creatinine Estimated GFR POC Glucose 247 H Random Glucose Calcium Iron 48 L TIBC 83 L % Saturation 58.1 H Ferritin 1403 H Vitamin B12 626 Blood Type Blood Type Recheck Antibody Screen MTS Gel Crossmatch 02/21/18 02/22/18 02/22/18 20:38 05:43 05:43 WBC 18.2 H RBC 3.13 L Hgb 9.1 L Hct 28.6 L MCV 91.5 MCH 29.1 MCHC 31.8 L RDW 15.8 Plt Count 328 MPV 9.1 Neut % (Auto) 81.1 H Lymph % (Auto) 11.8 [place] % (Auto) 6.0 Eos % (Auto) 0.5 Baso % (Auto) 0.6 Neut # (Auto) 14.7 H Lymph # (Auto) 2.1 [place] # (Auto) 1.1 H Eos # (Auto) 0.1 Baso # (Auto) 0.1 WBC Differential . Differential Comment Auto diff final Sodium 142 Potassium 2.9 L* Chloride 106 Carbon Dioxide 26.3 Anion Gap 10 BUN 20 H Creatinine 1.39 H Estimated GFR 36 L POC Glucose 313 H Random Glucose 151 H Calcium 7.7 L Iron TIBC % Saturation Ferritin Vitamin B12 Blood Type Blood Type Recheck Antibody Screen MTS Gel Crossmatch 02/22/18 02/22/18 05:54 07:42 WBC RBC Hgb Hct MCV MCH MCHC RDW Plt Count MPV Neut % (Auto) Lymph % (Auto) [place] % (Auto) Eos % (Auto) Baso % (Auto) Neut # (Auto) Lymph # (Auto) [place] # (Auto) Eos # (Auto) Baso # (Auto) WBC Differential Differential Comment Sodium Potassium Chloride Carbon Dioxide Anion Gap BUN Creatinine Estimated GFR POC Glucose 189 H 163 H Random Glucose Calcium Iron TIBC % Saturation Ferritin Vitamin B12 Blood Type Blood Type Recheck Antibody Screen MTS Gel Crossmatch Culture Results: Microbiology 02/21/18 17:30 Stool Occult Blood (DENISE) - Final Stool Hemoccult negative 02/19/18 09:55 Aerobic Blood Culture - Preliminary Blood - Peripheral No growth in 2 days Anaerobic Blood Culture - Preliminary No growth in 2 days 02/19/18 10:15 Aerobic Blood Culture - Preliminary Blood - Peripheral No growth in 2 days Anaerobic Blood Culture - Preliminary No growth in 2 days 02/19/18 10:20 Urine Culture - Final Catheterized Urine Escherichia coli 02/20/18 06:55 Stool Occult Blood (DENISE) - Final Stool Hemoccult negative Imaging Studies: Impressions Ankle X-Ray 02/21/18 00:00 CONCLUSION: Extensive vascular calcification otherwise negative Knee X-Ray 02/21/18 00:00 CONCLUSION: There is no evidence for osteomyelitis Extensive degenerative changes. Knee X-Ray 02/21/18 00:00 CONCLUSION: Extensive degenerative changes. Medications: Active Medications Generic Name Dose Route Start Last Admin Trade Name Freq PRN Reason Stop Dose Admin Acetaminophen 650 mg 02/20/18 00:53 02/20/18 01:05 Tylenol PO 650 mg Q4H PRN Administration fever > 100.4 Atorvastatin Calcium 20 mg 02/20/18 09:00 02/22/18 08:43 Lipitor PO 20 mg DAILY JOHN Administration Collagenase 1 applicatio 02/22/18 09:00 02/22/18 08:42 Santyl Oint TOPICAL 1 applicatio DAILY JOHN Administration Donepezil HCl 10 mg 02/19/18 21:00 02/21/18 22:23 Aricept PO 10 mg HS JOHN Administration Gabapentin 100 mg 02/19/18 18:00 02/22/18 08:43 Neurontin PO 100 mg TID JOHN Administration Ceftriaxone Sodium 1,000 mg/ 100 mls @ 200 mls/hr 02/20/18 12:00 02/21/18 11: 41 Sodium Chloride IV.SIG Infused Q24H JOHN Infusion Sodium Chloride 1,000 mls @ 60 mls/hr 02/19/18 16:00 02/21/18 03:47 Ns Inj IV.CONT Infused .[id number] JOHN Infusion Sodium Chloride 250 mls @ 15 mls/hr 02/21/18 21:00 02/22/18 07:08 Ns Inj IV.SIG 02/22/18 13:39 15 mls/hr ONCE JOHN Infusion Insulin Aspart 0 unit 02/19/18 17:00 02/22/18 08:43 Novolog Insulin Correctional Sugar Inj SQ 1 unit ACHS JOHN Administration Protocol Insulin Detemir 10 unit 02/21/18 09:00 02/22/18 08:42 Levemir Inj SQ 10 unit BID JOHN Administration Levothyroxine Sodium 25 mcg 02/20/18 06:00 02/22/18 05:51 Synthroid PO 25 mcg DAILY@0600 JOHN Administration Sodium Chloride 2 ml 02/19/18 11:12 02/19/18 15:25 Ns Flush IV.FLUSH 2 ml PRN PRN Administration FLUSH AFTER USING IV ACCESS Vancomycin HCl 125 mg 02/20/18 14:27 02/22/18 08:43 Vancomycin Po PO 125 mg QID JOHN Administration Objective Remarks: GENERAL: Elderly female seen initially taking a few steps with physical therapy in her room. She is pleasantly confused. SKIN: Warm and dry. HEAD: Normocephalic. EYES: No scleral icterus. No injection or drainage. NECK: Supple, trachea midline. No JVD or lymphadenopathy. CARDIOVASCULAR: Regular rate and rhythm without murmurs. RESPIRATORY: Few scattered rhonchi posteriorly. GASTROINTESTINAL: Abdomen soft, non-tender, nondistended. EXTREMITIES: Generalized edema. SCDs to bilateral lower extremities. MUSCULOSKELETAL: Generalized weakness NEUROLOGICAL: Pleasantly confused. Follows commands. Assessment/Plan (1) Anemia Code(s): D64.9 - Anemia, unspecified Status: Chronic (2) Dementia Code(s): F03.90 - Unspecified dementia without behavioral disturbance Status: Chronic (3) Renal mass Code(s): N28.89 - Other specified disorders of kidney and ureter Status: Acute - Plan 82-year-old female admitted with symptomatic anemia admitted with fevers, C. difficile and urinary tract infection. She also has a renal mass and biopsy was pending for outpatient. 1. Patient continues on oral vancomycin for treatment of her C. difficile infection. She is also currently on Rocephin IV for E. coli in the urine. 2. In light of her current medical ongoing issues we will hold off on renal biopsy for now. 3. I have called and spoken with patient's daughter who is in agreement with the current plan. She is anxious to get biopsy underway. 4. Continue IV fluids, supportive care. Monitor CBC. Transfuse for hemoglobin less than 7.5. - Attending Statement The exam, history, and the medical decision-making described in the above note were completed with the assistance of the mid-level provider. I reviewed and agree with the findings presented. I attest that I had a [id number] encounter with the patient on the same day, and personally performed and documented my assessment and findings in the medical record. Patient seen and examined. No family members at bedside. Noted above discussion with my nurse practitioner and patient's daughter. We will continue to follow peripherally pending resolution of the urinary tract infection and C. difficile infection. Ultimately the goal of biopsy and embolization/ablation is palliative. Procedure during the setting of acute infections would not be advised.
[2018-02-22] MEDS ORDERED: Potassium Chloride 25 MEQ Effervescent Tablet PO ONE ×2 (09:55→17:41)
[2018-02-22] MEDS ORDERED: Insulin Detemir Inj 1,000 UNIT/10 ML Vial SQ SCH (17:33)
--- NOTE | 2018-02-22 17:43 | P.PN ---
Subjective Interval history: patient is a 82 y/o female with history of dementia, diabetes, hypothyroidism, hypertension, CKD, who was brought to ER with fever. patient is not a good historian and most of the information was obtained from the ER record. per the daughter she had a fever of 100.4 earlier and started to have urinary frequency although she denies any dysuria. reportedly she has a history of UTI in the past. she denies any chest pain, sob, abdominal pain, nausea or vomiting. 02/21 patient denies any BM since yesterday. She reports previous episode of C. difficile several months ago treated with Flagyl. Patient reports recurrent urinary tract infections states she was to have biopsy of mass on her kidney scheduled for tomorrow. She complains of bilateral knee pain worse on the left and instability in the right knee. She denies any fever or chills. She denies any chest pain or shortness of breath. She denies any nausea vomiting or abdominal pain. She denies any dysuria. She has been under the care of net trainer for left heel decubitus. Patient states she feels well today. 02/22 patient encountered in her room working with physical therapy. She remains pleasantly confused. Denies any acute medical complaints. Discussed with RN, patient with 4 BMs overnight. Physical Exam Vital signs: Vital Signs 02/21/18 20:00 02/22/18 00:00 02/22/18 04:00 Temperature 98.4 F 99.1 F 99.5 F Pulse Rate 89 89 90 Respiratory Rate 18 18 18 Blood Pressure 116/62 113/63 120/66 Pulse Oximetry 96 97 96 02/22/18 08:00 02/22/18 09:00 02/22/18 12:00 Temperature 98.5 F 97.8 F Pulse Rate 88 92 H 85 Respiratory Rate 18 16 Blood Pressure 136/68 119/55 L Pulse Oximetry 96 97 02/22/18 12:50 02/22/18 16:00 Temperature 98.1 F Pulse Rate 88 88 Respiratory Rate 18 Blood Pressure 143/69 H Pulse Oximetry 96 Intake & Output 02/21/18 02/22/18 02/22/18 18:59 06:59 18:59 Intake Total 100 / 100 300 / 300 Output Total 700 / 700 Balance -600 / -600 300 / 300 Intake: IV 100 / 100 300 / 300 NS Inj 250 ML @ 15 mls/hr IV. 100 / 100 SIG ONCE JOHN Rx#:[id number] Rocephin Inj 1,000 MG In NS Inj 100 / 100 100 / 100 100 ML @ 200 mls/hr IV.SIG Q24H JOHN Rx#:[id number] Intake (Blood Product) Amt 0 / 0 Rbc As-3 Leukoreduced Unit 0 / 0 [id number] Output: Urine 700 / 700 Other: # Voids 2 # Incontinent Voids 3 Date of Last Bowel Movement 02/21/18 02/21/18 # Bowel Movements 4 1 Narrative: GENERAL: WDWN obese female, INAD. Awake and alert. Appears comfortable. Ambulating with the assistance of physical therapy. SKIN: Warm and dry. + Unstageable left heel ulcer HEAD: Atraumatic. Normocephalic. EYES: Pupils equal and round. No scleral icterus. No injection or drainage. ENT: No nasal bleeding or discharge. Mucous membranes pink and moist. NECK: Trachea midline. CARDIOVASCULAR: Regular rate and rhythm. RESPIRATORY: No accessory muscle use. Clear to auscultation. Breath sounds equal bilaterally. GASTROINTESTINAL: Abdomen soft, non-tender, nondistended. +BS. MUSCULOSKELETAL: Extremities without clubbing, cyanosis, or edema. No obvious deformities. +tenderness to palpation bilateral knees with decreased range of motion. NEUROLOGICAL: Awake and alert. Pleasantly confused. CN II-XII grossly intact. Able to move all extremities spontaneously. Nonfocal. Normal speech. PSYCHIATRIC: Appropriate mood and affect - Urinary Catheter Management Straight Cath placed during this visit: yes Reason for continuing: Not indwelling catheter Insertion date: 02/19/18 Insertion time: 11:30 Results - Labs CBC & Chem 7: 02/22/18 05:43 02/22/18 05:43 Laboratory Results - last 24 hr 02/21/18 02/21/18 02/22/18 11:40 20:38 05:43 WBC 18.2 H RBC 3.13 L Hgb 9.1 L Hct 28.6 L MCV 91.5 MCH 29.1 MCHC 31.8 L RDW 15.8 Plt Count 328 MPV 9.1 Neut % (Auto) 81.1 H Lymph % (Auto) 11.8 [place] % (Auto) 6.0 Eos % (Auto) 0.5 Baso % (Auto) 0.6 Neut # (Auto) 14.7 H Lymph # (Auto) 2.1 [place] # (Auto) 1.1 H Eos # (Auto) 0.1 Baso # (Auto) 0.1 WBC Differential . Differential Comment Auto diff final Sodium Potassium Chloride Carbon Dioxide Anion Gap BUN Creatinine Estimated GFR POC Glucose 313 H Random Glucose Calcium Magnesium MTS Gel Crossmatch See Detail 02/22/18 02/22/18 02/22/18 05:43 05:43 05:54 WBC RBC Hgb Hct MCV MCH MCHC RDW Plt Count MPV Neut % (Auto) Lymph % (Auto) [place] % (Auto) Eos % (Auto) Baso % (Auto) Neut # (Auto) Lymph # (Auto) [facility] # (Auto) Eos # (Auto) Baso # (Auto) WBC Differential Differential Comment Sodium 142 Potassium 2.9 L* Chloride 106 Carbon Dioxide 26.3 Anion Gap 10 BUN 20 H Creatinine 1.39 H Estimated GFR 36 L POC Glucose 189 H Random Glucose 151 H Calcium 7.7 L Magnesium 1.1 L MTS Gel Crossmatch 02/22/18 02/22/18 02/22/18 07:42 11:47 16:27 WBC RBC Hgb Hct MCV MCH MCHC RDW Plt Count MPV Neut % (Auto) Lymph % (Auto) [place] % (Auto) Eos % (Auto) Baso % (Auto) Neut # (Auto) Lymph # (Auto) [facility] # (Auto) Eos # (Auto) Baso # (Auto) WBC Differential Differential Comment Sodium Potassium Chloride Carbon Dioxide Anion Gap BUN Creatinine Estimated GFR POC Glucose 163 H 252 H 249 H Random Glucose Calcium Magnesium MTS Gel Crossmatch Microbiology 02/19/18 09:55 Blood - Peripheral Aerobic Blood Culture - Preliminary No growth in 3 days 02/19/18 09:55 Blood - Peripheral Anaerobic Blood Culture - Preliminary No growth in 3 days 02/19/18 10:15 Blood - Peripheral Aerobic Blood Culture - Preliminary No growth in 3 days 02/19/18 10:15 Blood - Peripheral Anaerobic Blood Culture - Preliminary No growth in 3 days 02/21/18 17:30 Stool Stool Occult Blood (DENISE) - Final Hemoccult negative - Imaging ITS Impressions Chest X-Ray 02/19/18 11:12 CONCLUSION: Cardiomegaly with increase in pulmonary vascularity. Ankle X-Ray 02/21/18 00:00 CONCLUSION: Extensive vascular calcification otherwise negative Knee X-Ray 02/21/18 00:00 CONCLUSION: Extensive degenerative changes. Assessment and Plan - Plan A/P Sepsis ( tachycardia, leukocytosis) due to UTI and C diff related diarrhea C diff positive PCR and tox 027 Patient reports previous episode of C. difficile several months ago treated with Flagyl -Continue on p.o. vancomycin - patient will need 10-14 days of po Vancomycin once antibiotic for UTI completed -monitor white count. White count trending down. -Monitor stool E Coli UTI -Continue on IV Ceftriaxone Symptomatic acute on chronic anemia- suspect due to chronic disease Stool negative occult blood Hemoglobin 7.2, s/p transfusion 1u PRBCs. Hgb improved to 9.1 -Dr. Hunter following, appreciate assistance. Recs transfuse for Hgb less than 7.5 Hypokalemia, K 2.9 Hypomagnesemia, Mag 1.1 -P.o. and IV repletion ordered -Repeat lab studies in a.m. Hypertension, hypotensive, suspect 2/2 anemia -Continue to hold patient's home dose of Norvasc and Lisinopril -Clonidine prn with parameters -continue to monitor BP and adjust treatment CKD Renal mass suspicious for renal cell carcinoma- Dr. Hayward of IR following, patient is candidate for palliative bx and ablation. Renal bx on hold for now secondary to current infections. -avoid nephrotoxic agents -monitor Diabetes mellitus with hypoglycemic episode; blood sugar now has improved. -Home insulin resumed at lower dose 10 units twice daily. Blood sugar running in the high 100s to mid 200s. Increase to 15 units twice daily -continue accu-check with SSI Bilateral knee pain XR positive for significant degenerative joint disease bilaterally -Continue participation with PT who is recommending rehab at discharge Left ankle ulcer xr shows extensive vascular calcifications o/w neg -wound care nurse following, continue wound care per their recommendations -Patient is actively following with net trainer as outpatient. Will d/w family possible vascular sx evaluation as outpatient. Hypothyroidism/ dyslipidemia/ dementia; continue home meds. DVT prophylaxis; SCD's Discussed Condition With: patient, R Marshal, RUBIA, RN, CM, nursing staff Discharge Planning: Not ready for discharge. Discharge pending clinical improvement and hematology clearance.
[2018-02-22] MEDS: Mag Sulf 1 gm/100 ml Premix 100 ML IV.SIG SCH ×2 (18:00→18:59)
[2018-02-22] MEDS: Magnesium Oxide 400 MG Tablet PO SCH (20:24)
[2018-02-23 04:44] LABS: Hematocrit 26.8 % (35.0-46.0); Hemoglobin 8.8 gm/dL (11.6-15.3); Mean Corpuscular HGB Conc 32.7 % (32.0-36.0); Mean Corpuscular Hemoglobin 29.4 pg (27.0-34.0); Mean Corpuscular Volume 89.9 fL (80.0-100.0); Mean Platelet Volume 8.6 fL (7.0-11.0); Platelet Count 331 th/mm3 (150-450); Red Blood Count 2.99 mil/mm3 (4.00-5.30); Red Cell Distribution Width 16.2 % (11.6-17.2)
[2018-02-23 05:08] LABS: Calcium 7.8 mg/dL (8.5-10.1); Magnesium 1.5 mg/dL (1.5-2.5); Potassium 5.4 meq/L (3.5-5.1)
[2018-02-23 07:12] LABS: Lymphocytes 13 % (9-44); Monocytes 8 % (0-8); Platelet Estimate Normal (Normal); Platelet Morphology Normal (Normal)
[2018-02-23] MEDS: Insulin Detemir Inj 1,000 UNIT/10 ML Vial SQ SCH ×2 (09:10→21:30)
[2018-02-23] MEDS: Insulin NovoLOG Aspart Correctional Sugar Inj SQ SCH ×4 (09:10→21:30)
[2018-02-23] MEDS: Gabapentin 100 MG Capsule PO SCH ×3 (09:11→18:15)
[2018-02-23] MEDS: Magnesium Oxide 400 MG Tablet PO SCH ×2 (09:11→22:27)
[2018-02-23] MEDS: Collagenase Oint 30 GM Tube TOPICAL SCH (09:13)
--- NOTE | 2018-02-23 17:26 | P.PN ---
Subjective Interval history: patient is a 82 y/o female with history of dementia, diabetes, hypothyroidism, hypertension, CKD, who was brought to ER with fever. patient is not a good historian and most of the information was obtained from the ER record. per the daughter she had a fever of 100.4 earlier and started to have urinary frequency although she denies any dysuria. reportedly she has a history of UTI in the past. she denies any chest pain, sob, abdominal pain, nausea or vomiting. 02/21 patient denies any BM since yesterday. She reports previous episode of C. difficile several months ago treated with Flagyl. Patient reports recurrent urinary tract infections states she was to have biopsy of mass on her kidney scheduled for tomorrow. She complains of bilateral knee pain worse on the left and instability in the right knee. She denies any fever or chills. She denies any chest pain or shortness of breath. She denies any nausea vomiting or abdominal pain. She denies any dysuria. She has been under the care of sampler and test preparer for left heel decubitus. Patient states she feels well today. 02/22 patient encountered in her room working with physical therapy. She remains pleasantly confused. Denies any acute medical complaints. Discussed with RN, patient with 4 BMs overnight. 02/23 patient encountered in her room sitting up in bed eating breakfast. Patient appears to have a very good appetite and has cleaned her plate. She states she feels good. She denies any acute medical complaints. She denies any fever chills. She denies any chest pain or shortness of breath. She denies any nausea, vomiting or abdominal pain. Physical Exam Vital signs: Vital Signs 02/22/18 18:09 02/22/18 20:00 02/23/18 00:00 Temperature 99.1 F 98.3 F Pulse Rate 88 92 H 93 H Respiratory Rate 20 17 Blood Pressure 108/61 124/60 Pulse Oximetry 98 99 02/23/18 04:00 02/23/18 08:00 02/23/18 12:00 Temperature 98.6 F 98.4 F 98.1 F Pulse Rate 83 85 87 Respiratory Rate 16 18 18 Blood Pressure 121/59 L 129/66 125/67 Pulse Oximetry 99 95 98 02/23/18 12:38 Temperature Pulse Rate 87 Respiratory Rate Blood Pressure Pulse Oximetry Intake & Output 02/22/18 02/23/18 02/23/18 18:59 06:59 18:59 Intake Total 400 / 400 240 / 240 Balance 400 / 400 240 / 240 Intake: IV 400 / 400 Magnesium Sulfate 1 gm/D5W 100 100 / 100 ml Premix 100 ML @ 100 mls/hr IV.SIG Q1H JOHN Rx#:[id number] NS Inj 250 ML @ 15 mls/hr IV. 100 / 100 SIG ONCE JOHN Rx#:[id number] Rocephin Inj 1,000 MG In NS Inj 100 / 100 100 ML @ 200 mls/hr IV.SIG Q24H JOHN Rx#:[id number] Oral 240 / 240 Other: # Voids 2 # Incontinent Voids 3 # Bowel Movements 1 # Incontinent Bowel Movements 2 Narrative: GENERAL: WDWN obese female, INAD. Awake and alert. Appears comfortable. Sitting up in bed eating breakfast. SKIN: Warm and dry. + Unstageable left heel ulcer, dressed. HEAD: Atraumatic. Normocephalic. EYES: Pupils equal and round. No scleral icterus. No injection or drainage. ENT: No nasal bleeding or discharge. Mucous membranes pink and moist. NECK: Trachea midline. CARDIOVASCULAR: Regular rate and rhythm. RESPIRATORY: No accessory muscle use. Clear to auscultation. Breath sounds equal bilaterally. GASTROINTESTINAL: Abdomen soft, non-tender, nondistended. +BS. MUSCULOSKELETAL: Extremities without clubbing, cyanosis, or edema. No obvious deformities. +tenderness to palpation bilateral knees with decreased range of motion. NEUROLOGICAL: Awake and alert. Pleasantly confused. CN II-XII grossly intact. Able to move all extremities spontaneously. Nonfocal. Normal speech. PSYCHIATRIC: Appropriate mood and affect - Urinary Catheter Management Straight Cath placed during this visit: yes Reason for continuing: Not indwelling catheter Insertion date: 02/19/18 Insertion time: 11:30 Results - Labs CBC & Chem 7: 02/23/18 04:19 02/23/18 12:44 Laboratory Results - last 24 hr 02/22/18 02/22/18 02/23/18 21:09 22:05 04:19 WBC RBC Hgb Hct MCV MCH MCHC RDW Plt Count MPV Prelim Diff (Auto) WBC Differential Seg Neuts % (Manual) Lymphocytes % (Manual) Monocytes % (Manual) Abs Neuts (Manual) Differential Comment Platelet Estimate Platelet Morphology Sodium 140 Potassium 3.5 5.4 H D Chloride 107 Carbon Dioxide 26.0 Anion Gap 7 BUN 16 Creatinine 1.32 H Estimated GFR 39 L POC Glucose 310 H Random Glucose 141 H Calcium 7.8 L Magnesium 1.5 02/23/18 02/23/18 02/23/18 04:19 05:24 07:51 WBC 18.0 H RBC 2.99 L Hgb 8.8 L Hct 26.8 L MCV 89.9 MCH 29.4 MCHC 32.7 RDW 16.2 Plt Count 331 MPV 8.6 Prelim Diff (Auto) Manual diff required WBC Differential Manual diff final Seg Neuts % (Manual) 79 H Lymphocytes % (Manual) 13 Monocytes % (Manual) 8 Abs Neuts (Manual) 14.2 H Differential Comment . Platelet Estimate Normal Platelet Morphology Normal Sodium Potassium Chloride Carbon Dioxide Anion Gap BUN Creatinine Estimated GFR POC Glucose 153 H 136 H Random Glucose Calcium Magnesium 02/23/18 02/23/18 02/23/18 11:47 12:44 16:45 WBC RBC Hgb Hct MCV MCH MCHC RDW Plt Count MPV Prelim Diff (Auto) WBC Differential Seg Neuts % (Manual) Lymphocytes % (Manual) Monocytes % (Manual) Abs Neuts (Manual) Differential Comment Platelet Estimate Platelet Morphology Sodium Potassium 3.6 D Chloride Carbon Dioxide Anion Gap BUN Creatinine Estimated GFR POC Glucose 155 H 264 H Random Glucose Calcium Magnesium Microbiology 02/19/18 09:55 Blood - Peripheral Aerobic Blood Culture - Preliminary No growth in 4 days 02/19/18 09:55 Blood - Peripheral Anaerobic Blood Culture - Preliminary No growth in 4 days 02/19/18 10:15 Blood - Peripheral Aerobic Blood Culture - Preliminary No growth in 4 days 02/19/18 10:15 Blood - Peripheral Anaerobic Blood Culture - Preliminary No growth in 4 days - Imaging Chest X-Ray 02/19/18 11:12 CONCLUSION: Cardiomegaly with increase in pulmonary vascularity. Ankle X-Ray 02/21/18 00:00 CONCLUSION: Extensive vascular calcification otherwise negative Knee X-Ray 02/21/18 00:00 CONCLUSION: There is no evidence for osteomyelitis Extensive degenerative changes. Knee X-Ray 02/21/18 00:00 CONCLUSION: Extensive degenerative changes. - Procedures None Assessment and Plan - Plan A/P Sepsis ( tachycardia, leukocytosis) due to UTI and C diff related diarrhea C diff positive PCR and tox 027 Patient reports previous episode of C. difficile several months ago treated with Flagyl -Continue on p.o. vancomycin - patient will need 10-14 days of po Vancomycin once antibiotic for UTI completed -monitor white count. White count continues to trend down. -Monitor stool E Coli UTI -Patient has completed 3 days of IV ceftriaxone. Discontinue. Symptomatic acute on chronic anemia- suspect due to chronic disease Stool negative occult blood Hemoglobin 7.2, s/p transfusion 1u PRBCs. Hgb improved to 9.1 -Dr. Hunter following, appreciate assistance. Recs transfuse for Hgb less than 7.5 Hypokalemia, K 2.6 Hypomagnesemia, Mag 1.1 -resolved s/p repletion Hypertension, hypotensive, suspect 2/2 anemia -Continue to hold patient's home dose of Norvasc and Lisinopril -Clonidine prn with parameters -continue to monitor BP and adjust treatment CKD Renal mass suspicious for renal cell carcinoma- Dr. Hayward of IR following, patient is candidate for palliative bx and ablation. Renal bx on hold for now secondary to current infections. Creatinine is stable -avoid nephrotoxic agents -monitor Diabetes mellitus with hypoglycemic episode; blood sugar now has improved. -Home insulin resumed at lower dose 15 units twice daily. Add 3u prandial Novolog. -continue accu-check with SSI Bilateral knee pain XR positive for significant degenerative joint disease bilaterally -Continue participation with PT who is recommending rehab at discharge Left ankle ulcer xr shows extensive vascular calcifications o/w neg -wound care nurse following, continue wound care per their recommendations -Patient is actively following with sampler and test preparer as outpatient. Will d/w family possible vascular sx evaluation as outpatient. Hypothyroidism/ dyslipidemia/ dementia; continue home meds. DVT prophylaxis; SCD's Discussed Condition With: patient, Dr. French, immigration case manager Planning: Not ready for discharge. Discharge pending clinical improvement and hematology clearance.
[2018-02-24 05:28] LABS: Baso # (Auto) 0.1 th/mm3 (0.0-0.2); Baso % (Auto) 0.8 % (0.0-2.0); Eos # (Auto) 0.1 th/mm3 (0.0-0.4); Eos % (Auto) 0.5 % (0.0-4.0); Hematocrit 28.6 % (35.0-46.0); Hemoglobin 9.2 gm/dL (11.6-15.3); Lymph # (Auto) 2.4 th/mm3 (1.0-4.8); Lymph % (Auto) 15.1 % (9.0-44.0); Mean Corpuscular HGB Conc 32.1 % (32.0-36.0); Mean Corpuscular Hemoglobin 29.1 pg (27.0-34.0); Mean Corpuscular Volume 90.8 fL (80.0-100.0); Mean Platelet Volume 8.7 fL (7.0-11.0); Mono # (Auto) 1.1 th/mm3 (0.0-0.9); Mono % (Auto) 6.9 % (0.0-8.0); Neut # (Auto) 12.1 th/mm3 (1.8-7.7); Neut % (Auto) 76.7 % (16.0-70.0); Platelet Count 363 th/mm3 (150-450); Red Blood Count 3.15 mil/mm3 (4.00-5.30); Red Cell Distribution Width 16.1 % (11.6-17.2); White Blood Count 15.8 th/mm3 (4.0-11.0)
[2018-02-24 05:46] LABS: Calcium 7.9 mg/dL (8.5-10.1); Carbon Dioxide 27.3 meq/L (21.0-32.0); Potassium 3.6 meq/L (3.5-5.1)
--- NOTE | 2018-02-24 06:53 | P.PN ---
Subjective Interval history: Patient doing well. No loose stools. No fever or chills. No chest pain or SOB. No N/V or abdominal pain. Good appetite. DW nursing staff, no acute issues noted. Physical Exam Vital signs: Vital Signs 02/23/18 08:00 02/23/18 12:00 02/23/18 12:38 Temperature 98.4 F 98.1 F Pulse Rate 85 87 87 Respiratory Rate 18 18 Blood Pressure 129/66 125/67 Pulse Oximetry 95 98 02/23/18 16:00 02/23/18 20:00 02/24/18 00:00 Temperature 99.3 F 99 F 99.8 F H Pulse Rate 95 H 95 H Respiratory Rate 18 18 18 Blood Pressure 141/64 H 127/57 L 130/58 L Pulse Oximetry 98 98 97 02/24/18 04:00 Temperature 99.3 F Pulse Rate 110 H Respiratory Rate 18 Blood Pressure 126/59 L Pulse Oximetry 100 Intake & Output 02/23/18 02/23/18 02/24/18 06:59 18:59 06:59 Intake Total 240 / 240 570 / 570 Output Total 500 / 500 Balance 240 / 240 570 / 570 -500 / -500 Weight 104.9 kg 104.9 kg Intake: Oral 240 / 240 570 / 570 Output: Urine 500 / 500 Other: # Incontinent Voids 3 3 Date of Last Bowel Movement 02/24/18 # Bowel Movements 1 # Incontinent Bowel Movements 2 1 Narrative: GENERAL: WDWN obese female, INAD. Awake and alert. Appears comfortable. Daughter is at the bedside. SKIN: Warm and dry. + Unstageable left heel ulcer, dressed. HEAD: Atraumatic. Normocephalic. EYES: Pupils equal and round. No scleral icterus. No injection or drainage. ENT: No nasal bleeding or discharge. Mucous membranes pink and moist. NECK: Trachea midline. CARDIOVASCULAR: Regular rate and rhythm. RESPIRATORY: No accessory muscle use. Clear to auscultation. Breath sounds equal bilaterally. GASTROINTESTINAL: Abdomen soft, non-tender, nondistended. +BS. MUSCULOSKELETAL: Extremities without clubbing, cyanosis, or edema. No obvious deformities. +tenderness to palpation bilateral knees with decreased range of motion. NEUROLOGICAL: Awake and alert. Pleasantly confused. CN II-XII grossly intact. Able to move all extremities spontaneously. Nonfocal. Normal speech. PSYCHIATRIC: Appropriate mood and affect - Urinary Catheter Management Straight Cath placed during this visit: yes Reason for continuing: Not indwelling catheter Insertion date: 02/19/18 Insertion time: 11:30 Results - Labs CBC & Chem 7: 02/24/18 04:50 02/24/18 04:50 Laboratory Results - last 24 hr 02/23/18 02/23/18 02/23/18 04:19 07:51 11:47 WBC RBC Hgb Hct MCV MCH MCHC RDW Plt Count MPV Neut % (Auto) Lymph % (Auto) Cecil % (Auto) Eos % (Auto) Baso % (Auto) Neut # (Auto) Lymph # (Auto) Cecil # (Auto) Eos # (Auto) Baso # (Auto) WBC Differential Manual diff final Seg Neuts % (Manual) 79 H Lymphocytes % (Manual) 13 Monocytes % (Manual) 8 Abs Neuts (Manual) 14.2 H Differential Comment Platelet Estimate Normal Platelet Morphology Normal Sodium Potassium Chloride Carbon Dioxide Anion Gap BUN Creatinine Estimated GFR POC Glucose 136 H 155 H Random Glucose Calcium 02/23/18 02/23/18 02/23/18 12:44 16:45 22:14 WBC RBC Hgb Hct MCV MCH MCHC RDW Plt Count MPV Neut % (Auto) Lymph % (Auto) Cecil % (Auto) Eos % (Auto) Baso % (Auto) Neut # (Auto) Lymph # (Auto) Cecil # (Auto) Eos # (Auto) Baso # (Auto) WBC Differential Seg Neuts % (Manual) Lymphocytes % (Manual) Monocytes % (Manual) Abs Neuts (Manual) Differential Comment Platelet Estimate Platelet Morphology Sodium Potassium 3.6 D Chloride Carbon Dioxide Anion Gap BUN Creatinine Estimated GFR POC Glucose 264 H 294 H Random Glucose Calcium 02/24/18 02/24/18 02/24/18 01:50 04:50 04:50 WBC 15.8 H RBC 3.15 L Hgb 9.2 L Hct 28.6 L MCV 90.8 MCH 29.1 MCHC 32.1 RDW 16.1 Plt Count 363 MPV 8.7 Neut % (Auto) 76.7 H Lymph % (Auto) 15.1 Cecil % (Auto) 6.9 Eos % (Auto) 0.5 Baso % (Auto) 0.8 Neut # (Auto) 12.1 H Lymph # (Auto) 2.4 Cecil # (Auto) 1.1 H Eos # (Auto) 0.1 Baso # (Auto) 0.1 WBC Differential . Seg Neuts % (Manual) Lymphocytes % (Manual) Monocytes % (Manual) Abs Neuts (Manual) Differential Comment Auto diff final Platelet Estimate Platelet Morphology Sodium 144 Potassium 3.6 Chloride 108 H Carbon Dioxide 27.3 Anion Gap 9 BUN 12 Creatinine 1.15 H Estimated GFR 45 L POC Glucose 164 H Random Glucose 117 H Calcium 7.9 L Microbiology 02/19/18 09:55 Blood - Peripheral Aerobic Blood Culture - Preliminary No growth in 4 days 02/19/18 09:55 Blood - Peripheral Anaerobic Blood Culture - Preliminary No growth in 4 days 02/19/18 10:15 Blood - Peripheral Aerobic Blood Culture - Preliminary No growth in 4 days 02/19/18 10:15 Blood - Peripheral Anaerobic Blood Culture - Preliminary No growth in 4 days - Procedures None Assessment and Plan - Plan A/P Sepsis ( tachycardia, leukocytosis) due to UTI and C diff related diarrhea C diff positive PCR and tox 027 Patient reports previous episode of C. difficile several months ago treated with Flagyl -Continue on p.o. vancomycin - patient will need 10-14 days of po Vancomycin once antibiotic for UTI completed -monitor white count. White count continues to trend down. -Monitor stool - no reported loose stools today E Coli UTI -Patient has completed 3 days of IV ceftriaxone. Discontinue. Symptomatic acute on chronic anemia- suspect due to chronic disease Stool negative occult blood Hemoglobin 7.2, s/p transfusion 1u PRBCs. Hgb improved to 9.1 -Dr. Hunter following, appreciate assistance. Recs transfuse for Hgb less than 7.5. Cleared for discharge from hematology standpoint. Hypokalemia, K 2.6 Hypomagnesemia, Mag 1.1 -resolved s/p repletion Hypertension, hypotensive, suspect 2/2 anemia -Continue to hold patient's home dose of Norvasc and Lisinopril -Clonidine prn with parameters -continue to monitor BP and adjust treatment CKD Renal mass suspicious for renal cell carcinoma- Dr. Hayward of IR following, patient is candidate for palliative bx and ablation. Renal bx on hold for now secondary to current infections. Creatinine is stable -avoid nephrotoxic agents -monitor Diabetes mellitus with hypoglycemic episode; blood sugar now has improved. -Home insulin resumed at lower dose 15 units twice daily. Add 3u prandial Novolog. -continue accu-check with SSI Bilateral knee pain XR positive for significant degenerative joint disease bilaterally -Continue participation with PT who is recommending rehab at discharge Left ankle ulcer xr shows extensive vascular calcifications o/w neg -wound care nurse following, continue wound care per their recommendations -Patient is actively following with ferry terminal agent as outpatient. Will d/w family possible vascular sx evaluation as outpatient. Hypothyroidism/ dyslipidemia/ dementia; continue home meds. DVT prophylaxis; SCD's Discussed Condition With: patient, daughter, nursing staff, Dr. French
[2018-02-24 09:21] VITALS: O2SAT 99
[2018-02-24] MEDS: Insulin NovoLOG Aspart Correctional Sugar Inj SQ SCH ×2 (10:06→11:20)
[2018-02-24] MEDS: Insulin Detemir Inj 1,000 UNIT/10 ML Vial SQ SCH (10:06)
[2018-02-24] MEDS: Magnesium Oxide 400 MG Tablet PO SCH (10:07)
[2018-02-24] MEDS: Collagenase Oint 30 GM Tube TOPICAL SCH (10:08)
[2018-02-24] MEDS: Gabapentin 100 MG Capsule PO SCH ×2 (11:07→12:42)
--- NOTE | 2018-02-24 11:16 | P.DCO ---
- Physical Therapy Order: Evaluate and treat, Improve ambulation, Strength and gait training Instructions: please resume care - Occupational Therapy Order: Evaluate and treat, Improve ADL, Gross motor coordination, Fine motor coordination Instructions: please resume care - Speech Therapy Order: To improve: Speech and communication skills, Cognitive skills, Swallowing Instructions: please resume care - Home Health Nursing Order: Medical education, Signs/symptoms of disease process, Medication education-adverse effect, Nursing assessment with vital signs Instructions: please resume care - Home Health Aide Order: To assist in: Bathing and personal care, imaging account manager and meal prep Instructions: please resume care - Plain Clothes Police Officer Order: To evaluate: Support services Order: To provide: Long range planning - Certification I have seen patient Susan Taylor on 02/24/18. My clinical findings support the need for the requested home health care services because: Limited mobility due to disease progression, Deconditioned with increased weakness, Limited ability to care for self, Impaired cognition/judgement, High risk of falls I certify that my clinical findings support that this patient is homebound because: Impaired cognitive ability/safety, Unsteady gait/balance, Unsafe to leave home unassisted, Unable to use public transportation
--- NOTE | 2018-02-24 11:25 | P.DS ---
Date of admission: 02/19/18 15:28 Primary care physician: UNKNOWN Attending physician on discharge: Briana French Anticipated date of discharge: 02/24/18 Brief History from admission: patient is a 82 y/o female with history of dementia, diabetes, hypothyroidism, hypertension, CKD, who was brought to ER with fever. patient is not a good historian and most of the information was obtained from the ER record. per the daughter she had a fever of 100.4 earlier and started to have urinary frequency although she denies any dysuria. reportedly she has a history of UTI in the past. she denies any chest pain, sob, abdominal pain, nausea or vomiting. DS: Diagnosis - Discharge Diagnosis (1) Sepsis Status: Acute (2) C. difficile diarrhea Status: Acute (3) E. coli urinary tract infection Status: Acute (4) Anemia Status: Chronic (5) Hypokalemia Status: Acute (6) Hypomagnesemia Status: Acute (7) Peripheral vascular disease of extremity Status: Acute (8) Dementia Status: Chronic (9) Impaired activities of daily living Status: Acute (10) Degenerative joint disease of both lower legs Status: Acute (11) At risk for falling Status: Acute (12) Weakness Status: Acute (13) Gait instability Status: Acute (14) Chronic kidney disease Status: Acute DS: Medications - Discharge Medications Prescriptions: insulin detemir U-100 [Levemir FlexTouch U-100 Insuln] 15 unit SUB-Q BID #1 vial vancomycin 125 mg PO QID 14 Days each DS: Summary Hospital Course: Sepsis ( tachycardia, leukocytosis) due to UTI and C diff related diarrhea C diff positive PCR and tox 027 Patient reports previous episode of C. difficile several months ago treated with Flagyl -white count much improved -Continue on p.o. vancomycin - patient given 14 days of po Vancomycin at discharge -monitor white count. White count continues to trend down. -Monitor stooling, much improved, no loose stools reported today E Coli UTI -completed 3 days of IV Ceftriaxone Symptomatic acute on chronic anemia- suspect due to chronic disease Stool negative occult blood Hemoglobin 7.2, s/p transfusion 1u PRBCs. Hgb improved and remained stable. -Dr. Hunter following, appreciate assistance. Recs transfuse for Hgb less than 7.5. Cleared for discharge from hematology standpoint, f/u as outpatient Hypokalemia, K 2.6 Hypomagnesemia, Mag 1.1 -resolved s/p repletion Hypertension, hypotensive, suspect 2/2 anemia -Continue to hold patient's home dose of Norvasc and Lisinopril. DW daughter. Check BPs at home. If BP begins to trend up, start back on Lisinopril only and follow up with PCP. -Clonidine prn with parameters -continue to monitor BP and adjust treatment CKD Renal mass suspicious for renal cell carcinoma- Dr. Haywadr of IR following, patient is candidate for palliative bx and ablation. Renal bx on hold for now secondary to current infections. Creatinine is stable -avoid nephrotoxic agents -monitor Diabetes mellitus with hypoglycemic episode; blood sugar now has improved. -Home insulin resumed at lower dose 15 units twice daily. BS 96 this am. D/C prandial insulin. -continue accu-check with SSI Bilateral knee pain XR positive for significant degenerative joint disease bilaterally -Continue participation with PT who is recommending rehab at discharge. Discussed with daughter who declines rehab. Patient set up to resume HHC at discharge. Left ankle ulcer xr shows extensive vascular calcifications o/w neg -wound care nurse following, continue wound care per their recommendations -Patient is actively following with fruit harvest machine operator as outpatient. Will d/w family possible vascular sx evaluation as outpatient. Hypothyroidism/ dyslipidemia/ dementia; continue home meds. - Time Spent with Patient Total time spent providing and/or coordinating discharge services: Greater than 30 minutes - Quality: VTE Deep Vein Thrombosis/Pulmonary Embolism Present on Admission: No Exam Vital signs: Vital Signs 02/23/18 12:00 02/23/18 12:38 02/23/18 16:00 Temperature 98.1 F 99.3 F Pulse Rate 87 87 95 H Respiratory Rate 18 18 Blood Pressure 125/67 141/64 H Pulse Oximetry 98 98 02/23/18 20:00 02/24/18 00:00 02/24/18 04:00 Temperature 99 F 99.8 F H 99.3 F Pulse Rate 95 H 110 H Respiratory Rate 18 18 18 Blood Pressure 127/57 L 130/58 L 126/59 L Pulse Oximetry 98 97 100 02/24/18 08:00 02/24/18 10:44 Temperature 98.2 F Pulse Rate 83 87 Respiratory Rate 22 Blood Pressure 127/60 Pulse Oximetry 99 Intake & Output 02/23/18 02/24/18 02/24/18 18:59 06:59 18:59 Intake Total 570 / 570 Output Total 900 / 900 Balance 570 / 570 -900 / -900 Weight 104.9 kg Intake: Oral 570 / 570 Output: Urine 900 / 900 Other: # Incontinent Voids 3 Date of Last Bowel Movement 02/24/18 # Bowel Movements 1 # Incontinent Bowel Movements 1 Narrative: GENERAL: WDWN obese female, INAD. Awake and alert. Appears comfortable. Pleasantly confused. SKIN: Warm and dry. + Unstageable left heel ulcer, dressed. HEAD: Atraumatic. Normocephalic. EYES: Pupils equal and round. No scleral icterus. No injection or drainage. ENT: No nasal bleeding or discharge. Mucous membranes pink and moist. NECK: Trachea midline. CARDIOVASCULAR: Regular rate and rhythm. RESPIRATORY: No accessory muscle use. Clear to auscultation. Breath sounds equal bilaterally. GASTROINTESTINAL: Abdomen soft, non-tender, nondistended. +BS. MUSCULOSKELETAL: Extremities without clubbing, cyanosis, or edema. No obvious deformities. +tenderness to palpation bilateral knees with decreased range of motion. NEUROLOGICAL: Awake and alert. Pleasantly confused. Partially oriented. CN II -XII grossly intact. Able to move all extremities spontaneously. Nonfocal. Normal speech. PSYCHIATRIC: Appropriate mood and affect. Results Procedures completed during hospitalization: None Labs on day of discharge: Labs from last 24 hours 02/24/18 02/24/18 02/24/18 07:17 04:50 04:50 WBC 15.8 H RBC 3.15 L Hgb 9.2 L Hct 28.6 L MCV 90.8 MCH 29.1 MCHC 32.1 RDW 16.1 Plt Count 363 MPV 8.7 Neut % (Auto) 76.7 H Lymph % (Auto) 15.1 [place] % (Auto) 6.9 Eos % (Auto) 0.5 Baso % (Auto) 0.8 Neut # (Auto) 12.1 H Lymph # (Auto) 2.4 [place] # (Auto) 1.1 H Eos # (Auto) 0.1 Baso # (Auto) 0.1 WBC Differential . Differential Comment Auto diff final Sodium 144 Potassium 3.6 Chloride 108 H Carbon Dioxide 27.3 Anion Gap 9 BUN 12 Creatinine 1.15 H Estimated GFR 45 L POC Glucose 96 Random Glucose 117 H Calcium 7.9 L MTS Gel Crossmatch 02/24/18 02/23/18 02/23/18 01:50 22:14 16:45 WBC RBC Hgb Hct MCV MCH MCHC RDW Plt Count MPV Neut % (Auto) Lymph % (Auto) [place] % (Auto) Eos % (Auto) Baso % (Auto) Neut # (Auto) Lymph # (Auto) [place] # (Auto) Eos # (Auto) Baso # (Auto) WBC Differential Differential Comment Sodium Potassium Chloride Carbon Dioxide Anion Gap BUN Creatinine Estimated GFR POC Glucose 164 H 294 H 264 H Random Glucose Calcium MTS Gel Crossmatch 02/23/18 02/23/18 02/21/18 12:44 11:47 11:40 WBC RBC Hgb Hct MCV MCH MCHC RDW Plt Count MPV Neut % (Auto) Lymph % (Auto) [place] % (Auto) Eos % (Auto) Baso % (Auto) Neut # (Auto) Lymph # (Auto) [place] # (Auto) Eos # (Auto) Baso # (Auto) WBC Differential Differential Comment Sodium Potassium 3.6 D Chloride Carbon Dioxide Anion Gap BUN Creatinine Estimated GFR POC Glucose 155 H Random Glucose Calcium MTS Gel Crossmatch See Detail - Impressions ITS Impressions Chest X-Ray 02/19/18 11:12 CONCLUSION: Cardiomegaly with increase in pulmonary vascularity. Ankle X-Ray 02/21/18 00:00 CONCLUSION: Extensive vascular calcification otherwise negative Knee X-Ray 02/21/18 00:00 CONCLUSION: Extensive degenerative changes. Discharge Plan - Discharge Disposition Patient Disposition: /Home Health Service - Discharge Condition Condition: Stable - Discharge Order Discharge Orders: Discharge Order (Routine); Ordered 02/24/18 Ordered By: Chen Gonzalez - Discharge Details Anticipated Discharge Date: 02/24/18 - Physicians Team Primary Care Provider: UNKNOWN, Attending Provider: Briana French Other Providers: Nichelle Hunter MD ; Nurse Oncall,Agency ; Leia Ro,Agency
[2018-02-24 13:54] VITALS: BP 128/62; PULSE 80; RESP 20; TEMP 98
== END 2018-02-24 16:40 | disposition home health service (06) ==
LOC: NEPE 09:40 → NEDA 15:28 → N06 16:59 → N05 02-20 17:11
PROVIDERS: ADMIT Family Medicine; ATTEND Family Medicine

== ENCOUNTER 2018-03-17 20:44 | Inpatient (IN) ==
[2018-03-17] MEDS ORDERED: Sod Chloride 0.9% Inj 2,000 ML IV.SIG ONE (21:00)
[2018-03-17] MEDS ORDERED: Acetaminophen 325 MG Tablet PO ONE (21:00)
--- NOTE | 2018-03-17 21:23 | XR ---
EXAM DATE: 03/17/2018 9:20 PM EDT AGE/SEX: 82 years / Female INDICATIONS: Fever CLINICAL DATA: This is the patient's initial encounter. Patient reports that signs and symptoms have been present for 1 day and indicates a pain score of 0/10. MEDICAL/SURGICAL HISTORY: . Diabetes. Hypertension. Dementia, renal mass on left side. Lower GI bleed. . . section COMPARISON: [facility], CHEST 1V SINGLE AP, 02/19/2018. . FINDINGS: A single AP view of the chest demonstrates the lungs to be symmetrically aerated without evidence of mass, infiltrate or effusion. The cardiomediastinal contours are unremarkable. Degenerative changes and scoliosis of the thoracolumbar spine are noted. CONCLUSION: 1. No acute cardiopulmonary disease. 2. Degenerative changes and scoliosis of the thoracolumbar spine. Electronically signed by: Venkata Dominguez MD 03/17/2018 9:21 PM EDT
--- NOTE | 2018-03-17 22:34 | ED ---
HPI General Chief Complaint: Nausea/Vomiting/Diarrhea Stated Complaint: Fever Time Seen by Provider: 03/17/18 21:00 Source: patient and EMS Mode of arrival: EMS Limitations: other (dementia) History of Present Illness HPI Narrative: 82-year-old female with PMH of dementia, DM, HTN, CKD, anemia, C. difficile presents to the ED via EMS for evaluation of weeks long history of watery diarrhea. Per EMS the patient was recently treated for C. difficile with vancomycin, last treatment 1 week ago. Per EMS the patient had urine cultures that showed a leukocytosis last week. EMS report a oral temp of 104. On arrival the patient is alert to self only. She denies chest pain, cough, shortness of breath, abdominal pain, nausea, vomiting, dysuria. She denies pain. The patient is a poor historian. She is unable to provide any other meaningful history. Per EMS report the daughter/gas plant repairer is in route. Related Data Home Medications Medication Instructions Recorded Confirmed aspirin [Aspirin Childrens] 81 mg PO DAILY 02/19/18 02/19/18 atorvastatin 20 mg PO DAILY 02/19/18 02/19/18 cholecalciferol (vitamin D3) 400 unit PO DAILY 02/19/18 02/19/18 [Vitamin D3] donepezil 10 mg PO HS 02/19/18 02/19/18 gabapentin 100 mg PO TID 02/19/18 02/19/18 levothyroxine 25 mcg PO DAILY 02/19/18 02/19/18 liraglutide [Victoza 2-Giovanni] 0.6 mg SUB-Q DAILY 02/19/18 02/19/18 memantine 21 mg PO DAILY 02/19/18 02/19/18 ondansetron 4 mg PO Q6-8H PRN 02/19/18 02/19/18 Previous Rx's Medication Instructions Recorded insulin detemir U-100 [Levemir 15 unit SUB-Q BID #1 vial 02/24/18 FlexTouch U-100 Insuln] Allergies Allergy/AdvReac Type Severity Reaction Status Date / Time Penicillins Allergy Intermediate Swelling Verified 03/18/18 01:36 Review of Systems ROS: all other systems reviewed are negative [facility] Medical History Medical History History of hysterectomy (Acute) Fracture, ankle (Acute) Hypothyroid (Acute) Dementia (Chronic) Renal mass (Acute) Hypercholesteremia (Acute) Diabetes (Acute) Hypertension (Acute) Social History Social History Substance History: No History of Abuse Second Hand Smoke Exposure: No Smoking Status: Never smoker How Often Do You Have a Drink Containing Alcohol: Never Recent Travel in [facility] within the Last 8 Weeks: No Recent Out of Country Travel within the Last 8 Weeks: No Exam Narrative Exam Narrative: GENERAL: Well-nourished, well-developed, obese -[place] female in no acute distress. SKIN: Focused skin assessment warm/dry. 3-4 cm shallow chronic wound of bilateral ischial areas. Chronic 3-4 cm shallow wound of the left heel. No signs of infection. HEAD: Atraumatic. Normocephalic. EYES: Pupils equal and round. No scleral icterus. No injection or drainage. ENT: No nasal bleeding or discharge. Mucous membranes pink and moist. NECK: Trachea midline. No JVD. CARDIOVASCULAR: Regular rate and rhythm. No murmur appreciated. RESPIRATORY: No accessory muscle use. Clear to auscultation. Breath sounds equal bilaterally. GASTROINTESTINAL: Abdomen soft, non-tender, nondistended. Hepatic and splenic margins not palpable. MUSCULOSKELETAL: No obvious deformities. No clubbing. No cyanosis. No edema. NEUROLOGICAL: Awake and alert. No obvious cranial nerve deficits. Motor grossly within normal limits. Normal speech. PSYCHIATRIC: Demented, alert to self only. Course Initial Documented Vital Signs Temperature 101.8 F H 03/17/18 21:45 Pulse Rate 101 H 03/17/18 21:45 Respiratory Rate 03/17/18 21:45 Blood Pressure 114/56 L 03/17/18 21:45 Pulse Oximetry 98 03/17/18 21:45 Last Documented Vital Signs Temperature 101.8 F H 03/17/18 21:45 Pulse Rate 101 H 03/18/18 01:36 Respiratory Rate 20 03/17/18 21:45 Blood Pressure 114/56 L 03/17/18 21:45 Pulse Oximetry 98 03/17/18 21:45 Medical Decision Making BHARATI Attestation BHARATI supervised visit: Yes Attestation: I, Dr. Whalen, have reviewed the advance practice practitioner's documentation and am in agreement, met with the patient face to face, made the diagnosis, and the medical decision making was done by me. *My assessment and Findings: Patient seen and evaluated with PA, please see PA notes for further details. She is febrile, recent antibiotic use, C. difficile diarrhea treatment. Lab work shows significant white count elevation, concerning for sepsis. IV fluids and antibiotics initiated in the ER. Case is discussed with Dr. Rogel for admission. MDM Narrative Medical decision making narrative: 82-year-old female arrives to the ED via EMS for evaluation of chronic diarrhea. Patient was recently treated for C. difficile according to EMS report. Oral temp 104 in the field. On arrival the patient is alert to self only. She is unable to give much meaningful history. Physical exam reveals no tenderness to palpation of the abdomen. The patient does have several chronic appearing wounds without signs of infection. She has several loose, foul-smelling stools while I am at the bedside. IV was established. Blood cultures obtained. Patient was administered 2 L normal saline, 650 mg Tylenol by mouth. She was administered Vancomycin and Gentamycin. Lab work pending. Patient signed out to Dr. Winslow at end of shift. Medical Screen Exam Complete: Yes Emergency Medical Condition: Yes Differential Diagnosis Differential Diagnosis: UTI versus metabolic derangement versus C. difficile versus sepsis versus dehydration versus PNA versus other Lab Data Result diagrams: 03/18/18 00:30 03/18/18 00:30 Lab Results 03/18/18 03/18/18 03/18/18 Range/Units 00:30 00:30 00:30 WBC 35.9 H (4.0-11.0) th/mm3 RBC 3.16 L (4.00-5.30) mil/mm3 Hgb 9.0 L (11.6-15.3) gm/dL Hct 28.6 L (35.0-46.0) % MCV 90.3 (80.0-100.0) fL MCH 28.4 (27.0-34.0) pg MCHC 31.4 L (32.0-36.0) % RDW 16.2 (11.6-17.2) % Plt Count 377 (150-450) th/mm3 MPV 8.5 (7.0-11.0) fL Prelim Diff (Auto) Slide review pending Neut % (Auto) 94.0 H (16.0-70.0) % Lymph % (Auto) 1.7 L (9.0-44.0) % [place] % (Auto) 4.2 (0.0-8.0) % Eos % (Auto) 0.0 (0.0-4.0) % Baso % (Auto) 0.1 (0.0-2.0) % Neut # (Auto) 33.8 H (1.8-7.7) th/mm3 Lymph # (Auto) 0.6 L (1.0-4.8) th/mm3 [place] # (Auto) 1.5 H (0.0-0.9) th/mm3 Eos # (Auto) 0.0 (0.0-0.4) th/mm3 Baso # (Auto) 0.0 (0.0-0.2) th/mm3 WBC Differential Manual diff final Seg Neuts % (Manual) 88 H (16-70) % Band Neuts % (Manual) 6 (0-6) % Lymphocytes % (Manual) 4 L (9-44) % Monocytes % (Manual) 1 (0-8) % Metamyelocytes % (Man) 1 (0-1) % Abs Neuts (Manual) 34.1 H (1.8-7.7) th/mm3 Differential Comment . Platelet Estimate Normal (Normal) Platelet Morphology Normal (Normal) PT (9.8-11.6) sec INR Ratio APTT (24.3-30.1) sec Sodium 141 (136-145) meq/L Potassium 3.7 (3.5-5.1) meq/L Chloride 101 (98-107) meq/L Carbon Dioxide 23.5 (21.0-32.0) meq/L Anion Gap 17 H (5-15) meq/L BUN 25 H (7-18) mg/dL Creatinine 1.75 H (0.50-1.00) mg/dL Estimated GFR 28 L (>89) mL/min Random Glucose 263 H (74-106) mg/dL Lactic Acid 2.2 H (0.4-2.0) mmol/L Calcium 8.5 (8.5-10.1) mg/dL Total Bilirubin 0.9 (0.2-1.0) mg/dL AST 31 (15-37) U/L ALT 44 (10-53) U/L Alkaline Phosphatase 457 H (45-117) U/L Total Protein 7.4 (6.4-8.2) g/dL Albumin 1.9 L (3.4-5.0) g/dL 03/18/18 Range/Units 01:00 WBC (4.0-11.0) th/mm3 RBC (4.00-5.30) mil/mm3 Hgb (11.6-15.3) gm/dL Hct (35.0-46.0) % MCV (80.0-100.0) fL MCH (27.0-34.0) pg MCHC (32.0-36.0) % RDW (11.6-17.2) % Plt Count (150-450) th/mm3 MPV (7.0-11.0) fL Prelim Diff (Auto) Neut % (Auto) (16.0-70.0) % Lymph % (Auto) (9.0-44.0) % [place] % (Auto) (0.0-8.0) % Eos % (Auto) (0.0-4.0) % Baso % (Auto) (0.0-2.0) % Neut # (Auto) (1.8-7.7) th/mm3 Lymph # (Auto) (1.0-4.8) th/mm3 [place] # (Auto) (0.0-0.9) th/mm3 Eos # (Auto) (0.0-0.4) th/mm3 Baso # (Auto) (0.0-0.2) th/mm3 WBC Differential Seg Neuts % (Manual) (16-70) % Band Neuts % (Manual) (0-6) % Lymphocytes % (Manual) (9-44) % Monocytes % (Manual) (0-8) % Metamyelocytes % (Man) (0-1) % Abs Neuts (Manual) (1.8-7.7) th/mm3 Differential Comment Platelet Estimate (Normal) Platelet Morphology (Normal) PT 12.1 H (9.8-11.6) sec INR 1.2 Ratio APTT 27.8 (24.3-30.1) sec Sodium (136-145) meq/L Potassium (3.5-5.1) meq/L Chloride (98-107) meq/L Carbon Dioxide (21.0-32.0) meq/L Anion Gap (5-15) meq/L BUN (7-18) mg/dL Creatinine (0.50-1.00) mg/dL Estimated GFR (>89) mL/min Random Glucose (74-106) mg/dL Lactic Acid (0.4-2.0) mmol/L Calcium (8.5-10.1) mg/dL Total Bilirubin (0.2-1.0) mg/dL AST (15-37) U/L ALT (10-53) U/L Alkaline Phosphatase (45-117) U/L Total Protein (6.4-8.2) g/dL Albumin (3.4-5.0) g/dL Imaging Data Radiologist's impression: Chest X-Ray 03/17/18 21:00 CONCLUSION: 1. No acute cardiopulmonary disease. 2. Degenerative changes and scoliosis of the thoracolumbar spine. Discharge Plan Discharge Details Anticipated Discharge Date: 03/18/18 Physicians Team ED Provider: Catracho Whalen ED Midlevel Provider: Hollie Rose Primary Care Provider: UNKNOWN, Rxs /Orders / Referrals /Forms Prescriptions: No Action atorvastatin 20 mg Tablet 20 mg PO DAILY RF: 0 donepezil 10 mg Tablet 10 mg PO HS RF: 0 levothyroxine 25 mcg Tablet 25 mcg PO DAILY RF: 0 aspirin [Aspirin Childrens] 81 mg Tablet,Chewable 81 mg PO DAILY RF: 0 gabapentin 100 mg Capsule 100 mg PO TID RF: 0 ondansetron 4 mg Tablet,Disintegrating 4 mg PO Q6-8H PRN (Reason: Vomiting) RF: 0 cholecalciferol (vitamin D3) [Vitamin D3] 400 unit Capsule 400 unit PO DAILY RF: 0 liraglutide [Victoza 2-Giovanni] 0.6 mg/0.1 mL (18 mg/3 mL) Pen Injector 0.6 mg SUB-Q DAILY RF: 0 memantine 21 mg Capsule,Sprinkle,Er 24hr 21 mg PO DAILY RF: 0 insulin detemir U-100 [Levemir FlexTouch U-100 Insuln] 100 unit/mL (3 mL) Insulin Pen 15 unit SUB-Q BID Qty: 1 RF: 0 Status ED Status: With Doctor
[2018-03-17] MEDS ORDERED: Vancomycin Inj 1 GM/200 ML PIGGYBACK IV.SIG ONE (22:44)
[2018-03-17] MEDS ORDERED: Gentamicin Consult Pharmacy OTHER ONE (22:46)
[2018-03-18 00:57] LABS: Baso % (Auto) 0.1 % (0.0-2.0); Hematocrit 28.6 % (35.0-46.0); Lymph # (Auto) 0.6 th/mm3 (1.0-4.8); Lymph % (Auto) 1.7 % (9.0-44.0); Mean Corpuscular HGB Conc 31.4 % (32.0-36.0); Mean Corpuscular Hemoglobin 28.4 pg (27.0-34.0); Mean Corpuscular Volume 90.3 fL (80.0-100.0); Mean Platelet Volume 8.5 fL (7.0-11.0); Mono # (Auto) 1.5 th/mm3 (0.0-0.9); Mono % (Auto) 4.2 % (0.0-8.0); Neut # (Auto) 33.8 th/mm3 (1.8-7.7); Platelet Count 377 th/mm3 (150-450); Red Blood Count 3.16 mil/mm3 (4.00-5.30); Red Cell Distribution Width 16.2 % (11.6-17.2); White Blood Count 35.9 th/mm3 (4.0-11.0)
[2018-03-18] MEDS ORDERED: Vancomycin Inj 1,000 MG in Sodium Chlor 0.9% Inj 250 ML IV.SIG ONE (01:00)
[2018-03-18 01:26] LABS: Alanine Aminotransferase 44 U/L (10-53); Albumin 1.9 g/dL (3.4-5.0); Anion Gap 17 meq/L (5-15); Aspartate Aminotransferase 31 U/L (15-37); Blood Urea Nitrogen 25 mg/dL (7-18); Calcium 8.5 mg/dL (8.5-10.1); Carbon Dioxide 23.5 meq/L (21.0-32.0); Chloride 101 meq/L (98-107); Glomerular Filtration Rate 28 mL/min (>89); Glucose,Random 263 mg/dL (74-106); Potassium 3.7 meq/L (3.5-5.1); Sodium 141 meq/L (136-145)
[2018-03-18 01:28] LABS: Alkaline Phosphatase 457 U/L (45-117); Total Protein 7.4 g/dL (6.4-8.2)
[2018-03-18 01:30] LABS: Activated Partial Thrombo Time 27.8 sec (24.3-30.1); INR 1.2 Ratio; Prothrombin Time 12.1 sec (9.8-11.6)
[2018-03-18 01:31] LABS: Lymphocytes 4 % (9-44); Metamyelocytes 1 % (0-1); Monocytes 1 % (0-8)
[2018-03-18 01:32] LABS: Platelet Estimate Normal (Normal); Platelet Morphology Normal (Normal)
[2018-03-18 02:38] LABS: Amorphous Sediment,Urine Rare /hpf; Bacteria,Urine Occasional /hpf; Bilirubin,Urine Negative (Negative); Clarity,Urine Cloudy (Clear); Color,Urine Amber (Yellw/Straw); Glucose,Urine (UA) 50 mg/dL (Negative); Hyaline Casts,Urine 5 /lpf (0-3); Leukocyte Esterase,Urine Large (Negative); Nitrite,Urine Negative (Negative); Specific Gravity,Urine 1.014 (1.002-1.035); Squamous Epithelial Cell,Urine 6 /hpf (0-5)
[2018-03-18] MEDS ORDERED: Dextrose 50% in Water 50 ML Vial IV.PUSH PRN (04:10)
--- NOTE | 2018-03-18 04:23 | P.HP ---
History of Present Illness Service: [facility] Primary Care Physician: UNKNOWN History of Present Illness: 82-year-old female with a past medical history of previous C. difficile 2, diabetes, dementia, hyperlipidemia, hypertension, hypothyroidism and a known renal mass pending biopsy presents to the emergency department for evaluation of weakness and diarrhea 2 days. The patient's daughter reports that the patient started to become weak approximately 2 days ago although she attributed this to the patient fasting for routine blood work. She reports she is unable to tell if there is any change in her mother's mental status given that she is demented at baseline. She reports that she has been chilled recently although this is at baseline. Does not know if the patient has had any fevers. The patient denies any pain although given her mental status she is not the best historian. The patient completed oral vancomycin therapy for C. difficile approximately 4 weeks ago. Inpatient Certification: I certify that the inpatient services were ordered in accordance with Medicare regulations governing the order. This includes certification that hospital inpatient services are reasonable and necessary and in the case of services not specified as inpatient-only under 42 CFR 419.22(n), that they are appropriately provided as inpatient services in accordance to with the 2-midnight benchmark under 43 CFR 412.3(e) Estimated Total Length of Stay (Days): 2 Plans for Post Hospital Care: Not yet determined Review of Systems unobtainable due to mental status PMFSH - History History Provided By: Family Member - Medical History Medical History: Medical History (Last Reviewed 03/17/18 @ 22:41 by BRIANA Lara) History of hysterectomy (Acute) Fracture, ankle (Acute) Hypothyroid (Acute) Dementia (Chronic) Renal mass (Acute) Hypercholesteremia (Acute) Diabetes (Acute) Hypertension (Acute) - Surgical History Surgical History: Surgical History (Last Reviewed 02/24/18 @ 15:29 by Shirley Mckeon) H/O section (Acute) - Family History Family History: Family History (Last Updated 03/18/18 @ 04:18 by Khadijah Rogel MD) Other Coronary artery disease Diabetes mellitus Stomach cancer - Tobacco History Second Hand Smoke Exposure: No Smoking Status: Never smoker - Alcohol History How Often Do You Have a Drink Containing Alcohol: Never - Substance Use History Substance History: No History of Abuse - Travel History Recent Travel in the [place] Within the Last 8 Weeks: No Recent Travel Out of the Country Within the Last 8 Weeks: No - Immunization History Tetanus Immunization: >5 Years Hx Influenza Vaccine This Season: No Medications and Allergies Allergies Allergy/AdvReac Type Severity Reaction Status Date / Time Penicillins Allergy Intermediate Swelling Verified 03/18/18 01:36 Home Medications Medication Instructions Recorded Confirmed Type aspirin [Aspirin Childrens] 81 mg PO DAILY 02/19/18 03/18/18 History atorvastatin 20 mg PO DAILY 02/19/18 03/18/18 History cholecalciferol (vitamin D3) 400 unit PO DAILY 02/19/18 03/18/18 History [Vitamin D3] donepezil 10 mg PO HS 02/19/18 03/18/18 History gabapentin 100 mg PO TID 02/19/18 03/18/18 History levothyroxine 25 mcg PO DAILY 02/19/18 03/18/18 History liraglutide [Victoza 2-Giovanni] 0.6 mg SUB-Q DAILY 02/19/18 03/18/18 History memantine 28 mg PO DAILY 02/19/18 03/18/18 History amlodipine 5 mg PO DAILY 03/18/18 03/18/18 History hydrochlorothiazide 25 mg PO DAILY 03/18/18 03/18/18 History Exam Vital signs: Vital Signs 03/17/18 21:45 03/18/18 01:36 Temperature 101.8 F H Pulse Rate 101 H 101 H Respiratory Rate 20 Blood Pressure 114/56 L Pulse Oximetry 98 Intake & Output 03/17/18 03/17/18 03/18/18 06:59 18:59 06:59 Intake Total 250 / 250 Balance 250 / 250 Weight 95.254 kg Intake: IV 250 / 250 Vancomycin Inj 1,000 MG In NS 250 / 250 Inj 250 ML @ 250 mls/hr IV.SIG ONCE ONE Rx#:[id number] Other: Date of Last Bowel Movement 03/18/18 Narrative: Gen.: No acute distress Head: Normocephalic. Atraumatic. EENT: Pupils equal round and reactive to light. Nose without drainage. Airway intact. Throat without injection. Cardiovascular: Regular rate and rhythm. No murmurs, rubs or gallops. Respiratory: Lungs clear to auscultation bilaterally. No wheezes or rhonchi. Abdomen: Soft, nontender, nondistended. No peritoneal signs. Musculoskeletal: No gross deformities. No edema. Skin: No obvious rashes or erythema. Neuro: Sensory and motor grossly intact. Cranial nerves II through XII grossly intact. Results - Labs CBC & Chem 7: 03/18/18 00:30 03/18/18 00:30 Labs: Laboratory Results - last 24 hr 03/18/18 03/18/18 03/18/18 00:30 00:30 00:30 WBC 35.9 H RBC 3.16 L Hgb 9.0 L Hct 28.6 L MCV 90.3 MCH 28.4 MCHC 31.4 L RDW 16.2 Plt Count 377 MPV 8.5 Prelim Diff (Auto) Slide review pending Neut % (Auto) 94.0 H Lymph % (Auto) 1.7 L [place] % (Auto) 4.2 Eos % (Auto) 0.0 Baso % (Auto) 0.1 Neut # (Auto) 33.8 H Lymph # (Auto) 0.6 L [place] # (Auto) 1.5 H Eos # (Auto) 0.0 Baso # (Auto) 0.0 WBC Differential Manual diff final Seg Neuts % (Manual) 88 H Band Neuts % (Manual) 6 Lymphocytes % (Manual) 4 L Monocytes % (Manual) 1 Metamyelocytes % (Man) 1 Abs Neuts (Manual) 34.1 H Differential Comment . Platelet Estimate Normal Platelet Morphology Normal PT INR APTT Sodium 141 Potassium 3.7 Chloride 101 Carbon Dioxide 23.5 Anion Gap 17 H BUN 25 H Creatinine 1.75 H Estimated GFR 28 L Random Glucose 263 H Lactic Acid 2.2 H Calcium 8.5 Total Bilirubin 0.9 AST 31 ALT 44 Alkaline Phosphatase 457 H Total Protein 7.4 Albumin 1.9 L Urine Color Urine Clarity Urine pH Ur Specific [place] Urine Protein Urine Glucose (UA) Urine Ketones Urine Occult Blood Urine Nitrate Urine Bilirubin Urine Urobilinogen Ur Leukocyte Esterase Urine RBC Urine WBC Urine WBC Clumps Ur Squamous Epith Cells Amorphous Sediment Urine Bacteria Hyaline Casts Micro UA Comment Ur Microscopic Review Urine Culture Comments St C. diff Tox Epid 027 C. difficile Tox (PCR) 03/18/18 03/18/18 03/18/18 01:00 01:00 02:20 WBC RBC Hgb Hct MCV MCH MCHC RDW Plt Count MPV Prelim Diff (Auto) Neut % (Auto) Lymph % (Auto) [place] % (Auto) Eos % (Auto) Baso % (Auto) Neut # (Auto) Lymph # (Auto) [place] # (Auto) Eos # (Auto) Baso # (Auto) WBC Differential Seg Neuts % (Manual) Band Neuts % (Manual) Lymphocytes % (Manual) Monocytes % (Manual) Metamyelocytes % (Man) Abs Neuts (Manual) Differential Comment Platelet Estimate Platelet Morphology PT 12.1 H INR 1.2 APTT 27.8 Sodium Potassium Chloride Carbon Dioxide Anion Gap BUN Creatinine Estimated GFR Random Glucose Lactic Acid Calcium Total Bilirubin AST ALT Alkaline Phosphatase Total Protein Albumin Urine Color Carri Urine Clarity Cloudy H Urine pH 5.0 Ur Specific [place] 1.014 Urine Protein 100 H Urine Glucose (UA) 50 Urine Ketones Trace H Urine Occult Blood Large H Urine Nitrate Negative Urine Bilirubin Negative Urine Urobilinogen Less than 2 Ur Leukocyte Esterase Large H Urine RBC Urine WBC Urine WBC Clumps Many H Ur Squamous Epith Cells 6 Amorphous Sediment Rare H Urine Bacteria Occasional H Hyaline Casts 5 Micro UA Comment Cath-culture ind Ur Microscopic Review Not Reportable Urine Culture Comments Cath-cult indicated St C. diff Tox Epid 027 Positive H C. difficile Tox (PCR) Positive H 03/18/18 03:15 WBC RBC Hgb Hct MCV MCH MCHC RDW Plt Count MPV Prelim Diff (Auto) Neut % (Auto) Lymph % (Auto) [place] % (Auto) Eos % (Auto) Baso % (Auto) Neut # (Auto) Lymph # (Auto) [place] # (Auto) Eos # (Auto) Baso # (Auto) WBC Differential Seg Neuts % (Manual) Band Neuts % (Manual) Lymphocytes % (Manual) Monocytes % (Manual) Metamyelocytes % (Man) Abs Neuts (Manual) Differential Comment Platelet Estimate Platelet Morphology PT INR APTT Sodium Potassium Chloride Carbon Dioxide Anion Gap BUN Creatinine Estimated GFR Random Glucose Lactic Acid 1.0 Calcium Total Bilirubin AST ALT Alkaline Phosphatase Total Protein Albumin Urine Color Urine Clarity Urine pH Ur Specific [place] Urine Protein Urine Glucose (UA) Urine Ketones Urine Occult Blood Urine Nitrate Urine Bilirubin Urine Urobilinogen Ur Leukocyte Esterase Urine RBC Urine WBC Urine WBC Clumps Ur Squamous Epith Cells Amorphous Sediment Urine Bacteria Hyaline Casts Micro UA Comment Ur Microscopic Review Urine Culture Comments St C. diff Tox Epid 027 C. difficile Tox (PCR) - Imaging Impressions Chest X-Ray 03/17/18 21:00 CONCLUSION: 1. No acute cardiopulmonary disease. 2. Degenerative changes and scoliosis of the thoracolumbar spine. Caprini VTE Risk Assessment Caprini VTE Risk Assessment: Moderate/High Risk (score >= 2) Caprini Risk Assessment Model: Point Value = 1 Point Value = 2 Point Value = 3 Point Value = 5 Age 41-60 Minor surgery BMI > 25 kg/m2 Swollen legs Varicose veins or History of unexplained or recurrent spontaneous Oral contraceptives or hormone replacement Sepsis (< 1 month) Serious lung disease, including pneumonia (< 1 month) Abnormal pulmonary function Acute myocardial infarction Congestive heart failure (< 1 month) History of inflammatory bowel disease Medical patient at bed rest Age 61-74 Arthroscopic surgery Major open surgery (> 45 min) Laparoscopic surgery (> 45 min) Malignancy Confined to bed (> 72 hours) Immobilizing plaster cast Central venous access Age >= 75 History of VTE Family history of VTE Factor V Leiden Prothrombin [id number] Lupus anticoagulant Anticardiolipin antibodies Elevated serum homocysteine Heparin-induced thrombocytopenia Other congenital or acquired thrombophilia Stroke (< 1 month) Elective arthroplasty Hip, pelvis, or leg fracture Acute spinal cord injury (< 1 month) Prophylaxis Regimen: Total Risk Factor Score Risk Level Prophylaxis Regimen 0-1 Low Early ambulation 2 Moderate Order ONE of the following: *Sequential Compression Device (SCD) *Heparin 5000 units SQ BID 3-4 Higher Order ONE of the following medications: *Heparin 5000 units SQ TID *Enoxaparin/Lovenox 40 mg SQ daily (WT < 150 kg, CrCl > 30 mL/min) *Enoxaparin/Lovenox 30 mg SQ daily (WT < 150 kg, CrCl > 10-29 mL/min) *Enoxaparin/Lovenox 30 mg SQ BID (WT < 150 kg, CrCl > 30 mL/min) AND/OR *Sequential Compression Device (SCD) 5 or more Highest Order ONE of the following medications: *Heparin 5000 units SQ TID (Preferred with Epidurals) *Enoxaparin/Lovenox 40 mg SQ daily (WT < 150 kg, CrCl > 30 mL/min) *Enoxaparin/Lovenox 30 mg SQ daily (WT < 150 kg, CrCl > 10-29 mL/min) *Enoxaparin/Lovenox 30 mg SQ BID (WT < 150 kg, CrCl > 30 mL/min) AND *Sequential Compression Device (SCD) Assessment and Plan - Plan Assessment/plan: 1. Sepsis/recurrent C. difficile Stool studies positive for C. difficile Patient status post treatment with p.o. vancomycin completed approximately 4 weeks ago Recurrent diarrhea 2 days Leukocytosis, elevated lactic acid, fever and tachycardia Oral vancomycin Blood cultures pending Infectious disease consulted, appreciate recommendations 2. Diabetes mellitus Continue home Levemir Sliding-scale insulin Monitor blood glucose 3. Hypertension/hyperlipidemia/hypothyroidism Continue home medications 4. Dementia Continue home medications 5. Acute kidney injury BUN/creatinine 25/1.75, baseline 1.4 IV fluid hydration Monitor renal function FEN Electrolytes: Monitor and replete as needed NS at 100 cc/hour Heparin
[2018-03-18] MEDS: Sod Chloride 0.9% Inj 1,000 ML IV.CONT SCH ×2 (08:34→14:15)
[2018-03-18] MEDS: hydroCHLOROthiazide 25 MG Tablet PO SCH (08:42)
[2018-03-18] MEDS: Gabapentin 100 MG Capsule PO SCH ×2 (08:45→20:55)
[2018-03-18] MEDS: Heparin - SQ 10,000 UNITS/ML Vial SQ SCH ×3 (08:45→21:27)
[2018-03-18] MEDS: amLODIPine 5 MG Tablet PO SCH (08:46)
[2018-03-18] MEDS: Insulin Detemir Inj 1,000 UNIT/10 ML Vial SQ SCH ×2 (08:47→20:57)
[2018-03-18] MEDS: Insulin NovoLOG Aspart Correctional Sugar Inj SQ SCH ×4 (10:28→20:57)
--- NOTE | 2018-03-18 16:29 | MB ---
cc: Clifton Meneses MD DATE: 03/18/2018 REQUESTING PHYSICIAN: Dr. Rogel REASON: Sepsis with recurrent C. difficile. HISTORY OF PRESENT ILLNESS: This is an 82-year-old black female who presented to the emergency department on 03/17/2018 with nausea, vomiting and diarrhea. The patient had been treated with metronidazole for C. difficile infection along with cefuroxime for urine infection during a recent hospitalization at the end of December. The patient's daughter states that she completed the antibiotics and then she was hospitalized again at [facility] and was again treated for C. difficile. It appears that she was given vancomycin and completed the vancomycin 2 weeks' duration 1 week ago. Does note that she was having loose stools off and in between she would have no stools for about a day between. The daughter brought her to the emergency department because of the nausea, vomiting and diarrhea. The daughter states that she turned to clean and she had outpouring of a large amount of watery diarrhea. It is noted that she had elevated temperature of 104 degrees by the emergency medical service. The temperature after she was seen in the emergency department was 101.8 and heart rate was 101 and white count was up to 35.9. She is currently complaining of abdominal pain. Urinalysis was obtained and it showed innumerable white cells and urine culture is pending. The patient has a Lawson catheter, which was inserted on presentation to the emergency department. The urine is very cloudy. She states to me that she feels a little better than when she came to the emergency department. She is awake and alert. C. difficile toxin in the stool is positive. The patient was noted to have renal mass, which was discovered on MRI on 01/04/2018. She is due to undergo biopsy of the left renal mass on 04/05/2018. The MRI also noted that the gallbladder was filled with stones, but there was no bile duct dilatation. His CT scan on 01/02/2018 showed circumferential wall thickening involving the rectum. PAST MEDICAL HISTORY: Hypertension, diabetes mellitus, hypercholesterolemia, history of hysterectomy, dementia, renal mass. ALLERGIES: PENICILLIN. MEDICATIONS: 1. Vancomycin p.o. 2. Norvasc. 3. Aspirin. 4. Lipitor. 5. Aricept. 6. Neurontin. 7. Hydrochlorothiazide. 8. Insulin. 9. Synthroid. 10. Namenda. SOCIAL HISTORY: The patient lives with her daughter. No tobacco, no alcohol, no illicit drugs. FAMILY HISTORY: Noncontributory. REVIEW OF SYSTEMS: Significant for the above-mentioned features and history of present illness. All systems otherwise have been reviewed and are negative. PHYSICAL EXAMINATION: GENERAL: She is an obese female who is in no acute distress. She is awake and alert and oriented. VITAL SIGNS: Temperature 98.8, BP 126/58, respirations 20, heart rate 90. HEENT: Head is atraumatic. Extraocular movements grossly intact. Pupils reactive to light, without icterus. Oropharynx moist mucosa without lesions. NECK: Supple without adenopathy. LUNGS: Clear to auscultation. HEART: Irregular rate and rhythm. No murmurs, rubs or gallops. ABDOMEN: Bowel sounds present. Soft, diffusely tender at the mid abdomen. RECTAL: Not performed. EXTREMITIES: No clubbing or cyanosis. Trace edema of the lower extremities. Left ankle heel ulceration appears clean. SKIN: No diffuse rash. NEUROLOGIC: The patient is alert and oriented. No gross focal findings. PSYCHIATRIC: Patient is calm and cooperative. LABORATORY DATA: WBC 35.9, platelet count 377, hemoglobin 9.0, 94% neutrophils, creatinine 1.75, BUN 25, estimated GFR 28. Liver function test normal. C. difficile toxin epid 027 positive. Chest x-ray shows degenerative changes and scoliosis of the thoracolumbar spine. IMPRESSION: 1. Sepsis. 2. Clostridium difficile colitis, recurrent. 3. Urinary tract infection. 4. Left renal mass, yet to be yet to be biopsied. 5. Acute on chronic kidney disease. The patient also may have dehydration contributing to decreasing kidney function. RECOMMENDATIONS: 1. Start aztreonam for UTI and sepsis, likely secondary to gram-negative bacteria. 2. Add Dificid for C. difficile in patient with recurrent C. diff. 3. Continue p.o. vancomycin for now. 4. Monitor blood cultures. 5. Monitor urine culture for identity and sensitivity of the organism in the urine. 6. Follow the white blood cell count. 7. Monitor clinical status. The patient's daughter is concerned about when she can have biopsy of the renal mass. She will need to be stable enough for that to be done. Biopsy of the renal masses is tentatively planned for 04/09/2018. However, once she becomes more stable, the procedure probably can be done while she is in the hospital here if the C. difficile is under control. That should be held off since she appears to have kidney infection and that infection should be under control prior to doing biopsy. Thank you for this consultation. The patient's progress will be monitored and further recommendations will be given upon followup. MD PRISCILLA Cohen/pawel/angus , 02:19 PM , 02:36 PM VERONICA
[2018-03-18] MEDS: Latanoprost 0.005% Opth Drops 2.5 ML Bottle EACH EYE SCH (20:56)
[2018-03-19] MEDS: Insulin NovoLOG Aspart Correctional Sugar Inj SQ SCH ×5 (03:15→22:45)
[2018-03-19] MEDS: Sod Chloride 0.9% Inj 1,000 ML IV.CONT SCH ×2 (03:15→13:11)
[2018-03-19] MEDS: Heparin - SQ 10,000 UNITS/ML Vial SQ SCH ×3 (05:57→22:36)
[2018-03-19] MEDS: Acetaminophen 325 MG Tablet PO PRN (06:03)
[2018-03-19] MEDS: hydroCHLOROthiazide 25 MG Tablet PO SCH (08:28)
[2018-03-19] MEDS: Insulin Detemir Inj 1,000 UNIT/10 ML Vial SQ SCH (08:28)
[2018-03-19] MEDS: amLODIPine 5 MG Tablet PO SCH (08:29)
[2018-03-19] MEDS: Gabapentin 100 MG Capsule PO SCH ×2 (08:30→22:35)
[2018-03-19 09:17] LABS: Baso # (Auto) 0.1 th/mm3 (0.0-0.2); Baso % (Auto) 0.3 % (0.0-2.0); Hematocrit 24.9 % (35.0-46.0); Hemoglobin 7.8 gm/dL (11.6-15.3); Lymph # (Auto) 2.4 th/mm3 (1.0-4.8); Lymph % (Auto) 8.4 % (9.0-44.0); Mean Corpuscular HGB Conc 31.5 % (32.0-36.0); Mean Corpuscular Hemoglobin 28.7 pg (27.0-34.0); Mean Corpuscular Volume 91.4 fL (80.0-100.0); Mean Platelet Volume 8.7 fL (7.0-11.0); Mono # (Auto) 1.8 th/mm3 (0.0-0.9); Neut # (Auto) 24.8 th/mm3 (1.8-7.7); Neut % (Auto) 85.3 % (16.0-70.0); Platelet Count 333 th/mm3 (150-450); Red Blood Count 2.73 mil/mm3 (4.00-5.30); Red Cell Distribution Width 16.1 % (11.6-17.2); White Blood Count 29.1 th/mm3 (4.0-11.0)
[2018-03-19 10:02] LABS: Carbon Dioxide 20.8 meq/L (21.0-32.0)
[2018-03-19 10:19] LABS: Potassium 2.8 meq/L (3.5-5.1)
[2018-03-19] MEDS ORDERED: Mag Sulf 1 gm/100 ml Premix 100 ML IV.SIG ONE (10:27)
[2018-03-19] MEDS ORDERED: Vancomycin Consult Pharmacy OTHER PRN (11:33)
--- NOTE | 2018-03-19 12:44 | P.PNIM ---
Physical Exam Vital signs: Vital Signs 03/18/18 16:00 03/18/18 20:00 03/19/18 00:00 Temperature 99.2 F 101.8 F H 102.7 F H Pulse Rate 104 H 106 H 101 H Respiratory Rate 20 20 20 Blood Pressure 117/69 154/117 H 113/49 L Pulse Oximetry 100 99 93 L 03/19/18 04:00 03/19/18 08:00 Temperature 99.0 F Pulse Rate 101 H 75 Respiratory Rate 18 Blood Pressure 100/54 L Pulse Oximetry 97 Intake & Output 03/18/18 03/19/18 03/19/18 18:59 06:59 18:59 Intake Total 600 / 600 1100 / 1100 Output Total 400 / 400 325 / 325 Balance 200 / 200 775 / 775 Weight 98.7 kg 98.7 kg Intake: IV 600 / 600 1100 / 1100 NS Inj 1,000 ML @ 100 mls/hr IV 500 / 500 1000 / 1000 .CONT .Q10H JOHN Rx#:[id number] Azactam Inj 1,000 MG In NS Inj 100 / 100 100 / 100 100 ML @ 200 mls/hr IV.SIG Q12H JOHN Rx#:[id number] Output: Urine 400 / 400 25 / 25 Stool 300 / 300 Other: Date of Last Bowel Movement 03/18/18 Weight On Admission 98.7 kg Narrative: GENERAL: Patient sitting up in bed. Appears comfortable. Smiling today. SKIN: Warm and dry. HEAD: Normocephalic. EYES: No scleral icterus. No injection or drainage. NECK: Supple, trachea midline. No JVD. CARDIOVASCULAR: Regular rate and rhythm without murmurs, gallops, or rubs. RESPIRATORY: Breath sounds equal bilaterally. No accessory muscle use. GASTROINTESTINAL: Abdomen soft, non-tender, nondistended. MUSCULOSKELETAL: No cyanosis, or edema. BACK: Nontender without obvious deformity. No CVA tenderness. - Urinary Catheter Management Indwelling Urethral Catheter Cath placed during this visit: yes, but has since been removed by the nurse Reason for continuing: Decision to DC catheter Insertion date: 03/18/18 Insertion time: 03:00 Removal date: 03/18/18 Removal time: 16:00 Results - Labs CBC & Chem 7: 03/19/18 07:26 03/19/18 07:26 Laboratory Results - last 24 hr 03/18/18 03/18/18 03/19/18 02:20 13:23 07:26 WBC 29.1 H RBC 2.73 L Hgb 7.8 L Hct 24.9 L MCV 91.4 MCH 28.7 MCHC 31.5 L RDW 16.1 Plt Count 333 MPV 8.7 Neut % (Auto) 85.3 H Lymph % (Auto) 8.4 L [place] % (Auto) 6.0 Eos % (Auto) 0.0 Baso % (Auto) 0.3 Neut # (Auto) 24.8 H Lymph # (Auto) 2.4 [place] # (Auto) 1.8 H Eos # (Auto) 0.0 Baso # (Auto) 0.1 WBC Differential . Differential Comment Auto diff final Sodium Potassium Chloride Carbon Dioxide Anion Gap BUN Creatinine Estimated GFR POC Glucose 322 H Random Glucose Calcium Magnesium Urine Color Carri Urine Clarity Cloudy H Urine pH 5.0 Ur Specific [place] 1.014 Urine Protein 100 H Urine Glucose (UA) 50 Urine Ketones Trace H Urine Occult Blood Large H Urine Nitrate Negative Urine Bilirubin Negative Urine Urobilinogen Less than 2 Ur Leukocyte Esterase Large H Urine RBC Urine WBC Urine WBC Clumps Many H Ur Squamous Epith Cells 6 Amorphous Sediment Rare H Urine Bacteria Occasional H Hyaline Casts 5 Micro UA Comment Cath-culture ind Urine Culture Comments Cath-cult indicated 03/19/18 03/19/18 07:26 07:26 WBC RBC Hgb Hct MCV MCH MCHC RDW Plt Count MPV Neut % (Auto) Lymph % (Auto) [place] % (Auto) Eos % (Auto) Baso % (Auto) Neut # (Auto) Lymph # (Auto) [place] # (Auto) Eos # (Auto) Baso # (Auto) WBC Differential Differential Comment Sodium 144 Potassium 2.8 L* D Chloride 109 H D Carbon Dioxide 20.8 L Anion Gap 14 BUN 25 H Creatinine 1.66 H Estimated GFR 30 L POC Glucose Random Glucose 56 L D Calcium 8.0 L Magnesium 1.3 L Urine Color Urine Clarity Urine pH Ur Specific [place] Urine Protein Urine Glucose (UA) Urine Ketones Urine Occult Blood Urine Nitrate Urine Bilirubin Urine Urobilinogen Ur Leukocyte Esterase Urine RBC Urine WBC Urine WBC Clumps Ur Squamous Epith Cells Amorphous Sediment Urine Bacteria Hyaline Casts Micro UA Comment Urine Culture Comments Microbiology 03/18/18 02:20 Catheterized Urine Urine Culture - Preliminary gram negative rods 03/18/18 00:20 Blood - Peripheral Aerobic Blood Culture - Preliminary No growth in 1 day 03/18/18 00:20 Blood - Peripheral Anaerobic Blood Culture - Preliminary No growth in 1 day 03/18/18 00:30 Blood - Peripheral Aerobic Blood Culture - Preliminary gram positive cocci 03/18/18 00:30 Blood - Peripheral Anaerobic Blood Culture - Preliminary No growth in 1 day 03/18/18 01:00 Stool Stool for WBCs - Final Rare WBC's 03/18/18 01:00 Stool Clostridium difficile GDH Antigen - Final Positive - C. difficile Antigen detected. 03/18/18 01:00 Stool Clostridium difficile Toxin Assay - Final C.diff Toxin A &/or B Positive Assessment and Plan - Plan //Sepsis/recurrent C. difficile //gramPositive bacteremia //Suspected UTI. Stool studies positive for C. difficile Patient status post treatment with p.o. vancomycin completed approximately 4 weeks ago Recurrent diarrhea 2 days Leukocytosis, elevated lactic acid, fever and tachycardia Oral vancomycin Blood cultures pending Infectious disease consulted, appreciate recommendations = 03/19. Fever 102.7 overnight. Gram-positive bacteremia. Start vancomycin. Repeat cultures. Consult pharmacy for dosing. Continue treatment for C. difficile as well as UTI. Appreciate ID assistance. // Diabetes mellitus Continue home Levemir Sliding-scale insulin Monitor blood glucose == Hypoglycemia. Asymptomatic. Discontinue Levemir. //Hyperkalemia. 2.8. Replace and monitor. //Hypomagnesemia. 1.3 Replace. // Hypertension/hyperlipidemia/hypothyroidism Continue home medications // Dementia Continue home medications // Acute kidney injury BUN/creatinine 25/1.75, baseline 1.4 IV fluid hydration Monitor renal function = Creatinine 1.66. Stable. Monitor. Discharge Planning: Continues to sepsis. We will need ID clearance.
[2018-03-19] MEDS: Potassium Chloride Inj 20 MEQ in Sodium Chlor 0.9% Inj 100 ML IV.SIG SCH ×2 (13:11→15:04)
[2018-03-19] MEDS ORDERED: Vancomycin Inj 1,000 MG in Sodium Chlor 0.9% Inj 250 ML IV.SIG ONE (14:00)
[2018-03-19] MEDS ORDERED: Vancomycin Inj 1,500 MG in Sodium Chlor 0.9% Inj 500 ML IV.SIG ONE (18:00)
[2018-03-19] MEDS: Latanoprost 0.005% Opth Drops 2.5 ML Bottle EACH EYE SCH (22:34)
[2018-03-20] MEDS: Insulin NovoLOG Aspart Correctional Sugar Inj SQ SCH ×5 (04:18→22:42)
[2018-03-20] MEDS: Sod Chloride 0.9% Inj 1,000 ML IV.CONT SCH ×2 (04:23→06:15)
[2018-03-20] MEDS: Heparin - SQ 10,000 UNITS/ML Vial SQ SCH ×3 (06:23→22:43)
[2018-03-20] MEDS: Gabapentin 100 MG Capsule PO SCH ×2 (08:18→22:24)
[2018-03-20] MEDS: hydroCHLOROthiazide 25 MG Tablet PO SCH (08:19)
[2018-03-20 09:15] LABS: Baso % (Auto) 0.1 % (0.0-2.0); Eos # (Auto) 0.1 th/mm3 (0.0-0.4); Eos % (Auto) 0.3 % (0.0-4.0); Hematocrit 25.4 % (35.0-46.0); Hemoglobin 7.8 gm/dL (11.6-15.3); Lymph # (Auto) 3.3 th/mm3 (1.0-4.8); Lymph % (Auto) 12.3 % (9.0-44.0); Mean Corpuscular Hemoglobin 28.2 pg (27.0-34.0); Mean Corpuscular Volume 91.3 fL (80.0-100.0); Mean Platelet Volume 8.1 fL (7.0-11.0); Mono # (Auto) 1.2 th/mm3 (0.0-0.9); Mono % (Auto) 4.3 % (0.0-8.0); Neut # (Auto) 22.4 th/mm3 (1.8-7.7); Platelet Count 352 th/mm3 (150-450); Red Blood Count 2.78 mil/mm3 (4.00-5.30); Red Cell Distribution Width 16.3 % (11.6-17.2); White Blood Count 27.1 th/mm3 (4.0-11.0)
[2018-03-20 09:19] LABS: Mean Corpuscular HGB Conc 30.9 % (32.0-36.0)
[2018-03-20 09:47] LABS: Albumin 1.4 g/dL (3.4-5.0); Calcium 8.1 mg/dL (8.5-10.1); Carbon Dioxide 23.6 meq/L (21.0-32.0); Magnesium 1.5 mg/dL (1.5-2.5); Phosphorus 1.9 mg/dL (2.5-4.9); Potassium 3.6 meq/L (3.5-5.1)
[2018-03-20] MEDS ORDERED: Potassium Phosphate Inj 15 MMOL in Sodium Chlor 0.9% Inj 150 ML IV.SIG ONE (12:00)
--- NOTE | 2018-03-20 12:03 | P.PNIM ---
Subjective Interval history: Patient says she is feeling right. Denies any chest pain shortness of breath. Denies nausea vomiting. Still with stool output. Physical Exam Vital signs: Vital Signs 03/19/18 12:00 03/19/18 16:00 03/19/18 18:59 Temperature 98.3 F 98.7 F Pulse Rate 77 94 H 103 H Respiratory Rate 18 18 Blood Pressure 119/61 126/58 L Pulse Oximetry 97 95 03/19/18 20:00 03/20/18 00:00 03/20/18 04:00 Temperature 98.4 F 98.9 F 98.6 F Pulse Rate 88 89 83 Respiratory Rate 18 18 18 Blood Pressure 104/51 L 106/52 L 107/55 L Pulse Oximetry 99 97 98 03/20/18 08:00 Temperature 98.6 F Pulse Rate 85 Respiratory Rate 18 Blood Pressure 118/58 L Pulse Oximetry 99 Intake & Output 03/19/18 03/20/18 03/20/18 18:59 06:59 18:59 Intake Total 1900 / 1900 2295 / 2295 Output Total 1200 / 1200 Balance 700 / 700 2295 / 2295 Intake: IV 1420 / 1420 1615 / 1615 NS Inj 1,000 ML @ 100 mls/hr IV 1000 / 1000 1000 / 1000 .CONT .Q10H [facility] Rx#:[id number] Azactam Inj 1,000 MG In NS Inj 100 / 100 100 / 100 100 ML @ 200 mls/hr IV.SIG Q12H [facility] Rx#:[id number] Magnesium Sulfate 1 gm/D5W 100 100 / 100 ml Premix 100 ML @ 100 mls/hr IV.SIG ONCE ONE Rx#:[id number] KCl Inj 20 MEQ In NS Inj 100 ML 220 / 220 @ 50 mls/hr IV.SIG Q2H [facility] Rx# :[id number] Vancomycin Inj 1,500 MG In NS 515 / 515 Inj 500 ML @ 250 mls/hr IV.SIG ONCE ONE Rx#:[id number] Oral 480 / 480 680 / 680 Output: Urine/Stool Mix 1200 / 1200 Other: # Voids 4 Narrative: GENERAL: Patient sitting up in bed. Appears comfortable. Awake, alert. SKIN: Warm and dry. HEAD: Normocephalic. EYES: No scleral icterus. No injection or drainage. NECK: Supple, trachea midline. No JVD. CARDIOVASCULAR: Regular rate and rhythm without murmurs, gallops, or rubs. RESPIRATORY: Breath sounds equal bilaterally. No accessory muscle use. GASTROINTESTINAL: Abdomen soft, non-tender, nondistended. Still significant stool from the stool collection. MUSCULOSKELETAL: No cyanosis, or edema. BACK: Nontender without obvious deformity. No CVA tenderness. - Urinary Catheter Management Indwelling Urethral Catheter Cath placed during this visit: yes, but has since been removed by the nurse Reason for continuing: Decision to DC catheter Insertion date: 03/18/18 Insertion time: 03:00 Removal date: 03/18/18 Removal time: 16:00 Results - Labs CBC & Chem 7: 03/20/18 08:39 03/20/18 08:39 Laboratory Results - last 24 hr 03/19/18 03/19/18 03/20/18 18:09 22:43 04:18 WBC RBC Hgb Hct MCV MCH MCHC RDW Plt Count MPV Neut % (Auto) Lymph % (Auto) [place] % (Auto) Eos % (Auto) Baso % (Auto) Neut # (Auto) Lymph # (Auto) [place] # (Auto) Eos # (Auto) Baso # (Auto) WBC Differential Differential Comment Sodium Potassium Chloride Carbon Dioxide Anion Gap BUN Creatinine Estimated GFR POC Glucose 201 H 161 H 115 H Random Glucose Calcium Phosphorus Magnesium Albumin 03/20/18 03/20/18 03/20/18 07:41 08:39 08:39 WBC 27.1 H RBC 2.78 L Hgb 7.8 L Hct 25.4 L MCV 91.3 MCH 28.2 MCHC 30.9 L RDW 16.3 Plt Count 352 MPV 8.1 Neut % (Auto) 83.0 H Lymph % (Auto) 12.3 [place] % (Auto) 4.3 Eos % (Auto) 0.3 Baso % (Auto) 0.1 Neut # (Auto) 22.4 H Lymph # (Auto) 3.3 [place] # (Auto) 1.2 H Eos # (Auto) 0.1 Baso # (Auto) 0.0 WBC Differential . Differential Comment Auto diff final Sodium 145 Potassium 3.6 D Chloride 112 H Carbon Dioxide 23.6 Anion Gap 9 BUN 27 H Creatinine 1.59 H Estimated GFR 31 L POC Glucose 95 Random Glucose 81 Calcium 8.1 L Phosphorus 1.9 L Magnesium 1.5 Albumin 1.4 L Microbiology 03/19/18 13:34 Blood - Peripheral Aerobic Blood Culture - Preliminary No growth in 1 day 03/19/18 13:34 Blood - Peripheral Anaerobic Blood Culture - Preliminary No growth in 1 day 03/18/18 00:20 Blood - Peripheral Aerobic Blood Culture - Preliminary No growth in 2 days 03/18/18 00:20 Blood - Peripheral Anaerobic Blood Culture - Preliminary No growth in 2 days 03/18/18 00:30 Blood - Peripheral Aerobic Blood Culture - Final Staphylococcus coag negative 03/18/18 00:30 Blood - Peripheral Anaerobic Blood Culture - Preliminary No growth in 2 days 03/18/18 02:20 Catheterized Urine Urine Culture - Final Enterobacter cloacae Assessment and Plan - Plan //Sepsis/recurrent severe C. difficile //gramPositive bacteremia //Suspected UTI. Stool studies positive for C. difficile Patient status post treatment with p.o. vancomycin completed approximately 4 weeks ago Recurrent diarrhea 2 days Leukocytosis, elevated lactic acid, fever and tachycardia Oral vancomycin Blood cultures pending Infectious disease consulted, appreciate recommendations = 03/19. Fever 102.7 overnight. Gram-positive bacteremia. Start vancomycin. Repeat cultures. Consult pharmacy for dosing. Continue treatment for C. difficile as well as UTI. Appreciate ID assistance. = 03/20. Afebrile overnight. Still with significant leukocytosis of 26. Enterobacter pansensitive from urine culture. Coag negative staph likely contaminant on admission. Continue treatment for severe C. difficile // Diabetes mellitus Continue home Levemir Sliding-scale insulin Monitor blood glucose == 03/19 hypoglycemia. Asymptomatic. Discontinue Levemir. -03/20. Due to borderline low glucose, patient requiring little insulin. Continue to monitor. //Hypokalemia. = 03/20. Resolved after replacement. //Hypomagnesemia. = 03/20. Resolved after replacement. // Hypertension/hyperlipidemia/hypothyroidism Continue home medications // Dementia Continue home medications // Acute kidney injury BUN/creatinine 25/1.75, baseline 1.4 IV fluid hydration Monitor renal function = Creatinine 1.59. Slightly improved. Discharge Planning: Continues treatment for sepsis. Need SNF, however patient is taking care of by family at home.. We will need ID clearance.
[2018-03-20] MEDS: amLODIPine 5 MG Tablet PO SCH (12:50)
[2018-03-20] MEDS: Potassium Chloride Inj 10 MEQ in Sodium Chloride 0.45 % Inj 1,000 ML IV.CONT SCH (13:47)
[2018-03-20] MEDS ORDERED: Vancomycin Inj 1,250 MG in Sodium Chlor 0.9% Inj 250 ML IV.SIG SCH (18:00)
[2018-03-20] MEDS: Latanoprost 0.005% Opth Drops 2.5 ML Bottle EACH EYE SCH (22:43)
[2018-03-21] MEDS: Potassium Chloride Inj 10 MEQ in Sodium Chloride 0.45 % Inj 1,000 ML IV.CONT SCH ×2 (03:46→16:55)
[2018-03-21] MEDS: Insulin NovoLOG Aspart Correctional Sugar Inj SQ SCH ×5 (05:04→21:40)
[2018-03-21] MEDS: Heparin - SQ 10,000 UNITS/ML Vial SQ SCH ×3 (05:44→21:41)
[2018-03-21 08:53] LABS: Baso % (Auto) 0.1 % (0.0-2.0); Eos # (Auto) 0.1 th/mm3 (0.0-0.4); Eos % (Auto) 0.6 % (0.0-4.0); Hematocrit 24.9 % (35.0-46.0); Hemoglobin 7.6 gm/dL (11.6-15.3); Lymph # (Auto) 2.4 th/mm3 (1.0-4.8); Lymph % (Auto) 10.8 % (9.0-44.0); Mean Corpuscular Volume 91.9 fL (80.0-100.0); Mean Platelet Volume 8.4 fL (7.0-11.0); Mono # (Auto) 0.9 th/mm3 (0.0-0.9); Mono % (Auto) 3.9 % (0.0-8.0); Neut # (Auto) 19.1 th/mm3 (1.8-7.7); Neut % (Auto) 84.6 % (16.0-70.0); Platelet Count 343 th/mm3 (150-450); Red Blood Count 2.71 mil/mm3 (4.00-5.30); Red Cell Distribution Width 16.5 % (11.6-17.2); White Blood Count 22.6 th/mm3 (4.0-11.0)
[2018-03-21] MEDS: Gabapentin 100 MG Capsule PO SCH ×2 (09:03→21:37)
[2018-03-21] MEDS: hydroCHLOROthiazide 25 MG Tablet PO SCH (09:03)
[2018-03-21] MEDS: amLODIPine 5 MG Tablet PO SCH (09:04)
[2018-03-21 09:08] LABS: Albumin 1.4 g/dL (3.4-5.0); Calcium 8.1 mg/dL (8.5-10.1); Carbon Dioxide 20.7 meq/L (21.0-32.0); Magnesium 1.3 mg/dL (1.5-2.5); Potassium 3.4 meq/L (3.5-5.1)
[2018-03-21 09:10] LABS: Phosphorus 2.4 mg/dL (2.5-4.9)
[2018-03-21 09:11] LABS: Mean Corpuscular HGB Conc 30.5 % (32.0-36.0)
--- NOTE | 2018-03-21 11:43 | P.PNWCN ---
Wound Care Nurse Consult Description: Received wound management consult for buttocks and L heel Communicated with: JOHANNA franklin, Doctor Zaira, and Doctor Michael Recommendation: 1.Please cleanse wounds to L buttock, R buttock and L heel with normal saline only and pat dry. 2.Apply Santyl ointment to all L buttock, R buttock and L heel gonzalo thickness 3. Please apply Calazime skin protectant paste to periwounds on bilateral buttocks.Cover wounds to L buttock and R buttock with bordered gauze.Apply Cavilon skin barrier film to intact skin before applying cover dressings with adhesive. 4. Cover L heel wound with optifoam basic secured with rolled gauze and tape. 5. Change dressings daily 6. Please place patient on [place] airapy bed or K4 bed from [employer] 7. Please turn patient from L side to R side limiting time on back to meals and P.T. 8. Please obtain and apply bilateral heel raiser boots 9. Please place Dignisheild. Wound/Pressure Injury - Patient Status Premedicated for Pain Prior to Dressing Change: No - Wound Right Buttocks Wound Staging: Stage III Wound Assessment: Ongoing Wound Type: Pressure Injury Is This a Chronic Wound: No Requested from Provider a Wound Care Consult: No Length: 0.3 (cm) Width: 0.7 (cm) Depth: 0.2 (~0.2cm) Wound Bed Appearance: [place], Yellow Wound Bed Appearance: Wound bed presents with ~80% pink tissue and ~20% thin yellow tissue. Surrounding Tissue Appearance: [place] Surrounding Tissue Temperature: Cool Drainage Description: Serosanguinous Drainage Amount: Scant Drainage Odor: No Odor Dressing Status: Changed Cleansing Solution: Saline Topical: Enzymatic Debridement Ointment Cover Dressing: Bordered gauze Wound Dressing Change Date: 03/21/18 Wound Margin Description: Well defined, open and steep Left Heel Wound Staging: Unstageable Wound Assessment: Ongoing Wound Type: Pressure Injury Is This a Chronic Wound: Yes Requested from Provider a Wound Care Consult: No Length: 1.1 (cm) Width: 2.2 (cm) Depth: 0 (slough) Wound Bed Appearance: [place], Yellow Wound Bed Appearance: Wound bed presents with ~90% yellow adherent slough and ~10% pale pink tissue Surrounding Tissue Appearance: [place] Surrounding Tissue Temperature: Cool Drainage Amount: Scant Drainage Odor: No Odor Dressing Status: Changed Cleansing Solution: Saline Primary Dressing: optifoam basic Cover Dressing: Gauze Roll/Wrap Tape Type: Paper Wound Dressing Change Date: 03/21/18 Wound Margin Description: uneven, open, and well defined Left Buttocks Wound Staging: Unstageable Wound Assessment: Ongoing Wound Type: Pressure Injury Is This a Chronic Wound: No Requested from Provider a Wound Care Consult: Yes (Wound care saw patient today) Length: 1.9 (cm) Width: 2.3 (cm) Depth: 0 (slough) Wound Bed Appearance: Red, Yellow Wound Bed Appearance: Wound bed presents with ~50% yellow slough, ~10% black eschar and ~40% red non granulation tissue Surrounding Tissue Appearance: [place] Surrounding Tissue Temperature: Cool Drainage Description: Serosanguinous Drainage Amount: Scant Drainage Odor: No Odor Dressing Status: Changed Cleansing Solution: Saline Cover Dressing: Bordered gauze Wound Dressing Change Date: 03/21/18 Wound Margin Description: Wound margins are uneven, open and well defined - Additional Information Patient was seen on [address] [place] [id number] for evaluation of buttocks and L heel wounds. Patient is noted laying on regular hospital bed positioned to R side. Patient was then turned with maximum assist to L side, with the assistance of policy writer typist and RN Antoni [address] [place] [id number] to reveal open wounds to bilateral buttocks. L buttock wound is an unstageable pressure injury with mixed etiology of moisture, pressure and friction. R buttock is a stage 3 pressure injury, and also is noted with mixed etilogy of moisture, pressure and friction.Periwound of both wounds presents with pink scar tissue and denuded skin.Cleansed open wounds with normal saline and patted dry. Applied skin barrier film to periwounds and covered wounds with bordered gauze. Patient was then positioned to L side off buttock with pillow in place for support Assessed L heel that is open to air. Wound presents as unstageable.All further wound measurements and descriptions are noted above. L heel wound was cleansed with normal saline and patted dry. Applied optifoam basic secured with rolled gauze and tape. Bilateral heels were floated for pressure relief.
--- NOTE | 2018-03-21 12:15 | P.PNID ---
Subjective Remarks: Patient states that she feels okay. Denies chills. Denies fever. Noted to have continued diarrhea. Denies abdominal pain. Lawson catheter has been removed. White blood cell count remained elevated. Afebrile. Also being followed by wound care for decubitus ulceration of the buttocks and left heel. This is an 82-year-old black female who presented to the emergency department on 03/17/2018 with nausea, vomiting and diarrhea. The patient had been treated with metronidazole for C. difficile infection along with cefuroxime for urine infection during a recent hospitalization at the end of December. The patient's daughter states that she completed the antibiotics and then she was hospitalized again at [facility] and was again treated for C. difficile. It appears that she was given vancomycin and completed the vancomycin 2 weeks' duration 1 week ago. Daughter note that she was having loose stools off and in between she would have no stools for about a day between. The daughter brought her to the emergency department because of the nausea, vomiting and diarrhea. Past Medical History: PAST MEDICAL HISTORY: Hypertension, diabetes mellitus, hypercholesterolemia, history of hysterectomy, dementia, renal mass. Allergies/Adverse Reactions: Allergies Penicillins Allergy (Intermediate, Verified 03/18/18 01:36) Swelling Objective Vital Signs 03/20/18 16:00 03/20/18 20:00 03/21/18 00:00 Temperature 98.4 F 99.7 F H 99.3 F Pulse Rate 87 91 H 79 Respiratory Rate 18 18 18 Blood Pressure 128/58 L 108/58 L 109/52 L Pulse Oximetry 96 98 97 03/21/18 04:00 03/21/18 08:00 Temperature 99.4 F 98.5 F Pulse Rate 82 80 Respiratory Rate 18 18 Blood Pressure 108/57 L 117/58 L Pulse Oximetry 97 98 Intake & Output 03/20/18 03/21/18 03/21/18 18:59 06:59 18:59 Intake Total 1017.5 / 1017.5 1105 / 1105 Output Total 1000 / 1000 Balance 17.5 / 17.5 1105 / 1105 Weight 98.7 kg Intake: IV 1017.5 / 1017.5 1105 / 1105 KCl Inj 10 MEQ In 1/2 Normal 1005 / 1005 Saline Inj 1,000 ML @ 84 mls/hr IV.CONT .[id number] [facility] Rx#: [id number] NS Inj 1,000 ML @ 100 mls/hr IV 500 / 500 .CONT .Q10H [facility] Rx#:[id number] Azactam Inj 1,000 MG In NS Inj 100 / 100 100 / 100 100 ML @ 200 mls/hr IV.SIG Q12H [facility] Rx#:[id number] Potassium Phosphate Inj 15 MMOL 155 / 155 In NS Inj 150 ML @ 38.75 mls/ hr IV.SIG ONCE ONE Rx#:[id number] Vancomycin Inj 1,250 MG In NS 262.5 / 262.5 Inj 250 ML @ 250 mls/hr IV.SIG Q24H [facility] Rx#:[id number] Output: Urine/Stool Mix 1000 / 1000 Other: # Voids 3 03/19/18 13:34 Blood - Peripheral Aerobic Blood Culture - Preliminary No growth in 2 days 03/19/18 13:34 Blood - Peripheral Anaerobic Blood Culture - Preliminary No growth in 2 days 03/18/18 00:20 Blood - Peripheral Aerobic Blood Culture - Preliminary No growth in 3 days 03/18/18 00:20 Blood - Peripheral Anaerobic Blood Culture - Preliminary No growth in 3 days 03/18/18 00:30 Blood - Peripheral Aerobic Blood Culture - Final Staphylococcus coag negative 03/18/18 00:30 Blood - Peripheral Anaerobic Blood Culture - Preliminary No growth in 3 days 03/18/18 02:20 Catheterized Urine Urine Culture - Final Enterobacter cloacae 03/18/18 01:00 Stool Stool for WBCs - Final Rare WBC's 03/18/18 01:00 Stool Clostridium difficile GDH Antigen - Final Positive - C. difficile Antigen detected. 03/18/18 01:00 Stool Clostridium difficile Toxin Assay - Final C.diff Toxin A &/or B Positive Lab - Hematology Results 03/20/18 03/21/18 08:39 08:24 WBC 27.1 H 22.6 H RBC 2.78 L 2.71 L Hgb 7.8 L 7.6 L Hct 25.4 L 24.9 L MCV 91.3 91.9 MCH 28.2 28.0 MCHC 30.9 L 30.5 L RDW 16.3 16.5 Plt Count 352 343 MPV 8.1 8.4 Neut % (Auto) 83.0 H 84.6 H Lymph % (Auto) 12.3 10.8 [place] % (Auto) 4.3 3.9 Eos % (Auto) 0.3 0.6 Baso % (Auto) 0.1 0.1 Neut # (Auto) 22.4 H 19.1 H Lymph # (Auto) 3.3 2.4 [place] # (Auto) 1.2 H 0.9 Eos # (Auto) 0.1 0.1 Baso # (Auto) 0.0 0.0 WBC Differential . . Differential Comment Auto diff final Auto diff final Lab - Chemistry Results 03/19/18 03/19/18 03/20/18 18:09 22:43 04:18 Sodium Potassium Chloride Carbon Dioxide Anion Gap BUN Creatinine Estimated GFR POC Glucose 201 H 161 H 115 H Random Glucose Calcium Phosphorus Magnesium Albumin 03/20/18 03/20/18 03/20/18 07:41 08:39 11:58 Sodium 145 Potassium 3.6 D Chloride 112 H Carbon Dioxide 23.6 Anion Gap 9 BUN 27 H Creatinine 1.59 H Estimated GFR 31 L POC Glucose 95 159 H Random Glucose 81 Calcium 8.1 L Phosphorus 1.9 L Magnesium 1.5 Albumin 1.4 L 03/21/18 03/21/18 08:24 09:20 Sodium 144 Potassium 3.4 L Chloride 113 H Carbon Dioxide 20.7 L Anion Gap 10 BUN 23 H Creatinine 1.32 H Estimated GFR 39 L POC Glucose 138 H Random Glucose 132 H Calcium 8.1 L Phosphorus 2.4 L Magnesium 1.3 L Albumin 1.4 L Imaging: ITS Impressions Chest X-Ray 03/17/18 21:00 CONCLUSION: 1. No acute cardiopulmonary disease. 2. Degenerative changes and scoliosis of the thoracolumbar spine. Physical Exam: PHYSICAL EXAMINATION: GENERAL: No acute distress. Awake and alert and oriented. HEENT: Head is atraumatic. Extraocular movements grossly intact. Pupils reactive to light, without icterus. Oropharynx moist mucosa without lesions. NECK: Supple without adenopathy. LUNGS: Clear to auscultation. HEART: Irregular rate and rhythm. No murmurs, rubs or gallops. ABDOMEN: Bowel sounds present. Soft, nontender. EXTREMITIES: No clubbing or cyanosis. Trace edema of the lower extremities. Left ankle heel ulceration appears clean. SKIN: No diffuse rash. NEUROLOGIC: The patient is alert and oriented. No gross focal findings. PSYCHIATRIC: Calm and cooperative. Assessment and Plan - Plan IMPRESSION: 1. Sepsis. 2. Clostridium difficile colitis, recurrent. 3. Urinary tract infection. 4. Left renal mass, yet to be yet to be biopsied. 5. Acute on chronic kidney disease. The patient also may have dehydration contributing to decreasing kidney function. RECOMMENDATIONS: 1. Continue aztreonam for UTI and sepsis due to Enterobacter cloacae. 2. Continue Dificid for C. difficile in patient with recurrent C. diff. 3. Continue p.o. vancomycin for now. Follow stools output. 4. Repeat the urine culture to check for clearance. 5. Follow the white blood cell count. 6. Follow the clinical status. 7. Renal mass biopsy when clinically stable. Biopsy of the renal masses is tentatively planned for 04/09/2018. However, once she becomes more stable, the procedure probably can be done while she is in the hospital here if the C. difficile is under control. That should be held off since she appears to have kidney infection and that infection should be under control prior to doing biopsy.
--- NOTE | 2018-03-21 15:13 | P.PNIM ---
Subjective Interval history: Patient says she is feeling right. Denies any chest pain or. Continued diarrhea. Physical Exam Vital signs: Vital Signs 03/20/18 16:00 03/20/18 20:00 03/21/18 00:00 Temperature 98.4 F 99.7 F H 99.3 F Pulse Rate 87 91 H 79 Respiratory Rate 18 18 18 Blood Pressure 128/58 L 108/58 L 109/52 L Pulse Oximetry 96 98 97 03/21/18 04:00 03/21/18 08:00 03/21/18 12:00 Temperature 99.4 F 98.5 F 98.7 F Pulse Rate 82 82 76 Respiratory Rate 18 18 16 Blood Pressure 108/57 L 117/58 L 120/59 L Pulse Oximetry 97 98 99 Intake & Output 03/20/18 03/21/18 03/21/18 18:59 06:59 18:59 Intake Total 1017.5 / 1017.5 1105 / 1105 Output Total 1000 / 1000 Balance 17.5 / 17.5 1105 / 1105 Weight 98.7 kg Intake: IV 1017.5 / 1017.5 1105 / 1105 KCl Inj 10 MEQ In 1/2 Normal 1005 / 1005 Saline Inj 1,000 ML @ 84 mls/hr IV.CONT .[id number] [facility] Rx#: [id number] NS Inj 1,000 ML @ 100 mls/hr IV 500 / 500 .CONT .Q10H [facility] Rx#:[id number] Azactam Inj 1,000 MG In NS Inj 100 / 100 100 / 100 100 ML @ 200 mls/hr IV.SIG Q12H [facility] Rx#:[id number] Potassium Phosphate Inj 15 MMOL 155 / 155 In NS Inj 150 ML @ 38.75 mls/ hr IV.SIG ONCE ONE Rx#:[id number] Vancomycin Inj 1,250 MG In NS 262.5 / 262.5 Inj 250 ML @ 250 mls/hr IV.SIG Q24H [facility] Rx#:[id number] Output: Urine/Stool Mix 1000 / 1000 Other: # Voids 3 Date of Last Bowel Movement 03/18/18 Narrative: GENERAL: Patient sitting up in bed. Appears comfortable. Awake, alert. no change on exam SKIN: Warm and dry. HEAD: Normocephalic. EYES: No scleral icterus. No injection or drainage. NECK: Supple, trachea midline. No JVD. CARDIOVASCULAR: Regular rate and rhythm without murmurs, gallops, or rubs. RESPIRATORY: Breath sounds equal bilaterally. No accessory muscle use. GASTROINTESTINAL: Abdomen soft, non-tender, nondistended. Still significant stool from the stool collection. MUSCULOSKELETAL: No cyanosis, or edema. BACK: Nontender without obvious deformity. No CVA tenderness. - Urinary Catheter Management Indwelling Urethral Catheter Cath placed during this visit: yes, but has since been removed by the nurse Reason for continuing: Decision to DC catheter Insertion date: 03/18/18 Insertion time: 03:00 Removal date: 03/18/18 Removal time: 16:00 Results - Labs CBC & Chem 7: 03/21/18 08:24 03/21/18 08:24 Laboratory Results - last 24 hr 03/20/18 03/21/18 03/21/18 14:07 08:24 08:24 WBC 22.6 H RBC 2.71 L Hgb 7.6 L Hct 24.9 L MCV 91.9 MCH 28.0 MCHC 30.5 L RDW 16.5 Plt Count 343 MPV 8.4 Neut % (Auto) 84.6 H Lymph % (Auto) 10.8 [place] % (Auto) 3.9 Eos % (Auto) 0.6 Baso % (Auto) 0.1 Neut # (Auto) 19.1 H Lymph # (Auto) 2.4 [place] # (Auto) 0.9 Eos # (Auto) 0.1 Baso # (Auto) 0.0 WBC Differential . Differential Comment Auto diff final Sodium 144 Potassium 3.4 L Chloride 113 H Carbon Dioxide 20.7 L Anion Gap 10 BUN 23 H Creatinine 1.32 H Estimated GFR 39 L POC Glucose Random Glucose 132 H Calcium 8.1 L Phosphorus 2.4 L Magnesium 1.3 L Albumin 1.4 L Random Vancomycin 17.8 03/21/18 03/21/18 09:20 11:53 WBC RBC Hgb Hct MCV MCH MCHC RDW Plt Count MPV Neut % (Auto) Lymph % (Auto) [place] % (Auto) Eos % (Auto) Baso % (Auto) Neut # (Auto) Lymph # (Auto) [place] # (Auto) Eos # (Auto) Baso # (Auto) WBC Differential Differential Comment Sodium Potassium Chloride Carbon Dioxide Anion Gap BUN Creatinine Estimated GFR POC Glucose 138 H 204 H Random Glucose Calcium Phosphorus Magnesium Albumin Random Vancomycin Microbiology 03/18/18 01:00 Stool Cryptosporidium Antigen - Final Negative - No Cryptosporicium antigen detected In selected cases of patients with a history of immunosuppression or foreign travel, a full ova and parasites examination may be desired. Contact the microbiology lab if full workup is indicated and subit another specimen for testing. 03/18/18 01:00 Stool Giardia Antigen (DENISE) - Final Negative - No Giardia Antigen detected In selected cases of patients with a history of immunosuppression or foreign travel, a full ova and parasites examination may be desired. Contact the microbiology lab if full workup is indicated and subit another specimen for testing. 03/19/18 13:34 Blood - Peripheral Aerobic Blood Culture - Preliminary No growth in 2 days 03/19/18 13:34 Blood - Peripheral Anaerobic Blood Culture - Preliminary No growth in 2 days 03/18/18 00:20 Blood - Peripheral Aerobic Blood Culture - Preliminary No growth in 3 days 03/18/18 00:20 Blood - Peripheral Anaerobic Blood Culture - Preliminary No growth in 3 days 03/18/18 00:30 Blood - Peripheral Aerobic Blood Culture - Final Staphylococcus coag negative 03/18/18 00:30 Blood - Peripheral Anaerobic Blood Culture - Preliminary No growth in 3 days Assessment and Plan - Plan //Sepsis/recurrent severe C. difficile //gramPositive bacteremia //Suspected UTI. Stool studies positive for C. difficile Patient status post treatment with p.o. vancomycin completed approximately 4 weeks ago Recurrent diarrhea 2 days Leukocytosis, elevated lactic acid, fever and tachycardia Oral vancomycin Blood cultures pending Infectious disease consulted, appreciate recommendations = 03/19. Fever 102.7 overnight. Gram-positive bacteremia. Start vancomycin. Repeat cultures. Consult pharmacy for dosing. Continue treatment for C. difficile as well as UTI. Appreciate ID assistance. = 03/20. Afebrile overnight. Still with significant leukocytosis of 26. Enterobacter pansensitive from urine culture. Coag negative staph likely contaminant on admission. Continue treatment for severe C. difficile. = 03/21 diarrhea continues. New treatment as per infectious disease. Still with leukocytosis. Will replace dignisheild. // Diabetes mellitus Continue home Levemir Sliding-scale insulin Monitor blood glucose == 03/19 hypoglycemia. Asymptomatic. Discontinue Levemir. =03/20. Due to borderline low glucose, patient requiring little insulin. Continue to monitor. =03/21. Blood sugars acceptable. Continue to monitor. //Hypokalemia. = 03/20. Resolved after replacement. //Hypomagnesemia. = 03/20. Resolved after replacement. =03/21 magnesium 1.3 // Hypertension/hyperlipidemia/hypothyroidism Continue home medications // Dementia Continue home medications // Acute kidney injury BUN/creatinine 25/1.75, baseline 1.4 IV fluid hydration Monitor renal function = Creatinine 1.3. Much improved. Discharge Planning: Continues treatment for sepsis. Need SNF, however patient is taking care of by family at home.. We will need ID clearance.
[2018-03-21] MEDS: Mag Sulf 1 gm/100 ml Premix 100 ML IV.SIG SCH ×2 (16:55→18:17)
[2018-03-21] MEDS: Collagenase Oint 30 GM Tube TOPICAL SCH (16:56)
[2018-03-21] MEDS: Latanoprost 0.005% Opth Drops 2.5 ML Bottle EACH EYE SCH (21:42)
[2018-03-22] MEDS: Potassium Chloride Inj 10 MEQ in Sodium Chloride 0.45 % Inj 1,000 ML IV.CONT SCH ×3 (03:04→15:32)
[2018-03-22] MEDS: Insulin NovoLOG Aspart Correctional Sugar Inj SQ SCH ×5 (03:11→22:14)
[2018-03-22] MEDS: Heparin - SQ 10,000 UNITS/ML Vial SQ SCH ×3 (05:58→22:15)
[2018-03-22] MEDS: hydroCHLOROthiazide 25 MG Tablet PO SCH (09:53)
[2018-03-22] MEDS: amLODIPine 5 MG Tablet PO SCH (09:54)
[2018-03-22] MEDS: Gabapentin 100 MG Capsule PO SCH ×2 (09:54→21:31)
--- NOTE | 2018-03-22 11:23 | P.PNIM ---
Subjective Interval history: Patient says she is feeling well. Denies shortness of breath. Physical Exam Vital signs: Vital Signs 03/21/18 12:00 03/21/18 16:00 03/21/18 20:00 Temperature 98.7 F 98.3 F Pulse Rate 76 85 83 Respiratory Rate 16 16 Blood Pressure 120/59 L 107/53 L Pulse Oximetry 99 100 03/21/18 23:51 03/22/18 00:00 03/22/18 04:00 Temperature 97.8 F 98 F 98.1 F Pulse Rate 86 78 75 Respiratory Rate 20 20 20 Blood Pressure 122/60 112/55 L 115/54 L Pulse Oximetry 100 97 93 L 03/22/18 08:00 Temperature 98.2 F Pulse Rate 83 Respiratory Rate 21 Blood Pressure 99/72 L Pulse Oximetry 99 Intake & Output 03/21/18 03/22/18 03/22/18 18:59 06:59 18:59 Intake Total 1925 / 1925 1325 / 1325 Output Total 200 / 200 Balance 1925 / 1925 1125 / 1125 Intake: IV 1205 / 1205 1205 / 1205 KCl Inj 10 MEQ In 1/2 Normal 1005 / 1005 1005 / 1005 Saline Inj 1,000 ML @ 84 mls/hr IV.CONT .[id number] JOHN Rx#: [id number] Azactam Inj 1,000 MG In NS Inj 100 / 100 100 / 100 100 ML @ 200 mls/hr IV.SIG Q12H JOHN Rx#:[id number] Magnesium Sulfate 1 gm/D5W 100 100 / 100 100 / 100 ml Premix 100 ML @ 100 mls/hr IV.SIG Q1H JOHN Rx#:[id number] Oral 720 / 720 120 / 120 Output: Urine 200 / 200 Other: # Voids 0 1 # Incontinent Voids 2 Date of Last Bowel Movement 03/18/18 03/21/18 # Bowel Movements 0 Narrative: GENERAL: Patient sitting up in bed. Appears comfortable. Awake, alert. Patient smiling. SKIN: Warm and dry. HEAD: Normocephalic. EYES: No scleral icterus. No injection or drainage. NECK: Supple, trachea midline. No JVD. CARDIOVASCULAR: Regular rate and rhythm without murmurs, gallops, or rubs. RESPIRATORY: Breath sounds equal bilaterally. No accessory muscle use. GASTROINTESTINAL: Abdomen soft, non-tender, nondistended. MUSCULOSKELETAL: No cyanosis, or edema. BACK: Nontender without obvious deformity. No CVA tenderness. - Urinary Catheter Management Indwelling Urethral Catheter Cath placed during this visit: yes, but has since been removed by the nurse Reason for continuing: Decision to DC catheter Insertion date: 03/18/18 Insertion time: 03:00 Removal date: 03/18/18 Removal time: 16:00 Results - Labs CBC & Chem 7: 03/21/18 08:24 03/21/18 08:24 Laboratory Results - last 24 hr 03/21/18 03/21/18 03/21/18 11:53 16:31 19:52 POC Glucose 204 H 267 H 276 H 03/22/18 02:59 POC Glucose 143 H Microbiology 03/19/18 13:34 Blood - Peripheral Aerobic Blood Culture - Preliminary No growth in 3 days 03/19/18 13:34 Blood - Peripheral Anaerobic Blood Culture - Preliminary No growth in 3 days 03/18/18 00:20 Blood - Peripheral Aerobic Blood Culture - Preliminary No growth in 4 days 03/18/18 00:20 Blood - Peripheral Anaerobic Blood Culture - Preliminary No growth in 4 days 03/18/18 00:30 Blood - Peripheral Aerobic Blood Culture - Final Staphylococcus coag negative 03/18/18 00:30 Blood - Peripheral Anaerobic Blood Culture - Preliminary No growth in 4 days 03/18/18 01:00 Stool Cryptosporidium Antigen - Final Negative - No Cryptosporicium antigen detected In selected cases of patients with a history of immunosuppression or foreign travel, a full ova and parasites examination may be desired. Contact the microbiology lab if full workup is indicated and subit another specimen for testing. 03/18/18 01:00 Stool Giardia Antigen (DENISE) - Final Negative - No Giardia Antigen detected In selected cases of patients with a history of immunosuppression or foreign travel, a full ova and parasites examination may be desired. Contact the microbiology lab if full workup is indicated and subit another specimen for testing. Assessment and Plan - Plan //Sepsis/recurrent severe C. difficile //gramPositive bacteremia //Suspected UTI. Stool studies positive for C. difficile Patient status post treatment with p.o. vancomycin completed approximately 4 weeks ago Recurrent diarrhea 2 days Leukocytosis, elevated lactic acid, fever and tachycardia Oral vancomycin Blood cultures pending Infectious disease consulted, appreciate recommendations = 03/19. Fever 102.7 overnight. Gram-positive bacteremia. Start vancomycin. Repeat cultures. Consult pharmacy for dosing. Continue treatment for C. difficile as well as UTI. Appreciate ID assistance. = 03/20. Afebrile overnight. Still with significant leukocytosis of 26. Enterobacter pansensitive from urine culture. Coag negative staph likely contaminant on admission. Continue treatment for severe C. difficile. = 03/21 diarrhea continues. New treatment as per infectious disease. Still with leukocytosis. Will replace dignisheild. = 03/22. Follow-up white count. Continue antibiotics // Diabetes mellitus Continue home Levemir Sliding-scale insulin Monitor blood glucose == 03/19 hypoglycemia. Asymptomatic. Discontinue Levemir. =03/20. Due to borderline low glucose, patient requiring little insulin. Continue to monitor. =03/21. Blood sugars acceptable. Continue to monitor. //Hypokalemia. = Follow-up labs today //Hypomagnesemia. = 03/20. Resolved after replacement. =03/21 magnesium 1.3 // Hypertension/hyperlipidemia/hypothyroidism Continue home medications // Dementia Continue home medications // Acute kidney injury BUN/creatinine 25/1.75, baseline 1.4 IV fluid hydration Monitor renal function = Creatinine 1.3. Much improved. Discharge Planning: Continues treatment for sepsis. Need SNF, however patient is taking care of by family at home.. We will need ID clearance.
[2018-03-22 12:46] LABS: Baso # (Auto) 0.1 th/mm3 (0.0-0.2); Baso % (Auto) 0.3 % (0.0-2.0); Eos # (Auto) 0.1 th/mm3 (0.0-0.4); Eos % (Auto) 0.4 % (0.0-4.0); Hematocrit 26.2 % (35.0-46.0); Hemoglobin 8.2 gm/dL (11.6-15.3); Lymph # (Auto) 2.2 th/mm3 (1.0-4.8); Lymph % (Auto) 10.1 % (9.0-44.0); Mean Corpuscular HGB Conc 31.3 % (32.0-36.0); Mean Corpuscular Hemoglobin 28.7 pg (27.0-34.0); Mean Corpuscular Volume 91.7 fL (80.0-100.0); Mean Platelet Volume 8.3 fL (7.0-11.0); Mono % (Auto) 4.8 % (0.0-8.0); Neut # (Auto) 18.1 th/mm3 (1.8-7.7); Neut % (Auto) 84.4 % (16.0-70.0); Platelet Count 381 th/mm3 (150-450); Red Blood Count 2.85 mil/mm3 (4.00-5.30); Red Cell Distribution Width 16.6 % (11.6-17.2); White Blood Count 21.5 th/mm3 (4.0-11.0)
[2018-03-22 13:08] LABS: Albumin 1.4 g/dL (3.4-5.0); Calcium 8.1 mg/dL (8.5-10.1); Carbon Dioxide 19.5 meq/L (21.0-32.0); Magnesium 1.7 mg/dL (1.5-2.5); Phosphorus 2.2 mg/dL (2.5-4.9); Potassium 4.2 meq/L (3.5-5.1)
[2018-03-22] MEDS ORDERED: Sodium Bicarbonate 650 MG Tablet PO ONE (14:25)
[2018-03-22] MEDS: Collagenase Oint 30 GM Tube TOPICAL SCH (15:32)
--- NOTE | 2018-03-22 15:39 | P.DIET ---
Nutritional Evaluation Type of nutrition evaluation: initial Nutrition screening: Pressure Injury ([facility] [place]) Subjective Subjective Comments: Pt seen in room w/ her daughter (primary caregiver). Pt and daughter agreeable to Waqar BID for wound healing. Pt says she likes Glucerna Shakes and daughter usually provides 1 every day for pt's HS snack. Pt denied N/V/D/C. Trouble chewing b/c pt is edentulous. Objective - Diagnosis Severe Sepsis - Objective % IBW: 197 (GUN=363#) Body Weight Used for Calculations: Upper end of IBW (55kg) Energy Needs - Lower Range (kCal/kg): 30 Energy Needs - Upper Range (kCal/kg): 35 Lower Limit kCal/kg (kCals): 1,650 Upper Limit kCal/kg (kCals): 1,925 Lower Limit Protein Factor (Grams per Kg): 1.2 Upper Limit Protein Factor (Grams per Kg): 1.5 Lower Protein Needs (Protein): 66 Upper Protein Needs (Protein): 83 Dietitian Reviewed in Medical Record: Current diet, Curent medications, Intake & Output, Labs, Medical history Diet Order: 1800ADA Oral Diet Intake Amount: Fair 50-75% Wound Care Note: 03/21 WOCN: R buttocks stage 3, L buttock unstageable, L heel unstageable Objective Comments: Meds: Santyl, Hydrodiuril, Synthroid Labs: BUN 23, network operations specialist 1.32, eGFR 39, K 3.4, Phos 2.4, Mg 1.3 LBM 03/21 - c.diff+ Assessment Assessment: Pt admitted for severe sepsis. She has a hx of dementia and could verbalize w/ me although she needs time to respond. She is at 197% of her IBW. Daughter present and states pt usually receives a Glucerna Shake daily at home for her bedtime snack. Pt and daughter agreeable to Waqar powder BID for wound healing. WOCN reviewed, pt has 2 unstageable and one stage 3 pressure injuries. Current diet order is 1800ADA and this is appropriate. Glucerna Shake QD on dinner tray and Waqar powder BID on lunch tray. Denied N/V/D/C. Pt has no teeth and does not have her upper denture here. Dietitian following. Recommendations: 1. Continue 1800ADA diet. 2. Glucerna Shake on dinner tray. 3. Waqar powder BID for wound healing on lunch tray. Dietitian to Monitor: Lab values, Supplement acceptance, Intake & Output, Diet tolerance, Weight change, PO Intake, Wound/skin status, Medical course
[2018-03-22] MEDS ORDERED: Pharmacy Ordered Lab Info OTHER ONE (17:45)
[2018-03-22] MEDS: Latanoprost 0.005% Opth Drops 2.5 ML Bottle EACH EYE SCH (22:15)
[2018-03-23] MEDS: Potassium Chloride Inj 10 MEQ in Sodium Chloride 0.45 % Inj 1,000 ML IV.CONT SCH ×3 (01:32→15:16)
[2018-03-23] MEDS: Insulin NovoLOG Aspart Correctional Sugar Inj SQ SCH ×5 (04:56→21:48)
[2018-03-23] MEDS: Heparin - SQ 10,000 UNITS/ML Vial SQ SCH (05:30)
[2018-03-23 07:08] LABS: Baso # (Auto) 0.2 th/mm3 (0.0-0.2); Baso % (Auto) 0.9 % (0.0-2.0); Eos # (Auto) 0.2 th/mm3 (0.0-0.4); Eos % (Auto) 0.8 % (0.0-4.0); Hematocrit 25.7 % (35.0-46.0); Hemoglobin 8.2 gm/dL (11.6-15.3); Lymph # (Auto) 2.7 th/mm3 (1.0-4.8); Lymph % (Auto) 12.9 % (9.0-44.0); Mean Corpuscular HGB Conc 31.8 % (32.0-36.0); Mean Corpuscular Hemoglobin 28.3 pg (27.0-34.0); Mean Platelet Volume 8.4 fL (7.0-11.0); Mono # (Auto) 1.3 th/mm3 (0.0-0.9); Neut # (Auto) 16.7 th/mm3 (1.8-7.7); Neut % (Auto) 79.4 % (16.0-70.0); Platelet Count 390 th/mm3 (150-450); Red Blood Count 2.89 mil/mm3 (4.00-5.30); Red Cell Distribution Width 16.6 % (11.6-17.2)
[2018-03-23 07:43] LABS: Albumin 1.3 g/dL (3.4-5.0); Calcium 8.3 mg/dL (8.5-10.1); Magnesium 1.4 mg/dL (1.5-2.5); Phosphorus 2.1 mg/dL (2.5-4.9); Potassium 3.3 meq/L (3.5-5.1)
[2018-03-23] MEDS: amLODIPine 5 MG Tablet PO SCH (08:41)
[2018-03-23] MEDS: hydroCHLOROthiazide 25 MG Tablet PO SCH (08:42)
[2018-03-23] MEDS: Gabapentin 100 MG Capsule PO SCH ×2 (08:42→21:47)
[2018-03-23] MEDS: Collagenase Oint 30 GM Tube TOPICAL SCH (08:43)
--- NOTE | 2018-03-23 12:41 | P.PNID ---
Subjective Remarks: Patient states that she feels okay. Denies chills. Denies fever. Diary was noted to have improved. Denies abdominal pain. Repeat urine culture has less than 10,000 colonies of gram-negative vianey and greater than 100,000 colonies of yeast. White blood cell count remains elevated. Afebrile. This is an 82-year-old black female who presented to the emergency department on 03/17/2018 with nausea, vomiting and diarrhea. The patient had been treated with metronidazole for C. difficile infection along with cefuroxime for urine infection during a recent hospitalization at the end of December. The patient's daughter states that she completed the antibiotics and then she was hospitalized again at [facility] and was again treated for C. difficile. It appears that she was given vancomycin and completed the vancomycin 2 weeks' duration 1 week ago. Daughter note that she was having loose stools off and in between she would have no stools for about a day between. The daughter brought her to the emergency department because of the nausea, vomiting and diarrhea. Past Medical History: PAST MEDICAL HISTORY: Hypertension, diabetes mellitus, hypercholesterolemia, history of hysterectomy, dementia, renal mass. Allergies/Adverse Reactions: Allergies Penicillins Allergy (Intermediate, Verified 03/18/18 01:36) Swelling Objective Vital Signs 03/22/18 16:00 03/22/18 20:00 03/23/18 00:00 Temperature 97.6 F 97.9 F 97.9 F Pulse Rate 86 78 80 Respiratory Rate 20 20 20 Blood Pressure 119/76 121/77 119/58 L Pulse Oximetry 100 100 100 03/23/18 04:00 03/23/18 08:00 03/23/18 09:00 Temperature 97.8 F 98.0 F Pulse Rate 79 78 72 Respiratory Rate 20 17 Blood Pressure 131/60 134/74 Pulse Oximetry 100 99 03/23/18 12:00 Temperature 97.9 F Pulse Rate 85 Respiratory Rate 17 Blood Pressure 101/52 L Pulse Oximetry 98 Intake & Output 03/22/18 03/23/18 03/23/18 18:59 06:59 18:59 Intake Total 580 / 580 580 / 580 Output Total 1000 / 1000 2100 / 2100 Balance -420 / -420 -1520 / -1520 Intake: IV 100 / 100 100 / 100 Azactam Inj 1,000 MG In NS Inj 100 / 100 100 / 100 100 ML @ 200 mls/hr IV.SIG Q12H JOHN Rx#:[id number] Oral 480 / 480 480 / 480 Output: Urine 1000 / 1000 800 / 800 Stool 300 / 300 Urine/Stool Mix 1000 / 1000 Other: # Voids 4 # Incontinent Voids 2 Date of Last Bowel Movement 03/22/18 03/22/18 # Bowel Movements 4 4 03/22/18 03:00 Catheterized Urine Urine Culture - Preliminary gram negative rods Yeast - ID to follow 03/19/18 13:34 Blood - Peripheral Aerobic Blood Culture - Preliminary No growth in 4 days 03/19/18 13:34 Blood - Peripheral Anaerobic Blood Culture - Preliminary No growth in 4 days 03/18/18 00:20 Blood - Peripheral Aerobic Blood Culture - Final No growth in 5 days 03/18/18 00:20 Blood - Peripheral Anaerobic Blood Culture - Final No growth in 5 days 03/18/18 00:30 Blood - Peripheral Aerobic Blood Culture - Final Staphylococcus coag negative 03/18/18 00:30 Blood - Peripheral Anaerobic Blood Culture - Final No growth in 5 days 03/18/18 01:00 Stool Cryptosporidium Antigen - Final Negative - No Cryptosporicium antigen detected In selected cases of patients with a history of immunosuppression or foreign travel, a full ova and parasites examination may be desired. Contact the microbiology lab if full workup is indicated and subit another specimen for testing. 03/18/18 01:00 Stool Giardia Antigen (DENISE) - Final Negative - No Giardia Antigen detected In selected cases of patients with a history of immunosuppression or foreign travel, a full ova and parasites examination may be desired. Contact the microbiology lab if full workup is indicated and subit another specimen for testing. 03/18/18 02:20 Catheterized Urine Urine Culture - Final Enterobacter cloacae Lab - Hematology Results 03/22/18 03/23/18 12:05 06:37 WBC 21.5 H 21.0 H RBC 2.85 L 2.89 L Hgb 8.2 L 8.2 L Hct 26.2 L 25.7 L MCV 91.7 89.0 MCH 28.7 28.3 MCHC 31.3 L 31.8 L RDW 16.6 16.6 Plt Count 381 390 MPV 8.3 8.4 Neut % (Auto) 84.4 H 79.4 H Lymph % (Auto) 10.[address] [place] % (Auto) 4.8 6.0 Eos % (Auto) 0.4 0.8 Baso % (Auto) 0.3 0.9 Neut # (Auto) 18.1 H 16.7 H Lymph # (Auto) 2.[address] [place] # (Auto) 1.0 H 1.3 H Eos # (Auto) 0.1 0.2 Baso # (Auto) 0.1 0.2 WBC Differential . . Differential Comment Auto diff final Auto diff final Lab - Chemistry Results 03/21/18 03/21/18 03/22/18 16:31 19:52 02:59 Sodium Potassium Chloride Carbon Dioxide Anion Gap BUN Creatinine Estimated GFR POC Glucose 267 H 276 H 143 H Random Glucose Calcium Phosphorus Magnesium Albumin 03/22/18 03/22/18 03/22/18 12:05 17:10 20:10 Sodium 141 Potassium 4.2 D Chloride 109 H Carbon Dioxide 19.5 L Anion Gap 13 BUN 18 Creatinine 1.15 H Estimated GFR 45 L POC Glucose 283 H 243 H Random Glucose 208 H Calcium 8.1 L Phosphorus 2.2 L Magnesium 1.7 Albumin 1.4 L 03/23/18 03/23/18 06:37 11:56 Sodium 142 Potassium 3.3 L D Chloride 109 H Carbon Dioxide 21.0 Anion Gap 12 BUN 15 Creatinine 0.96 Estimated GFR 56 L POC Glucose 208 H Random Glucose 115 H Calcium 8.3 L Phosphorus 2.1 L Magnesium 1.4 L Albumin 1.3 L Imaging: ITS Impressions Chest X-Ray 03/17/18 21:00 CONCLUSION: 1. No acute cardiopulmonary disease. 2. Degenerative changes and scoliosis of the thoracolumbar spine. Physical Exam: PHYSICAL EXAMINATION: GENERAL: No acute distress. Awake and alert and oriented. HEENT: Head is atraumatic. Extraocular movements grossly intact. Pupils reactive to light, without icterus. Oropharynx moist mucosa without lesions. NECK: Supple without adenopathy. LUNGS: Clear to auscultation. HEART: Irregular rate and rhythm. No murmurs, rubs or gallops. ABDOMEN: Bowel sounds present. Soft, nontender. EXTREMITIES: No clubbing or cyanosis. Trace edema of the lower extremities. Left ankle heel ulceration appears clean. SKIN: No diffuse rash. NEUROLOGIC: Awake and alert and oriented. nonfocal. PSYCHIATRIC: Calm and cooperative. Assessment and Plan - Plan IMPRESSION: 1. Sepsis. 2. Clostridium difficile colitis, recurrent. 3. Urinary tract infection. Repeat urine culture shows Ale and decreased colony count of gram-negative vianey. 4. Left renal mass, yet to be yet to be biopsied. 5. Acute on chronic kidney disease. The patient also may have dehydration contributing to decreasing kidney function. RECOMMENDATIONS: 1. Continue aztreonam for UTI and sepsis due to Enterobacter cloacae until 03/26. 2. Add Diflucan for Ale in the urine. 3. Continue Dificid for C. difficile in patient with recurrent C. diff. Until 03/28/2018. 4. Continue p.o. vancomycin for now. Give vancomycin taper for 6 weeks on discharge. 5. Follow the white blood cell count. 6. Follow the clinical status. 7. Renal mass biopsy when clinically stable.
--- NOTE | 2018-03-23 12:43 | P.PNIM ---
Subjective Interval history: Patient says she is feeling alright. Denies any chest pain shortness of breath. Discussion with daughter in the room. Daughter is very upset about anyone mentioning rehab. does not want heparin, SQ, but is okay with SCD. d/w daughter risk of PE. Physical Exam Vital signs: Vital Signs 03/22/18 16:00 03/22/18 20:00 03/23/18 00:00 Temperature 97.6 F 97.9 F 97.9 F Pulse Rate 86 78 80 Respiratory Rate 20 20 20 Blood Pressure 119/76 121/77 119/58 L Pulse Oximetry 100 100 100 03/23/18 04:00 03/23/18 08:00 03/23/18 09:00 Temperature 97.8 F 98.0 F Pulse Rate 79 78 72 Respiratory Rate 20 17 Blood Pressure 131/60 134/74 Pulse Oximetry 100 99 03/23/18 12:00 Temperature 97.9 F Pulse Rate 85 Respiratory Rate 17 Blood Pressure 101/52 L Pulse Oximetry 98 Intake & Output 03/22/18 03/23/18 03/23/18 18:59 06:59 18:59 Intake Total 580 / 580 580 / 580 Output Total 1000 / 1000 2100 / 2100 Balance -420 / -420 -1520 / -1520 Intake: IV 100 / 100 100 / 100 Azactam Inj 1,000 MG In NS Inj 100 / 100 100 / 100 100 ML @ 200 mls/hr IV.SIG Q12H JOHN Rx#:[id number] Oral 480 / 480 480 / 480 Output: Urine 1000 / 1000 800 / 800 Stool 300 / 300 Urine/Stool Mix 1000 / 1000 Other: # Voids 4 # Incontinent Voids 2 Date of Last Bowel Movement 03/22/18 03/22/18 # Bowel Movements 4 4 Narrative: GENERAL: Patient sitting up in bed. Appears comfortable. Awake, alert. SKIN: Warm and dry. HEAD: Normocephalic. EYES: No scleral icterus. No injection or drainage. NECK: Supple, trachea midline. No JVD. CARDIOVASCULAR: Regular rate and rhythm without murmurs, gallops, or rubs. RESPIRATORY: Breath sounds equal bilaterally. No accessory muscle use. GASTROINTESTINAL: Abdomen soft, non-tender, nondistended. MUSCULOSKELETAL: No cyanosis, or edema. BACK: Nontender without obvious deformity. No CVA tenderness. - Urinary Catheter Management Indwelling Urethral Catheter Cath placed during this visit: yes, but has since been removed by the nurse Reason for continuing: Decision to DC catheter Insertion date: 03/18/18 Insertion time: 03:00 Removal date: 03/18/18 Removal time: 16:00 Results - Labs CBC & Chem 7: 03/23/18 06:37 03/23/18 06:37 Laboratory Results - last 24 hr 03/18/18 03/22/18 03/22/18 01:00 12:05 12:05 WBC 21.5 H RBC 2.85 L Hgb 8.2 L Hct 26.2 L MCV 91.7 MCH 28.7 MCHC 31.3 L RDW 16.6 Plt Count 381 MPV 8.3 Neut % (Auto) 84.4 H Lymph % (Auto) 10.1 [place] % (Auto) 4.8 Eos % (Auto) 0.4 Baso % (Auto) 0.3 Neut # (Auto) 18.1 H Lymph # (Auto) 2.2 [place] # (Auto) 1.0 H Eos # (Auto) 0.1 Baso # (Auto) 0.1 WBC Differential . Differential Comment Auto diff final Sodium 141 Potassium 4.2 D Chloride 109 H Carbon Dioxide 19.5 L Anion Gap 13 BUN 18 Creatinine 1.15 H Estimated GFR 45 L POC Glucose Random Glucose 208 H Calcium 8.1 L Phosphorus 2.2 L Magnesium 1.7 Albumin 1.4 L Stool Lactoferrin Positive A 03/22/18 03/22/18 03/23/18 17:10 20:10 06:37 WBC 21.0 H RBC 2.89 L Hgb 8.2 L Hct 25.7 L MCV 89.0 MCH 28.3 MCHC 31.8 L RDW 16.6 Plt Count 390 MPV 8.4 Neut % (Auto) 79.4 H Lymph % (Auto) 12.9 [place] % (Auto) 6.0 Eos % (Auto) 0.8 Baso % (Auto) 0.9 Neut # (Auto) 16.7 H Lymph # (Auto) 2.7 [place] # (Auto) 1.3 H Eos # (Auto) 0.2 Baso # (Auto) 0.2 WBC Differential . Differential Comment Auto diff final Sodium Potassium Chloride Carbon Dioxide Anion Gap BUN Creatinine Estimated GFR POC Glucose 283 H 243 H Random Glucose Calcium Phosphorus Magnesium Albumin Stool Lactoferrin 03/23/18 03/23/18 06:37 11:56 WBC RBC Hgb Hct MCV MCH MCHC RDW Plt Count MPV Neut % (Auto) Lymph % (Auto) [place] % (Auto) Eos % (Auto) Baso % (Auto) Neut # (Auto) Lymph # (Auto) [place] # (Auto) Eos # (Auto) Baso # (Auto) WBC Differential Differential Comment Sodium 142 Potassium 3.3 L D Chloride 109 H Carbon Dioxide 21.0 Anion Gap 12 BUN 15 Creatinine 0.96 Estimated GFR 56 L POC Glucose 208 H Random Glucose 115 H Calcium 8.3 L Phosphorus 2.1 L Magnesium 1.4 L Albumin 1.3 L Stool Lactoferrin Microbiology 03/22/18 03:00 Catheterized Urine Urine Culture - Preliminary gram negative rods Yeast - ID to follow 03/19/18 13:34 Blood - Peripheral Aerobic Blood Culture - Preliminary No growth in 4 days 03/19/18 13:34 Blood - Peripheral Anaerobic Blood Culture - Preliminary No growth in 4 days 03/18/18 00:20 Blood - Peripheral Aerobic Blood Culture - Final No growth in 5 days 03/18/18 00:20 Blood - Peripheral Anaerobic Blood Culture - Final No growth in 5 days 03/18/18 00:30 Blood - Peripheral Aerobic Blood Culture - Final Staphylococcus coag negative 03/18/18 00:30 Blood - Peripheral Anaerobic Blood Culture - Final No growth in 5 days Assessment and Plan - Plan //Sepsis/recurrent severe C. difficile //gramPositive bacteremia //Suspected UTI. Stool studies positive for C. difficile Patient status post treatment with p.o. vancomycin completed approximately 4 weeks ago Recurrent diarrhea 2 days Leukocytosis, elevated lactic acid, fever and tachycardia Oral vancomycin Blood cultures pending Infectious disease consulted, appreciate recommendations = 03/19. Fever 102.7 overnight. Gram-positive bacteremia. Start vancomycin. Repeat cultures. Consult pharmacy for dosing. Continue treatment for C. difficile as well as UTI. Appreciate ID assistance. = 03/20. Afebrile overnight. Still with significant leukocytosis of 26. Enterobacter pansensitive from urine culture. Coag negative staph likely contaminant on admission. Continue treatment for severe C. difficile. = 03/21 diarrhea continues. New treatment as per infectious disease. Still with leukocytosis. Will replace dignisheild. = 03/22. Follow-up white count. Continue antibiotics = 03/23. White count slowly improving. Repeat urine culture is gram-negative rods, yeast. Discussed with infectious disease. Appreciate assistance. // Diabetes mellitus Continue home Levemir Sliding-scale insulin Monitor blood glucose == 03/19 hypoglycemia. Asymptomatic. Discontinue Levemir. =03/20. Due to borderline low glucose, patient requiring little insulin. Continue to monitor. =03/21. Blood sugars acceptable. Continue to monitor. //Hypokalemia. = Follow-up labs today //Hypomagnesemia. = 03/20. Resolved after replacement. =03/21 magnesium 1.3 = 03/23. Magnesium 1.4. Likely secondary to diarrhea. Replace and monitor. // Hypertension/hyperlipidemia/hypothyroidism Continue home medications // Dementia Continue home medications // Acute kidney injury BUN/creatinine 25/1.75, baseline 1.4 IV fluid hydration Monitor renal function = Creatinine 0.96. Much improved. Discharge Planning: Continues treatment for sepsis. patient is taking care of by family at home.. We will need ID clearance. has renal biopsy scheduled for 04/05
[2018-03-23] MEDS: Mag Sulf 1 gm/100 ml Premix 100 ML IV.SIG SCH ×2 (13:03→15:16)
--- NOTE | 2018-03-23 14:31 | P.DCO ---
- Physical Therapy Order: Evaluate and treat - Home Health Nursing Order: Wound care and dressing changes, Nursing assessment with vital signs Instructions: Care and monitoring of pressure ulcers. Please see wound care recommendations. - Counselor Aide Order: To evaluate: Support services Order: To provide: Community services - Certification I have seen patient Susan Taylor on 03/23/18. My clinical findings support the need for the requested home health care services because: Limited ability to care for self I certify that my clinical findings support that this patient is homebound because: Unsafe to leave home unassisted
[2018-03-23] MEDS: Fluconazole 100 MG Tablet PO SCH (16:20)
[2018-03-23] MEDS: Latanoprost 0.005% Opth Drops 2.5 ML Bottle EACH EYE SCH (21:49)
[2018-03-24] MEDS: Potassium Chloride Inj 10 MEQ in Sodium Chloride 0.45 % Inj 1,000 ML IV.CONT SCH ×2 (03:03→14:44)
[2018-03-24] MEDS: Insulin NovoLOG Aspart Correctional Sugar Inj SQ SCH ×5 (03:11→22:52)
[2018-03-24 07:16] LABS: Baso % (Auto) 0.2 % (0.0-2.0); Eos # (Auto) 0.2 th/mm3 (0.0-0.4); Eos % (Auto) 0.9 % (0.0-4.0); Hematocrit 23.2 % (35.0-46.0); Hemoglobin 7.3 gm/dL (11.6-15.3); Lymph # (Auto) 2.6 th/mm3 (1.0-4.8); Lymph % (Auto) 14.1 % (9.0-44.0); Mean Corpuscular HGB Conc 31.4 % (32.0-36.0); Mean Corpuscular Hemoglobin 28.4 pg (27.0-34.0); Mean Corpuscular Volume 90.6 fL (80.0-100.0); Mono # (Auto) 1.2 th/mm3 (0.0-0.9); Mono % (Auto) 6.6 % (0.0-8.0); Neut # (Auto) 14.4 th/mm3 (1.8-7.7); Neut % (Auto) 78.2 % (16.0-70.0); Platelet Count 364 th/mm3 (150-450); Red Blood Count 2.56 mil/mm3 (4.00-5.30); Red Cell Distribution Width 16.9 % (11.6-17.2); White Blood Count 18.4 th/mm3 (4.0-11.0)
[2018-03-24 07:31] LABS: Albumin 1.3 g/dL (3.4-5.0); Calcium 8.4 mg/dL (8.5-10.1); Carbon Dioxide 21.5 meq/L (21.0-32.0); Magnesium 1.6 mg/dL (1.5-2.5); Phosphorus 1.9 mg/dL (2.5-4.9); Potassium 3.7 meq/L (3.5-5.1)
[2018-03-24] MEDS: amLODIPine 5 MG Tablet PO SCH (08:39)
[2018-03-24] MEDS: Gabapentin 100 MG Capsule PO SCH ×2 (08:39→22:52)
[2018-03-24] MEDS: hydroCHLOROthiazide 25 MG Tablet PO SCH (08:39)
[2018-03-24] MEDS: Collagenase Oint 30 GM Tube TOPICAL SCH (08:45)
[2018-03-24] MEDS: Fluconazole 100 MG Tablet PO SCH (16:43)
--- NOTE | 2018-03-24 17:22 | P.PNIM ---
Subjective Interval history: Patient says she is feeling all right. Denies any chest pain or shortness of breath. Physical Exam Vital signs: Vital Signs 03/23/18 20:00 03/24/18 00:00 03/24/18 04:00 Temperature 98.1 F 98.7 F 98.5 F Pulse Rate 92 H 85 82 Respiratory Rate 18 18 18 Blood Pressure 162/74 H 130/64 138/68 Pulse Oximetry 94 L 97 96 03/24/18 08:00 03/24/18 09:00 03/24/18 12:00 Temperature 97.8 F 98.2 F Pulse Rate 82 93 H 74 Respiratory Rate 16 16 Blood Pressure 120/58 L 117/60 Pulse Oximetry 100 100 03/24/18 16:00 Temperature 97.9 F Pulse Rate 86 Respiratory Rate 16 Blood Pressure 125/53 L Pulse Oximetry 98 Intake & Output 03/23/18 03/24/18 03/24/18 18:59 06:59 18:59 Intake Total 1665 / 1665 1305 / 1305 905 / 905 Output Total 1000 / 1000 450 / 450 Balance 665 / 665 855 / 855 905 / 905 Weight 99.1 kg Intake: IV 1305 / 1305 1305 / 1305 905 / 905 KCl Inj 10 MEQ In 1/2 Normal 1005 / 1005 1205 / 1205 805 / 805 Saline Inj 1,000 ML @ 84 mls/hr IV.CONT .[id number] [facility] Rx#: [id number] Azactam Inj 1,000 MG In NS Inj 100 / 100 100 / 100 100 / 100 100 ML @ 200 mls/hr IV.SIG Q12H [facility] Rx#:[id number] Magnesium Sulfate 1 gm/D5W 100 200 / 200 ml Premix 100 ML @ 100 mls/hr IV.SIG Q1H [facility] Rx#:[id number] Oral 360 / 360 Output: Urine 1000 / 1000 450 / 450 Other: Date of Last Bowel Movement 03/22/18 03/22/18 03/22/18 # Bowel Movements 0 Narrative: GENERAL: Patient sitting up in bed. Appears comfortable. Awake, alert. no change on exam SKIN: Warm and dry. HEAD: Normocephalic. EYES: No scleral icterus. No injection or drainage. NECK: Supple, trachea midline. No JVD. CARDIOVASCULAR: Regular rate and rhythm without murmurs, gallops, or rubs. RESPIRATORY: Breath sounds equal bilaterally. No accessory muscle use. GASTROINTESTINAL: Abdomen soft, non-tender, nondistended. MUSCULOSKELETAL: No cyanosis, or edema. BACK: Nontender without obvious deformity. No CVA tenderness. - Urinary Catheter Management Indwelling Urethral Catheter Cath placed during this visit: yes, but has since been removed by the nurse Reason for continuing: Decision to DC catheter Insertion date: 03/18/18 Insertion time: 03:00 Removal date: 03/18/18 Removal time: 16:00 Results - Labs CBC & Chem 7: 03/24/18 06:58 03/24/18 06:58 Laboratory Results - last 24 hr 03/23/18 03/23/18 03/24/18 18:28 19:47 06:58 WBC 18.4 H RBC 2.56 L Hgb 7.3 L Hct 23.2 L MCV 90.6 MCH 28.4 MCHC 31.4 L RDW 16.9 Plt Count 364 MPV 8.0 Neut % (Auto) 78.2 H Lymph % (Auto) 14.1 [place] % (Auto) 6.6 Eos % (Auto) 0.9 Baso % (Auto) 0.2 Neut # (Auto) 14.4 H Lymph # (Auto) 2.6 [place] # (Auto) 1.2 H Eos # (Auto) 0.2 Baso # (Auto) 0.0 WBC Differential . Differential Comment Auto diff final Sodium Potassium Chloride Carbon Dioxide Anion Gap BUN Creatinine Estimated GFR POC Glucose 301 H 301 H Random Glucose Calcium Phosphorus Magnesium Albumin 03/24/18 03/24/18 06:58 11:14 WBC RBC Hgb Hct MCV MCH MCHC RDW Plt Count MPV Neut % (Auto) Lymph % (Auto) [place] % (Auto) Eos % (Auto) Baso % (Auto) Neut # (Auto) Lymph # (Auto) [place] # (Auto) Eos # (Auto) Baso # (Auto) WBC Differential Differential Comment Sodium 142 Potassium 3.7 Chloride 109 H Carbon Dioxide 21.5 Anion Gap 12 BUN 16 Creatinine 0.90 Estimated GFR 60 L POC Glucose 298 H Random Glucose 176 H Calcium 8.4 L Phosphorus 1.9 L Magnesium 1.6 Albumin 1.3 L Microbiology 03/22/18 03:00 Catheterized Urine Urine Culture - Final Enterobacter cloacae Ale glabrata 03/19/18 13:34 Blood - Peripheral Aerobic Blood Culture - Final No growth in 5 days 03/19/18 13:34 Blood - Peripheral Anaerobic Blood Culture - Final No growth in 5 days Assessment and Plan - Assessment (1) Weakness Code(s): R53.1 - Weakness Status: Acute - Plan //Sepsis/recurrent severe C. difficile //gramPositive bacteremia //Suspected UTI. Stool studies positive for C. difficile Patient status post treatment with p.o. vancomycin completed approximately 4 weeks ago Recurrent diarrhea 2 days Leukocytosis, elevated lactic acid, fever and tachycardia Oral vancomycin Blood cultures pending Infectious disease consulted, appreciate recommendations = 03/19. Fever 102.7 overnight. Gram-positive bacteremia. Start vancomycin. Repeat cultures. Consult pharmacy for dosing. Continue treatment for C. difficile as well as UTI. Appreciate ID assistance. = 03/20. Afebrile overnight. Still with significant leukocytosis of 26. Enterobacter pansensitive from urine culture. Coag negative staph likely contaminant on admission. Continue treatment for severe C. difficile. = 03/21 diarrhea continues. New treatment as per infectious disease. Still with leukocytosis. Will replace dignisheild. = 03/22. Follow-up white count. Continue antibiotics = 03/23. White count slowly improving. Repeat urine culture is gram-negative rods, yeast. Discussed with infectious disease. Appreciate assistance. = 03/24 as per ID. -Continue aztreonam for UTI and sepsis due to Enterobacter cloacae until 03/26. -cont Diflucan for Ale in the urine. - Continue Dificid for C. difficile in patient with recurrent C. diff. Until 03/28/2018. -Continue p.o. vancomycin for now. Give vancomycin taper for 6 weeks on discharge. // Diabetes mellitus Continue home Levemir Sliding-scale insulin Monitor blood glucose == 03/19 hypoglycemia. Asymptomatic. Discontinue Levemir. =03/20. Due to borderline low glucose, patient requiring little insulin. Continue to monitor. =03/21. Blood sugars acceptable. Continue to monitor. = 03/24. Blood sugars now elevated. Will restart home Levemir. //Hypokalemia. = Resolved after replacement. //Hypomagnesemia. = 03/20. Resolved after replacement. =03/21 magnesium 1.3 = 03/23. Magnesium 1.4. Likely secondary to diarrhea. Replace and monitor. // Hypertension/hyperlipidemia/hypothyroidism Continue home medications // Dementia Continue home medications // Acute kidney injury BUN/creatinine 25/1.75, baseline 1.4 IV fluid hydration Monitor renal function = Creatinine 0.96. Much improved. Discharge Planning: Continues treatment for sepsis. = Case management looking into [facility]. Appreciate assistance. patient is taking care of by family at home.. We will need ID clearance. has renal biopsy scheduled for 04/05
[2018-03-24] MEDS ORDERED: Mag Sulf 1 gm/100 ml Premix 100 ML IV.SIG ONE (18:00)
[2018-03-24] MEDS ORDERED: Potassium Phosphate Inj 15 MMOL in Sodium Chlor 0.9% Inj 150 ML IV.SIG ONE ×2 (18:00→20:00)
[2018-03-24] MEDS ORDERED: Insulin Detemir Inj 1,000 UNIT/10 ML Vial SQ SCH (21:00)
[2018-03-24] MEDS: Acetaminophen 325 MG Tablet PO PRN (22:51)
[2018-03-24] MEDS: Insulin Detemir Inj 1,000 UNIT/10 ML Vial SQ SCH (22:53)
[2018-03-24] MEDS: Latanoprost 0.005% Opth Drops 2.5 ML Bottle EACH EYE SCH (22:54)
[2018-03-25] MEDS: Potassium Chloride Inj 10 MEQ in Sodium Chloride 0.45 % Inj 1,000 ML IV.CONT SCH ×3 (04:15→19:15)
[2018-03-25] MEDS: Insulin NovoLOG Aspart Correctional Sugar Inj SQ SCH ×5 (04:15→23:27)
[2018-03-25] MEDS: Gabapentin 100 MG Capsule PO SCH ×2 (09:09→23:27)
[2018-03-25] MEDS: hydroCHLOROthiazide 25 MG Tablet PO SCH (09:09)
[2018-03-25] MEDS: amLODIPine 5 MG Tablet PO SCH (09:09)
[2018-03-25] MEDS: Insulin Detemir Inj 1,000 UNIT/10 ML Vial SQ SCH ×2 (09:10→23:28)
[2018-03-25] MEDS: Collagenase Oint 30 GM Tube TOPICAL SCH (09:17)
[2018-03-25] MEDS ORDERED: Loperamide 2 MG Capsule PO PRN (10:31)
--- NOTE | 2018-03-25 12:24 | P.PNID ---
Subjective Remarks: Patient states that she feels okay. Denies chills. Afebrile. States that she has not had any bowel movements today. Denies abdominal pain. White blood cell count remains elevated. This is an 82-year-old black female who presented to the emergency department on 03/17/2018 with nausea, vomiting and diarrhea. The patient had been treated with metronidazole for C. difficile infection along with cefuroxime for urine infection during a recent hospitalization at the end of December. The patient's daughter states that she completed the antibiotics and then she was hospitalized again at [facility] and was again treated for C. difficile. It appears that she was given vancomycin and completed the vancomycin 2 weeks' duration 1 week ago. Daughter note that she was having loose stools off and in between she would have no stools for about a day between. The daughter brought her to the emergency department because of the nausea, vomiting and diarrhea. Past Medical History: PAST MEDICAL HISTORY: Hypertension, diabetes mellitus, hypercholesterolemia, history of hysterectomy, dementia, renal mass. Allergies/Adverse Reactions: Allergies Penicillins Allergy (Intermediate, Verified 03/18/18 01:36) Swelling Objective Vital Signs 03/24/18 16:00 03/24/18 20:00 03/25/18 00:00 Temperature 97.9 F 100.8 F H 99.0 F Pulse Rate 87 87 100 H Respiratory Rate 16 18 18 Blood Pressure 125/53 L 133/58 L Pulse Oximetry 98 99 100 03/25/18 04:00 03/25/18 08:00 Temperature 98.4 F 97.8 F Pulse Rate 78 73 Respiratory Rate 18 18 Blood Pressure 128/58 L 120/56 L Pulse Oximetry 99 Intake & Output 03/24/18 03/25/18 03/25/18 18:59 06:59 18:59 Intake Total 1505 / 1505 1260 / 1260 100 / 100 Balance 1505 / 1505 1260 / 1260 100 / 100 Intake: IV 905 / 905 1260 / 1260 100 / 100 KCl Inj 10 MEQ In 1/2 Normal 805 / 805 1005 / 1005 Saline Inj 1,000 ML @ 84 mls/hr IV.CONT .[id number] [facility] Rx#: [id number] Azactam Inj 1,000 MG In NS Inj 100 / 100 100 / 100 100 ML @ 200 mls/hr IV.SIG Q12H [facility] Rx#:[id number] Potassium Phosphate Inj 15 MMOL 155 / 155 In NS Inj 150 ML @ 38.75 mls/ hr IV.SIG ONCE ONE Rx#:[id number] Oral 600 / 600 Other: # Incontinent Voids 3 Date of Last Bowel Movement 03/22/18 03/25/18 # Incontinent Bowel Movements 3 03/22/18 03:00 Catheterized Urine Urine Culture - Final Enterobacter cloacae Ale glabrata 03/19/18 13:34 Blood - Peripheral Aerobic Blood Culture - Final No growth in 5 days 03/19/18 13:34 Blood - Peripheral Anaerobic Blood Culture - Final No growth in 5 days 03/18/18 00:20 Blood - Peripheral Aerobic Blood Culture - Final No growth in 5 days 03/18/18 00:20 Blood - Peripheral Anaerobic Blood Culture - Final No growth in 5 days 03/18/18 00:30 Blood - Peripheral Aerobic Blood Culture - Final Staphylococcus coag negative 03/18/18 00:30 Blood - Peripheral Anaerobic Blood Culture - Final No growth in 5 days Lab - Hematology Results 03/24/18 03/24/18 06:58 20:01 WBC 18.4 H RBC 2.56 L Hgb 7.3 L 8.5 L Hct 23.2 L MCV 90.6 MCH 28.4 MCHC 31.4 L RDW 16.9 Plt Count 364 MPV 8.0 Neut % (Auto) 78.2 H Lymph % (Auto) 14.1 [place] % (Auto) 6.6 Eos % (Auto) 0.9 Baso % (Auto) 0.2 Neut # (Auto) 14.4 H Lymph # (Auto) 2.6 [place] # (Auto) 1.2 H Eos # (Auto) 0.2 Baso # (Auto) 0.0 WBC Differential . Differential Comment Auto diff final Lab - Chemistry Results 03/23/18 03/23/18 03/24/18 18:28 19:47 06:58 Sodium 142 Potassium 3.7 Chloride 109 H Carbon Dioxide 21.5 Anion Gap 12 BUN 16 Creatinine 0.90 Estimated GFR 60 L POC Glucose 301 H 301 H Random Glucose 176 H Calcium 8.4 L Phosphorus 1.9 L Magnesium 1.6 Albumin 1.3 L 03/24/18 03/24/18 03/25/18 11:14 17:24 08:58 Sodium Potassium Chloride Carbon Dioxide Anion Gap BUN Creatinine Estimated GFR POC Glucose 298 H 293 H 184 H Random Glucose Calcium Phosphorus Magnesium Albumin 03/25/18 11:59 Sodium Potassium Chloride Carbon Dioxide Anion Gap BUN Creatinine Estimated GFR POC Glucose 262 H Random Glucose Calcium Phosphorus Magnesium Albumin Imaging: ITS Impressions Chest X-Ray 03/17/18 21:00 CONCLUSION: 1. No acute cardiopulmonary disease. 2. Degenerative changes and scoliosis of the thoracolumbar spine. Physical Exam: PHYSICAL EXAMINATION: GENERAL: No acute distress. Awake and alert and oriented. HEENT: Head is atraumatic. Extraocular movements grossly intact. Pupils reactive to light, without icterus. Oropharynx moist mucosa without lesions. NECK: Supple without adenopathy. LUNGS: Clear to auscultation. HEART: Irregular rate and rhythm. No murmurs, rubs or gallops. ABDOMEN: Bowel sounds present. Soft, nontender. EXTREMITIES: No clubbing or cyanosis. Trace edema of the lower extremities. Left ankle/heel ulceration appears clean. SKIN: No diffuse rash. NEUROLOGIC: Awake and alert and oriented. nonfocal. PSYCHIATRIC: Calm and cooperative. Assessment and Plan - Plan IMPRESSION: 1. Sepsis. 2. Clostridium difficile colitis, recurrent. Stools appear to be improving. 3. Urinary tract infection. Repeat urine culture shows Ale and decreased colony count of gram-negative vianey. 4. Left renal mass, yet to be yet to be biopsied. 5. Acute on chronic kidney disease. The patient also may have dehydration contributing to decreasing kidney function. RECOMMENDATIONS: 1. Continue aztreonam for UTI and sepsis due to Enterobacter cloacae until 03/26. 2. Continue Diflucan until 03/28. 3. Continue Dificid for C. difficile in patient with recurrent C. diff. Until 03/28/2018. 4. Continue p.o. vancomycin for now. Give vancomycin taper for 6 weeks on discharge. 5. Follow the white blood cell count. 6. Follow the clinical status. 7. Renal mass biopsy when clinically stable.
--- NOTE | 2018-03-25 13:39 | P.PNIM ---
Subjective Interval history: 82-year-old female admitted for treatment of C. difficile sepsis. She was feeling better overall but had a recurrence of diarrhea overnight and this morning. Physical Exam Vital signs: Vital Signs 03/24/18 16:00 03/24/18 20:00 03/25/18 00:00 Temperature 97.9 F 100.8 F H 99.0 F Pulse Rate 87 87 100 H Respiratory Rate 16 18 18 Blood Pressure 125/53 L 133/58 L Pulse Oximetry 98 99 100 03/25/18 04:00 03/25/18 08:00 Temperature 98.4 F 97.8 F Pulse Rate 78 73 Respiratory Rate 18 18 Blood Pressure 128/58 L 120/56 L Pulse Oximetry 99 Intake & Output 03/24/18 03/25/18 03/25/18 18:59 06:59 18:59 Intake Total 1505 / 1505 1260 / 1260 100 / 100 Balance 1505 / 1505 1260 / 1260 100 / 100 Intake: IV 905 / 905 1260 / 1260 100 / 100 KCl Inj 10 MEQ In 1/2 Normal 805 / 805 1005 / 1005 Saline Inj 1,000 ML @ 84 mls/hr IV.CONT .[id number] [facility] Rx#: [id number] Azactam Inj 1,000 MG In NS Inj 100 / 100 100 / 100 100 ML @ 200 mls/hr IV.SIG Q12H [facility] Rx#:[id number] Potassium Phosphate Inj 15 MMOL 155 / 155 In NS Inj 150 ML @ 38.75 mls/ hr IV.SIG ONCE ONE Rx#:[id number] Oral 600 / 600 Other: # Incontinent Voids 3 Date of Last Bowel Movement 03/22/18 03/25/18 # Incontinent Bowel Movements 3 Narrative: GENERAL: AAOx3, no acute distress SKIN: Warm and dry. No rashes HEAD: Atruamtic, normocephalic. EYES: No scleral icterus. No injection or drainage. ENT: Moist mucous membranes, patent nares, no erythema of oropharynx. NECK: Supple, trachea midline. No JVD or lymphadenopathy. Normal thyroid. CARDIOVASCULAR: Regular rate and rhythm. No murmurs, gallops, or rubs. RESPIRATORY: Breath sounds clear equal bilaterally. No crackles or wheezes. No accessory muscle use. GASTROINTESTINAL: Abdomen soft, non-tender, nondistended, normal active bowel sounds MUSCULOSKELETAL: No cyanosis, or edema. NEURO: CN II-XII grossly intact, generalized weakness, no focal deficits, no slurring of speech - Urinary Catheter Management Indwelling Urethral Catheter Cath placed during this visit: yes, but has since been removed by the nurse Reason for continuing: Decision to DC catheter Insertion date: 03/18/18 Insertion time: 03:00 Removal date: 03/18/18 Removal time: 16:00 Results - Labs CBC & Chem 7: 03/24/18 20:01 03/24/18 06:58 Laboratory Results - last 24 hr 03/24/18 03/24/18 03/25/18 17:24 20:01 08:58 Hgb 8.5 L POC Glucose 293 H 184 H 03/25/18 11:59 Hgb POC Glucose 262 H Microbiology 03/22/18 03:00 Catheterized Urine Urine Culture - Final Enterobacter cloacae Ale glabrata 03/19/18 13:34 Blood - Peripheral Aerobic Blood Culture - Final No growth in 5 days 03/19/18 13:34 Blood - Peripheral Anaerobic Blood Culture - Final No growth in 5 days Assessment and Plan - Assessment (1) Weakness Code(s): R53.1 - Weakness Status: Acute - Plan Recurrent C. difficile, sepsis, UTI Stool studies positive for C. difficile Patient status post treatment with p.o. vancomycin completed approximately 4 weeks ago Following blood cultures Continue aztreonam for UTI sepsis due to Enterobacter cloaca a until 03/26/2018 Continue Dificid for C. difficile with until 03/28/2018 Continue p.o. vancomycin for 6 weeks taper Continue Diflucan for Ale in urine Added Imodium to help solidify stools Appreciate infectious disease consult Diabetes mellitus Continue home Levemir Sliding-scale insulin with Accu-Cheks Diabetic diet Electrolyte imbalances Patient has had intermittent hypomagnesemia and hypokalemia Likely related to losses from diarrhea Control diarrhea, check BMP periodically Dementia Continue home meds Discharge planning Patient is approved at [facility], diarrhea will need to be controlled prior to discharge Renal biopsy scheduled for 04/05/2018
[2018-03-25] MEDS: Fluconazole 100 MG Tablet PO SCH (15:20)
[2018-03-25] MEDS: Latanoprost 0.005% Opth Drops 2.5 ML Bottle EACH EYE SCH (23:29)
[2018-03-26] MEDS: Potassium Chloride Inj 10 MEQ in Sodium Chloride 0.45 % Inj 1,000 ML IV.CONT SCH ×3 (01:01→13:35)
[2018-03-26] MEDS: Acetaminophen 325 MG Tablet PO PRN (01:54)
[2018-03-26] MEDS: Insulin NovoLOG Aspart Correctional Sugar Inj SQ SCH ×5 (04:50→23:15)
[2018-03-26 07:08] LABS: Baso # (Auto) 0.1 th/mm3 (0.0-0.2); Baso % (Auto) 0.4 % (0.0-2.0); Eos # (Auto) 0.1 th/mm3 (0.0-0.4); Eos % (Auto) 0.4 % (0.0-4.0); Hematocrit 25.5 % (35.0-46.0); Hemoglobin 8.1 gm/dL (11.6-15.3); Lymph # (Auto) 4.6 th/mm3 (1.0-4.8); Lymph % (Auto) 16.4 % (9.0-44.0); Mean Corpuscular HGB Conc 31.8 % (32.0-36.0); Mean Corpuscular Hemoglobin 28.3 pg (27.0-34.0); Mean Platelet Volume 8.3 fL (7.0-11.0); Mono # (Auto) 1.6 th/mm3 (0.0-0.9); Mono % (Auto) 5.6 % (0.0-8.0); Neut # (Auto) 21.4 th/mm3 (1.8-7.7); Neut % (Auto) 77.2 % (16.0-70.0); Platelet Count 379 th/mm3 (150-450); Red Blood Count 2.86 mil/mm3 (4.00-5.30); Red Cell Distribution Width 16.8 % (11.6-17.2); White Blood Count 27.8 th/mm3 (4.0-11.0)
[2018-03-26 07:33] LABS: Albumin 1.4 g/dL (3.4-5.0); Calcium 8.5 mg/dL (8.5-10.1); Carbon Dioxide 23.7 meq/L (21.0-32.0); Magnesium 1.5 mg/dL (1.5-2.5); Phosphorus 2.7 mg/dL (2.5-4.9); Potassium 3.7 meq/L (3.5-5.1)
[2018-03-26] MEDS: Gabapentin 100 MG Capsule PO SCH ×2 (09:19→23:12)
[2018-03-26] MEDS: hydroCHLOROthiazide 25 MG Tablet PO SCH (09:19)
[2018-03-26] MEDS: amLODIPine 5 MG Tablet PO SCH (09:19)
[2018-03-26] MEDS: Collagenase Oint 30 GM Tube TOPICAL SCH (09:27)
[2018-03-26] MEDS: Insulin Detemir Inj 1,000 UNIT/10 ML Vial SQ SCH ×2 (09:27→23:16)
--- NOTE | 2018-03-26 10:42 | P.PNIM ---
Subjective Interval history: Mrs. Taylor was hypoglycemic this morning but denies any symptoms from this. She does not recall any episodes of diarrhea since her 2 episodes yesterday. She states no diarrhea overnight or this morning. Physical Exam Vital signs: Vital Signs 03/25/18 12:00 03/25/18 16:00 03/25/18 20:00 Temperature 97.4 F L 98.5 F 98.6 F Pulse Rate 89 93 H 93 H Respiratory Rate 18 16 18 Blood Pressure 136/63 128/58 L 115/70 Pulse Oximetry 98 98 99 03/26/18 00:00 03/26/18 04:00 03/26/18 08:00 Temperature 101.0 F H 99.2 F 97.9 F Pulse Rate 101 H 94 H 77 Respiratory Rate 18 18 19 Blood Pressure 131/62 127/58 L 128/71 Pulse Oximetry 98 98 97 Intake & Output 03/25/18 03/26/18 03/26/18 18:59 06:59 18:59 Intake Total 1485 / 1485 300 / 300 Balance 1485 / 1485 300 / 300 Weight 99.1 kg Intake: IV 1005 / 1005 300 / 300 KCl Inj 10 MEQ In 1/2 Normal 805 / 805 200 / 200 Saline Inj 1,000 ML @ 84 mls/hr IV.CONT .[id number] [facility] Rx#: [id number] Azactam Inj 1,000 MG In NS Inj 200 / 200 100 / 100 100 ML @ 200 mls/hr IV.SIG Q12H [facility] Rx#:[id number] Oral 480 / 480 Other: # Voids 4 Date of Last Bowel Movement 03/25/18 # Bowel Movements 1 Narrative: GENERAL: AAOx3, no acute distress SKIN: Warm and dry. No rashes HEAD: Atruamtic, normocephalic. EYES: No scleral icterus. No injection or drainage. ENT: Moist mucous membranes, patent nares, no erythema of oropharynx. NECK: Supple, trachea midline. No JVD or lymphadenopathy. Normal thyroid. CARDIOVASCULAR: Regular rate and rhythm. No murmurs, gallops, or rubs. RESPIRATORY: Breath sounds clear equal bilaterally. No crackles or wheezes. No accessory muscle use. GASTROINTESTINAL: Abdomen soft, non-tender, nondistended, normal active bowel sounds MUSCULOSKELETAL: No cyanosis, or edema. NEURO: CN II-XII grossly intact, generalized weakness, no focal deficits, no slurring of speech - Urinary Catheter Management Indwelling Urethral Catheter Cath placed during this visit: yes, but has since been removed by the nurse Reason for continuing: Decision to DC catheter Insertion date: 03/18/18 Insertion time: 03:00 Removal date: 03/18/18 Removal time: 16:00 Results - Labs CBC & Chem 7: 03/26/18 06:23 03/26/18 06:23 Laboratory Results - last 24 hr 03/25/18 03/25/18 03/26/18 11:59 17:41 04:27 WBC RBC Hgb Hct MCV MCH MCHC RDW Plt Count MPV Neut % (Auto) Lymph % (Auto) [place] % (Auto) Eos % (Auto) Baso % (Auto) Neut # (Auto) Lymph # (Auto) [place] # (Auto) Eos # (Auto) Baso # (Auto) WBC Differential Differential Comment Sodium Potassium Chloride Carbon Dioxide Anion Gap BUN Creatinine Estimated GFR POC Glucose 262 H 282 H 86 Random Glucose Calcium Phosphorus Magnesium Albumin 03/26/18 03/26/18 03/26/18 06:23 06:23 07:33 WBC 27.8 H RBC 2.86 L Hgb 8.1 L Hct 25.5 L MCV 89.0 MCH 28.3 MCHC 31.8 L RDW 16.8 Plt Count 379 MPV 8.3 Neut % (Auto) 77.2 H Lymph % (Auto) 16.4 [place] % (Auto) 5.6 Eos % (Auto) 0.4 Baso % (Auto) 0.4 Neut # (Auto) 21.4 H Lymph # (Auto) 4.6 [place] # (Auto) 1.6 H Eos # (Auto) 0.1 Baso # (Auto) 0.1 WBC Differential . Differential Comment Auto diff final Sodium 141 Potassium 3.7 Chloride 107 Carbon Dioxide 23.7 Anion Gap 10 BUN 20 H Creatinine 1.04 H Estimated GFR 51 L POC Glucose 60 L Random Glucose 54 L D Calcium 8.5 Phosphorus 2.7 Magnesium 1.5 Albumin 1.4 L 03/26/18 09:16 WBC RBC Hgb Hct MCV MCH MCHC RDW Plt Count MPV Neut % (Auto) Lymph % (Auto) [place] % (Auto) Eos % (Auto) Baso % (Auto) Neut # (Auto) Lymph # (Auto) [place] # (Auto) Eos # (Auto) Baso # (Auto) WBC Differential Differential Comment Sodium Potassium Chloride Carbon Dioxide Anion Gap BUN Creatinine Estimated GFR POC Glucose 71 Random Glucose Calcium Phosphorus Magnesium Albumin Assessment and Plan - Assessment (1) Weakness Code(s): R53.1 - Weakness Status: Acute - Plan Recurrent C. difficile, sepsis, UTI Stool studies positive for C. difficile Patient status post treatment with p.o. vancomycin completed approximately 4 weeks ago Blood cultures show no growth in 5 days Continue aztreonam for UTI sepsis due to Enterobacter cloaca a until 03/26/2018 Continue Dificid for C. difficile with until 03/28/2018 Continue p.o. vancomycin for 6 weeks taper Continue Diflucan for Ale in urine Continue Imodium as needed for diarrhea Appreciate infectious disease consult Hypoglycemia Asymptomatic episode this a.m. noted by routine Accu-Chek Patient is able to take apple juice p.o. followed by breakfast. Will follow pattern today. If hypoglycemia recurs, consider reducing Levemir Diabetes mellitus Continue home Levemir Sliding-scale insulin with Accu-Cheks Diabetic diet Electrolyte imbalances Patient has had intermittent hypomagnesemia and hypokalemia Likely related to losses from diarrhea Control diarrhea, check BMP periodically Dementia Continue home meds Discharge planning Patient is approved at [facility], diarrhea will need to be controlled prior to discharge Renal biopsy scheduled for 04/05/2018
[2018-03-26] MEDS: Fluconazole 100 MG Tablet PO SCH (16:31)
[2018-03-26] MEDS: Latanoprost 0.005% Opth Drops 2.5 ML Bottle EACH EYE SCH (23:18)
[2018-03-27] MEDS: Potassium Chloride Inj 10 MEQ in Sodium Chloride 0.45 % Inj 1,000 ML IV.CONT SCH ×2 (01:13→16:32)
[2018-03-27] MEDS: Insulin NovoLOG Aspart Correctional Sugar Inj SQ SCH ×5 (04:41→21:36)
[2018-03-27 07:41] LABS: Hematocrit 22.9 % (35.0-46.0); Hemoglobin 7.2 gm/dL (11.6-15.3); Mean Corpuscular HGB Conc 31.2 % (32.0-36.0); Mean Corpuscular Hemoglobin 27.9 pg (27.0-34.0); Mean Corpuscular Volume 89.2 fL (80.0-100.0); Mean Platelet Volume 7.9 fL (7.0-11.0); Platelet Count 361 th/mm3 (150-450); Red Blood Count 2.57 mil/mm3 (4.00-5.30); Red Cell Distribution Width 16.9 % (11.6-17.2); White Blood Count 27.8 th/mm3 (4.0-11.0)
[2018-03-27 08:00] LABS: Calcium 8.2 mg/dL (8.5-10.1); Carbon Dioxide 23.4 meq/L (21.0-32.0); Potassium 3.9 meq/L (3.5-5.1)
[2018-03-27] MEDS: Insulin Detemir Inj 1,000 UNIT/10 ML Vial SQ SCH ×2 (10:13→21:35)
[2018-03-27] MEDS: amLODIPine 5 MG Tablet PO SCH (10:13)
[2018-03-27] MEDS: hydroCHLOROthiazide 25 MG Tablet PO SCH (10:14)
[2018-03-27] MEDS: Gabapentin 100 MG Capsule PO SCH ×2 (10:14→20:17)
[2018-03-27] MEDS: Collagenase Oint 30 GM Tube TOPICAL SCH (10:15)
--- NOTE | 2018-03-27 11:05 | P.PNIM ---
Subjective Interval history: Patient states she is feeling well, no complaints. But her hemoglobin dropped down to 7.2 today. Physical Exam Vital signs: Vital Signs 03/26/18 12:00 03/26/18 16:00 03/26/18 20:00 Temperature 97.6 F 98.0 F 98.4 F Pulse Rate 81 91 H Respiratory Rate 19 20 18 Blood Pressure 118/64 120/62 128/59 L Pulse Oximetry 97 98 98 03/27/18 00:00 03/27/18 04:00 Temperature 99.1 F 99 F Pulse Rate 96 H 85 Respiratory Rate 20 18 Blood Pressure 128/65 115/64 Pulse Oximetry 99 Intake & Output 03/26/18 03/27/18 03/27/18 18:59 06:59 18:59 Intake Total 1585 / 1585 1005 / 1005 Output Total 1000 / 1000 Balance 1585 / 1585 5 / 5 Weight 98.7 kg Intake: IV 1105 / 1105 1005 / 1005 KCl Inj 10 MEQ In 1/2 Normal 1005 / 1005 1005 / 1005 Saline Inj 1,000 ML @ 84 mls/hr IV.CONT .[id number] [facility] Rx#: [id number] Azactam Inj 1,000 MG In NS Inj 100 / 100 100 ML @ 200 mls/hr IV.SIG Q12H [facility] Rx#:[id number] Oral 480 / 480 Output: Urine 1000 / 1000 Other: # Voids 4 4 # Incontinent Voids 4 Date of Last Bowel Movement 03/25/18 03/25/18 Narrative: GENERAL: AAOx3, no acute distress SKIN: Warm and dry. No rashes HEAD: Atruamtic, normocephalic. EYES: No scleral icterus. No injection or drainage. ENT: Moist mucous membranes, patent nares, no erythema of oropharynx. NECK: Supple, trachea midline. No JVD or lymphadenopathy. Normal thyroid. CARDIOVASCULAR: Regular rate and rhythm. No murmurs, gallops, or rubs. RESPIRATORY: Breath sounds clear equal bilaterally. No crackles or wheezes. No accessory muscle use. GASTROINTESTINAL: Abdomen soft, non-tender, nondistended, normal active bowel sounds MUSCULOSKELETAL: No cyanosis, or edema. NEURO: CN II-XII grossly intact, generalized weakness, no focal deficits, no slurring of speech - Urinary Catheter Management Indwelling Urethral Catheter Cath placed during this visit: yes, but has since been removed by the nurse Reason for continuing: Decision to DC catheter Insertion date: 03/18/18 Insertion time: 03:00 Removal date: 03/18/18 Removal time: 16:00 Results - Labs CBC & Chem 7: 03/27/18 06:44 03/27/18 06:44 Laboratory Results - last 24 hr 03/27/18 03/27/18 06:44 06:44 WBC 27.8 H RBC 2.57 L Hgb 7.2 L Hct 22.9 L MCV 89.2 MCH 27.9 MCHC 31.2 L RDW 16.9 Plt Count 361 MPV 7.9 Sodium 140 Potassium 3.9 Chloride 106 Carbon Dioxide 23.4 Anion Gap 11 BUN 15 Creatinine 0.95 Estimated GFR 57 L Random Glucose 55 L Calcium 8.2 L Assessment and Plan - Assessment (1) Weakness Code(s): R53.1 - Weakness Status: Acute - Plan Recurrent C. difficile, sepsis, UTI Stool studies positive for C. difficile Patient status post treatment with p.o. vancomycin completed approximately 4 weeks ago Blood cultures show no growth in 5 days Continue aztreonam for UTI sepsis due to Enterobacter cloaca a until 03/26/2018 Continue Dificid for C. difficile with until 03/28/2018 Continue p.o. vancomycin for 6 weeks taper Continue Diflucan for Ale in urine Continue Imodium as needed for diarrhea Appreciate infectious disease consult Anemia Patient has been hovering in the sevens and lower 8 range She will need a bit more reserve to participate fully with physical therapy Despite being asymptomatic she is currently not moving. Her hemoglobin today was 7.2 Type and cross and transfuse 1 unit of packed red blood cells today Hypoglycemia Asymptomatic episode this a.m. noted by routine Accu-Chek Patient is able to take apple juice p.o. followed by breakfast. Will follow pattern today. Hold Levemir Diabetes mellitus Levemir held due to hypoglycemia Sliding-scale insulin with Accu-Cheks Diabetic diet Electrolyte imbalances Patient has had intermittent hypomagnesemia and hypokalemia Likely related to losses from diarrhea Control diarrhea, check BMP periodically Dementia Continue home meds Discharge planning Blood transfusion today Renal biopsy scheduled for 04/05/2018
[2018-03-27] MEDS ORDERED: Sodium Chlor 0.9% Inj 250 ML IV.SIG SCH (12:00)
[2018-03-27] MEDS: Fluconazole 100 MG Tablet PO SCH (16:54)
[2018-03-27] MEDS: Latanoprost 0.005% Opth Drops 2.5 ML Bottle EACH EYE SCH (20:18)
[2018-03-28] MEDS: Potassium Chloride Inj 10 MEQ in Sodium Chloride 0.45 % Inj 1,000 ML IV.CONT SCH ×3 (01:29→23:10)
[2018-03-28] MEDS: Insulin NovoLOG Aspart Correctional Sugar Inj SQ SCH ×5 (03:14→21:54)
--- NOTE | 2018-03-28 07:58 | P.CON ---
History of Present Illness Service: Hematology/oncology Consult date: 03/28/18 Requesting Physician: Tenzin Cardozo Reason for Consult: Leukocytosis, possible renal mass. Primary Care Provider: UNKNOWN Family Provider: UNKNOWN Chief Complaint: Patient verbalizes no acute complaints. History of Present Illness: Ms. Taylor is an 82-year-old female, I have been asked to see her for leukocytosis driven primarily by neutrophilia. She is admitted to this facility with fevers. She has been in the hospital now since 03/18/2018. She has 2 positive for C. difficile and also urine cultures which are positive for multiple microorganisms including Enterobacter cloacae, Ale glabrata and blood cultures positive for Staphylococcus (coag negative). She has been on broad-spectrum antibiotics. Her WBC count at the time of presentation was 35,000 with an absolute neutrophil count of 34, there is no evidence of myelocytes, metamyelocytes or immature cells to suggest a primary bone marrow disorder such as leukemia.Her WBC count drew on 03/24/2018 at 18.4, and since then has climbed up to 27.8 As of 03/27/2018. Additionally noncontrasted CT scans of the abdomen indicate findings of a suspected mass involving the left kidney which may represent a mass though this lesion has not been completely evaluated. Review of Systems A full and thorough review of systems was unobtainable. The patient has dementia, she denies he historical details i.e. when asked if she has any medical problems she denies any medical problems. When asked why she came into the hospital she is unable to inform me accurately based on what is charted in the EMR. She however denies difficulty breathing. She denies pain at this time. She denies abdominal pain at this time. She denies chest pain. She denies headaches. She denies bleeding. PMF - History History Provided By: Family Member - Medical History Medical History: Medical History (Last Reviewed 03/28/18 @ 07:52 by Sabas Dean MD) History of hysterectomy (Acute) Fracture, ankle (Acute) Hypothyroid (Acute) Dementia (Chronic) Renal mass (Acute) Hypercholesteremia (Acute) Diabetes (Acute) Hypertension (Acute) - Surgical History Surgical History: Surgical History (Last Reviewed 03/28/18 @ 07:52 by Sabas Dean MD) H/O section (Acute) - Family History Family History: Family History (Last Reviewed 03/28/18 @ 07:52 by Sabas Dean MD) Other Coronary artery disease Diabetes mellitus Stomach cancer - Social History I have reviewed the patient's Social History: Yes - Tobacco History Second Hand Smoke Exposure: No Tobacco Use In Past 30 Days: No Smoking Status: Never smoker - Alcohol History How Often Do You Have a Drink Containing Alcohol: Never - Substance Use History Substance History: No History of Abuse - Travel History Recent Travel in the [place] Within the Last 8 Weeks: No Recent Travel Out of the Country Within the Last 8 Weeks: No - Immunization History Tetanus Immunization: >5 Years Hx Influenza Vaccine This Season: No Medications and Allergies Active Medications: Active Medications Acetaminophen (Tylenol) 650 mg PO Q4H PRN PRN Reason: Temp > 100.4 Last Admin: 03/26/18 01:54 Dose: 650 mg Amlodipine Besylate (Norvasc) 5 mg PO DAILY [facility] Last Admin: 03/27/18 10:13 Dose: 5 mg Aspirin (Aspirin Chew) 81 mg PO DAILY [facility] Last Admin: 03/27/18 10:13 Dose: 81 mg Atorvastatin Calcium (Lipitor) 20 mg PO DAILY [facility] Last Admin: 03/27/18 10:13 Dose: 20 mg Collagenase (Santyl Oint) 1 applicatio TOPICAL DAILY [facility] Last Admin: 03/27/18 10:15 Dose: 1 applicatio Dextrose (D50w Vial) 50 ml IV.PUSH UNSCH PRN PRN Reason: PER HYPOGLYCEMIA PROTOCOL Donepezil HCl (Aricept) 10 mg PO HS [facility] Last Admin: 03/27/18 20:57 Dose: 10 mg Fidaxomicin (Dificid) 200 mg PO BID [facility] Stop: 03/28/18 13:59 Last Admin: 03/27/18 20:17 Dose: 200 mg Fluconazole (Diflucan) 100 mg PO Q24H [facility] Last Admin: 03/27/18 16:54 Dose: 100 mg Gabapentin (Neurontin) 100 mg PO Q12H [facility] Last Admin: 03/27/18 20:17 Dose: 100 mg Glucagon (Glucagon Inj) 1 mg OTHER PRN PRN PRN Reason: for Hypoglycemia Protocol Hydrochlorothiazide (Hydrodiuril) 25 mg PO DAILY [facility] Last Admin: 03/27/18 10:14 Dose: 25 mg Potassium Chloride 10 meq/ (Sodium Chloride) 1,005 mls @ 84 mls/hr IV.CONT .[id number] [facility] Last Admin: 03/28/18 01:29 Dose: 84 mls/hr Insulin Aspart (Novolog Insulin Correctional Sugar Inj) 0 unit SQ ACHS AND 3AM [facility]; Protocol Last Admin: 03/28/18 03:14 Dose: 2 unit Insulin Detemir (Levemir Inj) 15 unit SQ BID [facility] Last Admin: 03/27/18 21:35 Dose: 15 unit Latanoprost (Xalatan 0.005% Opth Drops) 1 drop EACH EYE [facility] Last Admin: 03/27/18 20:18 Dose: 1 drop Levothyroxine Sodium (Synthroid) 25 mcg PO DAILY@0600 [facility] Last Admin: 03/28/18 05:43 Dose: 25 mcg Loperamide HCl (Imodium) 2 mg PO Q6H PRN PRN Reason: DIARRHEA Last Admin: 03/26/18 01:54 Dose: 2 mg Memantine (Namenda) 10 mg PO BID [facility] Last Admin: 03/27/18 20:17 Dose: 10 mg Ondansetron HCl (Zofran Inj) 4 mg IV.PUSH Q6H PRN PRN Reason: NAUSEA OR VOMITING Last Admin: 03/18/18 18:14 Dose: 4 mg Vancomycin HCl (Vancomycin Po) 125 mg PO QID [facility] Last Admin: 03/27/18 20:17 Dose: 125 mg Allergies Allergy/AdvReac Type Severity Reaction Status Date / Time Penicillins Allergy Intermediate Swelling Verified 03/18/18 01:36 Home Medications Medication Instructions Recorded Confirmed Type aspirin [Aspirin Childrens] 81 mg PO DAILY 02/19/18 03/18/18 History atorvastatin 20 mg PO DAILY 02/19/18 03/18/18 History cholecalciferol (vitamin D3) 400 unit PO DAILY 02/19/18 03/18/18 History [Vitamin D3] donepezil 10 mg PO HS 02/19/18 03/18/18 History gabapentin 100 mg PO TID 02/19/18 03/18/18 History levothyroxine 25 mcg PO DAILY 02/19/18 03/18/18 History liraglutide [Victoza 2-Giovanni] 0.6 mg SUB-Q DAILY 02/19/18 03/18/18 History memantine 28 mg PO DAILY 02/19/18 03/18/18 History amlodipine 5 mg PO DAILY 03/18/18 03/18/18 History brimonidine 1 drp OPHTHALMIC (EYE) TID 03/18/18 03/18/18 History hydrochlorothiazide 25 mg PO DAILY 03/18/18 03/18/18 History travoprost [Travatan Z] 1 drp OPHTHALMIC (EYE) HS 03/18/18 03/18/18 History Physical Exam Vital signs: Vital Signs 03/27/18 08:00 03/27/18 12:00 03/27/18 16:00 Temperature 98.3 F 98.4 F 98.3 F Pulse Rate 89 85 94 H Respiratory Rate 20 20 20 Blood Pressure 134/68 118/64 113/61 Pulse Oximetry 97 97 98 03/27/18 17:45 03/27/18 20:00 03/27/18 21:41 Temperature 97.1 F L 98.5 F 98.5 F Pulse Rate 91 H 94 H 99 H Respiratory Rate 18 19 19 Blood Pressure 114/66 149/75 H 149/75 H Pulse Oximetry 98 98 98 03/28/18 00:00 03/28/18 04:00 Temperature 98 F 98 F Pulse Rate 93 H 92 H Respiratory Rate 17 17 Blood Pressure 122/71 138/64 Pulse Oximetry 98 98 Intake & Output 03/27/18 03/28/18 03/28/18 18:59 06:59 18:59 Intake Total 1485 / 1485 1405 / 1405 Output Total 600 / 600 Balance 1485 / 1485 805 / 805 Weight 98.8 kg Intake: IV 1005 / 1005 1005 / 1005 KCl Inj 10 MEQ In 1/2 Normal 1005 / 1005 1005 / 1005 Saline Inj 1,000 ML @ 84 mls/hr IV.CONT .[id number] [facility] Rx#: [id number] Oral 480 / 480 Intake (Blood Product) Amt 0 / 0 400 / 400 Rbc Cp2d Leukoreduced Unit 0 / 0 400 / 400 [id number] Output: Urine Amount (Catheter) 600 / 600 Indwelling Urethral Catheter 600 / 600 Other: # Voids 4 # Incontinent Voids 4 Date of Last Bowel Movement 03/25/18 03/25/18 Narrative: Elderly lady, laying in bed, easily arousable, not acutely distressed. She is conversant but clearly does not recall important historical details. She is alert, she is oriented to person but not place or time. - Constitutional no acute distress - Routine HEENT Exam Head: Present: normocephalic Eye: Present: EOMI, PERRL - Routine Neck Exam Present: supple, full ROM. Absent: lymphadenopathy - Routine Respiratory Exam Present: CTA bilaterally. Absent: accessory muscle use Comments: On anterior examination. Diminished bibasilar breath sounds. No wheezing, rhonchi or rails. - Routine Cardiovascular Exam Present: RRR, S1, S2. Absent: murmur, gallop, rubs - Routine Abdominal Exam Present: soft Comments: No rebound tenderness, abdomen is soft, positive bowel sounds, no hepatomegaly or splenomegaly. - Routine Extremities Exam Absent: cyanosis, clubbing, edema Comments: Extremities are generally weak. - Routine Skin Exam Present: intact - Routine Neurological Exam Present: alert, CN II-XII intact, motor deficit (Generally weak lower extremities and upper extremities. She has generalized muscle atrophy.). Absent: oriented X3, sensory deficit - Urinary Catheter Management Indwelling Urethral Catheter Cath placed during this visit: yes, but has since been removed by the nurse Reason for continuing: Not indwelling catheter Insertion date: 03/18/18 Insertion time: 03:00 Removal date: 03/18/18 Removal time: 16:00 Assessment and Plan - Plan Ms. Taylor is an 82-year-old female with C. difficile colitis, urinary tract infection positive for Ale glabrata and Enterobacter cloacae. Also with a possible mass involving her left kidney, though this is not completely evaluated in multiple noncontrast enhanced CT imaging. I have been asked to see her for leukocytosis. Leukocytosis is driven by neutrophilia. Recommendations: 1. Leukocytosis: Likely reactive secondary to known C. difficile colitis and urinary tract infection. I will review her peripheral smear for presence of immature nucleated cells. On previous manual differentials no immature cells have been reported. It is not uncommon for individuals with C. difficile colitis have protracted leukocytosis. 2. Anemia: Obtain serum iron studies if these have not been ordered as well as folic acid and vitamin B12 levels. Given the patient's precarious renal function and ongoing chronic infections I suspect her anemia may also be related to her acute illnesses and chronic illnesses as well as chronic renal insufficiency. 3. Possible renal mass: I would advise patient undergo an MRI with contrast when her renal function allows this, I would not put this patient through a renal biopsy without first obtaining contrast-enhanced imaging studies. It is very possible she may not have a mass involving kidney, is possible that an unnecessary biopsy may cause significant bleeding and incurring the risk of bleeding would not be justified unless a contrast-enhanced scan is performed first. The hematology service to follow along with you. Thank you for asking me see this patient.
[2018-03-28 08:10] LABS: Hematocrit 28.3 % (35.0-46.0); Hemoglobin 8.9 gm/dL (11.6-15.3); Mean Corpuscular HGB Conc 31.3 % (32.0-36.0); Mean Corpuscular Hemoglobin 28.1 pg (27.0-34.0); Mean Corpuscular Volume 89.9 fL (80.0-100.0); Mean Platelet Volume 8.1 fL (7.0-11.0); Platelet Count 328 th/mm3 (150-450); Red Blood Count 3.15 mil/mm3 (4.00-5.30); Red Cell Distribution Width 16.3 % (11.6-17.2); White Blood Count 22.9 th/mm3 (4.0-11.0)
[2018-03-28 08:13] LABS: Calcium 8.3 mg/dL (8.5-10.1); Carbon Dioxide 24.8 meq/L (21.0-32.0); Potassium 4.2 meq/L (3.5-5.1)
[2018-03-28] MEDS: Gabapentin 100 MG Capsule PO SCH ×2 (09:10→21:54)
[2018-03-28] MEDS: hydroCHLOROthiazide 25 MG Tablet PO SCH (09:10)
[2018-03-28] MEDS: amLODIPine 5 MG Tablet PO SCH (09:10)
[2018-03-28] MEDS: Insulin Detemir Inj 1,000 UNIT/10 ML Vial SQ SCH ×2 (09:11→22:18)
[2018-03-28] MEDS: Collagenase Oint 30 GM Tube TOPICAL SCH (09:16)
--- NOTE | 2018-03-28 11:53 | P.PNIM ---
Subjective Interval history: Patient is resting comfortably in bed, denies any diarrhea overnight or this morning. She feels well and has no new complaints. Physical Exam Vital signs: Vital Signs 03/27/18 12:00 03/27/18 16:00 03/27/18 17:45 Temperature 98.4 F 98.3 F 97.1 F L Pulse Rate 85 94 H 91 H Respiratory Rate 20 20 18 Blood Pressure 118/64 113/61 114/66 Pulse Oximetry 97 98 98 03/27/18 20:00 03/27/18 21:41 03/28/18 00:00 Temperature 98.5 F 98.5 F 98 F Pulse Rate 94 H 99 H 93 H Respiratory Rate 19 19 17 Blood Pressure 149/75 H 149/75 H 122/71 Pulse Oximetry 98 98 98 03/28/18 04:00 03/28/18 08:00 Temperature 98 F 98.6 F Pulse Rate 92 H 83 Respiratory Rate 17 16 Blood Pressure 138/64 124/58 L Pulse Oximetry 98 98 Intake & Output 03/27/18 03/28/18 03/28/18 18:59 06:59 18:59 Intake Total 1485 / 1485 1405 / 1405 Output Total 600 / 600 Balance 1485 / 1485 805 / 805 Weight 98.8 kg Intake: IV 1005 / 1005 1005 / 1005 KCl Inj 10 MEQ In 1/2 Normal 1005 / 1005 1005 / 1005 Saline Inj 1,000 ML @ 84 mls/hr IV.CONT .[id number] [facility] Rx#: [id number] Oral 480 / 480 Intake (Blood Product) Amt 0 / 0 400 / 400 Rbc Cp2d Leukoreduced Unit 0 / 0 400 / 400 [id number] Output: Urine Amount (Catheter) 600 / 600 Indwelling Urethral Catheter 600 / 600 Other: # Voids 4 # Incontinent Voids 4 Date of Last Bowel Movement 03/25/18 03/25/18 Narrative: GENERAL: AAOx3, no acute distress SKIN: Warm and dry. No rashes HEAD: Atruamtic, normocephalic. EYES: No scleral icterus. No injection or drainage. ENT: Moist mucous membranes, patent nares, no erythema of oropharynx. NECK: Supple, trachea midline. No JVD or lymphadenopathy. Normal thyroid. CARDIOVASCULAR: Regular rate and rhythm. No murmurs, gallops, or rubs. RESPIRATORY: Breath sounds clear equal bilaterally. No crackles or wheezes. No accessory muscle use. GASTROINTESTINAL: Abdomen soft, non-tender, nondistended, normal active bowel sounds MUSCULOSKELETAL: No cyanosis, or edema. NEURO: CN II-XII grossly intact, generalized weakness, no focal deficits, no slurring of speech - Urinary Catheter Management Indwelling Urethral Catheter Cath placed during this visit: yes, but has since been removed by the nurse Reason for continuing: Not indwelling catheter Insertion date: 03/18/18 Insertion time: 03:00 Removal date: 03/18/18 Removal time: 16:00 Results - Labs CBC & Chem 7: 03/28/18 07:32 03/28/18 07:32 Laboratory Results - last 24 hr 03/27/18 03/27/18 03/27/18 11:35 11:55 16:58 WBC RBC Hgb Hct MCV MCH MCHC RDW Plt Count MPV Sodium Potassium Chloride Carbon Dioxide Anion Gap BUN Creatinine Estimated GFR POC Glucose 150 H 202 H Random Glucose Calcium Blood Type O Positive Antibody Screen Negative MTS Gel Crossmatch See Detail 03/27/18 03/28/18 03/28/18 20:59 02:59 07:32 WBC 22.9 H RBC 3.15 L Hgb 8.9 L Hct 28.3 L MCV 89.9 MCH 28.1 MCHC 31.3 L RDW 16.3 Plt Count 328 MPV 8.1 Sodium Potassium Chloride Carbon Dioxide Anion Gap BUN Creatinine Estimated GFR POC Glucose 198 H 156 H Random Glucose Calcium Blood Type Antibody Screen MTS Gel Crossmatch 03/28/18 07:32 WBC RBC Hgb Hct MCV MCH MCHC RDW Plt Count MPV Sodium 138 Potassium 4.2 Chloride 105 Carbon Dioxide 24.8 Anion Gap 8 BUN 15 Creatinine 1.01 H Estimated GFR 53 L POC Glucose Random Glucose 106 Calcium 8.3 L Blood Type Antibody Screen MTS Gel Crossmatch Assessment and Plan - Assessment (1) Weakness Code(s): R53.1 - Weakness Status: Acute - Plan Recurrent C. difficile, sepsis, UTI Stool studies positive for C. difficile Patient status post treatment with p.o. vancomycin completed approximately 4 weeks ago Blood cultures show no growth in 5 days Continue aztreonam for UTI sepsis due to Enterobacter cloaca a until 03/26/2018 Continue Dificid for C. difficile with until 03/28/2018 Continue p.o. vancomycin for 6 weeks taper Continue Diflucan for Ale in urine Continue Imodium as needed for diarrhea Appreciate infectious disease consult Leukocytosis White blood cells are abnormally high, patient does not appear infected, and she remains afebrile Hematology noted that C. difficile is at times associated with protracted leukocytosis We will follow trend, appreciate infectious disease consult Renal mass Patient was admitted during the middle of an outpatient workup that included a renal biopsy scheduled for 04/05/18 Hematology recommends contrast-enhanced MRI to determine the nature of mass and whether biopsy if it needs to be done MRI of the abdomen and pelvis ordered w/wo contrast Anemia Patient received 1 unit of packed red blood cells yesterday and her hemoglobin went from 7.2-8.9 Hypoglycemia Asymptomatic episode this a.m. noted by routine Accu-Chek Patient is able to take apple juice p.o. followed by breakfast. Continue holding Levemir Diabetes mellitus Levemir held due to hypoglycemia Sliding-scale insulin with Accu-Cheks Diabetic diet Electrolyte imbalances Patient has had intermittent hypomagnesemia and hypokalemia Likely related to losses from diarrhea Control diarrhea, check BMP periodically Dementia Continue home meds Discharge planning Renal biopsy tentatively scheduled for 04/05/2018, but if this is scheduled she cannot go to [place]
[2018-03-28] MEDS: Fluconazole 100 MG Tablet PO SCH (17:18)
[2018-03-28 19:04] LABS: Bacteria,Urine Many /hpf; Bilirubin,Urine Negative (Negative); Clarity,Urine Hazy (Clear); Color,Urine Yellow (Yellw/Straw); Glucose,Urine (UA) Negative (Negative); Leukocyte Esterase,Urine Large (Negative); Nitrite,Urine Negative (Negative); Specific Gravity,Urine 1.006 (1.002-1.035); Squamous Epithelial Cell,Urine <1 /hpf (0-5)
[2018-03-28] MEDS ORDERED: Gadobutrol PF 7.5 MMOL/7.5 ML Vial (for RAD) IV.SIG ONE (20:20)
--- NOTE | 2018-03-28 20:32 | MR ---
EXAM DATE: 03/28/2018 8:19 PM EDT AGE/SEX: 82 years / Female INDICATIONS: Renal mass. CLINICAL DATA: This is the patient's initial encounter. Patient reports that signs and symptoms have been present for 4 - 6 days and indicates a pain score of 0/10. MEDICAL/SURGICAL HISTORY: Diabetes mellitus type II. Hypertension. Hysterectomy. sec tion. COMPARISON: [facility], MRI ABDOMEN W/O CONTRAST, 01/04/2018. . TECHNIQUE: Multiplanar, multisequence images of the abdomen were obtained prior to and following adm inistration of 5 ml Gadavist (gadobutrol) contrast as a single exam dose with dynamic multiphase tech nique. FINDINGS: Exam is degraded by motion artifact. However, it is noted that there is an approximately 7.1 x 5.8 cm mass around the mid pole left kidney which is clearly increased in size from December 2017 and is most c haracteristic of a renal cell carcinoma. Small bilateral pleural effusions with basilar atelectasis has developed since the prior examination. No acute findings are seen in the liver, adrenals, right kidney or pancreas. No significant free flu id. No definite adenopathy. CONCLUSION: 1. Increasing size of left renal mass with heterogeneous enhancement most characteristic of an enlar ging renal neoplasm measuring up to 7.1 cm in maximal diameter. Previous maximal measurement was appr oximately 4.8 cm. 2. Development of small bilateral pleural effusions with basilar atelectasis in the lungs. Electronically signed by: Jossue Oliver MD 03/28/2018 8:30 PM EDT
[2018-03-28] MEDS: Latanoprost 0.005% Opth Drops 2.5 ML Bottle EACH EYE SCH (21:55)
[2018-03-29] MEDS: Potassium Chloride Inj 10 MEQ in Sodium Chloride 0.45 % Inj 1,000 ML IV.CONT SCH ×2 (03:12→12:37)
[2018-03-29] MEDS: Insulin NovoLOG Aspart Correctional Sugar Inj SQ SCH ×6 (03:12→22:55)
[2018-03-29] MEDS: amLODIPine 5 MG Tablet PO SCH (08:55)
[2018-03-29] MEDS: hydroCHLOROthiazide 25 MG Tablet PO SCH (08:55)
[2018-03-29] MEDS: Gabapentin 100 MG Capsule PO SCH ×2 (08:55→22:55)
[2018-03-29] MEDS: Collagenase Oint 30 GM Tube TOPICAL SCH (08:56)
[2018-03-29] MEDS: Insulin Detemir Inj 1,000 UNIT/10 ML Vial SQ SCH ×2 (09:03→22:56)
--- NOTE | 2018-03-29 11:31 | P.PNIM ---
Subjective Interval history: Patient does not appear to be in any acute distress. She does not have any complaints this morning. Physical Exam Vital signs: Vital Signs 03/28/18 12:00 03/28/18 16:00 03/28/18 20:00 Temperature 98.3 F 98.0 F 97.9 F Pulse Rate 88 87 97 H Respiratory Rate 16 16 18 Blood Pressure 123/60 140/65 121/75 Pulse Oximetry 100 99 98 03/29/18 00:00 03/29/18 04:00 03/29/18 08:00 Temperature 99.0 F 99.1 F 98.3 F Pulse Rate 87 85 85 Respiratory Rate 18 18 18 Blood Pressure 152/71 H 123/63 126/60 Pulse Oximetry 99 97 98 Intake & Output 03/28/18 03/29/18 03/29/18 18:59 06:59 18:59 Intake Total 805 / 805 200 / 200 Output Total 1800 / 1800 Balance 805 / 805 -1600 / -1600 Weight 98.1 kg Intake: IV 805 / 805 200 / 200 KCl Inj 10 MEQ In 1/2 Normal 805 / 805 200 / 200 Saline Inj 1,000 ML @ 84 mls/hr IV.CONT .[id number] [facility] Rx#: [id number] Output: Urine 1800 / 1800 Other: # Incontinent Voids 6 Date of Last Bowel Movement 03/28/18 # Bowel Movements 1 Narrative: Alert and oriented 2, to person and place. General patient in no acute distress HEENT extraocular movements are intact, clear oropharyngeal mucosa, no JVD Cardiovascular S1-S2 audible Respiratory clear to auscultation bilaterally Abdomen soft, nontender, nondistended, normal bowel sounds Extremities no edema, 2+ distal pulses in bilateral upper and lower extremities Neuro patient moves all of her extremities sensation is intact bilaterally - Urinary Catheter Management Indwelling Urethral Catheter Cath placed during this visit: yes, but has since been removed by the nurse Reason for continuing: Not indwelling catheter Insertion date: 03/18/18 Insertion time: 03:00 Removal date: 03/18/18 Removal time: 16:00 Results - Labs CBC & Chem 7: 03/28/18 07:32 03/28/18 07:32 Laboratory Results - last 24 hr 03/28/18 03/28/18 03/29/18 17:26 21:47 03:06 POC Glucose 132 H 111 H Urine Color Yellow Urine Clarity Hazy H Urine pH 6.0 Ur Specific [place] 1.006 Urine Protein 30 H Urine Glucose (UA) Negative Urine Ketones Negative Urine Occult Blood Large H Urine Nitrate Negative Urine Bilirubin Negative Urine Urobilinogen Less than 2 Ur Leukocyte Esterase Large H Urine RBC 134 H Urine WBC 91 H Ur Squamous Epith Cells <1 Urine Bacteria Many H Urine Yeast Few H Micro UA Comment Culture indicated Ur Microscopic Review Not Reportable Urine Culture Comments Culture indicated - Imaging Impressions Abdomen MRI 03/28/18 00:00 CONCLUSION: 1. Increasing size of left renal mass with heterogeneous enhancement most characteristic of an enlarging renal neoplasm measuring up to 7.1 cm in maximal diameter. Previous maximal measurement was approximately 4.8 cm. 2. Development of small bilateral pleural effusions with basilar atelectasis in the lungs. Assessment and Plan - Assessment (1) Weakness Code(s): R53.1 - Weakness Status: Acute - Plan This patient is an 82-year-old female 0-year-old female with a past medical history of previous C. difficile 2, diabetes, dementia, hyperlipidemia, hypertension, hypothyroidism and a known renal mass pending biopsy presents to the emergency department for evaluation of weakness and diarrhea 2 days. 1. Sepsis secondary to C. difficile and UTI. The patient is receiving p.o. vancomycin and was also on Dificid. Dificid was discontinued as per ID recommendations and she is to continue p.o. vancomycin for a total of 6 weeks. Patient's loose stools have improved. Urine culture were growing Ale and Enterobacter. She has received treatment for the UTI aztreonam and fluconazole will be discontinued. Infectious disease will continue to follow the patient will follow up with recommendations from infectious disease. Infectious disease will continue continue to follow the patient. 2. Left renal mass The patient had a left renal mass which was found a few months ago on abdominal imaging. She has blood-tinged urine. MRI results from yesterday show a growing left renal mass that measures 7.1 x 5.8 cm which has significantly increased from previous imaging a few months ago. As per the MRI read there is a concern for possible renal cell carcinoma. In discussion will need to be held with the family, patient, and the heme oncology team on how to proceed with a possible biopsy given the patient's overall condition. 3. Acute traumatic anemia likely secondary to hematuria. The patient has a renal mass which is seen on MRI. The hematuria is likely coming from the renal mass. She received 1 unit of PRBC will continue to monitor the patient's hemoglobin levels and give transfusions if needed. 4. Diabetes The patient's Levemir will be changed to 10 units subcu twice daily as her blood sugars have been running lower during hospitalization. 5. Hypertension The patient can be continued on her current medication regimen. 6. Dementia Continue current medication regimen. SCDs for DVT prophylaxis as the patient is having hematuria.
--- NOTE | 2018-03-29 14:23 | P.DIET ---
Nutritional Evaluation Type of nutrition evaluation: follow-up Nutrition screening: [facility] (Wound 03/22) Subjective Subjective Comments: Eating 100% with assistance. From 03/22: Pt seen in room w/ her daughter (primary caregiver). Pt and daughter agreeable to Waqar BID for wound healing. Pt says she likes Glucerna Shakes and daughter usually provides 1 every day for pt's HS snack. Pt denied N/V/D/C. Trouble chewing b/c pt is edentulous. From Objective - Diagnosis Severe Sepsis - Objective Body Mass Index: 39.8 % IBW: 197 (SZZ=825#) Body Weight Used for Calculations: Upper end of IBW (55kg) Energy Needs - Lower Range (kCal/kg): 30 Energy Needs - Upper Range (kCal/kg): 35 Lower Limit kCal/kg (kCals): 1,650 Upper Limit kCal/kg (kCals): 1,925 Lower Limit Protein Factor (Grams per Kg): 1.2 Upper Limit Protein Factor (Grams per Kg): 1.5 Lower Protein Needs (Protein): 66 Upper Protein Needs (Protein): 83 Dietitian Reviewed in Medical Record: Current diet, Curent medications, Intake & Output, Labs, Medical history Diet Order: 1800ADA Wound Care Note: 03/21 WOCN: R buttocks stage 3, L buttock unstageable, L heel unstageable Objective Comments: Meds: Santyl, Hydrodiuril, Synthroid Assessment Assessment: Pt admitted for severe sepsis. She remains at [facility] nutrition risk 2' to high need for wound healing. PO intake is good and the pt is taking supplements as ordered. Labs, wts and clinical course reviewed. Recommendations: 1. Continue 1800ADA diet. 2. Glucerna Shake on dinner tray. 3. Waqar powder BID for wound healing on lunch tray. Dietitian to Monitor: Lab values, Supplement acceptance, Intake & Output, Diet tolerance, Weight change, PO Intake, Wound/skin status, Medical course
[2018-03-29] MEDS: Latanoprost 0.005% Opth Drops 2.5 ML Bottle EACH EYE SCH (22:56)
[2018-03-30] MEDS: Potassium Chloride Inj 10 MEQ in Sodium Chloride 0.45 % Inj 1,000 ML IV.CONT SCH ×3 (02:04→17:49)
[2018-03-30] MEDS: Insulin NovoLOG Aspart Correctional Sugar Inj SQ SCH ×5 (04:22→20:29)
[2018-03-30] MEDS: amLODIPine 5 MG Tablet PO SCH (08:12)
[2018-03-30] MEDS: Gabapentin 100 MG Capsule PO SCH ×2 (08:12→20:28)
[2018-03-30] MEDS: hydroCHLOROthiazide 25 MG Tablet PO SCH (08:12)
[2018-03-30] MEDS: Collagenase Oint 30 GM Tube TOPICAL SCH (08:16)
[2018-03-30] MEDS: Insulin Detemir Inj 1,000 UNIT/10 ML Vial SQ SCH ×2 (08:18→20:28)
--- NOTE | 2018-03-30 16:51 | P.PNIM ---
Subjective Interval history: Patient is currently in no acute distress. She appears to be comfortable lying in bed. Physical Exam Vital signs: Vital Signs 03/29/18 20:00 03/30/18 00:00 03/30/18 04:00 Temperature 98.8 F 99.3 F 99.2 F Pulse Rate 96 H 93 H 86 Respiratory Rate 18 18 18 Blood Pressure 105/58 L 126/58 L 120/62 Pulse Oximetry 97 97 96 03/30/18 08:00 03/30/18 16:32 Temperature 98.0 F 98 F Pulse Rate 82 89 Respiratory Rate 20 20 Blood Pressure 127/60 122/56 L Pulse Oximetry 98 100 Intake & Output 03/29/18 03/30/18 03/30/18 18:59 06:59 18:59 Intake Total 1005 / 1005 1005 / 1005 600 / 600 Output Total 900 / 900 Balance 105 / 105 1005 / 1005 600 / 600 Weight 99.2 kg Intake: IV 1005 / 1005 1005 / 1005 600 / 600 KCl Inj 10 MEQ In 1/2 Normal 1005 / 1005 1005 / 1005 600 / 600 Saline Inj 1,000 ML @ 84 mls/hr IV.CONT .[id number] [facility] Rx#: [id number] Output: Urine 900 / 900 Other: Date of Last Bowel Movement 03/28/18 03/28/18 # Bowel Movements 1 Narrative: Alert and oriented 2, to person and place. General patient in no acute distress HEENT extraocular movements are intact, clear oropharyngeal mucosa, no JVD Cardiovascular S1-S2 audible Respiratory clear to auscultation bilaterally Abdomen soft, nontender, nondistended, normal bowel sounds Extremities no edema, 2+ distal pulses in bilateral upper and lower extremities Neuro patient moves all of her extremities sensation is intact bilaterally - Urinary Catheter Management Indwelling Urethral Catheter Cath placed during this visit: yes, but has since been removed by the nurse Reason for continuing: Not indwelling catheter Insertion date: 03/18/18 Insertion time: 03:00 Removal date: 03/18/18 Removal time: 16:00 Results - Labs CBC & Chem 7: 03/28/18 07:32 03/28/18 07:32 Laboratory Results - last 24 hr 03/29/18 03/29/18 03/30/18 17:26 20:09 04:18 POC Glucose 162 H 208 H 178 H 03/30/18 03/30/18 08:10 11:57 POC Glucose 139 H 239 H Microbiology 03/28/18 17:26 Clean Catch Urine Urine Culture - Final 50-100,000 cfu/mL mixed gram positive sury (probable contaminants) Assessment and Plan - Assessment (1) Weakness Code(s): R53.1 - Weakness Status: Acute - Plan This patient is an 82-year-old female 0-year-old female with a past medical history of previous C. difficile 2, diabetes, dementia, hyperlipidemia, hypertension, hypothyroidism and a known renal mass pending biopsy presents to the emergency department for evaluation of weakness and diarrhea 2 days. 1. Sepsis secondary to C. difficile and UTI. The patient is receiving p.o. vancomycin and was also on Dificid. Dificid was discontinued as per ID recommendations and she is to continue p.o. vancomycin for a total of 6 weeks. Patient's loose stools have improved. Urine culture were growing Ale and Enterobacter. She has received treatment for the UTI aztreonam and fluconazole will be discontinued. Infectious disease will continue to follow the patient will follow up with recommendations from infectious disease. 2. Left renal mass The patient had a left renal mass which was found a few months ago on abdominal imaging. She has blood-tinged urine. MRI results from 2 days ago show a growing left renal mass that measures 7.1 x 5.8 cm which has significantly increased from previous imaging a few months ago. As per the MRI read there is a concern for possible renal cell carcinoma. I will follow-up with heme oncology for recommendations regarding a possible biopsy and how to move forward with the progressively growing mass.. 3. Acute symptomatic anemia likely secondary to hematuria. The patient has a renal mass which is seen on MRI. The hematuria is likely coming from the renal mass. She received 1 unit of PRBC will continue to monitor the patient's hemoglobin levels and give transfusions if needed. We will continue to monitor the patient. 4. Diabetes Continue current diabetes medication regimen 5. Hypertension The patient can be continued on her current medication regimen. 6. Dementia Continue current medication regimen. SCDs for DVT prophylaxis as the patient is having hematuria.
[2018-03-30] MEDS: Latanoprost 0.005% Opth Drops 2.5 ML Bottle EACH EYE SCH (20:31)
[2018-03-31] MEDS: Potassium Chloride Inj 10 MEQ in Sodium Chloride 0.45 % Inj 1,000 ML IV.CONT SCH ×2 (02:41→13:39)
[2018-03-31] MEDS: Insulin NovoLOG Aspart Correctional Sugar Inj SQ SCH ×5 (02:45→21:39)
[2018-03-31 08:06] LABS: Hematocrit 27.3 % (35.0-46.0); Hemoglobin 8.9 gm/dL (11.6-15.3)
[2018-03-31] MEDS: Gabapentin 100 MG Capsule PO SCH ×2 (09:10→21:40)
[2018-03-31] MEDS: hydroCHLOROthiazide 25 MG Tablet PO SCH (09:10)
[2018-03-31] MEDS: amLODIPine 5 MG Tablet PO SCH (09:10)
[2018-03-31] MEDS: Collagenase Oint 30 GM Tube TOPICAL SCH (09:11)
--- NOTE | 2018-03-31 10:27 | P.PNIM ---
Subjective Interval history: The patient is alert and awake. She is responding to my questions appropriately. She says that her daughter will be in the hospital this afternoon. She does not have any complaints this morning. Physical Exam Vital signs: Vital Signs 03/30/18 12:00 03/30/18 16:00 03/30/18 16:32 Temperature 97.9 F 98 F Pulse Rate 86 87 89 Respiratory Rate 20 20 Blood Pressure 129/59 L 122/56 L Pulse Oximetry 98 100 03/30/18 19:56 03/30/18 20:00 03/30/18 23:30 Temperature 97.8 F 98.9 F Pulse Rate 96 H 86 93 H Respiratory Rate 22 18 Blood Pressure 115/59 L 127/59 L Pulse Oximetry 99 100 03/31/18 04:00 03/31/18 08:00 Temperature 98.4 F 98.1 F Pulse Rate 86 90 Respiratory Rate 18 20 Blood Pressure 116/62 117/56 L Pulse Oximetry 100 99 Intake & Output 03/30/18 03/31/18 03/31/18 18:59 06:59 18:59 Intake Total 1365 / 1365 1005 / 1005 Output Total 100 / 100 Balance 1365 / 1365 905 / 905 Weight 100.4 kg Intake: IV 1005 / 1005 1005 / 1005 KCl Inj 10 MEQ In 1/2 Normal 1005 / 1005 1005 / 1005 Saline Inj 1,000 ML @ 84 mls/hr IV.CONT .[id number] [facility] Rx#: [id number] Oral 360 / 360 0 / 0 Output: Urine 100 / 100 Other: # Voids 1 5 Date of Last Bowel Movement 03/28/18 03/30/18 # Bowel Movements 1 0 Narrative: Alert and oriented 2, to person and place. General patient in no acute distress HEENT extraocular movements are intact, clear oropharyngeal mucosa, no JVD Cardiovascular S1-S2 audible Respiratory clear to auscultation bilaterally Abdomen soft, nontender, nondistended, normal bowel sounds Extremities no edema, 2+ distal pulses in bilateral upper and lower extremities - Urinary Catheter Management Indwelling Urethral Catheter Cath placed during this visit: yes, but has since been removed by the nurse Reason for continuing: Not indwelling catheter Insertion date: 03/18/18 Insertion time: 03:00 Removal date: 09/07/18 Removal time: 16:00 Results - Labs CBC & Chem 7: 03/31/18 07:50 03/28/18 07:32 Laboratory Results - last 24 hr 03/30/18 03/30/18 03/30/18 11:57 16:43 19:20 Hgb Hct POC Glucose 239 H 178 H 168 H 03/31/18 03/31/18 03:40 07:50 Hgb 8.9 L Hct 27.3 L POC Glucose 91 Microbiology 03/28/18 17:26 Clean Catch Urine Urine Culture - Final 50-100,000 cfu/mL mixed gram positive sury (probable contaminants) Assessment and Plan - Assessment (1) Weakness Code(s): R53.1 - Weakness Status: Acute - Plan This patient is an 82-year-old female 0-year-old female with a past medical history of previous C. difficile 2, diabetes, dementia, hyperlipidemia, hypertension, hypothyroidism and a known renal mass pending biopsy presents to the emergency department for evaluation of weakness and diarrhea 2 days. 1. Sepsis secondary to C. difficile and Enterobacter UTI. The patient is receiving p.o. vancomycin and the patient's WBC count has showed downtrend most recent WBC count was around 20. I will follow up with today's CBC. As per infectious disease recommendations the patient will be continued on vancomycin for a total of 6 weeks. Urine culture were growing Ale and Enterobacter. She has completed treatment for the UTI. If the patient starts to have significant improvement in her WBC count she will possibly be discharged to a shelter facility tomorrow. 2. Left renal mass The patient had a left renal mass which was found a few months ago on abdominal imaging. She has blood-tinged urine. MRI results from 2 days ago show a growing left renal mass that measures 7.1 x 5.8 cm which has significantly increased from previous imaging a few months ago. As per the MRI read there is a concern for possible renal cell carcinoma. The patient is at high risk of bleeding if a kidney biopsy is done. Heme oncology is also following the patient. The family is still thinking about whether to proceed with a kidney biopsy or not. 3. Acute symptomatic anemia likely secondary to hematuria. No significant recent drop in the patient's hemoglobin level currently it is around 8.9. We will continue to monitor the patient's hemoglobin level. 4. Diabetes Continue current diabetes medication regimen 5. Hypertension The patient can be continued on her current medication regimen. 6. Dementia Continue current medication regimen. SCDs for DVT prophylaxis as the patient is having hematuria.
[2018-03-31 11:31] LABS: Baso # (Auto) 0.1 th/mm3 (0.0-0.2); Baso % (Auto) 0.5 % (0.0-2.0); Eos # (Auto) 0.1 th/mm3 (0.0-0.4); Eos % (Auto) 0.9 % (0.0-4.0); Hematocrit 26.6 % (35.0-46.0); Hemoglobin 8.5 gm/dL (11.6-15.3); Lymph # (Auto) 1.9 th/mm3 (1.0-4.8); Lymph % (Auto) 12.1 % (9.0-44.0); Mean Corpuscular HGB Conc 31.7 % (32.0-36.0); Mean Corpuscular Hemoglobin 28.5 pg (27.0-34.0); Mean Corpuscular Volume 89.8 fL (80.0-100.0); Mean Platelet Volume 8.1 fL (7.0-11.0); Mono # (Auto) 1.1 th/mm3 (0.0-0.9); Mono % (Auto) 6.8 % (0.0-8.0); Neut # (Auto) 12.8 th/mm3 (1.8-7.7); Neut % (Auto) 79.7 % (16.0-70.0); Platelet Count 366 th/mm3 (150-450); Red Blood Count 2.97 mil/mm3 (4.00-5.30); Red Cell Distribution Width 16.6 % (11.6-17.2)
[2018-03-31] MEDS: Insulin Detemir Inj 1,000 UNIT/10 ML Vial SQ SCH ×2 (12:34→21:39)
--- NOTE | 2018-03-31 13:24 | P.PNID ---
Subjective Remarks: Patient states that she feels okay. Daughter at bedside. Afebrile. Stools are pasty. Denies abdominal pain. White blood cell count remains elevated but lower. Abdomen MRI noted. Daughter concerned about renal mass. This is an 82-year-old black female who presented to the emergency department on 03/17/2018 with nausea, vomiting and diarrhea. The patient had been treated with metronidazole for C. difficile infection along with cefuroxime for urine infection during a recent hospitalization at the end of December. The patient's daughter states that she completed the antibiotics and then she was hospitalized again at [facility] and was again treated for C. difficile. It appears that she was given vancomycin and completed the vancomycin 2 weeks' duration 1 week ago. Daughter note that she was having loose stools off and in between she would have no stools for about a day between. The daughter brought her to the emergency department because of the nausea, vomiting and diarrhea. Past Medical History: PAST MEDICAL HISTORY: Hypertension, diabetes mellitus, hypercholesterolemia, history of hysterectomy, dementia, renal mass. Allergies/Adverse Reactions: Allergies Penicillins Allergy (Intermediate, Verified 03/18/18 01:36) Swelling Objective Vital Signs 03/30/18 16:00 03/30/18 16:32 03/30/18 19:56 Temperature 98 F 97.8 F Pulse Rate 87 89 96 H Respiratory Rate 20 22 Blood Pressure 122/56 L 115/59 L Pulse Oximetry 100 99 03/30/18 20:00 03/30/18 23:30 03/31/18 04:00 Temperature 98.9 F 98.4 F Pulse Rate 86 93 H 86 Respiratory Rate 18 18 Blood Pressure 127/59 L 116/62 Pulse Oximetry 100 100 03/31/18 08:00 Temperature 98.1 F Pulse Rate 90 Respiratory Rate 20 Blood Pressure 117/56 L Pulse Oximetry 99 Intake & Output 03/30/18 03/31/18 03/31/18 18:59 06:59 18:59 Intake Total 1365 / 1365 1005 / 1005 Output Total 100 / 100 Balance 1365 / 1365 905 / 905 Weight 100.4 kg Intake: IV 1005 / 1005 1005 / 1005 KCl Inj 10 MEQ In 1/2 Normal 1005 / 1005 1005 / 1005 Saline Inj 1,000 ML @ 84 mls/hr IV.CONT .[id number] [facility] Rx#: [id number] Oral 360 / 360 0 / 0 Output: Urine 100 / 100 Other: # Voids 1 5 Date of Last Bowel Movement 03/28/18 03/30/18 # Bowel Movements 1 0 03/28/18 17:26 Clean Catch Urine Urine Culture - Final 50-100,000 cfu/mL mixed gram positive sury (probable contaminants) Lab - Hematology Results 03/31/18 03/31/18 07:50 11:01 WBC 16.0 H RBC 2.97 L Hgb 8.9 L 8.5 L Hct 27.3 L 26.6 L MCV 89.8 MCH 28.5 MCHC 31.7 L RDW 16.6 Plt Count 366 MPV 8.1 Neut % (Auto) 79.7 H Lymph % (Auto) 12.1 [place] % (Auto) 6.8 Eos % (Auto) 0.9 Baso % (Auto) 0.5 Neut # (Auto) 12.8 H Lymph # (Auto) 1.9 [place] # (Auto) 1.1 H Eos # (Auto) 0.1 Baso # (Auto) 0.1 WBC Differential . Differential Comment Auto diff final Lab - Chemistry Results 03/29/18 03/29/18 03/30/18 17:26 20:09 04:18 POC Glucose 162 H 208 H 178 H 03/30/18 03/30/18 03/30/18 08:10 11:57 16:43 POC Glucose 139 H 239 H 178 H 03/30/18 03/31/18 03/31/18 19:20 03:40 12:53 POC Glucose 168 H 91 173 H Imaging: ITS Impressions Chest X-Ray 03/17/18 21:00 CONCLUSION: 1. No acute cardiopulmonary disease. 2. Degenerative changes and scoliosis of the thoracolumbar spine. Abdomen MRI 03/28/18 00:00 CONCLUSION: 1. Increasing size of left renal mass with heterogeneous enhancement most characteristic of an enlarging renal neoplasm measuring up to 7.1 cm in maximal diameter. Previous maximal measurement was approximately 4.8 cm. 2. Development of small bilateral pleural effusions with basilar atelectasis in the lungs. Physical Exam: PHYSICAL EXAMINATION: GENERAL: No acute distress. Awake and alert and oriented. HEENT: Head is atraumatic. Extraocular movements grossly intact. Pupils reactive to light, without icterus. Oropharynx moist mucosa without lesions. NECK: Supple without adenopathy. LUNGS: Clear to auscultation. HEART: Irregular rate and rhythm. No murmurs, rubs or gallops. ABDOMEN: Bowel sounds present. Soft, nontender. EXTREMITIES: No clubbing or cyanosis. Trace edema of the lower extremities. Left ankle/heel ulceration appears clean. SKIN: No diffuse rash. NEUROLOGIC: Nonfocal. PSYCHIATRIC: Calm and cooperative. Assessment and Plan - Plan IMPRESSION: 1. Sepsis. 2. Clostridium difficile colitis, recurrent. Stools improving. 3. Urinary tract infection. Repeat urine culture shows Ale and decreased colony count of gram-negative vianey. 4. Left renal mass, yet to be yet to be biopsied. Increased size on MRI. 5. Acute on chronic kidney disease. The patient also may have dehydration contributing to decreasing kidney function. Renal function has improved. RECOMMENDATIONS: Continue p.o. vancomycin 6 week taper from today. week 1: 125 mg QID. week 2: 125 mg BID. week 3: 125 mg QD. week 4: 125 mg Every other day. week 5&6: 125 mg Every third day. Discussed renal mass status with radiology. Radiologist to discuss status with patient's daughter. She can be discharged to rehab. pending decision on renal mass from my standpoint.
--- NOTE | 2018-03-31 15:42 | P.DS ---
Date of admission: 03/18/18 02:08 Primary care physician: UNKNOWN Brief History from admission: 82-year-old female with a past medical history of previous C. difficile 2, diabetes, dementia, hyperlipidemia, hypertension, hypothyroidism and a known renal mass pending biopsy presents to the emergency department for evaluation of weakness and diarrhea 2 days. The patient's daughter reports that the patient started to become weak approximately 2 days ago although she attributed this to the patient fasting for routine blood work. She reports she is unable to tell if there is any change in her mother's mental status given that she is demented at baseline. She reports that she has been chilled recently although this is at baseline. Does not know if the patient has had any fevers. The patient denies any pain although given her mental status she is not the best historian. The patient completed oral vancomycin therapy for C. difficile approximately 4 weeks ago. DS: Diagnosis - Discharge Diagnosis (1) Weakness Status: Acute (2) C. difficile diarrhea Status: Acute DS: Summary Hospital Course: This patient is an 82-year-old female 0-year-old female with a past medical history of previous C. difficile 2, diabetes, dementia, hyperlipidemia, hypertension, hypothyroidism and a known renal mass pending biopsy presents to the emergency department for evaluation of weakness and diarrhea 2 days prior to admission.. 1. Sepsis secondary to C. difficile and Enterobacter UTI. The patient is receiving p.o. vancomycin and the patient's WBC count has showed downtrend most recent WBC count was around 20. I will follow up with today's CBC. As per infectious disease recommendations the patient will be continued on vancomycin for a total of 6 weeks. Urine culture were growing Ale and Enterobacter. She has completed treatment for the UTI. The patient's WBC count continues to down trend and is at 16 today. I have discussed the case with the infectious disease specialist today and the patient will be [facility] today. 2. Left renal mass The patient had a left renal mass which was found a few months ago on abdominal imaging. She has blood-tinged urine. MRI results from 2 days ago show a growing left renal mass that measures 7.1 x 5.8 cm which has significantly increased from previous imaging a few months ago. As per the MRI read there is a concern for possible renal cell carcinoma. I discussed the case with Dr. Everett from interventional radiology today. He had a discussion with the patient and her daughter regarding the patient's current condition and overall prognosis. The daughter has agreed not to move forward with the renal biopsy. The patient' s daughter is considering the idea of moving forward with hospice care. 3. Acute symptomatic anemia likely secondary to hematuria. No significant recent drop in the patient's hemoglobin. We will continue to monitor the patient's hemoglobin level. 4. Diabetes Continue current diabetes medication regimen 5. Hypertension The patient can be continued on her current medication regimen. 6. Dementia Continue current medication regimen. SCDs for DVT prophylaxis as the patient is having hematuria. - Time Spent with Patient Total time spent providing and/or coordinating discharge services: Greater than 30 minutes - Quality: VTE Deep Vein Thrombosis/Pulmonary Embolism Present on Admission: No Exam Vital signs: Vital Signs 03/30/18 16:00 03/30/18 16:32 03/30/18 19:56 Temperature 98 F 97.8 F Pulse Rate 87 89 96 H Respiratory Rate 20 22 Blood Pressure 122/56 L 115/59 L Pulse Oximetry 100 99 03/30/18 20:00 03/30/18 23:30 03/31/18 04:00 Temperature 98.9 F 98.4 F Pulse Rate 86 93 H 86 Respiratory Rate 18 18 Blood Pressure 127/59 L 116/62 Pulse Oximetry 100 100 03/31/18 08:00 03/31/18 12:00 Temperature 98.1 F 97.9 F Pulse Rate 90 90 Respiratory Rate 20 20 Blood Pressure 117/56 L 120/58 L Pulse Oximetry 99 99 Intake & Output 03/30/18 03/31/18 03/31/18 18:59 06:59 18:59 Intake Total 1365 / 1365 1005 / 1005 Output Total 100 / 100 Balance 1365 / 1365 905 / 905 Weight 100.4 kg Intake: IV 1005 / 1005 1005 / 1005 KCl Inj 10 MEQ In 1/2 Normal 1005 / 1005 1005 / 1005 Saline Inj 1,000 ML @ 84 mls/hr IV.CONT .[id number] [facility] Rx#: [id number] Oral 360 / 360 0 / 0 Output: Urine 100 / 100 Other: # Voids 1 5 Date of Last Bowel Movement 03/28/18 03/30/18 # Bowel Movements 1 0 Results Procedures completed during hospitalization: None Labs on day of discharge: Labs from last 24 hours 03/31/18 03/31/18 03/31/18 12:53 11:01 07:50 WBC 16.0 H RBC 2.97 L Hgb 8.5 L 8.9 L Hct 26.6 L 27.3 L MCV 89.8 MCH 28.5 MCHC 31.7 L RDW 16.6 Plt Count 366 MPV 8.1 Neut % (Auto) 79.7 H Lymph % (Auto) 12.1 [place] % (Auto) 6.8 Eos % (Auto) 0.9 Baso % (Auto) 0.5 Neut # (Auto) 12.8 H Lymph # (Auto) 1.9 [place] # (Auto) 1.1 H Eos # (Auto) 0.1 Baso # (Auto) 0.1 WBC Differential . Differential Comment Auto diff final POC Glucose 173 H 03/31/18 03/30/18 03/30/18 03:40 19:20 16:43 WBC RBC Hgb Hct MCV MCH MCHC RDW Plt Count MPV Neut % (Auto) Lymph % (Auto) [place] % (Auto) Eos % (Auto) Baso % (Auto) Neut # (Auto) Lymph # (Auto) [place] # (Auto) Eos # (Auto) Baso # (Auto) WBC Differential Differential Comment POC Glucose 91 168 H 178 H - Impressions ITS Impressions Chest X-Ray 03/17/18 21:00 CONCLUSION: 1. No acute cardiopulmonary disease. 2. Degenerative changes and scoliosis of the thoracolumbar spine. Abdomen MRI 03/28/18 00:00 CONCLUSION: 1. Increasing size of left renal mass with heterogeneous enhancement most characteristic of an enlarging renal neoplasm measuring up to 7.1 cm in maximal diameter. Previous maximal measurement was approximately 4.8 cm. 2. Development of small bilateral pleural effusions with basilar atelectasis in the lungs. Discharge Plan - Discharge Disposition Patient Disposition: 64 Rehab Inpatient - Discharge Condition Condition: Fair - Discharge Order Discharge Orders: Discharge Order (Routine); Ordered 03/31/18 Ordered By: Dain Bearden - Discharge Details Anticipated Discharge Date: 03/18/18 - Physicians Team Primary Care Provider: UNKNOWN, Attending Provider: Dain Bearden Other Providers: Clifton Meneses MD ; Sabas Dean MD
[2018-03-31] MEDS: Latanoprost 0.005% Opth Drops 2.5 ML Bottle EACH EYE SCH (21:40)
[2018-04-01 02:56] VITALS: O2SAT 99
[2018-04-01] MEDS: Insulin NovoLOG Aspart Correctional Sugar Inj SQ SCH ×4 (03:25→19:22)
[2018-04-01] MEDS: Potassium Chloride Inj 10 MEQ in Sodium Chloride 0.45 % Inj 1,000 ML IV.CONT SCH ×2 (04:49→19:22)
[2018-04-01] MEDS: Gabapentin 100 MG Capsule PO SCH (08:31)
[2018-04-01] MEDS: hydroCHLOROthiazide 25 MG Tablet PO SCH (08:31)
[2018-04-01] MEDS: amLODIPine 5 MG Tablet PO SCH (08:31)
[2018-04-01] MEDS: Collagenase Oint 30 GM Tube TOPICAL SCH (08:32)
[2018-04-01] MEDS: Insulin Detemir Inj 1,000 UNIT/10 ML Vial SQ SCH (08:33)
[2018-04-01 12:26] VITALS: BP 140/52; RESP 22; TEMP 98
--- NOTE | 2018-04-01 13:51 | P.PNIM ---
Subjective Interval history: Patient is currently sitting upright in bed. She is tolerating a p.o. diet. She does not have any current complaints. Physical Exam Vital signs: Vital Signs 03/31/18 16:00 03/31/18 20:00 04/01/18 00:00 Temperature 98.3 F 98.5 F 98.3 F Pulse Rate 94 H 81 86 Respiratory Rate 20 16 20 Blood Pressure 118/58 L 118/57 L 129/59 L Pulse Oximetry 97 98 99 04/01/18 04:00 04/01/18 08:00 04/01/18 12:00 Temperature 98 F 98.6 F 98.0 F Pulse Rate 85 87 85 Respiratory Rate 18 22 Blood Pressure 131/65 130/65 140/52 L Pulse Oximetry 99 99 99 Intake & Output 03/31/18 04/01/18 04/01/18 18:59 06:59 18:59 Intake Total 480 / 480 1485 / 1485 Output Total 2300 / 2300 Balance 480 / 480 -815 / -815 Weight 100.4 kg Intake: IV 1005 / 1005 KCl Inj 10 MEQ In 1/2 Normal 1005 / 1005 Saline Inj 1,000 ML @ 84 mls/hr IV.CONT .[id number] COUNT INCLUDES THE [facility] Rx#: [id number] Oral 480 / 480 480 / 480 Output: Urine 1000 / 1000 Stool 300 / 300 Urine/Stool Mix 1000 / 1000 Other: # Voids 1 1 # Incontinent Voids 1 Date of Last Bowel Movement 03/30/18 03/31/18 03/31/18 # Bowel Movements 1 1 # Incontinent Bowel Movements 3 Narrative: Alert and oriented 2, to person and place. General patient in no acute distress HEENT extraocular movements are intact, clear oropharyngeal mucosa, no JVD Cardiovascular S1-S2 audible Respiratory clear to auscultation bilaterally Abdomen soft, nontender, nondistended, normal bowel sounds Extremities no edema, 2+ distal pulses in bilateral upper and lower extremities - Urinary Catheter Management Indwelling Urethral Catheter Cath placed during this visit: yes, but has since been removed by the nurse Reason for continuing: Not indwelling catheter Insertion date: 03/18/18 Insertion time: 03:00 Removal date: 03/18/18 Removal time: 16:00 Results - Labs CBC & Chem 7: 03/31/18 11:01 03/28/18 07:32 Laboratory Results - last 24 hr 03/31/18 04/01/18 04/01/18 21:28 03:23 08:03 POC Glucose 185 H 145 H 65 L 04/01/18 12:04 POC Glucose 210 H - Procedures None Assessment and Plan - Assessment (1) Weakness Code(s): R53.1 - Weakness Status: Acute (2) C. difficile diarrhea Code(s): A04.72 - Enterocolitis due to Clostridium difficile, not specified as recurrent Status: Acute - Plan This patient is an 82-year-old female with a past medical history of previous C. difficile 2, diabetes, dementia, hyperlipidemia, hypertension, hypothyroidism and a known renal mass pending biopsy presents to the emergency department for evaluation of weakness and diarrhea 2 days prior to admission.. 1. Sepsis secondary to C. difficile and Enterobacter UTI. The patient is receiving p.o. vancomycin and the patient's WBC count has showed downtrend most recent WBC count was around 20. I will follow up with today's CBC. As per infectious disease recommendations the patient will be continued on vancomycin for a total of 6 weeks. Urine culture were growing Ale and Enterobacter. She has completed treatment for the UTI. The patient's WBC count continues to down trend and is at 16 today. I have discussed the case with the infectious disease specialist today and the patient will be discharged home with home health. 2. Left renal mass The patient had a left renal mass which was found a few months ago on abdominal imaging. She has blood-tinged urine. MRI results from 2 days ago show a growing left renal mass that measures 7.1 x 5.8 cm which has significantly increased from previous imaging a few months ago. As per the MRI read there is a concern for possible renal cell carcinoma. I discussed the case with Dr. Everett from interventional radiology today. He had a discussion with the patient and her daughter regarding the patient's current condition and overall prognosis. The daughter has agreed not to move forward with the renal biopsy. The patient' s daughter is considering the idea of moving forward with hospice care. 3. Acute symptomatic anemia likely secondary to hematuria. No significant recent drop in the patient's hemoglobin. We will continue to monitor the patient's hemoglobin level. 4. Diabetes Continue current diabetes medication regimen 5. Hypertension The patient can be continued on her current medication regimen. 6. Dementia Continue current medication regimen. SCDs for DVT prophylaxis as the patient is having hematuria.
[2018-04-01 20:17] VITALS: PULSE 84
== END 2018-04-01 17:30 ==
LOC: NEPE 20:44 → NEDA 03-18 02:08 → N04 03-18 06:30
PROVIDERS: ADMIT Hospitalist; ATTEND Hospitalist